=== PATIENT | female | born 1980 | race Two or more races ===

== ENCOUNTER 2024-10-26 22:56 | Emergency (ER) | payer SELFPAY ==
[~2024-10-26] VITALS: Ht 152.4 cm; Wt 94.6 kg
[2024-10-26 23:12] VITALS: BP 112/64; PULSE 127; RESP 18; O2SAT 94
[2024-10-26] MEDS ORDERED: ONDANSETRON ODT 4 MG TAB PO ONE (23:15)
[2024-10-26] MEDS ORDERED: DICYCLOMINE HCL (10MG/ML) 2 ML AMPULE IM ONE (23:30)
--- NOTE | 2024-10-26 23:30 | ED.PDOC ---
History of Present Illness HPI Comments 44-year-old female came to ER due to flu-like symptoms. States she has been sick for the past 3 days, with flu-like symptoms, including fever, chills, weakness, myalgia, headaches, dizziness, cough, congestion, shortness of breath, chest discomfort, nausea, vomiting, loss of appetite. Vital signs were stable at arrival. Chief Complaint: Flu like Time Seen by MD: 23:30 Reviewed Notes: Nurses Notes Allergies: Coded Allergies: NO KNOWN ALLERGIES (Unverified , 10/26/24) Information Source: Patient Mode of Arrival: EMS Severity: Moderate Timing: Hours Duration: Since onset Prehospital treatment: None Past Medical History PAST MEDICAL HISTORY: Denies Surgical History: Denies all surgeries SUSTAINABILITY ENGINEER History: Denies all SUSTAINABILITY ENGINEER Hx Family History Family History: Reviewed,noncontributory to illness Social History Smoker: Non-Smoker Alcohol: Denies ETOH Use Drugs: Denies Drug Use Lives In: Home Constitutional: reports: chills, fatigue, fever, malaise, weakness; denies: diaphoresis, sweats, others EENTM: reports: nose congestion; denies: blurred vision, double vision, ear bleeding, ear discharge, ear drainage, ear pain, ear ringing, eye pain, eye redness, hearing loss, mouth pain, mouth swelling, nasal discharge, nose bleeding, nose pain, photophobia, tearing, throat pain, throat swelling, voice changes, others Respiratory: reports: cough, SOB at rest; denies: hemoptysis, orthopnea, shortness of breath, SOB with excertion, stridor, wheezing, others Cardiovascular: reports: chest pain; denies: dizzy spells, diaphoresis, Dyspnea on exertion, edema, irregular heart beat, left arm pain, lightheadedness, palpitations, PND, syncope, others Gastrointestinal: reports: abdominal pain, nausea, poor appetite, vomiting; denies: abdomen distended, blood streaked bowels, constipated, diarrhea, dysphagia, difficulty swallowing, hematemesis, melena, poor fluid intake, rectal bleeding, rectal pain, others Genitourinary: denies: abnormal vagina bleeding, burning, dyspareunia, dysuria, flank pain, frequency, hematuria, incontinence, pain, , vagina discharge, urgency, others Neurological: denies: dizziness, fainting, headache, left sided numbness, left sided weakness, numbness, paresthesia, pre-existing deficit, right sided numbness, right sided weakness, seizure, speech problems, tingling, tremors, weakness, others Musculoskeletal: denies: back pain, gout, joint pain, joint swelling, muscle pain, muscle stiffness, neck pain, others Integumetry: denies: bruises, change in color, change in hair/nails, dryness, laceration, lesions, lumps, rash, wounds, others Allergic/Immunocompromised: denies: Difficulty Healing, Frequent Infections, Hives, Itching, others Hematologic/Lymphatic: denies: anemia, blood clots, easy bleeding, easy bruising, swollen glands, others Endocrine: denies: excessive hunger, excessive sweating, excessive thirst, excessive urination, flushing, intolerance to cold, intolerance to heat, unexplained weight gain, unexplained weight loss, others Psychiatric: denies: anxiety, bipolar disorder, depression, hopeless, panic disorder, schizophrenia, sleepless, suicidal, others Physical Exam General Appearance: Moderate Distress (Patient presents as a moderately ill 44-year-old female.), Obese HEENT: Normal ENT Inspection, Pharynx Normal, TMs Normal Neck: Full Range of Motion, Non-Tender, Normal, Normal Inspection Respiratory: Chest Non-Tender, Lungs Clear, No Accessory Muscle Use, No Respiratory Distress, Normal Breath Sounds Cardiovascular: No Edema, No JVD, No Murmur, No Gallop, Normal Peripheral Pulses, Regular Rate/Rhythm Breast Exam: Deferred Gastrointestinal: No Pulsatile Mass, Normal Bowel Sounds, Soft, Tenderness (Diffuse abdominal tenderness to palpation throughout the periumbilical region. No signs of trauma. Difficult to assess due to body habitus.) Genitalia: Deferred Pelvic: Deferred Rectal: Deferred Extremities: No calf tenderness, Normal capillary refill, Normal inspection, Normal range of motion, Non-tender, No pedal edema Musculoskeletal : Apperance: Normal Neurologic: Alert, No Motor Deficits, Normal Affect, Normal Mood, No Sensory Deficits Cerebellar Function: Normal Reflexes: Normal Skin: Dry, Normal Color, Warm Lymphatic: No Adenopathy Was a procedure done? Was a procedure done?: No Differential Dx Considerations may include: Anemia, electrolyte imbalance, influenza, viral syndrome, gastritis, pneumonia X-Ray, Labs, Meds, VS Vital Signs Date Time Temp Pulse Resp B/P (MAP) Pulse Ox O2 Delivery O2 Flow Rate FiO2 10/26/24 23:12 98.7 127 18 112/64 (80) 94 X-Ray, Labs, Meds, VS Comment Nursing and laboratory cane immediate to informed me that the patient had eloped from the facility. Time of 1ST Reevaluation: 01:42 Reevaluation 1ST: Unchanged Consultation: PCP Patient Education/Counseling: Diagnosis, Treatment Family Education/Counseling: Diagnosis, Treatment, No Family Present Departure 1 Departure Time of Disposition: 01:43 Impression: Primary Impression: Viral illness Disposition: 07 LEFT AWOL/ELOPED Condition: Fair Discharged With: Self Critical Care Note Critical Care Time?: No Stability Stability form required: No Heart Score Heart Score: Heart Score Response (Comments) Value History N/A 0 EKG N/A 0 Age N/A 0 Risk Factors N/A 0 Troponin N/A 0 Total 0 I personally scribed for ALFREDO DASH PAC ([email or web address]) on 10/26/24 at 23:30. Electronically submitted by Sekou Abraham ([email or web address]). ALFREDO DASH PAC Oct 26, 2024 23:30
== END 2024-10-27 01:25 | disposition left against medical advice (07) ==
LOC: ER 22:56
DX: B34.9 Viral infection, unspecified (principal)

== ENCOUNTER 2025-01-18 21:11 | Inpatient (IN) | payer MEDICAID ==
[~2025-01-18] VITALS: Ht 152.4 cm; Wt 90.7 kg
[~2025-01-18 21:11] MED LIST: AMOX875T4 PO; BENA-36 PO; PANT40T PO; SUCR1TAB31 OR
[2025-01-18 22:06] LABS: Hematocrit 30.7 % (36.0-46.0); Hemoglobin 9.9 g/dL (12.2-16.2); Mean Corpuscular Hemoglobin 34.6 pg (28.0-32.0); Mean Corpuscular Hgb Conc. 32.3 g/dL (32.0-36.0); Mean Corpuscular Volume 107.1 fL (80.0-100.0); Platelet Count (auto) 317 10^3/uL (140-450); Red Blood Cells 2.87 10^6/uL (4.0-5.20)
[2025-01-18 22:21] LABS: Red Cell Distribution Width 22.3 % (11.8-14.3)
[2025-01-18 22:22] LABS: Basophils % (manual) 0 (0.0-2.0); Blast Cells 0; Promyelocytes % 0; Reactive Lymphocytes 0; White Blood Cell 68.5 10^3/uL (4.4-10.8)
--- NOTE | 2025-01-18 22:29 | DVH ---
CHEST RADIOGRAPH Indication: Shortness of breath Technique: Single frontal view of the chest was obtained Comparison: XY CHEST XRAY 1 VIEW on DOS: 12/25/24 FINDINGS: Lines and Tubes: None Lungs: No focal consolidation. Pleura: No effusion. No pneumothorax. Cardiomediastinal contours: Unremarkable Bones: No acute osseous abnormality. IMPRESSION: 1. No acute cardiopulmonary disease.
[2025-01-18] MEDS ORDERED: VANCOMYCIN PER PHARMACY 0 MG IV SCH (22:30)
[2025-01-18 22:37] LABS: Chloride 107 mmol/L (98-107); Potassium 3.8 mmol/L (3.5-5.1)
[2025-01-18 22:40] VITALS: PULSE 90; RESP 16; O2SAT 98
[2025-01-18 22:48] LABS: BUN/Creatinine Ratio 21.1 (10.0-20.0)
--- NOTE | 2025-01-18 22:48 | ED.PDOC ---
History of Present Illness HPI Comments This patient is a 44-year-old morbidly obese female who arrives the ED today for evaluation of generalized weakness concerns for the past few days. Patient is extremely jaundiced and icteric due to her liver cirrhosis. Patient has not followed up with a softball player or followed up with the primary care for m anagement of this condition. Patient denies any fever nausea or vomiting. Vital signs were remarkable for mild hypotension on arrival. Chief Complaint: General Weakness Time Seen by MD: 21:27 Primary Care Provider: NONE Reviewed Notes: Nurses Notes Allergies: Coded Allergies: NO KNOWN ALLERGIES (Unverified , 10/26/24) Home Meds Active Scripts Amoxicillin & Pot Clavulanate (Amoxicillin/Potassium Cla) 875 Mg Tab, 1 TAB PO BID for 10 Days, #20 [facility] 12/28/24 Sucralfate (CARAFATE) 1 Gm Tab, 1 GM OR TID for 21 Days, #63 TAB [facility] 12/28/24 Pantoprazole Sodium Sesquihydr (Pantoprazole Sodium) 40 Mg Tab, 40 MG PO DAILY for 30 Days, #30 TAB [facility] 12/28/24 Reported Medications Benazepril Hcl (Benazepril Hcl) 20 Mg Tab, 1 TAB PO DAILY 12/26/24 Information Source: Patient Mode of Arrival: Wheelchair Severity: Moderate Timing: Days Duration: Since onset Prehospital treatment: None Past Medical History PAST MEDICAL HISTORY: Liver, Denies Past Medical History (Other): Cirrhosis Surgical History: Cholecystectomy ELECTRICAL INSTRUMENTATION TECHNICIAN History: Denies all ELECTRICAL INSTRUMENTATION TECHNICIAN Hx Family History Family History: Reviewed,noncontributory to illness Social History Smoker: Non-Smoker Alcohol: Denies ETOH Use Drugs: Denies Drug Use Lives In: Home Constitutional: reports: fatigue, weakness; denies: chills, diaphoresis, fever, malaise, sweats, others EENTM: denies: blurred vision, double vision, ear bleeding, ear discharge, ear drainage, ear pain, ear ringing, eye pain, eye redness, hearing loss, mouth pain, mouth swelling, nasal discharge, nose bleeding, nose congestion, nose pain, photophobia, tearing, throat pain, throat swelling, voice changes, others Respiratory: denies: cough, hemoptysis, orthopnea, SOB at rest, shortness of breath, SOB with excertion, stridor, wheezing, others Cardiovascular: denies: chest pain, dizzy spells, diaphoresis, Dyspnea on exertion, edema, irregular heart beat, left arm pain, lightheadedness, palpitations, PND, syncope, others Gastrointestinal: denies: abdomen distended, abdominal pain, blood streaked bowels, constipated, diarrhea, dysphagia, difficulty swallowing, hematemesis, melena, nausea, poor appetite, poor fluid intake, rectal bleeding, rectal pain, vomiting, others Genitourinary: denies: abnormal vagina bleeding, burning, dyspareunia, dysuria, flank pain, frequency, hematuria, incontinence, pain, , vagina discharge, urgency, others Neurological: reports: dizziness; denies: fainting, headache, left sided numbness, left sided weakness, numbness, paresthesia, pre-existing deficit, right sided numbness, right sided weakness, seizure, speech problems, tingling, tremors, weakness, others Musculoskeletal: denies: back pain, gout, joint pain, joint swelling, muscle pain, muscle stiffness, neck pain, others Integumetry: denies: bruises, change in color, change in hair/nails, dryness, laceration, lesions, lumps, rash, wounds, others Allergic/Immunocompromised: denies: Difficulty Healing, Frequent Infections, Hives, Itching, others Hematologic/Lymphatic: denies: anemia, blood clots, easy bleeding, easy bruising, swollen glands, others Endocrine: denies: excessive hunger, excessive sweating, excessive thirst, excessive urination, flushing, intolerance to cold, intolerance to heat, unexplained weight gain, unexplained weight loss, others Psychiatric: denies: anxiety, bipolar disorder, depression, hopeless, panic disorder, schizophrenia, sleepless, suicidal, others Physical Exam General Appearance: Moderate Distress ( patient appears to be in moderate distress due to weakness concerns.), Obese HEENT: Pharynx Normal, Scleral Icterus (L), Scleral Icterus (R), TMs Normal Neck: Full Range of Motion, Non-Tender, Normal, Normal Inspection Respiratory: Chest Non-Tender, Lungs Clear, No Accessory Muscle Use, No Respiratory Distress, Normal Breath Sounds Cardiovascular: No Edema, No JVD, No Murmur, No Gallop, Normal Peripheral Pulses, Regular Rate/Rhythm Breast Exam: Deferred Gastrointestinal: No Pulsatile Mass, Normal Bowel Sounds, Soft, Other ( Difficult to assess due to body habitus. No definitive pain on palpation in any other region than the right upper quadrant.) Genitalia: Deferred Pelvic: Deferred Rectal: Deferred Extremities: NOT DONE Neurologic: Alert, No Motor Deficits, Normal Affect, Normal Mood, No Sensory Deficits Cerebellar Function: NOT DONE Reflexes: NOT DONE Skin: Dry, Normal Color, Warm Lymphatic: No Adenopathy Was a procedure done? Was a procedure done?: No Differential Dx Considerations may include: Sepsis, electrolyte abnormality, liver cirrhosis, generalized weakness, renal injury X-Ray, Labs, Meds, VS Vital Signs Date Time Temp Pulse Resp B/P (MAP) Pulse Ox O2 Delivery O2 Flow Rate FiO2 01/18/25 22:46 87 01/18/25 21:38 97.6 91 16 99/61 (74) 100 97.6 Lab Test 01/18/25 21:44 Range/Units White Blood Count 68.5 *H 4.4-10.8 10^3/uL Red Blood Count 2.87 L 4.0-5.20 10^6/uL Hemoglobin 9.9 L 12.2-16.2 g/dL Hematocrit 30.7 L 36.0-46.0 % Mean Corpuscular Volume 107.1 H 80.0-100.0 fL Mean Corpuscular Hemoglobin 34.6 H 28.0-32.0 pg Mean Corpuscular Hemoglobin Concent 32.3 32.0-36.0 g/dL Red Cell Distribution Width 22.3 H 11.8-14.3 % Platelet Count 317 140-450 10^3/uL Mean Platelet Volume 11.0 H 6.9-10.8 fL Neutrophils (%) (Auto) 37.0-80.0 % Lymphocytes (%) (Auto) 10.0-50.0 % Monocytes (%) (Auto) 0.0-12.0 % Basophils (%) (Auto) 0.0-2.0 % Neutrophils # (Auto) 1.6-8.6 10 ^3/uL Lymphocytes # (Auto) 0.4-5.4 10 ^3/uL Monocytes # (Auto) 0-1.3 10 ^3/uL Differential Total Cells Counted Pending Neutrophils % (Manual) Pending Band Neutrophils % (Manual) Pending Lymphocytes % (Manual) Pending Monocytes % (Manual) Pending Eosinophils % (Manual) Pending Basophils % (Manual) Pending Metamyelocytes % (manual) Pending Myelocytes % (Manual) Pending Promyelocytes % (Manual) Pending Blast Cells % (Manual) Pending Reactive Lymphocytes Pending Platelet Estimate Pending Sodium Level Pending Potassium Level Pending Chloride Level Pending Carbon Dioxide Level Pending Anion Gap Pending Blood Urea Nitrogen Pending Creatinine Pending Glomerular Filtration Rate Calc Pending BUN/Creatinine Ratio Pending Serum Glucose Pending Lactic Acid Level 1.3 0.4-2.0 mmol/L Calcium Level Pending Total Bilirubin Pending Aspartate Amino Transferase (AST) Pending Alanine Aminotransferase (ALT) Pending Alkaline Phosphatase Pending Troponin I High Sensitivity 10 </=34 ng/L B-Type Natriuretic Peptide Pending Total Protein Pending Albumin Pending Lipase Pending X-Ray, Labs, Meds, VS Comment Several studies were pending at time of this note. EKG revealed a sinus rhythm with a rate of 87. Low voltage precordial leads as well as a prolonged QT interval was noted. [place] interval of 176 and QT interval 471. Chest x-ray was unremarkable for any acute process. No consolidation or intrapulmonary concerns noted. Serum evaluation was remarkable for a significant leukocytosis as well as anemia concerns. Sepsis protocol was initiated to address the patient's critical leukocytosis concerns. Fluid was started at a lower rate as BNP was pending at time of this note. Fluids will be adjusted once laboratories are returned. Patient will be admitted for septic management. Time of 1ST Reevaluation: 22:45 Reevaluation 1ST: Improved Consultation: PCP, Other ( Hepatology) Patient Education/Counseling: Diagnosis, Treatment Family Education/Counseling: Diagnosis, Treatment Sepsis Sepsis Reasesment Focused Exam Sepsis focused exam: focus exam completed ( patient was septic.), time: ( 2229) Departure 1 Departure Time of Disposition: 22:47 Impression: Primary Impression: Sepsis Additional Impressions: Liver cirrhosis Anemia Disposition: 09 ADMITTED INPATIENT Condition: Fair Discharged With: Self Critical Care Note Critical Care Time?: Yes (45 min-critical care time only) Critical care comment: Due to the high probability of a clinically significant and possibly life- threatening deterioration, this patient required my highest level of preparedness to intervene emergently and therefore, I personally provider 45 minutes of critical care time exclusive of time spent on separate billable procedures. This critical care time includes, but is not limited to, obtaining additional history, re-examination of the patient, evaluation of pulse oximetry, ordering and reviewing of studies as well as arranging an urgent treatment plan with the development of a long-term management plan. Evaluation of the patient's response to treatment as well as frequent reassessments and discussions with other providers. Stability Stability form required: No Heart Score Heart Score: Heart Score Response (Comments) Value History Slightly Suspicious 0 EKG Repolarization Disturb 1 Age <45 0 Risk Factors 1 or 2 risk factors 1 Troponin N/A 0 Total 2 ALFREDO DASH PAC Jan 18, 2025 22:48
[2025-01-18 22:50] LABS: Alanine Aminotransferase 19 U/L (7-40); Alkaline Phosphatase 389 U/L (46-116); Anion Gap 16 (5-15); Aspartate Aminotransferase 59 U/L (13-40); Bilirubin, Total 29.4 mg/dL (0.2-1.0); Blood Urea Nitrogen 69 mg/dL (9-23); Glucose 113 mg/dL (74-106); Sodium 136 mmol/L (136-145); Total Protein 6.4 g/dL (5.7-8.2)
[2025-01-18 22:51] LABS: Carbon Dioxide 13 mmol/L (20-31)
[2025-01-18 23:01] LABS: Band Neutrophils % (manual) 15; Lymphocytes % (manual) 4 (10.0-50.0); Monocytes % (manual) 5 (0-12)
[2025-01-18 23:02] LABS: Eosinophils % (manual) 5 (0-7); Metamyelocytes % 2; Myelocytes % 1
[2025-01-18 23:03] LABS: Anisocytosis Slight; Macrocytosis Moderate; Platelet Estimate Adequate
[2025-01-18 23:04] LABS: Large Platelets FEW
[2025-01-18 23:05] LABS: Target Cell FEW
[2025-01-18] MEDS: PIPERACILLIN-TAZOB 3.375GM 100 ML IV ONE (23:18)
[2025-01-18] MEDS: SODIUM CHLORIDE 0.9% 1,000 ML IV ONE (23:25)
[2025-01-18 23:26] LABS: Lipase 93 U/L (12-53)
[2025-01-19] VITALS (7 sets, daily range): BP systolic 85–90; BP diastolic 49–55; PULSE 75–89; RESP 16–20; TEMP 97.3–98.2; O2SAT 95–100
[2025-01-19] MEDS: VANCOMYCIN 1GM/200ML PM 250 ML IV SCH (00:57)
[2025-01-19] MEDS ORDERED: VANCOMYCIN PER PHARMACY 0 MG IV SCH (01:30)
[2025-01-19] MEDS ORDERED: PIPERACILLIN-TAZOB 2.25GM 50 ML IV ONE (01:30)
--- NOTE | 2025-01-19 01:36 | DVHHPRES ---
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 Also reports vomiting, fever, chest pain, constipation (black stool) and worsening of skin yellowish discoloration. She was discharged on 12/28/2024, from [facility], admitted due to liver failure. Since discharge the patient is not feeling well, which has progressively has worsened. She denies cough, shortness of breath, or any bladder habit changes. During previous admission she was seen by GI, recommended medical management. Has not undergone any paracentesis in the past. 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 Home medication: Benazepril, sucralfate and Protonix Allergic history: No known allergies Review of Systems Review of Systems General: Reports generalized weakness and fatigue and fever, generalized yellowish discoloration of skin and I HEENT: No headaches, visiual changes, hearing loss, tinnitus, nasal congestion and discharge, and sore throat. Cardiovascular: Denies chest pain, palpitations, dyspnea on exertion, orthopnea, or claudication. Respiratory: No cough, and wheezing. Gastrointestinal: Abdominal pain and distention, constipation, black stool Genitourinary: No dysuria, hematuria, discharge, frequency, urgency, nocturia, incontinence, and urinary retention. Endocrine: No heat or cold intolerance, polydipsia, polyuria, and polyphagia. Neurological: No dizziness, extremity weakness and numbness, tremors, gait disturbance, seizures, and memory impairment. Psychiatric: Denies depression, anxiety,or insomnia. Musculoskeletal: Denies neck pain, stiffness and swelling, back pain, muscle weakness, joint pain, stiffness, swelling, or limited range of motion. Skin: No rashes, itching, skin lesion, changes in hair, nail, skin texture and breast. Hematologic/Lymphatic: Denies easy bruising, bleeding tendencies, or lymph node enlargement. Allergies: Coded Allergies: NO KNOWN ALLERGIES (Unverified , 10/26/24) Medications Current Medications Medications Dose Ordered Sig/Chris Route Start Time Stop Time Status Last Admin Dose Admin Vancomycin HCl 0 ml @ 0 mls/hr UD IV 01/18/25 22:30 UNV Vancomycin HCl 250 ml @ 166.667 mls/hr Q2H IV 01/19/25 00:00 01/19/25 03:29 01/19/25 00:57 166.667 MLS/HR Acetaminophen/ Hydrocodone Bitart 1 tab Q4HP PRN PO 01/19/25 01:30 Pantoprazole Sodium 40 mg DAILY IV 01/19/25 10:00 Ondansetron HCl 4 mg Q4HPRN PRN IV 01/19/25 05:30 Piperacillin Sod/ Tazobactam Sod 100 ml @ 25 mls/hr Q12HR IV 01/19/25 10:00 Lactulose 30 ml BID PO 01/19/25 10:00 Exam Vital Signs Vital Signs Date Time Temp Pulse Resp B/P (MAP) Pulse Ox O2 Delivery O2 Flow Rate FiO2 01/18/25 22:46 87 01/18/25 22:40 97.9 16 96/49 (65) 98 97.9 01/18/25 22:40 Room Air* 0 21 Exam General Appearance: Alert, Oriented X3, Cooperative, generalized yellowish discoloration of HEENT: Atraumatic, PERRLA, EOMI, Mucous membrane moist/pink, yellowish discoloration of sclera noted Respiratory: Clear to auscultation, Normal air movement Cardiovascular: Regular rate, Normal S1, Normal S2, No murmurs, no chest wall tenderness Abdominal: Distended abdomen Extremities: No clubbing, No cyanosis, No edema, Normal pulses, No tenderness/swelling Skin: No rashes, No breakdown, No significant lesion Neuro: Normal gait, Normal speech, Strength at 5/5 X4 ext, Normal tone, Sensation intact, Cranial nerves 3-12 NL, Reflexes 2+ Psych/Mental Status: Mental status NL, Mood NL Labs/Xrays Labs Test 01/18/25 21:44 Range/Units White Blood Count 68.5 *H 4.4-10.8 10^3/uL Red Blood Count 2.87 L 4.0-5.20 10^6/uL Hemoglobin 9.9 L 12.2-16.2 g/dL Hematocrit 30.7 L 36.0-46.0 % Mean Corpuscular Volume 107.1 H 80.0-100.0 fL Mean Corpuscular Hemoglobin 34.6 H 28.0-32.0 pg Mean Corpuscular Hemoglobin Concent 32.3 32.0-36.0 g/dL Red Cell Distribution Width 22.3 H 11.8-14.3 % Platelet Count 317 140-450 10^3/uL Mean Platelet Volume 11.0 H 6.9-10.8 fL Neutrophils (%) (Auto) 37.0-80.0 % Lymphocytes (%) (Auto) 10.0-50.0 % Monocytes (%) (Auto) 0.0-12.0 % Basophils (%) (Auto) 0.0-2.0 % Neutrophils # (Auto) 1.6-8.6 10 ^3/uL Lymphocytes # (Auto) 0.4-5.4 10 ^3/uL Monocytes # (Auto) 0-1.3 10 ^3/uL Differential Total Cells Counted 100.0 100 Neutrophils % (Manual) 68 37.0-80.0 Band Neutrophils % (Manual) 15 Lymphocytes % (Manual) 4 L 10.0-50.0 Monocytes % (Manual) 5 0-12 Eosinophils % (Manual) 5 0-7 Basophils % (Manual) 0 0.0-2.0 Metamyelocytes % (manual) 2 Myelocytes % (Manual) 1 Promyelocytes % (Manual) 0 Blast Cells % (Manual) 0 Reactive Lymphocytes 0 Platelet Estimate Adequate Clumped Platelets Few Large Platelets Few Poikilocytosis (manual) Slight Anisocytosis (manual) Slight Macrocytosis Moderate Target Cells Few Sodium Level 136 136-145 mmol/L Potassium Level 3.8 3.5-5.1 mmol/L Chloride Level 107 98-107 mmol/L Carbon Dioxide Level 13 L 20-31 mmol/L Anion Gap 16 H 5-15 Blood Urea Nitrogen 69 H 9-23 mg/dL Creatinine 3.27 H 0.550-1.02 mg/dL Glomerular Filtration Rate Calc 17 >90 mL/min BUN/Creatinine Ratio 21.1 H 10.0-20.0 Serum Glucose 113 H 74-106 mg/dL Lactic Acid Level 1.3 0.4-2.0 mmol/L Calcium Level 9.0 8.7-10.4 mg/dL Total Bilirubin 29.4 H 0.2-1.0 mg/dL Aspartate Amino Transferase (AST) 59 H 13-40 U/L Alanine Aminotransferase (ALT) 19 7-40 U/L Alkaline Phosphatase 389 H 46-116 U/L Troponin I High Sensitivity 10 </=34 ng/L B-Type Natriuretic Peptide 469.52 0-100 pg/mL Total Protein 6.4 5.7-8.2 g/dL Albumin 3.0 L 3.2-4.8 g/dL Lipase 93 H 12-53 U/L Assessment/Plan Assessment/Plan Alcoholic hepatitis Hepatic steatosis Transaminitis Hepatomegaly Moderate malnutrition Acquired coagulopathy, likely due to liver failure leukemoid reaction Possible upper GI bleeding Ultrasound shows enlarged liver measuring 24.5 cm demonstrates diffusely heterogeneous echogenicity CT scan showed heterogeneous enlarged liver, with peripheral areas in the liver are very low in density Maddreys score 61.7, and MELD score 37 point (with 65-66% estimated 90 day mortality) Bilirubin is raised at 30, up trending Blood culture Lactulose Empiric antibiotic Zosyn and vancomycin Occult blood test Moderate anemia, macrocytic hyperchromic History of hypertension ZOILA and CKD 4, to hepatorenal Albumin DIET: Renal diet DVT PROPHYLAXIS: Due to black stool and possible GI bleed, no anticoagulant is indicated GI PROPHYLAXIS:: Protonix BOWEL REGIMEN: Lactulose CODE STATUS: Goal of care discussed for more than 18 minutes, full code DISPOSITION: Telemetry Patient's status and plan discussed with the patient Case discussed with Dr. Andrews Plan discussed with: Patient, Other (RN) My Orders Orders - RICHARD ROD RESDIMAHNAZ Procedure Category Date Status Time Admit ADMIT 01/19/25 Transmitted 01:18 Code Status CODE 01/19/25 Transmitted 01:18 Vital Signs [facility] 01/19/25 In Process 01:18 Review Orders With CAROL 01/19/25 In Process Adm. 01:18 Consistent DIET 01/19/25 Transmitted Carb(Ccho)Diabetes Breakfast Notify Of Changes [facility] 01/19/25 In Process From Base 01:18 Advance Directive [facility] 01/19/25 In Process 01:18 Patient Condition ORDERS 01/19/25 Transmitted 01:18 Allergies [facility] 01/19/25 In Process 01:18 Hydrocodone-Acet PHA 01/19/25 In Process 5/325mg Tab ([place] 01:30 Drug Screen LAB 01/19/25 Logged 01:18 Oxygen By Nasal RT 01/19/25 Transmitted Cannula 01:18 Stat Ekg For Chest [facility] 01/19/25 In Process Pain 01:18 Notify Md Of Changes [facility] 01/19/25 In Process From Base 01:18 Learning Design Specialist For [facility] 01/19/25 In Process 24 Hours 01:18 Emergency Dysrhythmia [facility] 01/19/25 In Process Protocol 01:18 Rhythm Strips Once [facility] 01/19/25 In Process Every Shift 01:18 Complete Blood Count LAB 01/19/25 Logged 01:18 Comprehensive LAB 01/19/25 Logged Metabolic Panel 01:18 Prothrombin Time W/ LAB 01/19/25 Logged INR 01:18 Ammonia LAB 01/19/25 Logged 01:18 LIVER US 01/19/25 Logged 01:18 Blood Alcohol LAB 01/19/25 Logged 01:18 Pantoprazole PHA 01/19/25 In Process (Protonix) 10:00 Ondansetron Hcl PHA 01/19/25 In Process (Zofran) 05:30 Piperacillin-Tazob PHA 01/19/25 In Process 3.375gm (Zosyn 3.375g 10:00 Urine Sodium LAB 01/19/25 Logged 01:18 Urine Creatinine LAB 01/19/25 Logged 01:18 Vitamin D, 25-Hydroxy LAB 01/19/25 Logged 01:25 Vitamin B12 LAB 01/19/25 Logged 01:25 Iron Panel LAB 01/19/25 Logged 01:25 Ferritin LAB 01/19/25 Logged 01:25 Stool Occult Blood LAB 01/19/25 Logged 01:25 Lactulose Oral PHA 01/19/25 In Process 10:00 Date of Service: Jan 19, 2025 Billing Provider: JULIO CESAR ANDREWS MD Common Visit Codes: [id number] INP/OBS CARE (HIGH) RICHARD ROD RESDIENT Jan 19, 2025 01:36 JULIO CESAR ANDREWS MD Jan 19, 2025 12:50
[2025-01-19] MEDS: ONDANSETRON HCL 4 MG/2 ML VIAL IV ONE (01:51)
[2025-01-19] MEDS: PANTOPRAZOLE 40 MG/10 ML VIAL INJ IV ONE (01:55)
[2025-01-19] MEDS: LACTULOSE 20Gm/30ML SOLN PO ONE (01:55)
[2025-01-19 02:00] LABS: Hematocrit 30.1 % (36.0-46.0); Hemoglobin 9.7 g/dL (12.2-16.2); Mean Corpuscular Hemoglobin 34.5 pg (28.0-32.0); Mean Corpuscular Hgb Conc. 32.2 g/dL (32.0-36.0); Mean Corpuscular Volume 107.3 fL (80.0-100.0); Platelet Count (auto) 330 10^3/uL (140-450); Red Cell Distribution Width 22.4 % (11.8-14.3)
[2025-01-19 02:03] LABS: White Blood Cell 76.7 10^3/uL (4.4-10.8)
[2025-01-19 02:05] LABS: Basophils % (manual) 0 (0.0-2.0); Blast Cells 0; Metamyelocytes % 0; Myelocytes % 0; Promyelocytes % 0; Reactive Lymphocytes 0
[2025-01-19 02:10] LABS: INR 1.68 (0.9-1.15); Prothrombin Time 16.9 sec (9.3-11.8)
--- NOTE | 2025-01-19 02:10 | DVH ---
INDICATION: Ascitis TECHNIQUE: Multiple real-time sonographic images of the abdomen were obtained. COMPARISON: US LIVER on DOS: 12/25/24 FINDINGS: No fluid collection identified. Liver is enlarged measuring 24.5 cm demonstrates diffusely heterogene ous echogenicity. IMPRESSION: No ascites.
[2025-01-19 02:14] LABS: Calcium 8.8 mg/dL (8.7-10.4); Chloride 106 mmol/L (98-107); Potassium 3.6 mmol/L (3.5-5.1)
[2025-01-19 02:16] LABS: Anion Gap 15 (5-15); BUN/Creatinine Ratio 19.9 (10.0-20.0)
[2025-01-19 02:17] LABS: Alanine Aminotransferase 19 U/L (7-40); Alkaline Phosphatase 389 U/L (46-116); Aspartate Aminotransferase 59 U/L (13-40); Blood Urea Nitrogen 70 mg/dL (9-23); Carbon Dioxide 14 mmol/L (20-31); Ferritin 225.8 ng/mL (10-291); Glucose 139 mg/dL (74-106); Sodium 135 mmol/L (136-145); Total Protein 6.5 g/dL (5.7-8.2)
[2025-01-19 02:18] LABS: Blood Alcohol < 3.0 mg/dL (<10)
[2025-01-19 02:20] LABS: % Iron Saturation 55.7 % (15-50)
[2025-01-19] MEDS: ONDANSETRON HCL 4 MG/2 ML VIAL IV PRN (02:51)
[2025-01-19] MEDS: SUCRALFATE 1 GM/10 ML ORAL SUSP GT ONE (03:39)
[2025-01-19] MEDS: ALBUMIN 25% 100 ML IV ONE ×2 (03:39→12:32)
[2025-01-19] MEDS: PANTOPRAZOLE 40 MG/10 ML VIAL INJ IV SCH (03:41)
[2025-01-19 04:05] LABS: Band Neutrophils % (manual) 8; Eosinophils % (manual) 3 (0-7); Lymphocytes % (manual) 3 (10.0-50.0); Monocytes % (manual) 5 (0-12)
[2025-01-19 04:06] LABS: Anisocytosis Slight; Macrocytosis Slight
[2025-01-19 04:07] LABS: Large Platelets FEW
[2025-01-19 04:08] LABS: Platelet Estimate Adequa
[2025-01-19] MEDS: SUCRALFATE 1 GM/10 ML ORAL SUSP PO SCH (06:01)
[2025-01-19] MEDS ORDERED: PANTOPRAZOLE 40 MG/10 ML VIAL INJ IV SCH (10:00)
[2025-01-19] MEDS: PIPERACILLIN-TAZOB 3.375GM 100 ML IV SCH (10:02)
[2025-01-19] MEDS: LACTULOSE 20Gm/30ML SOLN PO SCH (10:02)
--- NOTE | 2025-01-19 11:56 | DVHINCON2 ---
GI Consult Consult Note GI consult note Date of Consultation: 01/19/2025 Chief Complaint: Acute hepatitis-B positive Referring Physician: Dr. Becerril H&P: 44-year-old female presented to ER for generalized weakness Patient has also noticed being extremely jaundice and icteric. Patient has history of liver cirrhosis. Patient admits to drinking alcohol, which she has stopped since November of this year No nausea or vomiting. No hematemesis. Patient has noticed occasionally dark colored stool. No red blood in stool Patient does feels slightly bloated abdominal Patient denies IV drug use. Patient does have multiple tattoos Past Medical History: HTN, liver cirrhosis Past Surgical History: Cholecystectomy Social History: Heavy alcohol abuser, stopped drinking 2 months back, lives with the family at home, ex-smoker with 2.5 pack year history, denies current drug use. Family History: Noncontributory Review of Systems: Constitutional: no fever, chill, weight loss HEENT: + scleral icterus Heart: no chest pain, no chest pressure Lung: no cough, no dyspnea with exertion Abdomen: see HPI Derm:+ jaundice Physical exam: General: NAD, AAOX3 HEENT:+ scleral icterus Chest: lung salcedo clear to auscultation Heart: RRR, no murmur Abdomen: Mild-distended, mild right upper quadrant tenderness to palpation, +BS, no hepatosplenomegaly Extremities: no edema, no cyanosis Skin: + jaundice Labs: Labs Test 01/19/25 01:45 01/18/25 21:44 Range/Units White Blood Count 76.7 *H 4.4-10.8 10^3/uL Red Blood Count 2.80 L 4.0-5.20 10^6/uL Hemoglobin 9.7 L 12.2-16.2 g/dL Hematocrit 30.1 L 36.0-46.0 % Mean Corpuscular Volume 107.3 H 80.0-100.0 fL Mean Corpuscular Hemoglobin 34.5 H 28.0-32.0 pg Mean Corpuscular Hemoglobin Concent 32.2 32.0-36.0 g/dL Red Cell Distribution Width 22.4 H 11.8-14.3 % Platelet Count 330 140-450 10^3/uL Mean Platelet Volume 10.8 6.9-10.8 fL Neutrophils (%) (Auto) 37.0-80.0 % Lymphocytes (%) (Auto) 10.0-50.0 % Monocytes (%) (Auto) 0.0-12.0 % Basophils (%) (Auto) 0.0-2.0 % Neutrophils # (Auto) 1.6-8.6 10 ^3/uL Lymphocytes # (Auto) 0.4-5.4 10 ^3/uL Monocytes # (Auto) 0-1.3 10 ^3/uL Differential Total Cells Counted 100.0 100 Neutrophils % (Manual) 81 H 37.0-80.0 Band Neutrophils % (Manual) 8 Lymphocytes % (Manual) 3 L 10.0-50.0 Monocytes % (Manual) 5 0-12 Eosinophils % (Manual) 3 0-7 Basophils % (Manual) 0 0.0-2.0 Metamyelocytes % (manual) 0 Myelocytes % (Manual) 0 Promyelocytes % (Manual) 0 Blast Cells % (Manual) 0 Reactive Lymphocytes 0 Platelet Estimate [place] Clumped Platelets Few Large Platelets Few Anisocytosis (manual) Slight Macrocytosis Slight Prothrombin Time 16.9 H 9.3-11.8 sec Prothrombin Time INR 1.68 H 0.9-1.15 Sodium Level 135 L 136-145 mmol/L Potassium Level 3.6 3.5-5.1 mmol/L Chloride Level 106 98-107 mmol/L Carbon Dioxide Level 14 L 20-31 mmol/L Anion Gap 15 5-15 Blood Urea Nitrogen 70 H 9-23 mg/dL Creatinine 3.51 H 0.550-1.02 mg/dL Glomerular Filtration Rate Calc 16 >90 mL/min BUN/Creatinine Ratio 19.9 10.0-20.0 Serum Glucose 139 H 74-106 mg/dL Calcium Level 8.8 8.7-10.4 mg/dL Iron Level 108 50-170 ug/dL Total Iron Binding Capacity 194 L 250-425 ug/dL Percent Iron Saturation 55.7 H 15-50 % Ferritin 225.8 10-291 ng/mL Total Bilirubin 30.0 H 0.2-1.0 mg/dL Aspartate Amino Transferase (AST) 59 H 13-40 U/L Alanine Aminotransferase (ALT) 19 7-40 U/L Alkaline Phosphatase 389 H 46-116 U/L Ammonia 29 11-32 umol/L Total Protein 6.5 5.7-8.2 g/dL Albumin 3.0 L 3.2-4.8 g/dL Vitamin B12 Level 1934 H 211-911 pg/mL Vitamin D 25-Hydroxy 16.1 L 30.0-100 ng/mL Plasma/Serum Blood Alcohol < 3.0 <10 mg/dL Poikilocytosis (manual) Slight Target Cells Few Lactic Acid Level 1.3 0.4-2.0 mmol/L Troponin I High Sensitivity 10 </=34 ng/L B-Type Natriuretic Peptide 469.52 0-100 pg/mL Lipase 93 H 12-53 U/L Hepatitis panel 12/25/2024 Hepatitis A Ab total positive Hepatitis-Bs antigen positive Imaging: Abdominal ultrasound INDICATION: Ascitis TECHNIQUE: Multiple real-time sonographic images of the abdomen were obtained. COMPARISON: US LIVER on DOS: 12/25/24 FINDINGS: No fluid collection identified. Liver is enlarged measuring 24.5 cm demonstrates diffusely heterogeneous echogenicity. IMPRESSION: No ascites. CT abdomen pelvis 12/25/2024 IMPRESSION: 1. Enlarged very heterogeneous liver. Peripheral areas in the liver are very low in density Assessment: Liver cirrhosis Alcoholic hepatitis Hepatitis B antigen positive Leukocytosis Acquired coagulopathy, secondary to liver failure Hepatomegaly Plan: Discussed with Dr. Schultz ID consult pending Recommend Hematology Oncology consult for leukocytosis Monitor labs Continue Protonix and Carafate Discussed plan with patient and RN Thank you for this consult Date of Service: Jan 19, 2025 Billing Provider: SANJAY REDD Common Visit Codes: CONSULT ONLY Consultation Codes: [id number] CONSULT <60MIN SANJAY REDD Jan 19, 2025 11:56
[2025-01-19] MEDS: prednisoLONE 15 MG/5 ML ORAL UD PO ONE (12:00)
--- NOTE | 2025-01-19 12:33 | ECG ---
[facility] Test Date: 2025-01-18 Test Time: 22:38:12 Pat Name: APARNA MARTÍNEZ Department: ER Room: [address] [place] [address] Gender: F Rod Pointer: CHRISTINA : 1980 Requested By: ALFREDO DASH Order Number: [id number] Reading MD: Geovani Mallory Measurements Intervals [place] Rate: 87 P: 51 DC: 176 QRS: 16 QRSD: 93 T: 67 QT: 471 QTc: 567 Interpretive Statements Sinus rhythm Low voltage, precordial leads Prolonged QT interval Electronically Signed On 01-20-2025 17:44:39 PDT by Geovani Mallory Please click the below link to view image of tracing.
[2025-01-19] MEDS: MIDODRINE HCL 10 MG TAB PO SCH (12:38)
[2025-01-19] MEDS: ERGOCALCIFEROL 50,000 UNIT(1.25MG) CAP PO SCH (12:39)
--- NOTE | 2025-01-19 13:44 | DVHPNRES ---
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 Also reports vomiting, fever, chest pain, constipation (black stool) and worsening of skin yellowish discoloration. She was discharged on 12/28/2024, from [facility], admitted due to liver failure. Since discharge the patient is not feeling well, which has progressively has worsened. She denies cough, shortness of breath, or any bladder habit changes. During previous admission she was seen by GI, recommended medical management and has not undergone any paracentesis in the past. Patient was seen examined of the blood bedside. She is alert, oriented X3 . Complaint of shortness of breath, generalized weakness and itching all over the body. No other active complaint Constitutional: Weakness, chills, No: Fever, Sweats, Malaise, Other Eyes: No: Pain, Vision change, Conjunctivae inflammation, Eyelid inflammation, Other, Redness ENT: No: Ear pain, Ear discharge, Nose pain, Nose discharge, Nose congestion, Mouth pain, Mouth swelling, Throat pain, Throat swelling, Other Respiratory: Shortness of breath, improving No: Cough, Dry,Wheezing, Hemoptysis, Pleuritic Pain, Sputum, Wheezing, Other Cardiovascular: No: Chest Pain, Palpitations, Orthopnea, Paroxysmal Noc. Dyspnea, Edema, Lt Headedness, Other Gastrointestinal: Abdominal pain, nausea, No: Vomiting, Abdominal Pain, Diarrhea, Constipation, Melena, Hematochezia, Other Musculoskeletal: No: other, neck pain, shoulder pain, arm pain, back pain, hand pain, leg pain, foot pain Neurological:; No: Weakness, Numbness, Incoordination, Change in speech, Confusion, Seizures Objective vital signs Vital Sign Date Time Temp Pulse Resp B/P (MAP) Pulse Ox O2 Delivery O2 Flow Rate FiO2 01/19/25 12:00 83 16 98/50 (66) 97 01/19/25 07:30 Room Air* 0 21 01/19/25 07:30 97.8 97.8 Total Intake and Output 01/18/25 01/18/25 01/19/25 15:00 23:00 07:00 Intake Total 366.667 ml Balance 366.667 ml medications Current Medications Medications Dose Ordered Sig/Chris Route Start Time Stop Time Status Last Admin Dose Admin Acetaminophen/ Hydrocodone Bitart 1 tab Q4HP PRN PO 01/19/25 01:30 Ondansetron HCl 4 mg Q4HPRN PRN IV 01/19/25 05:30 01/19/25 02:51 4 MG Piperacillin Sod/ Tazobactam Sod 100 ml @ 25 mls/hr Q12HR IV 01/19/25 10:00 01/19/25 10:02 25 MLS/HR Lactulose 30 ml BID PO 01/19/25 10:00 01/19/25 10:02 30 ML Pantoprazole Sodium 40 mg BID IV 01/19/25 03:15 01/19/25 10:01 40 MG Sucralfate 1 gm BID@0600,2200 PO 01/19/25 06:00 01/19/25 06:01 1 GM Prednisone 40 mg DAILY PO 01/20/25 10:00 Ergocalciferol 50,000 unit Q7D PO 01/19/25 12:00 01/19/25 12:39 50,000 UNIT Midodrine 10 mg TID@0600,1200,1800 PO 01/19/25 12:00 01/19/25 12:38 10 MG Examination Physical examination: General Appearance: Alert, Oriented X3, Cooperative,mild distress HEENT: Atraumatic, PERRLA, EOMI, yellow discolouration of the mucosa and sclera. Respiratory: Clear to auscultation, Normal air movement Cardiovascular: Regular rate, Normal S1, Normal S2, No murmurs, no chest wall tenderness Abdominal: Normal bowel sounds, Soft, mild tenderness, hepatomegaly, no ascites. Extremities: Bilateral pedal edema+, No clubbing, No cyanosis, Normal pulses. Skin: No rashes, No breakdown, No significant lesion Neuro: Normal gait, Normal speech, Strength at 5/5 X4 ext, Normal tone, Sensation intact, grossly intact cranial nerves. Psych/Mental Status: Mental status NL, Mood NL laboratory and microbiology Laboratory Tests 01/19/25 01:45 Test 01/19/25 01:45 Range/Units Serum Glucose 139 H 74-106 mg/dL Labs and/or images reviewed: Labs reviewed by me, Image(s) reviewed by me Problem List/Assessment/Plan Problem List/Assessment/Plan Assessment/Plan: SIRS/ Sepsis Alcoholic hepatitis Hepatitis B positive Hepatic steatosis Transaminitis Hepatomegaly Moderate malnutrition Acquired coagulopathy, likely due to liver failure Leukemoid reaction Possible upper GI bleeding Ultrasound shows enlarged liver measuring 24.5 cm demonstrates diffusely heterogeneous echogenicity CT scan showed heterogeneous enlarged liver, with peripheral areas in the liver are very low in density Maddreys score 53.5, and MELD score 37 point (with52.6% estimated 90 day mortality) Bilirubin is raised at 30, up trending Prednisolone 40 mg p.o. daily IV protonix 40 mg bid Carafate 1 gm po bid Blood culture Lactulose Empiric antibiotic Zosyn Pending stool occult test. Moderate anemia, macrocytic hyperchromic History of hypertension ZOILA on CKD , likely due to to hepatorenal IV Albumin Midodrine 10 mg po tid Vitamin D defieciency Vitamin D 54325 units Q 7D. DIET: Renal diet DVT PROPHYLAXIS: Due to black stool and possible GI bleed, no anticoagulant is indicated GI PROPHYLAXIS:: Protonix BOWEL REGIMEN: Lactulose CODE STATUS: Goal of care discussed for more than 18 minutes, full code DISPOSITION: Telemetry Patient's status and plan discussed with the patient Case discussed with Dr. Andres Plan discussed with: Patient, Other My Orders My Orders Orders - TOMY VICTORIA Procedure Category Date Status Time Test, Urine LAB 01/19/25 Logged 10:56 Prednisolone PHA 01/20/25 In Process 10:00 Ergocalciferol PHA 01/19/25 In Process (Vitamin D 50,000 12:00 Midodrine Tablet PHA 01/19/25 In Process (Proamatine Tablet) 12:00 Echo 2d Mode Cardiac US 01/19/25 Logged DOP 12:03 Comprehensive LAB 01/19/25 In Process Hepatitis Panel 13:30 Date of Service: Jan 19, 2025 Billing Provider: NIC MORA MD Common Visit Codes: [id number] INP/OBS CARE(HIGH) TOMY VICTORIA Jan 19, 2025 13:44 NIC MORA MD Jan 22, 2025 01:02
[2025-01-19] MEDS: HYDROcodone-ACET 5/325MG TAB PO PRN (17:38)
[2025-01-19] MEDS ORDERED: SUCRALFATE 1 GM/10 ML ORAL SUSP GT SCH (22:00)
[2025-01-20] VITALS (9 sets, daily range): BP systolic 89–109; BP diastolic 45–65; PULSE 74–82; RESP 17–20; TEMP 97.2–97.8; O2SAT 97–99
[2025-01-20 06:07] LABS: Red Blood Cells 2.47 10^6/uL (4.0-5.20)
[2025-01-20 06:12] LABS: Hematocrit 26.4 % (36.0-46.0); Hemoglobin 8.7 g/dL (12.2-16.2); Mean Corpuscular Hemoglobin 35.4 pg (28.0-32.0); Mean Corpuscular Hgb Conc. 33.1 g/dL (32.0-36.0); Mean Corpuscular Volume 106.9 fL (80.0-100.0); Platelet Count (auto) 250 10^3/uL (140-450); Red Cell Distribution Width 21.9 % (11.8-14.3)
[2025-01-20 06:17] LABS: Basophils % (manual) 0 (0.0-2.0); Blast Cells 0; Eosinophils % (manual) 0 (0-7); Metamyelocytes % 0; Promyelocytes % 0; White Blood Cell 62.5 10^3/uL (4.4-10.8)
[2025-01-20 06:37] LABS: Anion Gap 17 (5-15); Calcium 8.8 mg/dL (8.7-10.4); Sodium 136 mmol/L (136-145)
[2025-01-20 06:44] LABS: BUN/Creatinine Ratio 18.4 (10.0-20.0)
[2025-01-20 06:46] LABS: Chloride 109 mmol/L (98-107)
[2025-01-20 06:48] LABS: Alanine Aminotransferase 15 U/L (7-40); Albumin 3.1 g/dL (3.2-4.8); Alkaline Phosphatase 297 U/L (46-116); Aspartate Aminotransferase 43 U/L (13-40); Blood Urea Nitrogen 73 mg/dL (9-23); Carbon Dioxide 10 mmol/L (20-31); Glucose 117 mg/dL (74-106)
[2025-01-20 07:22] LABS: Base Excess -13.8 mmol/L (-2.0-3.0)
[2025-01-20 07:39] LABS: Anisocytosis Slight; Band Neutrophils % (manual) 13; Lymphocytes % (manual) 4 (10.0-50.0); Monocytes % (manual) 2 (0-12); Myelocytes % 2; Platelet Estimate Adequate; Reactive Lymphocytes 1
[2025-01-20 07:40] LABS: Large Platelets FEW; Macrocytosis Moderate; Target Cell FEW
[2025-01-20] MEDS ORDERED: prednisoLONE 15 MG/5 ML ORAL UD PO ONE (10:04)
[2025-01-20] MEDS: prednisoLONE 15 MG/5 ML ORAL UD PO SCH (10:35)
--- NOTE | 2025-01-20 12:04 | DVHPNRES ---
Progress Note Date Seen: Jan 20, 2025 Resident Creating Document: TOMY VICTORIA RESIDENT Medical Necessity Reason Pt with a Central, PICC or Fol: No Subjective Review of Systems Patient was seen and examined on the bedside. She is alert oriented x3. Mentioned mild diffuse abdominal pain and able to tolerate oral diet. No other active complaint. Objective vital signs Vital Sign Date Time Temp Pulse Resp B/P (MAP) Pulse Ox O2 Delivery O2 Flow Rate FiO2 01/20/25 09:00 97.2 77 20 107/62 (77) 99 97.2 01/20/25 08:15 Room Air* 0 21 Total Intake and Output 01/19/25 01/19/25 01/20/25 15:00 23:00 07:00 Intake Total 100 ml 450 ml Balance 100 ml 450 ml medications Current Medications Medications Dose Ordered Sig/Chris Route Start Time Stop Time Status Last Admin Dose Admin Acetaminophen/ Hydrocodone Bitart 1 tab Q4HP PRN PO 01/19/25 01:30 01/19/25 17:38 1 TAB Ondansetron HCl 4 mg Q4HPRN PRN IV 01/19/25 05:30 01/19/25 02:51 4 MG Piperacillin Sod/ Tazobactam Sod 100 ml @ 25 mls/hr Q12HR IV 01/19/25 10:00 01/20/25 10:06 25 MLS/HR Lactulose 30 ml BID PO 01/19/25 10:00 01/20/25 10:05 30 ML Pantoprazole Sodium 40 mg BID IV 01/19/25 03:15 01/20/25 10:05 40 MG Sucralfate 1 gm BID@0600,2200 PO 01/19/25 06:00 01/20/25 05:40 1 GM Prednisone 40 mg DAILY PO 01/20/25 10:00 01/20/25 10:35 40 MG Ergocalciferol 50,000 unit Q7D PO 01/19/25 12:00 01/19/25 12:39 50,000 UNIT Midodrine 10 mg TID@0600,1200,1800 PO 01/19/25 12:00 01/20/25 05:40 10 MG Examination Physical examination: General Appearance: Jaundiced; Alert, Oriented X3, Cooperative,mild distress HEENT: Atraumatic, PERRLA, EOMI, yellow discoloration of the mucosa and sclera. Respiratory: Clear to auscultation, Normal air movement Cardiovascular: Regular rate, Normal S1, Normal S2, No murmurs, no chest wall tenderness Abdominal: Normal bowel sounds, Soft, mild tenderness, hepatomegaly, no ascites. Extremities: Bilateral pedal edema+, No clubbing, No cyanosis, Normal pulses. Skin: No rashes, No breakdown, No significant lesion Neuro: Normal gait, Normal speech, Strength at 5/5 X4 ext, Normal tone, Sensation intact, grossly intact cranial nerves. Psych/Mental Status: Mental status NL, Mood NL laboratory and microbiology Laboratory Tests 01/20/25 05:26 Test 01/20/25 05:26 Range/Units Serum Glucose 117 H 74-106 mg/dL Microbiology Date/Time Source Procedure Growth Status 01/18/25 22:00 Blood Blood Culture - Preliminary NO GROWTH AFTER 24 HOURS OF INCUBATION. Resulted Labs and/or images reviewed: Labs reviewed by me, Image(s) reviewed by me Problem List/Assessment/Plan Problem List/Assessment/Plan Assessment/Plan: # SIRS/ Sepsis due to below Alcoholic hepatitis Hepatitis B positive Hepatic steatosis Transaminitis Hepatomegaly Moderate malnutrition Acquired coagulopathy, likely due to liver failure Leukemoid reaction Possible upper GI bleeding - Ultrasound shows enlarged liver measuring 24.5 cm demonstrates diffusely heterogeneous echogenicity - CT scan showed heterogeneous enlarged liver, with peripheral areas in the liver are very low in density on 12/25/24 - Maddrey score 53.5, and MELD score 37 point (with52.6% estimated 90 day mortality) - Bilirubin is 26 downtrending - Prednisolone 40 mg p.o. daily - IV Protonix 40 mg bid - Carafate 1 gm po bid - Blood culture report revealed no growth in 24 hours of incubation - Lactulose 30 mL p.o. b.i.d. - IV Zosyn 3.375 mg q.12 hours - Pending stool occult test. # Chronic anemia, macrocytic hyperchromic due to alcoholism # Hypertensive heart disease and possible chronic diastolic heart failure - Pending echo - BP is on the lower side. # ZOILA on CKD , likely due to to hepatorenal syndrome - IV Albumin - Midodrine 10 mg p.o. t.i.d. # Vitamin D deficiency - Vitamin D 03306 units Q 7D. DIET: Renal diet DVT PROPHYLAXIS: Due to black stool and possible GI bleed, no anticoagulant is indicated GI PROPHYLAXIS:: Protonix BOWEL REGIMEN: Lactulose CODE STATUS: Goal of care discussed for 20 minutes, full code Patient's status and plan discussed with the patient Case discussed with Dr. Azevedo Plan discussed with: Patient, Other (Nurse) My Orders My Orders Orders - TOMY VICTORIA Procedure Category Date Status Time Ergocalciferol PHA 01/19/25 In Process (Vitamin D 50,000 12:00 Midodrine Tablet PHA 01/19/25 In Process (Proamatine Tablet) 12:00 Comprehensive LAB 01/19/25 In Process Hepatitis Panel 13:30 Addendum Addendum Addendum I was physically present for the wild portions of the service provided to patient by THE RESIDENT. I have reviewed the documentation, discussed the case with resident and agree with the resident's documentation except as noted. Also the patient's clinical case was discussed with the patient's nurse. This medical document was created using an electronic medical record system with computerized dictation system. Although this document has been carefully reviewed, there might still be some phonetic and typographical errors. These areas are purely typographical due to imperfections of the software programs, and do not reflect any compromise in the patient's medical care. Late signature. Date of Service: Jan 20, 2025 Billing Provider: GLENNY AZEVEDO MD Common Visit Codes: 75665-[id number] INP/OBS CARE(HIGH) Secondary Visit Codes: 09897-[id number] CARE PLAN 30 MINUTES (20 minutes) TOMY VICTORIA RESIDENT Jan 20, 2025 12:04 GLENNY AZEVEDO MD Jan 20, 2025 18:32
--- NOTE | 2025-01-20 13:50 | DVHSR ---
APPROVED REPORT EXAM: Two-dimensional and M-mode echocardiogram with Doppler and color Doppler. Blood Pressure: 90/44 mmHg INDICATION Rule out CHF RISK FACTORS Height: 60, Weight: 201 DIMENSIONS LVDd4.2 (3.8-5.7cm)LA (2D)3.9 (1.9-4.0cm)Aortic Root3.4 (2.0-3.7cm) LVDs2.8 (2.5-4.0cm)LA (MM) (1.9-4.0cm)Aortic Cusp Exc2.1 (1.5-2.0cm) EF (%) 63.0 (55-70%)Rt. Atrium4.1 (1.9-4.0cm)Asc. Aorta cm IVSd1.0 (0.7-1.1cm)RV (D) (1.8-2.4cm) PWd1.2 (0.7-1.1cm) Mitral Valve MitralMitral Stenosis E wave1.34m/sMV Mean GR.mmHg A wave1.00m/sMV Peak GR.51mmHg E/A ratio1.32D MVAcm2 DECEL [id number] 1/2 [id number] IVRTmsDop MVA2.37cm2 Aortic Valve Aortic ValveAortic Stenosis V11.82m/Vladimir Mean GR.7mmHg V21.78m/Vladimir Peak GR.13mmHg LVOT Diameter2.3 (1.8-2.4cm)Doppler AVA4.25cm2 Pulmonic Valve V21.31m/s Tricuspid Valve TR Velocity2.46m/s [id number] Conclusion Sinus rhythm. Left atrial enlargement. Valves are normal. Left ventricular systolic performance is preserved at 60% with normal RV function. Mild TR. RVSP of 40 mmHg. No pericardial effusion masses or vegetations.
[2025-01-20 14:06] LABS: Opiate Scree,Urine Neg (NEGATIVE)
[2025-01-20 14:07] LABS: Creatinine, Urine 153.22 mg/dL (30.0-125.0)
[2025-01-20 14:12] LABS: Amphetamine Screen, Urine Neg (NEGATIVE); Barbiturate Scree,Urine Neg (NEGATIVE); Benzodiazephine Screen, Urine Neg (NEGATIVE); Cannabinoid Screen, Urine Neg (NEGATIVE); Cocaine Screen, Urine Neg (NEGATIVE); Phencyclidine Screen, Urine Neg (NEGATIVE); Sodium Urine < 10 mmol/L (40-220)
--- NOTE | 2025-01-20 14:27 | DVHINCON2 ---
"Date of service: Jan 20, 2025 Family History: FH: asthma G8 FATHER FH: diabetes mellitus G8 MOTHER FH: prostate cancer G8 FATHER Allergies: Coded Allergies: NO KNOWN ALLERGIES (Unverified , 10/26/24) Home Meds Active Scripts Amoxicillin & Pot Clavulanate (Amoxicillin/Potassium Cla) 875 Mg Tab, 1 TAB PO BID for 10 Days, #20 TAB [facility] 12/28/24 Sucralfate (CARAFATE) 1 Gm Tab, 1 GM OR TID for 21 Days, #63 TAB [facility] 12/28/24 Pantoprazole Sodium Sesquihydr (Pantoprazole Sodium) 40 Mg Tab, 40 MG PO DAILY for 30 Days, #30 TAB [facility] 12/28/24 Reported Medications Benazepril Hcl (Benazepril Hcl) 20 Mg Tab, 1 TAB PO DAILY 12/26/24 Current Medications Current Medications Medications (Trade) Dose Ordered Sig/Chris Route PRN Reason Start Time Stop Time Status Last Admin Sucralfate (Carafate Susp) 1 gm BID@0600,2200 GT 01/19/25 22:00 01/19/25 03:27 DC Prednisone 40 mg DAILY PO 01/20/25 10:00 01/20/25 10:35 Vital Signs Vital Signs Date Time Temp Pulse Resp B/P (MAP) Pulse Ox O2 Delivery O2 Flow Rate FiO2 01/20/25 13:00 97.2 82 18 100/58 (72) 99 97.2 01/20/25 08:15 Room Air* 0 21 Labs/Diagnostic Data Labs Test 01/20/25 13:25 01/20/25 07:16 01/20/25 05:26 01/19/25 01:45 Range/Units Urine Creatinine 153.22 H 30.0-125.0 mg/dL Urine Sodium < 10 L 40-220 mmol/L Urine Test Negative Negative Urine Opiates Screen Neg NEGATIVE Urine Fentanyl Screen Neg NEGATIVE Urine Barbiturates Screen Neg NEGATIVE Urine Phencyclidine Screen Neg NEGATIVE Urine Amphetamines Screen Neg NEGATIVE Urine Benzodiazepines Screen Neg NEGATIVE Urine Cocaine Screen Neg NEGATIVE Urine Cannabinoids Screen Neg NEGATIVE Blood Gas Specimen Type Arterial Blood Gas Sample Site Right radial Blood Gas Patient Temperature 37.0 Arterial Blood Date Drawn [id number] Arterial Blood pH 7.330 L 7.350-7.450 Arterial Blood Partial Pressure CO2 20.2 L 32.0-45.0 mmHg Arterial Blood Partial Pressure O2 71.5 L 83.0-108.0 mmHg Arterial Blood HCO3 10.4 L 21.0-28.0 mmol/L Arterial Blood Oxygen Saturation 92.2 L 94.0-98.0 % Arterial Blood Base Excess -13.8 L -2.0-3.0 mmol/L Arterial Blood Oxyhemoglobin 90.4 L 94.0-98.0 % Arterial Blood Carboxyhemoglobin 1.6 H 0.5-1.5 % Arterial Blood Methemoglobin 0.4 0.0-1.5 % Kirk Test Yes Blood Gas Total Hemoglobin 9.20 L 12.0-16.0 g/dL Blood Gas Modality Room air FiO2 % 21.0 White Blood Count 62.5 *H 4.4-10.8 10^3/uL Red Blood Count 2.47 L 4.0-5.20 10^6/uL Hemoglobin 8.7 L 12.2-16.2 g/dL Hematocrit 26.4 #L 36.0-46.0 % Mean Corpuscular Volume 106.9 H 80.0-100.0 fL Mean Corpuscular Hemoglobin 35.4 H 28.0-32.0 pg Mean Corpuscular Hemoglobin Concent 33.1 32.0-36.0 g/dL Red Cell Distribution Width 21.9 H 11.8-14.3 % Platelet Count 250 140-450 10^3/uL Mean Platelet Volume 10.6 6.9-10.8 fL Neutrophils (%) (Auto) 37.0-80.0 % Lymphocytes (%) (Auto) 10.0-50.0 % Monocytes (%) (Auto) 0.0-12.0 % Basophils (%) (Auto) 0.0-2.0 % Neutrophils # (Auto) 1.6-8.6 10 ^3/uL Lymphocytes # (Auto) 0.4-5.4 10 ^3/uL Monocytes # (Auto) 0-1.3 10 ^3/uL Differential Total Cells Counted 100.0 100 Neutrophils % (Manual) 78 37.0-80.0 Band Neutrophils % (Manual) 13 Lymphocytes % (Manual) 4 L 10.0-50.0 Monocytes % (Manual) 2 0-12 Eosinophils % (Manual) 0 0-7 Basophils % (Manual) 0 0.0-2.0 Metamyelocytes % (manual) 0 Myelocytes % (Manual) 2 Promyelocytes % (Manual) 0 Blast Cells % (Manual) 0 Reactive Lymphocytes 1 Platelet Estimate Adequate Large Platelets Few Anisocytosis (manual) Slight Macrocytosis Moderate Target Cells Few Schistocytes Few Sodium Level 136 136-145 mmol/L Potassium Level 4.0 3.5-5.1 mmol/L Chloride Level 109 H 98-107 mmol/L Carbon Dioxide Level 10 L 20-31 mmol/L Anion Gap 17 H 5-15 Blood Urea Nitrogen 73 H 9-23 mg/dL Creatinine 3.96 H 0.550-1.02 mg/dL Glomerular Filtration Rate Calc 14 >90 mL/min BUN/Creatinine Ratio 18.4 10.0-20.0 Serum Glucose 117 H 74-106 mg/dL Calcium Level 8.8 8.7-10.4 mg/dL Total Bilirubin 26.0 H 0.2-1.0 mg/dL Aspartate Amino Transferase (AST) 43 H 13-40 U/L Alanine Aminotransferase (ALT) 15 7-40 U/L Alkaline Phosphatase 297 H 46-116 U/L Total Protein 6.0 5.7-8.2 g/dL Albumin 3.1 L 3.2-4.8 g/dL Clumped Platelets Few Prothrombin Time 16.9 H 9.3-11.8 sec Prothrombin Time INR 1.68 H 0.9-1.15 Iron Level 108 50-170 ug/dL Total Iron Binding Capacity 194 L 250-425 ug/dL Percent Iron Saturation 55.7 H 15-50 % Ferritin 225.8 10-291 ng/mL Ammonia 29 11-32 umol/L Vitamin B12 Level 1934 H 211-911 pg/mL Vitamin D 25-Hydroxy 16.1 L 30.0-100 ng/mL Plasma/Serum Blood Alcohol < 3.0 <10 mg/dL Test 01/18/25 21:44 Range/Units Poikilocytosis (manual) Slight Lactic Acid Level 1.3 0.4-2.0 mmol/L Troponin I High Sensitivity 10 </=34 ng/L B-Type Natriuretic Peptide 469.52 0-100 pg/mL Lipase 93 H 12-53 U/L Microbiology Date/Time Source Procedure Growth Status 01/18/25 22:00 Blood Blood Culture - Preliminary NO GROWTH AFTER 24 HOURS OF INCUBATION. Resulted Problems(with codes): (1) Viral illness (2) Anemia (3) Liver cirrhosis (4) Sepsis (5) Alcoholic cirrhosis of liver (6) Lymphocytosis (7) RUQ abdominal pain (8) Acute renal injury Plan/Recommendation ASSESSMENT AND PLAN: ID Problem List: - Alcoholic liver cirrhosis - Acute alcoholic hepatitis - Hyperbilirubinemia - Severe leukocytosis - ZOILA and CKD stage 4 - Anemia (macrocytic) - Melena - Positive asterixis - Poor prognosis Assessment This is a 44 y.o. female with a past medical history of hypertension and liver cirrhosis secondary to alcohol abuse, who presents with body pain, generalized weakness, vomiting, fever, chest pain, constipation, worsening black stools, and jaundice. Patient was recently discharged from [facility] on 12/28/2024 after admission for liver failure and has been getting worse since discharge. She stopped drinking alcohol two months ago; previously, she was a heavy alcohol drinker. She is a former smoker with a 2 pack-year smoking history. On exam, she has generalized yellow discoloration of the skin and sclera (jaundice), distended abdomen, and positive asterixis. Laboratory findings include elevated WBC count currently at 62.5, hemoglobin 8.7, platelets 250, bilirubin 29.4, AST 59, ALT 19, creatinine 3.27, BUN 69. Her bilirubin is uptrending, with a Maddrey discriminant function score of 61.7 and a MELD score of 37. Imaging studies include CT abdomen showing hepatomegaly with peripheral areas of low attenuation suggestive of hepatic steatosis and small volume ascites. Blood cultures and urine cultures are negative to date. Plan: - Continue cefepime. - Consider adding linezolid for Gram-positive coverage empirically; vancomycin was discontinued due to ZOILA. - Follow up on blood cultures, urine cultures, and obtain sputum culture. - Recommend hematology/oncology consultation for evaluation of severe leukocytosis; consider bone marrow biopsy to rule out leukemia. - Monitor leukocytosis. low overall concern that infection is etiology of leukocytosis , favor leukomoid reaction in setting of severe alcoholic liver failure - Defer management of steroid therapy to GI team; unclear efficacy after prolonged acute alcoholic hepatitis. - Recommend obtaining hepatitis B DNA test and HepBe ag to confirm no active infection. - Recommend obtaining hepatitis A IgM antibody to assess for acute hepatitis A. - Prognosis is poor given severe liver failure, high MELD score, and leukocytosis. Isolation Precautions: Standard Assessment and plan was discussed with the patient as written above Plan is subject to change pending incorporation of new incoming information/diagnostics. Updates may be added as addendum at the bottom (OR TOP) of this note Thank you for interesting consult. ID will continue to follow. Please contact Infectious Disease for any questions or concerns. Zaire Kay M.D. [facility] Ph: ? History: The patient's chart and medications were reviewed in detail and the patient was seen and examined. History obtained from: patient Miss Kina Whiteside is a 44 y.o. female with a past medical history of hypertension and liver cirrhosis secondary to alcohol abuse, who presents with body pain, generalized weakness, vomiting, fever, chest pain, constipation, wor sening black stools, and jaundice. Patient was recently discharged from [facility] on 12/28/2024 after being admitted with liver failure and has been worsening since discharge. She reports abdominal pain, distension, constipation, black stools, generalized weakness, and fatigue. She stopped drinking alcohol two months ago; previously a heavy alcohol drinker. She is a former smoker with a 2 pack-year history. She takes benazepril, sucralfate, and Protonix; no known medical allergies. Review of Systems: A complete 10 system review of systems was completed and negative except as noted in the HPI or here. ROS: - CONSTITUTIONAL: Reports fever, generalized weakness, fatigue. - HEENT: Reports jaundice. - RESPIRATORY: Denies shortness of breath and cough. - CV: Reports chest pain. - GI: Reports abdominal pain, distension, constipation, black stools, vomiting. - : Denies dysuria and urinary frequency. - MSK: Reports body pain. - SKIN: Reports yellow discoloration (jaundice). - NEUROLOGICAL: Reports asterixis. - PSYCHIATRIC: Denies recent changes in mood, anxiety, and depression. Past Medical History: Diagnosis Date - Hypertension - Liver cirrhosis secondary to alcohol abuse Past Surgical History: History reviewed. - Cholecystectomy Home Medications: Prior to Admission medications Medication | Sig - | Benazepril | Take as prescribed. Sucralfate | Take as prescribed. Protonix (pantoprazole) | Take as prescribed. Allergies: Allergies - No Known Allergies Family History: Problem | Relation - | Prostate cancer | Father No other pertinent family history on file. Social History: Socioeconomic History - Marital status: Not on file Tobacco Use - Smoking status: Former smoker, 2 pack-year history Alcohol Use - Stopped drinking alcohol two months ago; previously a heavy alcohol drinker Substance Use - Denies drug use No other social history on file. Objective: Vital Signs on Arrival: Temp: 36.1 C (97 F)?BP: Not provided?Pulse: Not provided?Resp: Not provided?SpO?: Not provided Most Recent Vital Signs: Temp: 36.1 C (97 F)?BP: Not provided?Pulse: Not provided?Resp: Not provided?SpO?: Not provided Admission Weight: Weight: Not provided??BMI: Not provided Physical Exam: General:?Ill-appearing female. Neck:?Supple. No masses. HEENT:?Scleral icterus noted. PERRL. Normal lids and conjunctiva. Moist mucous membranes. Oropharynx without lesions, exudates, or excessive erythema. Normal appearance of the external aspects of the nose and ears. Heart:?Regular rhythm, normal rate. No murmur. No lower extremity edema. Lungs:?Normal respiratory effort. Clear to auscultation bilaterally. No wheezes. No crackles. Abdomen:?Distended, tender to palpation. No masses or abdominal hernia. Msk:?No digital cyanosis. Normal strength and tone in all 4 limbs. Skin:?Warm and dry. Generalized jaundice, no rashes. Neuro:?Alert. Positive asterixis. No facial droop or slurred speech. Extra-oc ular movements intact. Sensation intact to soft touch in all 4 limbs. Psych:?Appropriate mood. Full affect. Oriented to person, place, time, and situation. Diagnostic Studies: Available diagnostic studies were reviewed personally. Significant relevant r esults and findings are outlined below or addressed in the Assessment and Plan above. Laboratory Data: Recent Results: - WBC count:?62.5??10/L (elevated) - Hemoglobin:?8.7?g/dL (anemia) - Platelets:?250??10/L - Lactic acid:?1.3?mmol/L - Bilirubin total:?29.4?mg/dL (elevated) - Direct bilirubin:?26?mg/dL AST:?59?U/L ALT:?19?U/L - Alkaline phosphatase:?297?U/L - Creatinine:?3.27?mg/dL - BUN:?69?mg/dL - Sodium:?140?mmol/L - CMV IgG:?Positive (>10) - EBV VCA IgG:?Positive (>600) - Hepatitis A antibody:?Positive - Hepatitis B surface antigen:?Negative (positive on 12/25/2024, negative on 01/19/2025) - Hepatitis B surface antibody:?Negative - Hepatitis B core antibody:?Negative - Hepatitis C antibody:?Negative - HIV:?Negative Imaging: CT Abdomen/Pelvis Impression 1. Hepatomegaly with peripheral areas of low attenuation suggestive of hepatic steatosis. 2. Small volume ascites. 3. No acute abdominal or pelvic findings. Ultrasound of Liver - No ascites. Chest X-ray Impression 1. No acute cardiopulmonary disease. Microbiology: - Blood cultures:?No growth to date. - Urine cultures:?Negative. Plan discussed with: Patient ZAIRE KAY MD Jan 20, 2025 14:27"
--- NOTE | 2025-01-20 15:39 | DVH ---
Exam: CT CT AB PEL WO CON-NO ORAL OR IV History: Hyperbilirubinemia Comparison Study: CT CT AB PEL WO CON-NO ORAL OR IV on DOS: 12/25/24 Technique: Multidetector spiral CT of the abdomen was performed from lung bases to pubic symphysis. I maging was performed without IV contrast. Axial, coronal and sagittal multiplanar reformats were obta ined from the axial data set by the technologist. Radiation Dose : 1. Abdomen/Pelvis: CTDIvol 18.6 mGy, DLP 997.32 mGy*cm. Findings: Evaluation of solid organs is limited due to lack of intravenous contrast use. Lung Bases: Small bilateral pleural effusions with adjacent atelectasis. Liver: Enlarged and heterogeneously hypoechoic. Gallbladder and Biliary Tree: Surgically absent gallbladder. No biliary ductal dilatation. Spleen: Unremarkable Pancreas: The pancreas is grossly normal in appearance. Adrenal Glands: Unremarkable Kidneys: Kidneys are grossly normal without calculi or hydronephrosis. Bladder: Grossly unremarkable for degree of distention. Bowel: Unremarkable. The appendix is not visualized; however, no secondary findings of acute appendi citis identified. Ascites: Small volume ascites. No free air Lymphadenopathy: No lymphadenopathy. Abdominal Wall and Mesentery: Diffuse anasarca.. Vasculature: The visualized abdominal aorta is normal in size and caliber. Evaluation of abdominal a nd pelvic vessels is limited due to lack of intravenous contrast. Pelvic Organs: Unremarkable Musculoskeletal: No aggressive focal bony lesions, acute fractures or dislocation. IMPRESSION: 1. No acute abdominal or pelvic findings. 2. Hepatomegaly and probable hepatic steatosis. 3. Small volume ascites. 4. Small bilateral pleural effusions. Radiation optimization: All CT scans at this facility use at least one of these dose optimization tyron hniques: automated exposure control mA and/or kV adjustment per patient size (includes targeted exam s where dose is matched to clinical indication) or iterative reconstruction.
[2025-01-21] VITALS (9 sets, daily range): BP systolic 86–96; BP diastolic 46–64; PULSE 72–77; RESP 14–19; TEMP 97.2–98.7; O2SAT 95–100
[2025-01-21 06:00] LABS: Hematocrit 28.1 % (36.0-46.0); Hemoglobin 9.2 g/dL (12.2-16.2); Mean Corpuscular Hemoglobin 35.3 pg (28.0-32.0); Mean Corpuscular Hgb Conc. 32.9 g/dL (32.0-36.0); Mean Corpuscular Volume 107.1 fL (80.0-100.0); Platelet Count (auto) 280 10^3/uL (140-450); Red Blood Cells 2.62 10^6/uL (4.0-5.20); Red Cell Distribution Width 21.8 % (11.8-14.3)
[2025-01-21 06:21] LABS: Potassium 3.9 mmol/L (3.5-5.1); Sodium 137 mmol/L (136-145)
[2025-01-21 06:24] LABS: White Blood Cell 70.1 10^3/uL (4.4-10.8)
[2025-01-21 06:26] LABS: Basophils % (manual) 0 (0.0-2.0); Blast Cells 0; Eosinophils % (manual) 0 (0-7); Metamyelocytes % 0; Monocytes % (manual) 0 (0-12); Myelocytes % 0; Promyelocytes % 0; Reactive Lymphocytes 0
[2025-01-21 06:31] LABS: Anion Gap 19 (5-15); BUN/Creatinine Ratio 18.4 (10.0-20.0); Carbon Dioxide 11 mmol/L (20-31); Chloride 107 mmol/L (98-107); Glucose 117 mg/dL (74-106)
[2025-01-21 06:32] LABS: Alanine Aminotransferase 21 U/L (7-40); Albumin 3.3 g/dL (3.2-4.8); Alkaline Phosphatase 325 U/L (46-116); Aspartate Aminotransferase 61 U/L (13-40); Bilirubin, Total 28.6 mg/dL (0.2-1.0); Blood Urea Nitrogen 78 mg/dL (9-23); Calcium 8.5 mg/dL (8.7-10.4); Total Protein 6.5 g/dL (5.7-8.2)
[2025-01-21 06:50] LABS: Band Neutrophils % (manual) 24; Lymphocytes % (manual) 5 (10.0-50.0)
[2025-01-21 06:51] LABS: Anisocytosis Slight; Macrocytosis Moderate; Platelet Estimate Adequate
--- NOTE | 2025-01-21 11:34 | DVHPNRES ---
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 Patient was seen and examined on the bedside. She is alert, answering all questions. Patient reported improvement in her abdominal pain and weakness since admission and admits now she has been having some appetite which was not there previously. Pending hematology oncology consult. Patient reports: Feels better Objective vital signs Vital Sign Date Time Temp Pulse Resp B/P (MAP) Pulse Ox O2 Delivery O2 Flow Rate FiO2 01/21/25 08:46 97.2 72 16 93/57 (69) 99 97.2 01/21/25 07:52 Room Air* 0 21 Total Intake and Output 01/20/25 01/20/25 01/21/25 15:00 23:00 07:00 Intake Total 100 ml 700 ml 750 ml Output Total 800 ml Balance 100 ml -100 ml 750 ml medications Current Medications Medications Dose Ordered Sig/Chris Route Start Time Stop Time Status Last Admin Dose Admin Acetaminophen/ Hydrocodone Bitart 1 tab Q4HP PRN PO 01/19/25 01:30 01/19/25 17:38 1 TAB Ondansetron HCl 4 mg Q4HPRN PRN IV 01/19/25 05:30 01/19/25 02:51 4 MG Piperacillin Sod/ Tazobactam Sod 100 ml @ 25 mls/hr Q12HR IV 01/19/25 10:00 01/21/25 10:00 25 MLS/HR Lactulose 30 ml BID PO 01/19/25 10:00 01/21/25 10:00 30 ML Pantoprazole Sodium 40 mg BID IV 01/19/25 03:15 01/21/25 10:00 40 MG Sucralfate 1 gm BID@0600,2200 PO 01/19/25 06:00 01/21/25 05:30 1 GM Prednisone 40 mg DAILY PO 01/20/25 10:00 01/21/25 10:56 40 MG Ergocalciferol 50,000 unit Q7D PO 01/19/25 12:00 01/19/25 12:39 50,000 UNIT Midodrine 10 mg TID@0600,1200,1800 PO 01/19/25 12:00 01/21/25 05:30 10 MG Examination General Appearance: Icteric ,Alert, Oriented X3, Cooperative, mild distress HEENT: Atraumatic, PERRLA, EOMI,Yellow discoloration of the mucosa and sclera( icteric appearance) Respiratory: Clear to auscultation, Normal air movement Cardiovascular: Regular rate, Normal S1, Normal S2, No murmurs Abdominal:Mild tenderness, hepatomegaly, Normal bowel sounds, Soft, no ascites, tympanic. Extremities: Trace BLE edema+, No clubbing, No cyanosis, Normal pulses. Skin: Yellowish is skin discoloration but No rashes, No breakdown, No significant lesion Neuro: Normal gait, Normal speech, no sensory motor deficits Psych/Mental Status: Mental status NL, Mood NL Nurse was there as a [employer]ity Prospecting Observer during examination laboratory and microbiology Laboratory Tests 01/21/25 05:20 Test 01/21/25 05:20 Range/Units Serum Glucose 117 H 74-106 mg/dL Microbiology Date/Time Source Procedure Growth Status 01/20/25 13:25 Voided Urine Urine Culture - Preliminary Resulted 01/18/25 22:00 Blood Blood Culture - Preliminary NO GROWTH AFTER 48 HOURS OF INCUBATION. Resulted Labs and/or images reviewed: Labs reviewed by me, Image(s) reviewed by me Problem List/Assessment/Plan Problem List/Assessment/Plan # SIRS/ Sepsis likely due to below # Acute on Chronic Decompensated Alcoholic hepatitis # Hepatitis B positive status # Hepatic steatosis, Hepatomegaly & Transaminitis from above # Moderate malnutrition # Possible upper GI bleeding - Ultrasound shows enlarged liver measuring 24.5 cm demonstrates diffusely heterogeneous echogenicity - CT scan showed heterogeneous enlarged liver, with peripheral areas in the liver are very low in density on 12/25/24 - Maddrey score 53.5, and MELD score 37 point (with52.6% estimated 90 day mortality) - Bilirubin is very high but stable - Prednisolone 40 mg p.o. daily - IV Protonix 40 mg bid , Carafate 1 gm po bid & Lactulose 30 mL p.o. b.i.d. - Blood culture report revealed no growth in 24 hours of incubation - IV Zosyn 3.375 mg q.12 hours - Pending stool occult test. # Chronic anemia, macrocytic hyperchromic due to alcoholism - Monitor lab - H&H stable # Hypertensive heart disease and possible chronic diastolic heart failure - Echo showed LVEF 60% with a LA enlargement, RVSP 40 - BP is on the lower side., Midodrine 10 mg p.o. t.i.d. # ZOILA on CKD , likely due to to hepatorenal syndrome - IV Albumin - Midodrine 10 mg p.o. t.i.d. # Vitamin D deficiency - Vitamin D 79312 units Q 7D. # Leukemoid reaction # Severe Leukocytosis unspecified - consulted hematology/oncology, pending - monitoring lab Renal diet Due to GI bleed, no anticoagulant is indicated Protonix BOWEL REGIMEN: Lactulose Case discussed with Dr. Azevedo, patient and nurse Plan discussed with: Patient, Other (Nurse) Addendum Addendum Addendum I was physically present for the wild portions of the service provided to patient by THE RESIDENT. I have reviewed the documentation, discussed the case with resident and agree with the resident's documentation except as noted. Also the patient's clinical case was discussed with the patient's nurse. This medical document was created using an electronic medical record system with computerized dictation system. Although this document has been carefully reviewed, there might still be some phonetic and typographical errors. These areas are purely typographical due to imperfections of the software programs, and do not reflect any compromise in the patient's medical care. Late signature. Date of Service: Jan 21, 2025 Billing Provider: GLENNY AZEVEDO MD Common Visit Codes: [id number] INP/OBS CARE(HIGH) KAE ORTEGA RESIDENT Jan 21, 2025 11:34 GLENNY AEZVEDO MD Jan 21, 2025 14:01
[2025-01-21] MEDS: URSODIOL 300 MG CAP PO SCH (21:54)
[2025-01-22] VITALS (9 sets, daily range): BP systolic 91–121; BP diastolic 50–76; PULSE 72–84; RESP 16–18; TEMP 96.7–97.6; O2SAT 93–100
[2025-01-22 06:37] LABS: Hematocrit 26.2 % (36.0-46.0); Hemoglobin 8.6 g/dL (12.2-16.2); Mean Corpuscular Hgb Conc. 32.9 g/dL (32.0-36.0); Mean Corpuscular Volume 106.5 fL (80.0-100.0); Platelet Count (auto) 241 10^3/uL (140-450); Red Blood Cells 2.46 10^6/uL (4.0-5.20)
[2025-01-22 06:49] LABS: Red Cell Distribution Width 20.6 % (11.8-14.3); White Blood Cell 65.9 10^3/uL (4.4-10.8)
[2025-01-22 06:50] LABS: Basophils % (manual) 0 (0.0-2.0); Blast Cells 0; Eosinophils % (manual) 0 (0-7); Metamyelocytes % 0; Myelocytes % 0; Promyelocytes % 0; Reactive Lymphocytes 0
[2025-01-22 06:52] LABS: Albumin 3.2 g/dL (3.2-4.8); Anion Gap 19 (5-15); Potassium 3.8 mmol/L (3.5-5.1); Sodium 138 mmol/L (136-145)
[2025-01-22 06:55] LABS: Alkaline Phosphatase 306 U/L (46-116); Bilirubin, Total 26.8 mg/dL (0.2-1.0); Calcium 8.5 mg/dL (8.7-10.4); Carbon Dioxide 10 mmol/L (20-31); Chloride 109 mmol/L (98-107); Glucose 114 mg/dL (74-106)
[2025-01-22 07:04] LABS: BUN/Creatinine Ratio 19.7 (10.0-20.0)
[2025-01-22 07:05] LABS: Alanine Aminotransferase 28 U/L (7-40); Aspartate Aminotransferase 78 U/L (13-40); Total Protein 6.2 g/dL (5.7-8.2)
[2025-01-22 07:08] LABS: Blood Urea Nitrogen 80 mg/dL (9-23)
[2025-01-22 07:17] LABS: Band Neutrophils % (manual) 7; Lymphocytes % (manual) 8 (10.0-50.0); Monocytes % (manual) 1 (0-12)
[2025-01-22 07:18] LABS: Anisocytosis Slight
[2025-01-22 07:19] LABS: Macrocytosis Moderate; Platelet Estimate Adequate
[2025-01-22 10:22] LABS: Hepatitis B Core Total AB Negative (Negative)
[2025-01-22 10:49] LABS: Hepatitis A Total Antibody Positive (Negative)
[2025-01-22 10:50] LABS: Hepatitis B Surface Antibody Negative (Negative); Hepatitis B Surface Antigen Negative (Negative); Hepatitis C Antibody Negative (Negative)
[2025-01-22] MEDS ORDERED: CEFEPIME 1GM/ 50ML 50 ML IV ONE (13:45)
--- NOTE | 2025-01-22 14:25 | DVHPNRES ---
Progress Note Date Seen: Jan 22, 2025 Resident Creating Document: TOMY VICTORIA RESIDENT Medical Necessity Reason Pt with a Central, PICC or Fol: No Subjective Review of Systems Patient was seen and examined on the bedside. She is alert oriented x3. Mentioned feeling better and complaint of shortness of breath during walking. No other active complaint Objective vital signs Vital Sign Date Time Temp Pulse Resp B/P (MAP) Pulse Ox O2 Delivery O2 Flow Rate FiO2 01/22/25 08:30 97.4 72 16 97/56 (70) 100 97.4 01/22/25 08:10 Room Air* 0 21 Total Intake and Output 01/21/25 01/21/25 01/22/25 15:00 23:00 07:00 Intake Total 100 ml 0 ml Balance 100 ml 0 ml medications Current Medications Medications Dose Ordered Sig/Chris Route Start Time Stop Time Status Last Admin Dose Admin Acetaminophen/ Hydrocodone Bitart 1 tab Q4HP PRN PO 01/19/25 01:30 01/19/25 17:38 1 TAB Ondansetron HCl 4 mg Q4HPRN PRN IV 01/19/25 05:30 01/19/25 02:51 4 MG Lactulose 30 ml BID PO 01/19/25 10:00 01/22/25 10:04 30 ML Pantoprazole Sodium 40 mg BID IV 01/19/25 03:15 01/22/25 10:04 40 MG Sucralfate 1 gm BID@0600,2200 PO 01/19/25 06:00 01/22/25 05:47 1 GM Prednisone 40 mg DAILY PO 01/20/25 10:00 01/21/25 10:56 40 MG Ergocalciferol 50,000 unit Q7D PO 01/19/25 12:00 01/19/25 12:39 50,000 UNIT Midodrine 10 mg TID@0600,1200,1800 PO 01/19/25 12:00 01/22/25 12:34 10 MG Ursodiol 300 mg BID PO 01/21/25 22:00 01/22/25 10:42 300 MG Metronidazole 100 ml @ 100 mls/hr Q8HR IV 01/22/25 14:00 Cefepime HCl 50 ml @ 12.5 mls/hr DAILY IV 01/22/25 13:52 Examination Examination General Appearance: Icteric ,Alert, Oriented X3, Cooperative, mild distress HEENT: Atraumatic, PERRLA, EOMI,Yellow discoloration of the mucosa and sclera( icteric appearance) Respiratory: Clear to auscultation, Normal air movement Cardiovascular: Regular rate, Normal S1, Normal S2, No murmurs Abdominal:Mild tenderness, hepatomegaly, Normal bowel sounds, Soft, no ascites, tympanic. Extremities: Trace BLE edema+, No clubbing, No cyanosis, Normal pulses. Skin: Yellowish is skin discoloration but No rashes, No breakdown, No significant lesion Neuro: Normal gait, Normal speech, no sensory motor deficits Psych/Mental Status: Mental status NL, Mood NL laboratory and microbiology Laboratory Tests 01/22/25 05:52 Test 01/22/25 05:52 Range/Units Serum Glucose 114 H 74-106 mg/dL Microbiology Date/Time Source Procedure Growth Status 01/20/25 13:25 Voided Urine Urine Culture - Preliminary Resulted 01/18/25 22:00 Blood Blood Culture - Preliminary NO GROWTH AFTER 72 HOURS OF INCUBATION. Resulted Labs and/or images reviewed: Labs reviewed by me, Image(s) reviewed by me Problem List/Assessment/Plan Problem List/Assessment/Plan Problem List/Assessment/Plan # SIRS/ Sepsis likely due to below # Acute on Chronic Decompensated Alcoholic hepatitis # Hepatic steatosis, Hepatomegaly & Transaminitis from above # Moderate malnutrition # Possible upper GI bleeding - Ultrasound shows enlarged liver measuring 24.5 cm demonstrates diffusely heterogeneous echogenicity - CT scan showed heterogeneous enlarged liver, with peripheral areas in the liver are very low in density on 12/25/24 - Maddrey score 53.5, and MELD score 37 point (with52.6% estimated 90 day mortality) - Bilirubin is very high but stable - IV Methylprednisolone 32 mg daily - IV Protonix 40 mg bid , Carafate 1 gm po bid & Lactulose 30 mL p.o. b.i.d. - Blood culture report revealed no growth in 24 hours of incubation - IV Methylprednisolone 1g daily and IV metronidazole 500 mg t.i.d. - Pending stool occult test. # Chronic anemia, macrocytic hyperchromic due to alcoholism - Monitor lab - H&H stable # Hypertensive heart disease and possible chronic diastolic heart failure - Echo showed LVEF 60% with a LA enlargement, RVSP 40 - BP is on the lower side., Midodrine 10 mg p.o. t.i.d. # ZOILA on CKD , likely due to to hepatorenal syndrome - IV Albumin - Midodrine 10 mg p.o. t.i.d. - Pending nephro consultation # Vitamin D deficiency - Vitamin D 44922 units Q 7D. # Leukemoid reaction # Severe Leukocytosis unspecified - consulted hematology/oncology - monitoring lab Renal diet Due to GI bleed, no anticoagulant is indicated Protonix BOWEL REGIMEN: Lactulose Plan discussed with Dr. Andres Plan discussed with: Patient, Other My Orders My Orders Orders - TOMY VICTORIA Procedure Category Date Status Time Metronidazole PHA 01/22/25 In Process 500mg/100ml (Flagyl 14:00 *Dr. [facility] CONS 01/22/25 Transmitted -[place] 13:33 PTPTT LAB 01/22/25 Logged 13:33 [facility] Igg/Igm Antibodies LAB 01/22/25 Logged 13:33 Ebv Acute Infection LAB 01/22/25 Logged Antibodies 13:33 Hsv 1 And 2-Specific LAB 01/22/25 Logged Igg Ab 13:33 Hiv 1&2 Antibody LAB 01/22/25 Logged 13:33 Pharmacy [facility] 01/22/25 In Process Clarification: 13:49 Cefepime 2gm/50ml Ns PHA 01/22/25 In Process (Maxipime 2gm/50ml) 13:52 Date of Service: Jan 22, 2025 Billing Provider: NIC MORA MD Common Visit Codes: [id number] INP/OBS CARE(HIGH) TOMY VICTORIA RESIDENT Jan 22, 2025 14:25 NIC MORA MD Jan 23, 2025 09:50
[2025-01-22] MEDS: metroNIDAZOLE 500MG/100ML 100 ML IV SCH (14:29)
[2025-01-22 16:19] LABS: INR 1.45 (0.9-1.15); Partial Thromboplastin Time 37.6 SEC (24.5-34.5); Prothrombin Time 14.8 sec (9.3-11.8)
[2025-01-22] MEDS: methylPREDNISolone SOD SUCC 40 MG/ML VL IV ONE (16:25)
[2025-01-22] MEDS: CEFEPIME 2GM/50ML NS 50 ML IV SCH (16:25)
[2025-01-22] MEDS: HYDROcodone-ACET 5/325MG TAB PO ONE (21:44)
[2025-01-22] MEDS: SODIUM CHLORIDE 0.9% 1,000 ML IV ONE (22:47)
[2025-01-23] VITALS (8 sets, daily range): BP systolic 107–146; BP diastolic 70–86; PULSE 71–81; RESP 18–22; TEMP 97.2–97.9; O2SAT 97–100
[2025-01-23 07:06] LABS: Hematocrit 29.2 % (36.0-46.0); Hemoglobin 9.3 g/dL (12.2-16.2); Mean Corpuscular Hemoglobin 34.2 pg (28.0-32.0); Mean Corpuscular Hgb Conc. 31.7 g/dL (32.0-36.0); Mean Corpuscular Volume 108.1 fL (80.0-100.0); Platelet Count (auto) 254 10^3/uL (140-450)
[2025-01-23 07:07] LABS: HSV 1 IgG Antibody Reactive (Non Reactive); HSV 2 IgG Antibody Non Reactive (Non Reactive)
[2025-01-23 07:17] LABS: Anion Gap 16 (5-15); BUN/Creatinine Ratio 20.3 (10.0-20.0); Calcium 8.8 mg/dL (8.7-10.4); Potassium 3.7 mmol/L (3.5-5.1); Sodium 140 mmol/L (136-145)
[2025-01-23 07:18] LABS: Alanine Aminotransferase 36 U/L (7-40); Albumin 3.6 g/dL (3.2-4.8); Alkaline Phosphatase 293 U/L (46-116); Aspartate Aminotransferase 82 U/L (13-40); Bilirubin, Total 27.6 mg/dL (0.2-1.0); Blood Urea Nitrogen 78 mg/dL (9-23); Carbon Dioxide 12 mmol/L (20-31); Chloride 112 mmol/L (98-107); Glucose 134 mg/dL (74-106); Total Protein 6.6 g/dL (5.7-8.2)
[2025-01-23 07:41] LABS: Red Cell Distribution Width 20.6 % (11.8-14.3)
[2025-01-23 07:42] LABS: White Blood Cell 69.4 10^3/uL (4.4-10.8)
[2025-01-23 07:43] LABS: Basophils % (manual) 0 (0.0-2.0); Blast Cells 0; Eosinophils % (manual) 0 (0-7); Metamyelocytes % 0; Myelocytes % 0; Promyelocytes % 0; Reactive Lymphocytes 0
[2025-01-23 08:07] LABS: CMV IgG Antibody >10.00 U/mL (0.00-0.59); CMV IgM Antibody <30.0 AU/mL (0.0-29.9); EBV Ab VCA IgG Antibody >600.0 U/mL (0.0-17.9); EBV Ab VCA IgM Antibody <36.0 U/mL (0.0-35.9)
--- NOTE | 2025-01-23 08:27 | DVHINCON2 ---
Date of service: Jan 23, [address] Lashon Jones Reason for Consultation Persistent leukocytosis and anemia with a history of cirrhosis of the liver and high bilirubin History of Present Illness 44 years old female who has a history of cirrhosis of the liver with heavy alcohol drinking and she states that she quit drinking in November 20, 2024. The patient is admitted with worsening jaundice and increasing generalized weakness and swelling of the lower extremities. The patient was recently discharged from the hospital on 12/28/2024 and needed packed red cell transfusion at that time with anemia. The patient has complained about constipation. She does not give any history of bleeding in the stools or any black stools.. No vomiting nausea at present. The patient has had ascites and has not undergone paracentesis in the past. I am consulted for leukocytosis Her CBC showed today on 01/23/2025 white count of 69.4 hemoglobin 9.3 MCV 108 platelets 254. With 84% neutrophils. Retic count 1.9. Her white count has been elevated at least since December 25, 2024 and the white count [place] [address]. The hemoglobin on 12/26/2024 was seven and today is at 9.3. The platelets have been stable over [id number] PT INR is 1.45. PTT 37.6 Double-stranded DNA negative Sjogren's antibodies are negative Hepatitis a total antibody is positive hepatitis B surface antibody B core antibody C antibody is negative HIV one and two is negative HSV one IgG antibodies reactive. HSV two IgG is nonreactive. The CT of the abdomen pelvis without contrast on 01/20/2025 showed hepatomegaly and probable hepatic steatosis and small volume ascites and small bilateral pleural effusions Abdominal ultrasound showed liver is enlarged measuring 24.5 cm and shows diffusely heterogeneous echogenicity Chest x-ray showed no acute cardiopulmonary disease No complaints of abdominal pains or headaches. Past Medical History History of hypertension. Not on any treatment at present Cirrhosis of the liver Past Surgical History Cholecystectomy Family History: FH: asthma G8 FATHER FH: diabetes mellitus G8 MOTHER FH: prostate cancer G8 FATHER Family History Father had prostate cancer Social History History of heavy alcohol drinking and cirrhosis and quit drinking in November 20, 2024 History of smoking She has four children Allergies: Coded Allergies: NO KNOWN ALLERGIES (Unverified , 10/26/24) Home Meds Active Scripts Amoxicillin & Pot Clavulanate (Amoxicillin/Potassium Cla) 875 Mg Tab, 1 TAB PO BID for 10 Days, #20 TAB Prov:LESA KRUGER RESIDENT 12/28/24 Sucralfate (CARAFATE) 1 Gm Tab, 1 GM OR TID for 21 Days, #63 TAB Prov:LESA KRUGER RESIDENT 12/28/24 Pantoprazole Sodium Sesquihydr (Pantoprazole Sodium) 40 Mg Tab, 40 MG PO DAILY for 30 Days, #30 TAB Prov:LESA KRUGER RESIDENT 12/28/24 Reported Medications Benazepril Hcl (Benazepril Hcl) 20 Mg Tab, 1 TAB PO DAILY 12/26/24 Current Medications Current Medications Medications (Trade) Dose Ordered Sig/Chris Route PRN Reason Start Time Stop Time Status Last Admin Cefepime HCl 50 ml @ 12.5 mls/hr DAILY IV 01/23/25 10:00 01/22/25 13:52 DC Metronidazole 100 ml @ 100 mls/hr Q8HR IV 01/22/25 14:00 01/23/25 05:35 Cefepime HCl 50 ml @ 12.5 mls/hr DAILY IV 01/22/25 13:52 01/22/25 16:25 Methylprednisolone Sodium Succinate (Solu Medrol) 32 mg DAILY IV 01/23/25 10:00 Vital Signs Vital Signs Date Time Temp Pulse Resp B/P (MAP) Pulse Ox O2 Delivery O2 Flow Rate FiO2 01/23/25 05:00 97.8 72 18 111/70 (84) 98 97.8 01/22/25 20:00 Room Air* 0 21 Physical Exam Moderately built and nourished, in no acute distress, alert and oriented. Patient is jaundiced Head and neck: Unremarkable for any masses or neck nodes. No conjunctival or mucosal hemorrhage Lungs: Clear Cardiovascular: S1-S2 heard well Abdomen: No organomegaly, tenderness . Patient has some ascites. Bowel sounds are present. Extremities: No clubbing cyanosis or calf tenderness. Patient has 1+ leg swelling without any calf tenderness Skin: Unremarkable for petechia purpura ecchymosis skin is yellow Lymphadenopathy: None Neurological exam: No focal deficit Labs/Diagnostic Data Labs Test 01/23/25 06:03 01/22/25 15:34 01/22/25 05:52 01/20/25 13:25 Range/Units White Blood Count 69.4 *H 4.4-10.8 10^3/uL Red Blood Count 2.70 L 4.0-5.20 10^6/uL Hemoglobin 9.3 L 12.2-16.2 g/dL Hematocrit 29.2 #L 36.0-46.0 % Mean Corpuscular Volume 108.1 H 80.0-100.0 fL Mean Corpuscular Hemoglobin 34.2 H 28.0-32.0 pg Mean Corpuscular Hemoglobin Concent 31.7 L 32.0-36.0 g/dL Red Cell Distribution Width 20.6 H 11.8-14.3 % Platelet Count 254 140-450 10^3/uL Mean Platelet Volume 10.5 6.9-10.8 fL Neutrophils (%) (Auto) 37.0-80.0 % Lymphocytes (%) (Auto) 10.0-50.0 % Monocytes (%) (Auto) 0.0-12.0 % Basophils (%) (Auto) 0.0-2.0 % Neutrophils # (Auto) 1.6-8.6 10 ^3/uL Lymphocytes # (Auto) 0.4-5.4 10 ^3/uL Monocytes # (Auto) 0-1.3 10 ^3/uL Reticulocyte Count (auto) 1.99 H 0.5-1.5 % Sodium Level 140 136-145 mmol/L Potassium Level 3.7 3.5-5.1 mmol/L Chloride Level 112 H 98-107 mmol/L Carbon Dioxide Level 12 L 20-31 mmol/L Anion Gap 16 H 5-15 Blood Urea Nitrogen 78 H 9-23 mg/dL Creatinine 3.85 H 0.550-1.02 mg/dL Glomerular Filtration Rate Calc 14 >90 mL/min BUN/Creatinine Ratio 20.3 H 10.0-20.0 Serum Glucose 134 H 74-106 mg/dL Calcium Level 8.8 8.7-10.4 mg/dL Total Bilirubin 27.6 H 0.2-1.0 mg/dL Aspartate Amino Transferase (AST) 82 H 13-40 U/L Alanine Aminotransferase (ALT) 36 7-40 U/L Alkaline Phosphatase 293 H 46-116 U/L Lactate Dehydrogenase 170 120-246 U/L Total Protein 6.6 5.7-8.2 g/dL Albumin 3.6 3.2-4.8 g/dL Prothrombin Time 14.8 H 9.3-11.8 sec Prothrombin Time INR 1.45 H 0.9-1.15 Activated Partial Thromboplast Time 37.6 H 24.5-34.5 SEC Direct Bilirubin > 15.0 H <0.3 mg/dL Pat-Schultz Virus Ab Interpret Comment . Herpes Simplex Virus I IgG Antibody Reactive H Non Reactive Herpes Simplex Virus II IgG Ab Non reactive Non Reactive HIV (1&2) Antibody Negative Negative Anisocytosis (manual) Slight Macrocytosis Moderate Urine Creatinine 153.22 H 30.0-125.0 mg/dL Urine Sodium < 10 L 40-220 mmol/L Urine Test Negative Negative Urine Opiates Screen Neg NEGATIVE Urine Fentanyl Screen Neg NEGATIVE Urine Barbiturates Screen Neg NEGATIVE Urine Phencyclidine Screen Neg NEGATIVE Urine Amphetamines Screen Neg NEGATIVE Urine Benzodiazepines Screen Neg NEGATIVE Urine Cocaine Screen Neg NEGATIVE Urine Cannabinoids Screen Neg NEGATIVE Test 01/20/25 07:16 01/20/25 05:26 01/19/25 01:45 01/18/25 21:44 Range/Units Blood Gas Specimen Type Arterial Blood Gas Sample Site Right radial Blood Gas Patient Temperature 37.0 Arterial Blood Date Drawn [id number] Arterial Blood pH 7.330 L 7.350-7.450 Arterial Blood Partial Pressure CO2 20.2 L 32.0-45.0 mmHg Arterial Blood Partial Pressure O2 71.5 L 83.0-108.0 mmHg Arterial Blood HCO3 10.4 L 21.0-28.0 mmol/L Arterial Blood Oxygen Saturation 92.2 L 94.0-98.0 % Arterial Blood Base Excess -13.8 L -2.0-3.0 mmol/L Arterial Blood Oxyhemoglobin 90.4 L 94.0-98.0 % Arterial Blood Carboxyhemoglobin 1.6 H 0.5-1.5 % Arterial Blood Methemoglobin 0.4 0.0-1.5 % Kirk Test Yes Blood Gas Total Hemoglobin 9.20 L 12.0-16.0 g/dL Blood Gas Modality Room air FiO2 % 21.0 Large Platelets Few Target Cells Few Schistocytes Few Clumped Platelets Few Iron Level 108 50-170 ug/dL Total Iron Binding Capacity 194 L 250-425 ug/dL Percent Iron Saturation 55.7 H 15-50 % Ferritin 225.8 10-291 ng/mL Ammonia 29 11-32 umol/L Vitamin B12 Level 1934 H 211-911 pg/mL Vitamin D 25-Hydroxy 16.1 L 30.0-100 ng/mL Plasma/Serum Blood Alcohol < 3.0 <10 mg/dL Hepatitis A Antibody Total Positive H Negative Hepatitis B Surface Antigen Negative Negative Hepatitis B Surface Antibody Negative Negative Hepatitis B Core Total Antibody Negative Negative Hepatitis C Antibody Negative Negative Poikilocytosis (manual) Slight Lactic Acid Level 1.3 0.4-2.0 mmol/L Troponin I High Sensitivity 10 </=34 ng/L B-Type Natriuretic Peptide 469.52 0-100 pg/mL Lipase 93 H 12-53 U/L Microbiology Date/Time Source Procedure Growth Status 01/20/25 13:25 Voided Urine Urine Culture - Final Complete 01/18/25 22:00 Blood Blood Culture - Preliminary NO GROWTH AFTER 72 HOURS OF INCUBATION. Resulted Assessment 1. Cirrhosis of the liver with hepatic insufficiency with total bilirubin of 27 and with a direct bilirubin over 15. AST 82 ALT 36 alkaline phosphatase 293 total protein 6.6 albumin 3.6. B12 1933 History of heavy alcohol drinking and quit in November 20, 2024 Marked elevation of the bilirubin could be secondary to cirrhosis of the liver and intrahepatic cholestasis 2. Leukocytosis and anemia, macrocytic with normal B12 with a normal platelet count, renal insufficiency and hepatic insufficiency with LDH of 170, serum iron 108 saturation 55.7 and serum ferritin 225.8 and patient had transfusion of the packed cells in December 2024 Seems to be leukemoid reaction Anemia seems to be multifactorial secondary to hepatic and renal insufficiency. Direct Bebeto is negative and retic count is 1.9. No evidence of hemolysis May rule out a bone marrow pathology 3. History of hypertension 4. Renal insufficiency Plan/Recommendation Who will suggest doing a bone marrow aspiration biopsy rule out any myeloproliferative disorder even though less likely The leukemia lymphoma immunophenotyping in the blood is pending Continue the supportive care Serum protein electrophoresis pending Plan discussed with: Patient SOREN BERMUDEZ MD Jan 23, 2025 08:27
[2025-01-23 08:55] LABS: Anisocytosis Slight; Band Neutrophils % (manual) 2; Lymphocytes % (manual) 2 (10.0-50.0); Macrocytosis Moderate; Monocytes % (manual) 1 (0-12); Platelet Estimate Adequate
[2025-01-23] MEDS: methylPREDNISolone SOD SUCC 40 MG/ML VL IV SCH (09:58)
[2025-01-23] MEDS ORDERED: CEFEPIME 1GM/ 50ML 50 ML IV SCH (10:00)
[2025-01-23] MEDS: LIDOCAINE 2%HCL (LOCAL ANESTH.) INJ 10ml MDV ONE (10:13)
[2025-01-23] MEDS: fentaNYL CITRATE 100 MCG/2 ML VL IV ONE (10:15)
[2025-01-23] MEDS: MIDAZOLAM HCL 2MG/2ML 2ml VIAL (1mg/ml) IV ONE (10:15)
[2025-01-23] MEDS: ALBUMIN 25% 50 ML IV SCH (12:00)
--- NOTE | 2025-01-23 12:00 | DVHINCON2 ---
Date of service: Jan 23, 2025 Reason for Consultation ZOILA History of Present Illness 44-year-old female with known history of alcoholic liver disease recently hospitalized for jaundice and volume depletion causing acute kidney injury presents to the hospital now with worsening symptoms. Patient of note now has leukocytosis and hyperbilirubinemia. Nephrology consulted due to ZOILA Allergies: Coded Allergies: NO KNOWN ALLERGIES (Unverified , 10/26/24) Home Meds Active Scripts Amoxicillin & Pot Clavulanate (Amoxicillin/Potassium Cla) 875 Mg Tab, 1 TAB PO BID for 10 Days, #20 TAB Prov:[facility] RES[facility] 12/28/24 Sucralfate (CARAFATE) 1 Gm Tab, 1 GM OR TID for 21 Days, #63 TAB Prov:[facility] 12/28/24 Pantoprazole Sodium Sesquihydr (Pantoprazole Sodium) 40 Mg Tab, 40 MG PO DAILY for 30 Days, #30 TAB Prov:[facility] 12/28/24 Reported Medications Benazepril Hcl (Benazepril Hcl) 20 Mg Tab, 1 TAB PO DAILY 12/26/24 Current Medications Current Medications Medications (Trade) Dose Ordered Sig/Chris Route PRN Reason Start Time Stop Time Status Last Admin Cefepime HCl 50 ml @ 12.5 mls/hr DAILY IV 01/23/25 10:00 01/22/25 13:52 DC Metronidazole 100 ml @ 100 mls/hr Q8HR IV 01/22/25 14:00 01/23/25 05:35 Cefepime HCl 50 ml @ 12.5 mls/hr DAILY IV 01/22/25 13:52 01/23/25 09:56 Methylprednisolone Sodium Succinate (Solu Medrol) 32 mg DAILY IV 01/23/25 10:00 01/23/25 09:58 Family History: FH: asthma G8 FATHER FH: diabetes mellitus G8 MOTHER FH: prostate cancer G8 FATHER Review of Systems weakness H&P Exam Vital Signs/I&O Vital Sign Date Time Temp Pulse Resp B/P (MAP) Pulse Ox O2 Delivery O2 Flow Rate FiO2 01/23/25 09:00 97.2 72 18 124/79 (94) 100 97.2 01/22/25 20:00 Room Air* 0 21 Intake and Output 01/22/25 01/23/25 19:00 07:00 Intake Total 100 ml 1050 ml Balance 100 ml 1050 ml Intake Oral 200 ml IV Total 100 ml 850 ml # Voids 3 3 # Bowel Movements 4 1 Physical Exam jaundiced middle age female rrr nad ntnd abd Labs/Diagnostic Data Labs/Diagnostic Data Laboratory Tests Test 01/23/25 11:23 01/23/25 06:03 01/22/25 15:34 01/22/25 05:52 Range/Units White Blood Count 69.4 *H 65.9 *H 4.4-10.8 10^3/uL Red Blood Count 2.70 L 2.46 L 4.0-5.20 10^6/uL Hemoglobin 9.3 L 8.6 L 12.2-16.2 g/dL Hematocrit 29.2 #L 26.2 L 36.0-46.0 % Mean Corpuscular Volume 108.1 H 106.5 H 80.0-100.0 fL Mean Corpuscular Hemoglobin 34.2 H 35.0 H 28.0-32.0 pg Mean Corpuscular Hemoglobin Concent 31.7 L 32.9 32.0-36.0 g/dL Red Cell Distribution Width 20.6 H 20.6 H 11.8-14.3 % Platelet Count 254 241 140-450 10^3/uL Mean Platelet Volume 10.5 10.2 6.9-10.8 fL Neutrophils (%) (Auto) 37.0-80.0 % Lymphocytes (%) (Auto) 10.0-50.0 % Monocytes (%) (Auto) 0.0-12.0 % Basophils (%) (Auto) 0.0-2.0 % Neutrophils # (Auto) 1.6-8.6 10 ^3/uL Lymphocytes # (Auto) 0.4-5.4 10 ^3/uL Monocytes # (Auto) 0-1.3 10 ^3/uL Differential Total Cells Counted 100.0 100.0 100 Neutrophils % (Manual) 95 H 84 H 37.0-80.0 Band Neutrophils % (Manual) 2 7 Lymphocytes % (Manual) 2 L 8 L 10.0-50.0 Monocytes % (Manual) 1 1 0-12 Eosinophils % (Manual) 0 0 0-7 Basophils % (Manual) 0 0 0.0-2.0 Metamyelocytes % (manual) 0 0 Myelocytes % (Manual) 0 0 Promyelocytes % (Manual) 0 0 Blast Cells % (Manual) 0 0 Reactive Lymphocytes 0 0 Platelet Estimate Adequate Adequate Anisocytosis (manual) Slight Slight Macrocytosis Moderate Moderate Reticulocyte Count (auto) 1.99 H 0.5-1.5 % Sodium Level 140 138 136-145 mmol/L Potassium Level 3.7 3.8 3.5-5.1 mmol/L Chloride Level 112 H 109 H 98-107 mmol/L Carbon Dioxide Level 12 L 10 L 20-31 mmol/L Anion Gap 16 H 19 H 5-15 Blood Urea Nitrogen 78 H 80 *H 9-23 mg/dL Creatinine 3.85 H 4.07 H 0.550-1.02 mg/dL Glomerular Filtration Rate Calc 14 13 >90 mL/min BUN/Creatinine Ratio 20.3 H 19.7 10.0-20.0 Serum Glucose 134 H 114 H 74-106 mg/dL Calcium Level 8.8 8.5 L 8.7-10.4 mg/dL Total Bilirubin 27.6 H 26.8 H 0.2-1.0 mg/dL Aspartate Amino Transferase (AST) 82 H 78 H 13-40 U/L Alanine Aminotransferase (ALT) 36 28 7-40 U/L Alkaline Phosphatase 293 H 306 H 46-116 U/L Lactate Dehydrogenase 170 120-246 U/L Total Protein 6.6 6.2 5.7-8.2 g/dL Albumin 3.6 3.2 3.2-4.8 g/dL Prothrombin Time 14.8 H 9.3-11.8 sec Prothrombin Time INR 1.45 H 0.9-1.15 Activated Partial Thromboplast Time 37.6 H 24.5-34.5 SEC Direct Bilirubin > 15.0 H <0.3 mg/dL Cytomegalovirus IgG Antibody >10.00 H 0.00-0.59 U/mL Cytomegalovirus IgM Antibody <30.0 0.0-29.9 AU/mL Pat-Schultz Virus Capsid Ag IgG Ab >600.0 H 0.0-17.9 U/mL Pat-Schultz Virus Capsid Ag IgM Ab <36.0 0.0-35.9 U/mL Pat-Schultz Early Antigen IgG Ab 137.0 H 0.0-17.9 U/mL Pat-Schultz Virus Ab Interpret Comment . Herpes Simplex Virus I IgG Antibody Reactive H Non Reactive Herpes Simplex Virus II IgG Ab Non reactive Non Reactive HIV (1&2) Antibody Negative Negative Test 01/21/25 05:20 01/20/25 13:25 01/20/25 07:16 01/20/25 05:26 Range/Units White Blood Count 70.1 *H 62.5 *H 4.4-10.8 10^3/uL Red Blood Count 2.62 L 2.47 L 4.0-5.20 10^6/uL Hemoglobin 9.2 L 8.7 L 12.2-16.2 g/dL Hematocrit 28.1 L 26.4 #L 36.0-46.0 % Mean Corpuscular Volume 107.1 H 106.9 H 80.0-100.0 fL Mean Corpuscular Hemoglobin 35.3 H 35.4 H 28.0-32.0 pg Mean Corpuscular Hemoglobin Concent 32.9 33.1 32.0-36.0 g/dL Red Cell Distribution Width 21.8 H 21.9 H 11.8-14.3 % Platelet Count 280 250 140-450 10^3/uL Mean Platelet Volume 10.3 10.6 6.9-10.8 fL Neutrophils (%) (Auto) 37.0-80.0 % Lymphocytes (%) (Auto) 10.0-50.0 % Monocytes (%) (Auto) 0.0-12.0 % Basophils (%) (Auto) 0.0-2.0 % Neutrophils # (Auto) 1.6-8.6 10 ^3/uL Lymphocytes # (Auto) 0.4-5.4 10 ^3/uL Monocytes # (Auto) 0-1.3 10 ^3/uL Differential Total Cells Counted 100.0 100.0 100 Neutrophils % (Manual) 71 78 37.0-80.0 Band Neutrophils % (Manual) 24 13 Lymphocytes % (Manual) 5 L 4 L 10.0-50.0 Monocytes % (Manual) 0 2 0-12 Eosinophils % (Manual) 0 0 0-7 Basophils % (Manual) 0 0 0.0-2.0 Metamyelocytes % (manual) 0 0 Myelocytes % (Manual) 0 2 Promyelocytes % (Manual) 0 0 Blast Cells % (Manual) 0 0 Reactive Lymphocytes 0 1 Platelet Estimate Adequate Adequate Anisocytosis (manual) Slight Slight Macrocytosis Moderate Moderate Sodium Level 137 136 136-145 mmol/L Potassium Level 3.9 4.0 3.5-5.1 mmol/L Chloride Level 107 109 H 98-107 mmol/L Carbon Dioxide Level 11 L 10 L 20-31 mmol/L Anion Gap 19 H 17 H 5-15 Blood Urea Nitrogen 78 H 73 H 9-23 mg/dL Creatinine 4.24 H 3.96 H 0.550-1.02 mg/dL Glomerular Filtration Rate Calc 13 14 >90 mL/min BUN/Creatinine Ratio 18.4 18.4 10.0-20.0 Serum Glucose 117 H 117 H 74-106 mg/dL Calcium Level 8.5 L 8.8 8.7-10.4 mg/dL Total Bilirubin 28.6 H 26.0 H 0.2-1.0 mg/dL Aspartate Amino Transferase (AST) 61 H 43 H 13-40 U/L Alanine Aminotransferase (ALT) 21 15 7-40 U/L Alkaline Phosphatase 325 H 297 H 46-116 U/L Total Protein 6.5 6.0 5.7-8.2 g/dL Albumin 3.3 3.1 L 3.2-4.8 g/dL Urine Creatinine 153.22 H 30.0-125.0 mg/dL Urine Sodium < 10 L 40-220 mmol/L Urine Test Negative Negative Urine Opiates Screen Neg NEGATIVE Urine Fentanyl Screen Neg NEGATIVE Urine Barbiturates Screen Neg NEGATIVE Urine Phencyclidine Screen Neg NEGATIVE Urine Amphetamines Screen Neg NEGATIVE Urine Benzodiazepines Screen Neg NEGATIVE Urine Cocaine Screen Neg NEGATIVE Urine Cannabinoids Screen Neg NEGATIVE Blood Gas Specimen Type Arterial Blood Gas Sample Site Right radial Blood Gas Patient Temperature 37.0 Arterial Blood Date Drawn [id number] Arterial Blood pH 7.330 L 7.350-7.450 Arterial Blood Partial Pressure CO2 20.2 L 32.0-45.0 mmHg Arterial Blood Partial Pressure O2 71.5 L 83.0-108.0 mmHg Arterial Blood HCO3 10.4 L 21.0-28.0 mmol/L Arterial Blood Oxygen Saturation 92.2 L 94.0-98.0 % Arterial Blood Base Excess -13.8 L -2.0-3.0 mmol/L Arterial Blood Oxyhemoglobin 90.4 L 94.0-98.0 % Arterial Blood Carboxyhemoglobin 1.6 H 0.5-1.5 % Arterial Blood Methemoglobin 0.4 0.0-1.5 % Kirk Test Yes Blood Gas Total Hemoglobin 9.20 L 12.0-16.0 g/dL Blood Gas Modality Room air FiO2 % 21.0 Large Platelets Few Target Cells Few Schistocytes Few Test 01/19/25 01:45 01/18/25 21:44 Range/Units White Blood Count 76.7 *H 68.5 *H 4.4-10.8 10^3/uL Red Blood Count 2.80 L 2.87 L 4.0-5.20 10^6/uL Hemoglobin 9.7 L 9.9 L 12.2-16.2 g/dL Hematocrit 30.1 L 30.7 L 36.0-46.0 % Mean Corpuscular Volume 107.3 H 107.1 H 80.0-100.0 fL Mean Corpuscular Hemoglobin 34.5 H 34.6 H 28.0-32.0 pg Mean Corpuscular Hemoglobin Concent 32.2 32.3 32.0-36.0 g/dL Red Cell Distribution Width 22.4 H 22.3 H 11.8-14.3 % Platelet Count 330 317 140-450 10^3/uL Mean Platelet Volume 10.8 11.0 H 6.9-10.8 fL Neutrophils (%) (Auto) 37.0-80.0 % Lymphocytes (%) (Auto) 10.0-50.0 % Monocytes (%) (Auto) 0.0-12.0 % Basophils (%) (Auto) 0.0-2.0 % Neutrophils # (Auto) 1.6-8.6 10 ^3/uL Lymphocytes # (Auto) 0.4-5.4 10 ^3/uL Monocytes # (Auto) 0-1.3 10 ^3/uL Differential Total Cells Counted 100.0 100.0 100 Neutrophils % (Manual) 81 H 68 37.0-80.0 Band Neutrophils % (Manual) 8 15 Lymphocytes % (Manual) 3 L 4 L 10.0-50.0 Monocytes % (Manual) 5 5 0-12 Eosinophils % (Manual) 3 5 0-7 Basophils % (Manual) 0 0 0.0-2.0 Metamyelocytes % (manual) 0 2 Myelocytes % (Manual) 0 1 Promyelocytes % (Manual) 0 0 Blast Cells % (Manual) 0 0 Reactive Lymphocytes 0 0 Platelet Estimate Adequa Adequate Clumped Platelets Few Few Large Platelets Few Few Anisocytosis (manual) Slight Slight Macrocytosis Slight Moderate Prothrombin Time 16.9 H 9.3-11.8 sec Prothrombin Time INR 1.68 H 0.9-1.15 Sodium Level 135 L 136 136-145 mmol/L Potassium Level 3.6 3.8 3.5-5.1 mmol/L Chloride Level 106 107 98-107 mmol/L Carbon Dioxide Level 14 L 13 L 20-31 mmol/L Anion Gap 15 16 H 5-15 Blood Urea Nitrogen 70 H 69 H 9-23 mg/dL Creatinine 3.51 H 3.27 H 0.550-1.02 mg/dL Glomerular Filtration Rate Calc 16 17 >90 mL/min BUN/Creatinine Ratio 19.9 21.1 H 10.0-20.0 Serum Glucose 139 H 113 H 74-106 mg/dL Calcium Level 8.8 9.0 8.7-10.4 mg/dL Iron Level 108 50-170 ug/dL Total Iron Binding Capacity 194 L 250-425 ug/dL Percent Iron Saturation 55.7 H 15-50 % Ferritin 225.8 10-291 ng/mL Total Bilirubin 30.0 H 29.4 H 0.2-1.0 mg/dL Aspartate Amino Transferase (AST) 59 H 59 H 13-40 U/L Alanine Aminotransferase (ALT) 19 19 7-40 U/L Alkaline Phosphatase 389 H 389 H 46-116 U/L Ammonia 29 11-32 umol/L Total Protein 6.5 6.4 5.7-8.2 g/dL Albumin 3.0 L 3.0 L 3.2-4.8 g/dL Vitamin B12 Level 1934 H 211-911 pg/mL Vitamin D 25-Hydroxy 16.1 L 30.0-100 ng/mL Plasma/Serum Blood Alcohol < 3.0 <10 mg/dL Hepatitis A Antibody Total Positive H Negative Hepatitis B Surface Antigen Negative Negative Hepatitis B Surface Antibody Negative Negative Hepatitis B Core Total Antibody Negative Negative Hepatitis C Antibody Negative Negative Poikilocytosis (manual) Slight Target Cells Few Lactic Acid Level 1.3 0.4-2.0 mmol/L Troponin I High Sensitivity 10 </=34 ng/L B-Type Natriuretic Peptide 469.52 0-100 pg/mL Lipase 93 H 12-53 U/L Microbiology Date/Time Source Procedure Growth Status 01/20/25 13:25 Voided Urine Urine Culture - Final Complete Assessment Acute kidney injury prerenal vs HRS 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
--- NOTE | 2025-01-23 12:43 | DVH ---
CT PELVIS WO CONTRAST, HISTORY: BONE MARROW BX COMPARISON: None PROCEDURE: Informed consent and time-out was performed before the procedure. Conscious sedation was p erformed by the interventional radiology nurse. The left posterior pelvic bone was marked, sterilized , draped, and locally anesthetized using approximately 10 ml of 1% lidocaine. Axial CT images were us ed for localization. A 11 gauge [employer] Bone Biopsy kit was used to take 11 mL aspirate and 1 core sample. The biopsy needle was then removed. No immediate complications noted. FINDINGS: Axial CT images demonstrates biopsy needle within the left posterior pelvic bone. IMPRESSION: Successful CT-guided biopsy of the left posterior pelvic bone.
--- NOTE | 2025-01-23 12:43 | DVH ---
CT PELVIS WO CONTRAST, HISTORY: BONE MARROW BX COMPARISON: None PROCEDURE: Informed consent and time-out was performed before the procedure. Conscious sedation was p erformed by the interventional radiology nurse. The left posterior pelvic bone was marked, sterilized , draped, and locally anesthetized using approximately 10 ml of 1% lidocaine. Axial CT images were us ed for localization. A 11 gauge [employer] Bone Biopsy kit was used to take 11 mL aspirate and 1 core sample. The biopsy needle was then removed. No immediate complications noted. FINDINGS: Axial CT images demonstrates biopsy needle within the left posterior pelvic bone. IMPRESSION: Successful CT-guided biopsy of the left posterior pelvic bone.
[2025-01-23] MEDS: SODIUM BICARBONATE 650 MG TAB PO SCH (15:51)
--- NOTE | 2025-01-23 16:05 | DVHPNRES ---
Progress Note Date Seen: Jan 23, 2025 Resident Creating Document: TOMY VICTORIA RESIDENT Medical Necessity Reason Pt with a Central, PICC or Fol: No Subjective Review of Systems Patient was seen and examined on the bedside. She is alert oriented x3. Complaint of generalized weakness and bilateral leg swelling. No other active complaint Objective vital signs Vital Sign Date Time Temp Pulse Resp B/P (MAP) Pulse Ox O2 Delivery O2 Flow Rate FiO2 01/23/25 13:00 97.9 78 18 107/70 (82) 99 97.9 01/23/25 08:30 Room Air* 0 21 Total Intake and Output 01/22/25 01/22/25 01/23/25 15:00 23:00 07:00 Intake Total 250 ml 900 ml Balance 250 ml 900 ml medications Current Medications Medications Dose Ordered Sig/Chris Route Start Time Stop Time Status Last Admin Dose Admin Ondansetron HCl 4 mg Q4HPRN PRN IV 01/19/25 05:30 01/19/25 02:51 4 MG Lactulose 30 ml BID PO 01/19/25 10:00 01/23/25 09:57 30 ML Pantoprazole Sodium 40 mg BID IV 01/19/25 03:15 01/23/25 09:57 40 MG Sucralfate 1 gm BID@0600,2200 PO 01/19/25 06:00 01/23/25 05:35 1 GM Ergocalciferol 50,000 unit Q7D PO 01/19/25 12:00 01/19/25 12:39 50,000 UNIT Midodrine 10 mg TID@0600,1200,1800 PO 01/19/25 12:00 01/23/25 12:48 10 MG Ursodiol 300 mg BID PO 01/21/25 22:00 01/23/25 10:00 300 MG Metronidazole 100 ml @ 100 mls/hr Q8HR IV 01/22/25 14:00 01/23/25 15:49 100 MLS/HR Cefepime HCl 50 ml @ 12.5 mls/hr DAILY IV 01/22/25 13:52 01/23/25 09:56 12.5 MLS/HR Methylprednisolone Sodium Succinate 32 mg DAILY IV 01/23/25 10:00 01/23/25 09:58 32 MG Sodium Bicarbonate 650 mg TID PO 01/23/25 14:00 01/23/25 15:51 650 MG Albumin Human 50 ml @ 100 mls/hr Q8H IV 01/23/25 12:00 01/24/25 04:29 Examination Examination General Appearance: Icteric ,Alert, Oriented X3, Cooperative, mild distress HEENT: Atraumatic, PERRLA, EOMI,Yellow discoloration of the mucosa and sclera( icteric appearance) Respiratory: Clear to auscultation, Normal air movement Cardiovascular: Regular rate, Normal S1, Normal S2, No murmurs Abdominal:Mild tenderness, hepatomegaly, Normal bowel sounds, Soft, no ascites, tympanic. Extremities: Trace BLE edema+, No clubbing, No cyanosis, Normal pulses. Skin: Yellowish is skin discoloration but No rashes, No breakdown, No significant lesion Neuro: Normal gait, Normal speech, no sensory motor deficits Psych/Mental Status: Mental status NL, Mood NL laboratory and microbiology Laboratory Tests 01/23/25 06:03 Test 01/23/25 06:03 Range/Units Serum Glucose 134 H 74-106 mg/dL Microbiology Date/Time Source Procedure Growth Status 01/20/25 13:25 Voided Urine Urine Culture - Final Complete 01/18/25 22:00 Blood Blood Culture - Preliminary NO GROWTH AFTER 72 HOURS OF INCUBATION. Resulted Labs and/or images reviewed: Labs reviewed by me, Image(s) reviewed by me Problem List/Assessment/Plan Problem List/Assessment/Plan Problem List/Assessment/Plan # SIRS/ Sepsis likely due to below # Acute on Chronic Decompensated Alcoholic hepatitis # Hepatic steatosis, Hepatomegaly & Transaminitis from above # Moderate malnutrition # Possible upper GI bleeding - Ultrasound shows enlarged liver measuring 24.5 cm demonstrates diffusely heterogeneous echogenicity - CT scan showed heterogeneous enlarged liver, with peripheral areas in the liver are very low in density on 12/25/24 - Maddrey score 53.5, and MELD score 37 point (with52.6% estimated 90 day mortality) - Bilirubin is very high but stable - IV Methylprednisolone 32 mg daily - IV Protonix 40 mg bid , Carafate 1 gm po bid & Lactulose 30 mL p.o. b.i.d. - Blood culture report revealed no growth in 24 hours of incubation - IV Methylprednisolone 1g daily and IV metronidazole 500 mg t.i.d. - Pending stool occult test. # Chronic anemia, macrocytic hyperchromic due to alcoholism - Monitor lab - H&H stable # Hypertensive heart disease and possible chronic diastolic heart failure - Echo showed LVEF 60% with a LA enlargement, RVSP 40 - BP is on the lower side., Midodrine 10 mg p.o. t.i.d. # ZOILA on CKD likely due to to hepatorenal syndrome - IV Albumin - Midodrine 10 mg p.o. t.i.d. - Nephrology on board # Vitamin D deficiency - Vitamin D 39622 units Q 7D. # Leukemoid reaction # Severe Leukocytosis unspecified # Possible leukemia lymphoma/myeloproliferative disorder - Patient's underwent bone marrow biopsy today and the specimen sent for further studies - leukemia lymphoma immuno typing and serum electrophoresis pending Renal diet Due to GI bleed, no anticoagulant is indicated Protonix BOWEL REGIMEN: Lactulose Plan discussed with Dr. Andres Plan discussed with: Patient, Other My Orders My Orders Orders - TOMY VICTORIA Procedure Category Date Status Time Ct Guidance For CT 01/23/25 Resulted Needle Placeme 09:[address] 01/23/25 Resulted 09:55 Date of Service: Jan 23, 2025 Billing Provider: NIC MORA MD Common Visit Codes: [id number] INP/OBS CARE(HIGH) TOMY VICTORIA Jan 23, 2025 16:05 NIC MROA MD Jan 31, 2025 23:09
--- NOTE | 2025-01-23 22:38 | DVHPN2 ---
Progress Note - Dictate Date Seen: Jan 23, 2025 Medical Necessity Reason Pt with a Central, PICC or Fol: No vital signs Vital Sign Date Time Temp Pulse Resp B/P (MAP) Pulse Ox O2 Delivery O2 Flow Rate FiO2 01/23/25 17:00 97.2 79 22 138/72 (94) 100 97.2 01/23/25 08:30 Room Air* 0 21 Total Intake and Output 01/22/25 01/22/25 01/23/25 15:00 23:00 07:00 Intake Total 250 ml 900 ml Balance 250 ml 900 ml medications Current Medications Medications Dose Ordered Sig/Chris Route Start Time Stop Time Status Last Admin Dose Admin Ondansetron HCl 4 mg Q4HPRN PRN IV 01/19/25 05:30 01/19/25 02:51 4 MG Lactulose 30 ml BID PO 01/19/25 10:00 01/23/25 22:09 30 ML Pantoprazole Sodium 40 mg BID IV 01/19/25 03:15 01/23/25 22:09 40 MG Sucralfate 1 gm BID@0600,2200 PO 01/19/25 06:00 01/23/25 22:09 1 GM Ergocalciferol 50,000 unit Q7D PO 01/19/25 12:00 01/19/25 12:39 50,000 UNIT Midodrine 10 mg TID@0600,1200,1800 PO 01/19/25 12:00 01/23/25 18:54 10 MG Ursodiol 300 mg BID PO 01/21/25 22:00 01/23/25 10:00 300 MG Metronidazole 100 ml @ 100 mls/hr Q8HR IV 01/22/25 14:00 01/23/25 22:09 100 MLS/HR Cefepime HCl 50 ml @ 12.5 mls/hr DAILY IV 01/22/25 13:52 01/23/25 09:56 12.5 MLS/HR Methylprednisolone Sodium Succinate 32 mg DAILY IV 01/23/25 10:00 01/23/25 09:58 32 MG Sodium Bicarbonate 650 mg TID PO 01/23/25 14:00 01/23/25 22:09 650 MG Albumin Human 50 ml @ 100 mls/hr Q8H IV 01/23/25 12:00 01/24/25 04:29 01/23/25 22:08 100 MLS/HR laboratory and microbiology Laboratory Tests 01/23/25 06:03 Test 01/23/25 06:03 Range/Units Serum Glucose 134 H 74-106 mg/dL Prognosis No active Hep B ; Hep B S Ag negative On Ursodiol for hyperbilirubinemis LFT's persistently elevated Leukamoid reaction SP Bone marrow bx today Awaiting results; monitor labs Appreciate hemato oncology consult Plan discussed with: Patient JUANA KNIGHT MD Jan 23, 2025 22:38
[2025-01-24] VITALS (8 sets, daily range): BP systolic 117–147; BP diastolic 68–86; PULSE 75–81; RESP 16–18; TEMP 97.3–97.6; O2SAT 98–100
[2025-01-24 06:41] LABS: Hematocrit 27.4 % (36.0-46.0); Mean Corpuscular Hemoglobin 35.5 pg (28.0-32.0); Mean Corpuscular Hgb Conc. 32.8 g/dL (32.0-36.0); Mean Corpuscular Volume 108.2 fL (80.0-100.0); Platelet Count (auto) 255 10^3/uL (140-450); Red Blood Cells 2.53 10^6/uL (4.0-5.20)
[2025-01-24 07:03] LABS: Potassium 3.6 mmol/L (3.5-5.1); Sodium 140 mmol/L (136-145)
[2025-01-24 07:06] LABS: Alanine Aminotransferase 38 U/L (7-40); Albumin 3.7 g/dL (3.2-4.8); Alkaline Phosphatase 287 U/L (46-116); Anion Gap 19 (5-15); Aspartate Aminotransferase 62 U/L (13-40); BUN/Creatinine Ratio 21.7 (10.0-20.0); Bilirubin, Total 28.3 mg/dL (0.2-1.0); Blood Urea Nitrogen 75 mg/dL (9-23); Calcium 8.6 mg/dL (8.7-10.4); Carbon Dioxide 11 mmol/L (20-31); Chloride 110 mmol/L (98-107); Glucose 126 mg/dL (74-106); Red Cell Distribution Width 21.2 % (11.8-14.3); Total Protein 6.7 g/dL (5.7-8.2)
[2025-01-24 07:23] LABS: White Blood Cell 75.1 10^3/uL (4.4-10.8)
[2025-01-24 07:24] LABS: Basophils % (manual) 0 (0.0-2.0); Eosinophils % (manual) 0 (0-7); Metamyelocytes % 0; Myelocytes % 0; Promyelocytes % 0; Reactive Lymphocytes 0
[2025-01-24 08:07] LABS: Haptoglobin 75 mg/dL (42-296)
[2025-01-24 08:46] LABS: Band Neutrophils % (manual) 20; Blast Cells 2; Lymphocytes % (manual) 3 (10.0-50.0); Monocytes % (manual) 3 (0-12); Platelet Estimate Adequate
[2025-01-24 08:47] LABS: Anisocytosis Slight; Macrocytosis Moderate
[2025-01-24] MEDS: FUROSEMIDE 20 MG TAB PO ONE (12:00)
--- NOTE | 2025-01-24 14:03 | DVHPN2 ---
Progress Note Date Seen: Jan 24, 2025 Medical Necessity Reason Pt with a Central, PICC or Fol: No Objective vital signs Vital Sign Date Time Temp Pulse Resp B/P (MAP) Pulse Ox O2 Delivery O2 Flow Rate FiO2 01/24/25 13:30 97.4 79 16 134/82 (99) 100 97.4 01/23/25 20:00 Room Air* 0 21 Total Intake and Output 01/23/25 01/23/25 01/24/25 15:00 23:00 07:00 Intake Total 100 ml 600 ml 950 ml Balance 100 ml 600 ml 950 ml medications Current Medications Medications Dose Ordered Sig/Chris Route Start Time Stop Time Status Last Admin Dose Admin Ondansetron HCl 4 mg Q4HPRN PRN IV 01/19/25 05:30 01/19/25 02:51 4 MG Lactulose 30 ml BID PO 01/19/25 10:00 01/24/25 11:15 30 ML Pantoprazole Sodium 40 mg BID IV 01/19/25 03:15 01/24/25 11:15 40 MG Sucralfate 1 gm BID@0600,2200 PO 01/19/25 06:00 01/24/25 05:10 1 GM Ergocalciferol 50,000 unit Q7D PO 01/19/25 12:00 01/19/25 12:39 50,000 UNIT Midodrine 10 mg TID@0600,1200,1800 PO 01/19/25 12:00 01/24/25 13:00 10 MG Ursodiol 300 mg BID PO 01/21/25 22:00 01/24/25 10:00 300 MG Metronidazole 100 ml @ 100 mls/hr Q8HR IV 01/22/25 14:00 01/24/25 05:09 100 MLS/HR Cefepime HCl 50 ml @ 12.5 mls/hr DAILY IV 01/22/25 13:52 01/24/25 11:15 12.5 MLS/HR Methylprednisolone Sodium Succinate 32 mg DAILY IV 01/23/25 10:00 01/24/25 11:15 32 MG Sodium Bicarbonate 650 mg TID PO 01/23/25 14:00 01/24/25 05:10 650 MG Furosemide 20 mg DAILY PO 01/25/25 10:00 Spironolactone 25 mg DAILY PO 01/25/25 10:00 Examination: GENERAL:Abnormal, CVS:Normal, SKIN:Abnormal laboratory and microbiology Laboratory Tests 01/24/25 05:35 Test 01/24/25 05:35 Range/Units Serum Glucose 126 H 74-106 mg/dL Microbiology Date/Time Source Procedure Growth Status 01/20/25 13:25 Voided Urine Urine Culture - Final Complete 01/18/25 22:00 Blood Blood Culture - Final NO GROWTH AFTER 5 DAYS OF INCUBATION. 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
[2025-01-24 14:07] LABS: Anti-Nuclear Antibody Direct Negative (Negative)
--- NOTE | 2025-01-24 15:15 | DVHPNRES ---
Progress Note Date Seen: Jan 24, 2025 Resident Creating Document: TOMY VICTORIA RESIDENT Medical Necessity Reason Pt with a Central, PICC or Fol: No Subjective Review of Systems Patient was seen and examined on the bedside. She is alert oriented x3. Complain of Bilateral upper abdominal pain and generalized weakness. No other active complaint. Objective vital signs Vital Sign Date Time Temp Pulse Resp B/P (MAP) Pulse Ox O2 Delivery O2 Flow Rate FiO2 01/24/25 13:30 97.4 79 16 134/82 (99) 100 97.4 01/24/25 08:00 Room Air* 0 21 Total Intake and Output 01/23/25 01/23/25 01/24/25 15:00 23:00 07:00 Intake Total 100 ml 600 ml 950 ml Balance 100 ml 600 ml 950 ml medications Current Medications Medications Dose Ordered Sig/Chris Route Start Time Stop Time Status Last Admin Dose Admin Ondansetron HCl 4 mg Q4HPRN PRN IV 01/19/25 05:30 01/19/25 02:51 4 MG Lactulose 30 ml BID PO 01/19/25 10:00 01/24/25 11:15 30 ML Pantoprazole Sodium 40 mg BID IV 01/19/25 03:15 01/24/25 11:15 40 MG Sucralfate 1 gm BID@0600,2200 PO 01/19/25 06:00 01/24/25 05:10 1 GM Ergocalciferol 50,000 unit Q7D PO 01/19/25 12:00 01/19/25 12:39 50,000 UNIT Midodrine 10 mg TID@0600,1200,1800 PO 01/19/25 12:00 01/24/25 13:00 10 MG Ursodiol 300 mg BID PO 01/21/25 22:00 01/24/25 10:00 300 MG Metronidazole 100 ml @ 100 mls/hr Q8HR IV 01/22/25 14:00 01/24/25 05:09 100 MLS/HR Cefepime HCl 50 ml @ 12.5 mls/hr DAILY IV 01/22/25 13:52 01/24/25 11:15 12.5 MLS/HR Methylprednisolone Sodium Succinate 32 mg DAILY IV 01/23/25 10:00 01/24/25 11:15 32 MG Spironolactone 25 mg DAILY PO 01/25/25 10:00 Sodium Bicarbonate 1,300 mg TID PO 01/24/25 14:00 Furosemide 40 mg DAILY PO 01/24/25 14:15 Examination Examination General Appearance: Icteric ,Alert, Oriented X3, Cooperative, mild distress HEENT: Atraumatic, PERRLA, EOMI,Yellow discoloration of the mucosa and sclera( icteric appearance) Respiratory: Clear to auscultation, Normal air movement Cardiovascular: Regular rate, Normal S1, Normal S2, No murmurs Abdominal:Mild tenderness, hepatomegaly, Normal bowel sounds, Soft, no ascites, tympanic. Extremities: Trace BLE edema+, No clubbing, No cyanosis, Normal pulses. Skin: Yellowish is skin discoloration but No rashes, No breakdown, No significant lesion Neuro: Normal gait, Normal speech, no sensory motor deficits Psych/Mental Status: Mental status NL, Mood NL laboratory and microbiology Laboratory Tests 01/24/25 05:35 Test 01/24/25 05:35 Range/Units Serum Glucose 126 H 74-106 mg/dL Microbiology Date/Time Source Procedure Growth Status 01/20/25 13:25 Voided Urine Urine Culture - Final Complete 01/18/25 22:00 Blood Blood Culture - Final NO GROWTH AFTER 5 DAYS OF INCUBATION. Complete Labs and/or images reviewed: Labs reviewed by me, Image(s) reviewed by me Problem List/Assessment/Plan Problem List/Assessment/Plan Problem List/Assessment/Plan # SIRS/ Sepsis likely due to below # Acute on Chronic Decompensated Alcoholic hepatitis # Hepatic steatosis, Hepatomegaly & Transaminitis from above # Moderate malnutrition # Possible upper GI bleeding - Ultrasound shows enlarged liver measuring 24.5 cm demonstrates diffusely heterogeneous echogenicity - CT scan showed heterogeneous enlarged liver, with peripheral areas in the liver are very low in density on 12/25/24 - Maddrey score 53.5, and MELD score 37 point (with52.6% estimated 90 day mortality) - Bilirubin is very high but stable - IV Methylprednisolone 32 mg daily - IV Protonix 40 mg bid , Carafate 1 gm po bid & Lactulose 30 mL p.o. b.i.d. - IV Cefepime 1 g daily and IV metronidazole 500 mg t.i.d. - Lasix 40 mg p.o. and spironolactone 25 mg p.o. daily - Ursodiol 300 mg po bid. - Blood culture report revealed no growth in 24 hours of incubation - Pending stool occult test. - GI recommended transfer the patient to higher level of care for liver transplantation # Chronic anemia, macrocytic hyperchromic due to alcoholism - Monitor lab - H&H stable # Hypertensive heart disease and possible chronic diastolic heart failure - Echo showed LVEF 60% with a LA enlargement, RVSP 40 - BP is on the lower side., Midodrine 10 mg p.o. t.i.d. # ZOILA on CKD likely due to to hepatorenal syndrome - IV Albumin - Midodrine 10 mg p.o. t.i.d. - Nephrology on board # Vitamin D deficiency - Vitamin D 70790 units Q 7D. # Leukemoid reaction # Severe Leukocytosis unspecified # Possible leukemia lymphoma/myeloproliferative disorder - Patient's underwent bone marrow biopsy and the specimen sent for further studies - leukemia lymphoma immuno typing and serum electrophoresis pending Renal diet Due to GI bleed, no anticoagulant is indicated Protonix BOWEL REGIMEN: Lactulose Plan discussed with Dr. Andres Plan discussed with: Patient, Other My Orders My Orders Orders - TOMY VICTORIA Procedure Category Date Status Time Discontinue Tele CAROL 01/24/25 In Process 07:56 Transfer Orders XFER 01/24/25 Transmitted 07:56 Spironolactone PHA 01/25/25 In Process (Aldactone) 10:00 Furosemide Tablet PHA 01/24/25 In Process (Lasix Tablet) 14:15 Date of Service: Jan 24, 2025 Billing Provider: NIC MORA MD Common Visit Codes: [id number] INP/OBS CARE(HIGH) TOMY VICTORIA Jan 24, 2025 15:15 NIC MORA MD Jan 31, 2025 23:18
[2025-01-24] MEDS: SODIUM BICARBONATE 650 MG TAB PO SCH (15:50)
[2025-01-24] MEDS: FUROSEMIDE 20 MG TAB PO SCH (15:50)
[2025-01-24] MEDS: SPIRONOLACTONE 25 MG TAB PO ONE (15:51)
--- NOTE | 2025-01-24 18:57 | DVHPN2 ---
Progress Note - Dictate Date Seen: Jan 24, 2025 Medical Necessity Reason Pt with a Central, PICC or Fol: No Subjective No new complaints Complained of generalized weakness vital signs Vital Sign Date Time Temp Pulse Resp B/P (MAP) Pulse Ox O2 Delivery O2 Flow Rate FiO2 01/24/25 17:10 97.5 79 16 141/86 (104) 100 97.5 01/24/25 08:00 Room Air* 0 21 Total Intake and Output 01/23/25 01/23/25 01/24/25 15:00 23:00 07:00 Intake Total 100 ml 600 ml 950 ml Balance 100 ml 600 ml 950 ml medications Current Medications Medications Dose Ordered Sig/Chris Route Start Time Stop Time Status Last Admin Dose Admin Ondansetron HCl 4 mg Q4HPRN PRN IV 01/19/25 05:30 01/19/25 02:51 4 MG Lactulose 30 ml BID PO 01/19/25 10:00 01/24/25 11:15 30 ML Pantoprazole Sodium 40 mg BID IV 01/19/25 03:15 01/24/25 11:15 40 MG Sucralfate 1 gm BID@0600,2200 PO 01/19/25 06:00 01/24/25 05:10 1 GM Ergocalciferol 50,000 unit Q7D PO 01/19/25 12:00 01/19/25 12:39 50,000 UNIT Midodrine 10 mg TID@0600,1200,1800 PO 01/19/25 12:00 01/24/25 18:02 10 MG Ursodiol 300 mg BID PO 01/21/25 22:00 01/24/25 10:00 300 MG Metronidazole 100 ml @ 100 mls/hr Q8HR IV 01/22/25 14:00 01/24/25 15:51 100 MLS/HR Cefepime HCl 50 ml @ 12.5 mls/hr DAILY IV 01/22/25 13:52 01/24/25 11:15 12.5 MLS/HR Methylprednisolone Sodium Succinate 32 mg DAILY IV 01/23/25 10:00 01/24/25 11:15 32 MG Spironolactone 25 mg DAILY PO 01/25/25 10:00 Sodium Bicarbonate 1,300 mg TID PO 01/24/25 14:00 01/24/25 15:50 1,300 MG Furosemide 40 mg DAILY PO 01/24/25 14:15 01/24/25 15:50 40 MG objective General Appearance: Icteric ,Alert, Oriented X3, Cooperative, mild distress HEENT: Atraumatic, PERRLA, EOMI,Yellow discoloration of the mucosa and sclera( icteric appearance) Respiratory: Clear to auscultation, Normal air movement Cardiovascular: Regular rate, Normal S1, Normal S2, No murmurs Abdominal:Mild tenderness, hepatomegaly, Normal bowel sounds, Soft, no ascites, tympanic. Extremities: Trace BLE edema+, No clubbing, No cyanosis, Normal pulses. Skin: Yellowish is skin discoloration but No rashes, No breakdown, No significant lesion Neuro: Normal gait, Normal speech, no sensory motor deficits Psych/Mental Status: Mental status NL, Mood NL laboratory and microbiology Laboratory Tests 01/24/25 05:35 Test 01/24/25 05:35 Range/Units Serum Glucose 126 H 74-106 mg/dL Problems(with codes): (1) Sepsis (2) Liver cirrhosis (3) Anemia (4) Alcoholic cirrhosis of liver (5) RUQ abdominal pain (6) Acute renal injury (7) Lymphocytosis Prognosis PLAN Await bone marrow biopsy results CT scan showed heterogeneous enlarged liver, with peripheral areas in the liver are very low in density on 12/25/24 - Maddrey score 53.5, and MELD score 37 point (with52.6% estimated 90 day mortality) - Bilirubin is very high Continue IV methylprednisolone increase dosage Patient is on ursodiol ; increase to 3 times a day Continue to monitor labs If liver function does not improve consider referral to higher level of care for liver transplant evaluation Overall prognosis remains guarded Plan discussed with: Patient, Other (Dr Jones) JUANA KNIGHT MD Jan 24, 2025 18:57
[2025-01-24] MEDS: methylPREDNISolone SOD SUCC 40 MG/ML VL IV SCH (22:29)
[2025-01-24] MEDS: URSODIOL 300 MG CAP PO SCH (22:30)
[2025-01-25] VITALS (8 sets, daily range): BP systolic 121–149; BP diastolic 74–91; PULSE 76–86; RESP 16–19; TEMP 97.2–98.1; O2SAT 99–100
[2025-01-25 06:46] LABS: Calcium 9.3 mg/dL (8.7-10.4); Potassium 4.2 mmol/L (3.5-5.1); Sodium 140 mmol/L (136-145)
[2025-01-25 06:56] LABS: Anion Gap 19.00001 (5-15); BUN/Creatinine Ratio 24.8 (10.0-20.0)
[2025-01-25 06:58] LABS: Alanine Aminotransferase 41 U/L (7-40); Albumin 3.8 g/dL (3.2-4.8); Alkaline Phosphatase 281 U/L (46-116); Aspartate Aminotransferase 69 U/L (13-40); Bilirubin, Total 28.1 mg/dL (0.2-1.0); Blood Urea Nitrogen 68 mg/dL (9-23); Chloride 111 mmol/L (98-107); Glucose 108 mg/dL (74-106)
[2025-01-25 06:59] LABS: Hemoglobin 9.8 g/dL (12.2-16.2)
[2025-01-25 07:00] LABS: Carbon Dioxide < 10 mmol/L (20-31)
[2025-01-25 07:05] LABS: Hematocrit 30.9 % (36.0-46.0); Mean Corpuscular Hemoglobin 35.9 pg (28.0-32.0); Mean Corpuscular Hgb Conc. 31.6 g/dL (32.0-36.0); Mean Corpuscular Volume 113.4 fL (80.0-100.0); Platelet Count (auto) 211 10^3/uL (140-450); Red Blood Cells 2.73 10^6/uL (4.0-5.20); Red Cell Distribution Width 21.2 % (11.8-14.3)
[2025-01-25 07:22] LABS: White Blood Cell 87.8 10^3/uL (4.4-10.8)
[2025-01-25 07:24] LABS: Basophils % (manual) 0 (0.0-2.0); Eosinophils % (manual) 0 (0-7); Metamyelocytes % 0; Myelocytes % 0; Promyelocytes % 0; Reactive Lymphocytes 0
[2025-01-25 08:19] LABS: Anisocytosis Slight; Band Neutrophils % (manual) 22; Blast Cells 2; Lymphocytes % (manual) 7 (10.0-50.0); Macrocytosis Marked; Monocytes % (manual) 3 (0-12)
[2025-01-25 08:21] LABS: Platelet Estimate Adequate
[2025-01-25] MEDS ORDERED: FUROSEMIDE 20 MG TAB PO SCH (10:00)
[2025-01-25] MEDS: SPIRONOLACTONE 25 MG TAB PO SCH (10:49)
[2025-01-25 12:09] LABS: Base Excess -14.1 mmol/L (-2.0-3.0)
--- NOTE | 2025-01-25 13:09 | DVHPN2 ---
Progress Note Date Seen: Jan 25, 2025 Medical Necessity Reason Pt with a Central, PICC or Fol: No Objective vital signs Vital Sign Date Time Temp Pulse Resp B/P (MAP) Pulse Ox O2 Delivery O2 Flow Rate FiO2 01/25/25 12:40 97.2 85 16 143/86 (105) 100 97.2 01/25/25 08:00 Room Air* 0 21 Total Intake and Output 01/24/25 01/24/25 01/25/25 15:00 23:00 07:00 Intake Total 1490 ml 1200 ml Output Total 650 ml Balance 1490 ml 550 ml medications Current Medications Medications Dose Ordered Sig/Chris Route Start Time Stop Time Status Last Admin Dose Admin Ondansetron HCl 4 mg Q4HPRN PRN IV 01/19/25 05:30 01/19/25 02:51 4 MG Lactulose 30 ml BID PO 01/19/25 10:00 01/25/25 10:40 30 ML Pantoprazole Sodium 40 mg BID IV 01/19/25 03:15 01/25/25 10:40 40 MG Sucralfate 1 gm BID@0600,2200 PO 01/19/25 06:00 01/25/25 05:16 1 GM Ergocalciferol 50,000 unit Q7D PO 01/19/25 12:00 01/19/25 12:39 50,000 UNIT Midodrine 10 mg TID@0600,1200,1800 PO 01/19/25 12:00 01/24/25 18:02 10 MG Cefepime HCl 50 ml @ 12.5 mls/hr DAILY IV 01/22/25 13:52 01/25/25 10:41 12.5 MLS/HR Spironolactone 25 mg DAILY PO 01/25/25 10:00 01/25/25 10:49 25 MG Sodium Bicarbonate 1,300 mg TID PO 01/24/25 14:00 01/25/25 05:14 1,300 MG Furosemide 40 mg DAILY PO 01/24/25 14:15 01/25/25 10:43 40 MG Ursodiol 300 mg TID PO 01/24/25 22:00 01/25/25 05:15 300 MG Methylprednisolone Sodium Succinate 40 mg BID IV 01/24/25 22:00 01/25/25 10:40 40 MG Examination: GENERAL:Abnormal, ABDOMEN:Abnormal laboratory and microbiology Laboratory Tests 01/25/25 05:39 Test 01/25/25 05:39 Range/Units Serum Glucose 108 H 74-106 mg/dL Microbiology Date/Time Source Procedure Growth Status 01/20/25 13:25 Voided Urine Urine Culture - Final Complete 01/18/25 22:00 Blood Blood Culture - Final NO GROWTH AFTER 5 DAYS OF INCUBATION. Complete Problem List/Assessment/Plan Problem List/Assessment/Plan Acute kidney injury prerenal vs HRS Ckd due to recurrent ZOILA Alcoholic Liver disease: Cirrhosis Anemia Hyperbilirubinemia Hypoalbuminemia Jaundice leukocytosis metabolic acidosis midodrine IV sodium bicarbonate today sodium bicarbonate po keep MAP 65 avoid hypotension IR biopsy BM completed hematology and GI consults EBV and danae bar + Plan discussed with: Patient My Orders My Orders Orders - JULIANE GASTELUM MD Procedure Category Date Status Time Sodium Bicarb Tab PHA 01/24/25 In Process 14:00 JULIANE GASTELUM MD Jan 25, 2025 13:09
[2025-01-25] MEDS: SODIUM BICARB 8.4% 50Meq/50ml SYR Vial IV ONE (13:54)
[2025-01-25 13:59] LABS: INR 1.47 (0.9-1.15); Partial Thromboplastin Time 36.9 SEC (24.5-34.5)
--- NOTE | 2025-01-25 21:01 | DVHPNRES ---
Progress Note Date Seen: Jan 25, 2025 Resident Creating Document: TOMY VICTORIA RESIDENT Medical Necessity Reason Pt with a Central, PICC or Fol: No Subjective Review of Systems Patient was seen and examined on the bedside. She is alert oriented x3. Complain of Bilateral upper abdominal pain and generalized weakness. No other active complaint. Objective vital signs Vital Sign Date Time Temp Pulse Resp B/P (MAP) Pulse Ox O2 Delivery O2 Flow Rate FiO2 01/25/25 16:51 97.5 76 16 143/91 (108) 100 97.5 01/25/25 08:00 Room Air* 0 21 Total Intake and Output 01/24/25 01/24/25 01/25/25 15:00 23:00 07:00 Intake Total 1490 ml 1200 ml Output Total 650 ml Balance 1490 ml 550 ml medications Current Medications Medications Dose Ordered Sig/Chris Route Start Time Stop Time Status Last Admin Dose Admin Ondansetron HCl 4 mg Q4HPRN PRN IV 01/19/25 05:30 01/19/25 02:51 4 MG Lactulose 30 ml BID PO 01/19/25 10:00 01/25/25 10:40 30 ML Pantoprazole Sodium 40 mg BID IV 01/19/25 03:15 01/25/25 10:40 40 MG Sucralfate 1 gm BID@0600,2200 PO 01/19/25 06:00 01/25/25 05:16 1 GM Ergocalciferol 50,000 unit Q7D PO 01/19/25 12:00 01/19/25 12:39 50,000 UNIT Midodrine 10 mg TID@0600,1200,1800 PO 01/19/25 12:00 01/25/25 18:30 10 MG Cefepime HCl 50 ml @ 12.5 mls/hr DAILY IV 01/22/25 13:52 01/25/25 10:41 12.5 MLS/HR Spironolactone 25 mg DAILY PO 01/25/25 10:00 01/25/25 10:49 25 MG Sodium Bicarbonate 1,300 mg TID PO 01/24/25 14:00 01/25/25 13:55 1,300 MG Furosemide 40 mg DAILY PO 01/24/25 14:15 01/25/25 10:43 40 MG Ursodiol 300 mg TID PO 01/24/25 22:00 01/25/25 14:14 300 MG Methylprednisolone Sodium Succinate 40 mg BID IV 01/24/25 22:00 01/25/25 10:40 40 MG Examination Physical Examination General Appearance: Icteric ,Alert, Oriented X3, Cooperative, mild distress HEENT: Atraumatic, PERRLA, EOMI,Yellow discoloration of the mucosa and sclera( icteric appearance) Respiratory: Clear to auscultation, Normal air movement Cardiovascular: Regular rate, Normal S1, Normal S2, No murmurs Abdominal:Mild tenderness, hepatomegaly, Normal bowel sounds, Soft, no ascites, tympanic. Extremities: Trace BLE edema+, No clubbing, No cyanosis, Normal pulses. Skin: Yellowish is skin discoloration but No rashes, No breakdown, No significant lesion Neuro: Normal gait, Normal speech, no sensory motor deficits Psych/Mental Status: Mental status NL, Mood NL laboratory and microbiology Laboratory Tests 01/25/25 05:39 Test 01/25/25 05:39 Range/Units Serum Glucose 108 H 74-106 mg/dL Microbiology Date/Time Source Procedure Growth Status 01/20/25 13:25 Voided Urine Urine Culture - Final Complete 01/18/25 22:00 Blood Blood Culture - Final NO GROWTH AFTER 5 DAYS OF INCUBATION. Complete Labs and/or images reviewed: Labs reviewed by me, Image(s) reviewed by me Problem List/Assessment/Plan Problem List/Assessment/Plan Problem List/Assessment/Plan # SIRS/ Sepsis likely due to below # Acute on Chronic Decompensated Alcoholic hepatitis # Hepatic steatosis, Hepatomegaly & Transaminitis from above # Moderate malnutrition # Possible upper GI bleeding - Ultrasound shows enlarged liver measuring 24.5 cm demonstrates diffusely heterogeneous echogenicity - CT scan showed heterogeneous enlarged liver, with peripheral areas in the liver are very low in density on 12/25/24 - Maddrey score 53.5, and MELD score 37 point (with52.6% estimated 90 day mortality) - Bilirubin is very high but stable - IV Methylprednisolone 32 mg daily - IV Protonix 40 mg bid , Carafate 1 gm po bid & Lactulose 30 mL p.o. b.i.d. - IV Cefepime 1 g daily and IV metronidazole 500 mg t.i.d. - Lasix 40 mg p.o. and spironolactone 25 mg p.o. daily - Ursodiol 300 mg po bid. - Blood culture report revealed no growth in 24 hours of incubation - Pending stool occult test. - GI recommended transfer the patient to higher level of care for liver transplantation # Chronic anemia, macrocytic hyperchromic due to alcoholism - Monitor lab - H&H stable # Hypertensive heart disease and possible chronic diastolic heart failure - Echo showed LVEF 60% with a LA enlargement, RVSP 40 - BP is on the lower side., Midodrine 10 mg p.o. t.i.d. # ZOILA on CKD likely due to to hepatorenal syndrome - IV Albumin - Midodrine 10 mg p.o. t.i.d. - Nephrology on board # Vitamin D deficiency - Vitamin D 50838 units Q 7D. # Leukemoid reaction # Severe Leukocytosis unspecified # Possible leukemia lymphoma/myeloproliferative disorder - Patient's underwent bone marrow biopsy and the specimen sent for further studies - leukemia lymphoma immuno typing and serum electrophoresis pending Renal diet Due to GI bleed, no anticoagulant is indicated Protonix BOWEL REGIMEN: Lactulose Plan discussed with Dr. Andres Plan discussed with: Patient, Other My Orders My Orders Orders - TOMY VICTORIA RESIDENT Procedure Category Date Status Time Abg W/ Co-Ox RT 01/25/25 Logged 11:22 Dietary Evaluation Review Comments: 1. Continue current diet as tolerated 2. Encourage good oral intakes >75% of meals 3. Monitor I&Os, weight trends Expected Outcomes/Goals: Maintain adequate nutrition, stable hepatic fx vs. evaluation for liver transplant. Date of Service: Jan 25, 2025 Billing Provider: NIC MORA MD Common Visit Codes: [id number] INP/OBS CARE(HIGH) TOMY VICTORIA Jan 25, 2025 21:01 NIC OMRA MD Jan 31, 2025 23:32
--- NOTE | 2025-01-25 22:32 | DVHPN2 ---
Progress Note - Dictate Date Seen: Jan 25, 2025 Medical Necessity Reason Pt with a Central, PICC or Fol: No Subjective No new complaints; feels better Ambulatory ; continue hyperbilirubinemia can not Persistent elevation in liver enzymes, severe leukemoid reaction and leukocytosis vital signs Vital Sign Date Time Temp Pulse Resp B/P (MAP) Pulse Ox O2 Delivery O2 Flow Rate FiO2 01/25/25 21:00 97.4 80 19 149/86 (107) 100 97.4 01/25/25 08:00 Room Air* 0 21 Total Intake and Output 01/24/25 01/24/25 01/25/25 15:00 23:00 07:00 Intake Total 1490 ml 1200 ml Output Total 650 ml Balance 1490 ml 550 ml medications Current Medications Medications Dose Ordered Sig/Chris Route Start Time Stop Time Status Last Admin Dose Admin Ondansetron HCl 4 mg Q4HPRN PRN IV 01/19/25 05:30 01/19/25 02:51 4 MG Lactulose 30 ml BID PO 01/19/25 10:00 01/25/25 10:40 30 ML Pantoprazole Sodium 40 mg BID IV 01/19/25 03:15 01/25/25 10:40 40 MG Sucralfate 1 gm BID@0600,2200 PO 01/19/25 06:00 01/25/25 05:16 1 GM Ergocalciferol 50,000 unit Q7D PO 01/19/25 12:00 01/19/25 12:39 50,000 UNIT Midodrine 10 mg TID@0600,1200,1800 PO 01/19/25 12:00 01/25/25 18:30 10 MG Cefepime HCl 50 ml @ 12.5 mls/hr DAILY IV 01/22/25 13:52 01/25/25 10:41 12.5 MLS/HR Spironolactone 25 mg DAILY PO 01/25/25 10:00 01/25/25 10:49 25 MG Sodium Bicarbonate 1,300 mg TID PO 01/24/25 14:00 01/25/25 13:55 1,300 MG Furosemide 40 mg DAILY PO 01/24/25 14:15 01/25/25 10:43 40 MG Ursodiol 300 mg TID PO 01/24/25 22:00 3/27/25 14:14 300 MG Methylprednisolone Sodium Succinate 40 mg BID IV 01/24/25 22:00 01/25/25 10:40 40 MG objective General Appearance: Icteric ,Alert, Oriented X3, Cooperative,no distress HEENT: Atraumatic, PERRLA, EOMI,Yellow discoloration of the mucosa and sclera( icteric appearance) Respiratory: Clear to auscultation, Normal air movement Cardiovascular: Regular rate, Normal S1, Normal S2, No murmurs Abdominal:Mild tenderness, hepatomegaly, Normal bowel sounds, Soft, no ascites, tympanic. Extremities: Trace BLE edema+, No clubbing, No cyanosis, Normal pulses. Skin: Yellowish is skin discoloration but No rashes, No breakdown, No significant lesion Neuro: Normal gait, Normal speech, no sensory motor deficits Psych/Mental Status: Mental status NL, Mood NL laboratory and microbiology Laboratory Tests 01/25/25 05:39 Test 01/25/25 05:39 Range/Units Serum Glucose 108 H 74-106 mg/dL Problems(with codes): (1) Alcoholic cirrhosis of liver (2) Sepsis (3) Liver cirrhosis (4) Anemia Prognosis Plan Ursodiol 300 mg p.o. three times a day IV steroids Diet as tolerated Patient's MELD score and Maddrey discrimination function or moderately elevated Patient is being evaluated for possible transfer to higher level of care for possible hepatology and transplant evaluation Dietary Evaluation Review Comments: 1. Continue current diet as tolerated 2. Encourage good oral intakes >75% of meals 3. Monitor I&Os, weight trends Expected Outcomes/Goals: Maintain adequate nutrition, stable hepatic fx vs. evaluation for liver transplant. Plan discussed with: Patient, Other (Dr Oates) JUANA KNIGHT MD Jan 25, 2025 22:32
--- NOTE | 2025-01-25 23:19 | DVHPN2 ---
Consult Progress Note Date Seen: Jan 21, 2025 Subjective Patient reports: No new complaints (is SOB on exertion , crackles in lungs bilaterally , mildly distended abdomen , jaundice skin , mild edema in the legs ) Objective vital signs Vital Sign Date Time Temp Pulse Resp B/P (MAP) Pulse Ox O2 Delivery O2 Flow Rate FiO2 01/25/25 21:00 97.4 80 19 149/86 (107) 100 97.4 01/25/25 20:00 Room Air* 0 21 Total Intake and Output 01/24/25 01/24/25 01/25/25 15:00 23:00 07:00 Intake Total 1490 ml 1200 ml Output Total 650 ml Balance 1490 ml 550 ml medications Current Medications Medications Dose Ordered Sig/Chris Route Start Time Stop Time Status Last Admin Dose Admin Ondansetron HCl 4 mg Q4HPRN PRN IV 01/19/25 05:30 01/19/25 02:51 4 MG Lactulose 30 ml BID PO 01/19/25 10:00 01/25/25 22:48 30 ML Pantoprazole Sodium 40 mg BID IV 01/19/25 03:15 01/25/25 22:49 40 MG Sucralfate 1 gm BID@0600,2200 PO 01/19/25 06:00 01/25/25 22:48 1 GM Ergocalciferol 50,000 unit Q7D PO 01/19/25 12:00 01/19/25 12:39 50,000 UNIT Midodrine 10 mg TID@0600,1200,1800 PO 01/19/25 12:00 01/25/25 18:30 10 MG Cefepime HCl 50 ml @ 12.5 mls/hr DAILY IV 01/22/25 13:52 01/25/25 10:41 12.5 MLS/HR Spironolactone 25 mg DAILY PO 01/25/25 10:00 01/25/25 10:49 25 MG Sodium Bicarbonate 1,300 mg TID PO 01/24/25 14:00 01/25/25 22:55 1,300 MG Furosemide 40 mg DAILY PO 01/24/25 14:15 01/25/25 10:43 40 MG Ursodiol 300 mg TID PO 01/24/25 22:00 01/25/25 22:00 300 MG Methylprednisolone Sodium Succinate 40 mg BID IV 01/24/25 22:00 01/25/25 22:48 40 MG Physical Exam: General:?Ill-appearing female. Neck:?Supple. No masses. HEENT:?Scleral icterus noted. PERRL. Normal lids and conjunctiva. Moist mucous membranes. Oropharynx without lesions, exudates, or excessive erythema. Normal appearance of the external aspects of the nose and ears. Heart:?Regular rhythm, normal rate. No murmur. No lower extremity edema. Lungs:?Normal respiratory effort. Clear to auscultation bilaterally. No wheezes. No crackles. Abdomen:?Distended, tender to palpation. No masses or abdominal hernia. Msk:?No digital cyanosis. Normal strength and tone in all 4 limbs. Skin:?Warm and dry. Generalized jaundice, no rashes. Neuro:?Alert. Positive asterixis. No facial droop or slurred speech. Extra- ocular movements intact. Sensation intact to soft touch in all 4 limbs. Psych:?Appropriate mood. Full affect. Oriented to person, place, time, and situation. laboratory and microbiology Laboratory Tests 01/25/25 05:39 Test 01/25/25 05:39 Range/Units Serum Glucose 108 H 74-106 mg/dL Problem List/Assessment/Plan Problems(with codes): (1) Anemia (2) Liver cirrhosis (3) Alcoholic cirrhosis of liver (4) Sepsis (5) Lymphocytosis (6) RUQ abdominal pain (7) Acute renal injury (8) Viral illness Problem List/Assessment/Plan ID Problem List: - Alcoholic liver cirrhosis - Acute alcoholic hepatitis - Hyperbilirubinemia - Severe leukocytosis - ZOILA and CKD stage 4 - Anemia (macrocytic) - Melena - Positive asterixis - Poor prognosis Assessment This is a 44 y.o. female with a past medical history of hypertension and liver cirrhosis secondary to alcohol abuse, who presents with body pain, generalized weakness, vomiting, fever, chest pain, constipation, worsening black stools, and jaundice. Patient was recently discharged from [facility] on 12/28/2024 after admission for liver failure and has been getting worse since discharge. She stopped drinking alcohol two months ago; previously, she was a heavy alcohol drinker. She is a former smoker with a 2 pack-year smoking history. On exam, she has generalized yellow discoloration of the skin and sclera (jaundice), distended abdomen, and positive asterixis. Laboratory findings include elevated WBC count currently at 62.5, hemoglobin 8.7, platelets 250, bilirubin 29.4, AST 59, ALT 19, creatinine 3.27, BUN 69. Her bilirubin is uptrending, with a Maddrey discriminant function score of 61.7 and a MELD score of 37. Imaging studies include CT abdomen showing hepatomegaly with peripheral areas of low attenuation suggestive of hepatic steatosis and small volume ascites. Blood cultures and urine cultures are negative to date. 01/21: appears clinically stable no signs of sepsis just worsening leukocytosis with whitecount at 70 Plan: - Continue cefepime. - Consider adding linezolid for Gram-positive coverage empirically; vancomycin was discontinued due to ZOILA. - Follow up on blood cultures, urine cultures, and obtain sputum culture. - Recommend hematology/oncology consultation for evaluation of severe leukocytosis; consider bone marrow biopsy to rule out leukemia. - Monitor leukocytosis. low overall concern that infection is etiology of leukocytosis , favor leukomoid reaction in setting of severe alcoholic liver failure - Defer management of steroid therapy to GI team; unclear efficacy after prolonged acute alcoholic hepatitis. - Recommend obtaining hepatitis B DNA test and HepBe ag to confirm no active infection. - Recommend obtaining hepatitis A IgM antibody to assess for acute hepatitis A. - Prognosis is poor given severe liver failure, high MELD score, and leukocytosis. Isolation Precautions: Standard Plan discussed with: Other Dietary Evaluation Review Comments: 1. Continue current diet as tolerated 2. Encourage good oral intakes >75% of meals 3. Monitor I&Os, weight trends Expected Outcomes/Goals: Maintain adequate nutrition, stable hepatic fx vs. evaluation for liver transplant. ZAIRE CORTEZ MD Jan 25, 2025 23:19
--- NOTE | 2025-01-25 23:20 | DVHPN2 ---
Consult Progress Note Date Seen: Jan 25, 2025 Subjective Patient reports: No new complaints (is able to get up and move around , having noraml bowel movements currently has 2-4 bowel movements a day ) Objective vital signs Vital Sign Date Time Temp Pulse Resp B/P (MAP) Pulse Ox O2 Delivery O2 Flow Rate FiO2 01/25/25 21:00 97.4 80 19 149/86 (107) 100 97.4 01/25/25 20:00 Room Air* 0 21 Total Intake and Output 01/24/25 01/24/25 01/25/25 15:00 23:00 07:00 Intake Total 1490 ml 1200 ml Output Total 650 ml Balance 1490 ml 550 ml medications Current Medications Medications Dose Ordered Sig/Chris Route Start Time Stop Time Status Last Admin Dose Admin Ondansetron HCl 4 mg Q4HPRN PRN IV 01/19/25 05:30 01/19/25 02:51 4 MG Lactulose 30 ml BID PO 01/19/25 10:00 01/25/25 22:48 30 ML Pantoprazole Sodium 40 mg BID IV 01/19/25 03:15 01/25/25 22:49 40 MG Sucralfate 1 gm BID@0600,2200 PO 01/19/25 06:00 01/25/25 22:48 1 GM Ergocalciferol 50,000 unit Q7D PO 01/19/25 12:00 01/19/25 12:39 50,000 UNIT Midodrine 10 mg TID@0600,1200,1800 PO 01/19/25 12:00 01/25/25 18:30 10 MG Cefepime HCl 50 ml @ 12.5 mls/hr DAILY IV 01/22/25 13:52 01/25/25 10:41 12.5 MLS/HR Spironolactone 25 mg DAILY PO 01/25/25 10:00 01/25/25 10:49 25 MG Sodium Bicarbonate 1,300 mg TID PO 01/24/25 14:00 01/25/25 22:55 1,300 MG Furosemide 40 mg DAILY PO 01/24/25 14:15 01/25/25 10:43 40 MG Ursodiol 300 mg TID PO 01/24/25 22:00 01/25/25 22:00 300 MG Methylprednisolone Sodium Succinate 40 mg BID IV 01/24/25 22:00 01/25/25 22:48 40 MG Physical Exam: General:?Ill-appearing female. Neck:?Supple. No masses. HEENT:?Scleral icterus noted. PERRL. Normal lids and conjunctiva. Moist mucous membranes. Oropharynx without lesions, exudates, or excessive erythema. Normal appearance of the external aspects of the nose and ears. Heart:?Regular rhythm, normal rate. No murmur. No lower extremity edema. Lungs:?Normal respiratory effort. Clear to auscultation bilaterally. No wheezes. No crackles. Abdomen:?Distended, tender to palpation. No masses or abdominal hernia. Msk:?No digital cyanosis. Normal strength and tone in all 4 limbs. Skin:?Warm and dry. Generalized jaundice, no rashes. Neuro:?Alert. Positive asterixis. No facial droop or slurred speech. Extra- ocular movements intact. Sensation intact to soft touch in all 4 limbs. Psych:?Appropriate mood. Full affect. Oriented to person, place, time, and situation. laboratory and microbiology Laboratory Tests 01/25/25 05:39 Test 01/25/25 05:39 Range/Units Serum Glucose 108 H 74-106 mg/dL Problem List/Assessment/Plan Problems(with codes): (1) Anemia (2) Liver cirrhosis (3) Sepsis (4) Alcoholic cirrhosis of liver (5) Lymphocytosis (6) RUQ abdominal pain (7) Acute renal injury (8) Viral illness Problem List/Assessment/Plan ID Problem List: - Alcoholic liver cirrhosis - Acute alcoholic hepatitis - Hyperbilirubinemia - Severe leukocytosis - ZOILA and CKD stage 4 - Anemia (macrocytic) - Melena - Positive asterixis - Poor prognosis Assessment This is a 44 y.o. female with a past medical history of hypertension and liver cirrhosis secondary to alcohol abuse, who presents with body pain, generalized weakness, vomiting, fever, chest pain, constipation, worsening black stools, and jaundice. Patient was recently discharged from [facility] on 12/28/2024 after admission for liver failure and has been getting worse since discharge. She stopped drinking alcohol two months ago; previously, she was a heavy alcohol drinker. She is a former smoker with a 2 pack-year smoking history. On exam, she has generalized yellow discoloration of the skin and sclera (jaundice), distended abdomen, and positive asterixis. Laboratory findings include elevated WBC count currently at 62.5, hemoglobin 8.7, platelets 250, bilirubin 29.4, AST 59, ALT 19, creatinine 3.27, BUN 69. Her bilirubin is uptrending, with a Maddrey discriminant function score of 61.7 and a MELD score of 37. Imaging studies include CT abdomen showing hepatomegaly with peripheral areas of low attenuation suggestive of hepatic steatosis and small volume ascites. Blood cultures and urine cultures are negative to date. 01/21: appears clinically stable no signs of sepsis just worsening leukocytosis with whitecount at 70 01/22: Patient is tolerating IV cefepime and Flagyl , also on high dose of steroids 01/23: Patient was seen by hematology and oncology and is feeling that any peripheral disorders is unlikely but will confirm with biopsy 01/24: Continues to be stable , renal function is stable and patient is being evaluated for higher level of care for liver transplant and may also require a renal transplant as well 01/25: Whitecount is up to 87 , awaiting biopsy results and hepatitis A and B testing Plan: - Continue cefepime and linezolid - Follow up on bone marrow biopsy - Follow up on blood cultures, urine cultures, and obtain sputum culture. - Recommend hematology/oncology consultation for evaluation of severe leukocytosis; consider bone marrow biopsy to rule out leukemia. - Monitor leukocytosis. low overall concern that infection is etiology of leukocytosis , favor leukomoid reaction in setting of severe alcoholic liver failure - Defer management of steroid therapy to GI team; unclear efficacy after prolonged acute alcoholic hepatitis. - Recommend obtaining hepatitis B DNA test and HepBe ag to confirm no active infection. - Recommend obtaining hepatitis A IgM antibody to assess for acute hepatitis A. - Prognosis is poor given severe liver failure, high MELD score, and leukocytosis. Isolation Precautions: Standard Plan discussed with: Other Dietary Evaluation Review Comments: 1. Continue current diet as tolerated 2. Encourage good oral intakes >75% of meals 3. Monitor I&Os, weight trends Expected Outcomes/Goals: Maintain adequate nutrition, stable hepatic fx vs. evaluation for liver transplant. ZAIRE CORTEZ MD Jan 25, 2025 23:20
--- NOTE | 2025-01-25 23:20 | DVHPN2 ---
Consult Progress Note Date Seen: Jan 23, 2025 Subjective Patient reports: Other (was seen my hemotology and oncology , had a bone marrow biopsy doena nd having some pain at hip biopsy site but appears clean with no irritation , continues to be jaundice ) Objective vital signs Vital Sign Date Time Temp Pulse Resp B/P (MAP) Pulse Ox O2 Delivery O2 Flow Rate FiO2 01/25/25 21:00 97.4 80 19 149/86 (107) 100 97.4 01/25/25 20:00 Room Air* 0 21 Total Intake and Output 01/24/25 01/24/25 01/25/25 15:00 23:00 07:00 Intake Total 1490 ml 1200 ml Output Total 650 ml Balance 1490 ml 550 ml medications Current Medications Medications Dose Ordered Sig/Chris Route Start Time Stop Time Status Last Admin Dose Admin Ondansetron HCl 4 mg Q4HPRN PRN IV 01/19/25 05:30 01/19/25 02:51 4 MG Lactulose 30 ml BID PO 01/19/25 10:00 01/25/25 22:48 30 ML Pantoprazole Sodium 40 mg BID IV 01/19/25 03:15 01/25/25 22:49 40 MG Sucralfate 1 gm BID@0600,2200 PO 01/19/25 06:00 01/25/25 22:48 1 GM Ergocalciferol 50,000 unit Q7D PO 01/19/25 12:00 01/19/25 12:39 50,000 UNIT Midodrine 10 mg TID@0600,1200,1800 PO 01/19/25 12:00 01/25/25 18:30 10 MG Cefepime HCl 50 ml @ 12.5 mls/hr DAILY IV 01/22/25 13:52 01/25/25 10:41 12.5 MLS/HR Spironolactone 25 mg DAILY PO 01/25/25 10:00 01/25/25 10:49 25 MG Sodium Bicarbonate 1,300 mg TID PO 01/24/25 14:00 01/25/25 22:55 1,300 MG Furosemide 40 mg DAILY PO 01/24/25 14:15 01/25/25 10:43 40 MG Ursodiol 300 mg TID PO 01/24/25 22:00 01/25/25 22:00 300 MG Methylprednisolone Sodium Succinate 40 mg BID IV 01/24/25 22:00 01/25/25 22:48 40 MG Physical Exam: General:?Ill-appearing female. Neck:?Supple. No masses. HEENT:?Scleral icterus noted. PERRL. Normal lids and conjunctiva. Moist mucous membranes. Oropharynx without lesions, exudates, or excessive erythema. Normal appearance of the external aspects of the nose and ears. Heart:?Regular rhythm, normal rate. No murmur. No lower extremity edema. Lungs:?Normal respiratory effort. Clear to auscultation bilaterally. No wheezes. No crackles. Abdomen:?Distended, tender to palpation. No masses or abdominal hernia. Msk:?No digital cyanosis. Normal strength and tone in all 4 limbs. Skin:?Warm and dry. Generalized jaundice, no rashes. Neuro:?Alert. Positive asterixis. No facial droop or slurred speech. Extra- ocular movements intact. Sensation intact to soft touch in all 4 limbs. Psych:?Appropriate mood. Full affect. Oriented to person, place, time, and situation. laboratory and microbiology Laboratory Tests 01/25/25 05:39 Test 01/25/25 05:39 Range/Units Serum Glucose 108 H 74-106 mg/dL Problem List/Assessment/Plan Problems(with codes): (1) Anemia (2) Liver cirrhosis (3) Sepsis (4) Alcoholic cirrhosis of liver (5) Lymphocytosis (6) RUQ abdominal pain (7) Acute renal injury (8) Viral illness Problem List/Assessment/Plan ID Problem List: - Alcoholic liver cirrhosis - Acute alcoholic hepatitis - Hyperbilirubinemia - Severe leukocytosis - ZOILA and CKD stage 4 - Anemia (macrocytic) - Melena - Positive asterixis - Poor prognosis Assessment This is a 44 y.o. female with a past medical history of hypertension and liver cirrhosis secondary to alcohol abuse, who presents with body pain, generalized weakness, vomiting, fever, chest pain, constipation, worsening black stools, and jaundice. Patient was recently discharged from [facility] on 12/28/2024 after admission for liver failure and has been getting worse since discharge. She stopped drinking alcohol two months ago; previously, she was a heavy alcohol drinker. She is a former smoker with a 2 pack-year smoking history. On exam, she has generalized yellow discoloration of the skin and sclera (jaundice), distended abdomen, and positive asterixis. Laboratory findings include elevated WBC count currently at 62.5, hemoglobin 8.7, platelets 250, bilirubin 29.4, AST 59, ALT 19, creatinine 3.27, BUN 69. Her bilirubin is uptrending, with a Maddrey discriminant function score of 61.7 and a MELD score of 37. Imaging studies include CT abdomen showing hepatomegaly with peripheral areas of low attenuation suggestive of hepatic steatosis and small volume ascites. Blood cultures and urine cultures are negative to date. 01/21: appears clinically stable no signs of sepsis just worsening leukocytosis with whitecount at 70 01/22: Patient is tolerating IV cefepime and Flagyl , also on high dose of steroids 01/23: Patient was seen by hematology and oncology and is feeling that any peripheral disorders is unlikely but will confirm with biopsy Plan: -STOP Flagyl - Continue cefepime and linezolid - Follow up on bone marrow biopsy - Follow up on blood cultures, urine cultures, and obtain sputum culture. - Recommend hematology/oncology consultation for evaluation of severe leukocytosis; consider bone marrow biopsy to rule out leukemia. - Monitor leukocytosis. low overall concern that infection is etiology of leukocytosis , favor leukomoid reaction in setting of severe alcoholic liver failure - Defer management of steroid therapy to GI team; unclear efficacy after prolonged acute alcoholic hepatitis. - Recommend obtaining hepatitis B DNA test and HepBe ag to confirm no active infection. - Recommend obtaining hepatitis A IgM antibody to assess for acute hepatitis A. - Prognosis is poor given severe liver failure, high MELD score, and leukocytosis. Isolation Precautions: Standard Plan discussed with: Other Dietary Evaluation Review Comments: 1. Continue current diet as tolerated 2. Encourage good oral intakes >75% of meals 3. Monitor I&Os, weight trends Expected Outcomes/Goals: Maintain adequate nutrition, stable hepatic fx vs. evaluation for liver transplant. ZAIRE CORTEZ MD Jan 25, 2025 23:20
--- NOTE | 2025-01-25 23:20 | DVHPN2 ---
Consult Progress Note Date Seen: Jan 22, 2025 Subjective Patient reports: Other (not having any diarrhea , on linezolid and cefepime , no cough and has cold extremities but able to move with a lithle more energy , no abdominal pain and no bloody bowel movements ) Objective vital signs Vital Sign Date Time Temp Pulse Resp B/P (MAP) Pulse Ox O2 Delivery O2 Flow Rate FiO2 01/25/25 21:00 97.4 80 19 149/86 (107) 100 97.4 01/25/25 20:00 Room Air* 0 21 Total Intake and Output 01/24/25 01/24/25 01/25/25 15:00 23:00 07:00 Intake Total 1490 ml 1200 ml Output Total 650 ml Balance 1490 ml 550 ml medications Current Medications Medications Dose Ordered Sig/Chris Route Start Time Stop Time Status Last Admin Dose Admin Ondansetron HCl 4 mg Q4HPRN PRN IV 01/19/25 05:30 01/19/25 02:51 4 MG Lactulose 30 ml BID PO 01/19/25 10:00 01/25/25 22:48 30 ML Pantoprazole Sodium 40 mg BID IV 01/19/25 03:15 01/25/25 22:49 40 MG Sucralfate 1 gm BID@0600,2200 PO 01/19/25 06:00 01/25/25 22:48 1 GM Ergocalciferol 50,000 unit Q7D PO 01/19/25 12:00 01/19/25 12:39 50,000 UNIT Midodrine 10 mg TID@0600,1200,1800 PO 01/19/25 12:00 01/25/25 18:30 10 MG Cefepime HCl 50 ml @ 12.5 mls/hr DAILY IV 01/22/25 13:52 01/25/25 10:41 12.5 MLS/HR Spironolactone 25 mg DAILY PO 01/25/25 10:00 01/25/25 10:49 25 MG Sodium Bicarbonate 1,300 mg TID PO 01/24/25 14:00 01/25/25 22:55 1,300 MG Furosemide 40 mg DAILY PO 01/24/25 14:15 01/25/25 10:43 40 MG Ursodiol 300 mg TID PO 01/24/25 22:00 01/25/25 22:00 300 MG Methylprednisolone Sodium Succinate 40 mg BID IV 01/24/25 22:00 01/25/25 22:48 40 MG Physical Exam: General:?Ill-appearing female. Neck:?Supple. No masses. HEENT:?Scleral icterus noted. PERRL. Normal lids and conjunctiva. Moist mucous membranes. Oropharynx without lesions, exudates, or excessive erythema. Normal appearance of the external aspects of the nose and ears. Heart:?Regular rhythm, normal rate. No murmur. No lower extremity edema. Lungs:?Normal respiratory effort. Clear to auscultation bilaterally. No wheezes. No crackles. Abdomen:?Distended, tender to palpation. No masses or abdominal hernia. Msk:?No digital cyanosis. Normal strength and tone in all 4 limbs. Skin:?Warm and dry. Generalized jaundice, no rashes. Neuro:?Alert. Positive asterixis. No facial droop or slurred speech. Extra- ocular movements intact. Sensation intact to soft touch in all 4 limbs. Psych:?Appropriate mood. Full affect. Oriented to person, place, time, and situation. laboratory and microbiology Laboratory Tests 01/25/25 05:39 Test 01/25/25 05:39 Range/Units Serum Glucose 108 H 74-106 mg/dL Problem List/Assessment/Plan Problems(with codes): (1) Viral illness (2) Acute renal injury (3) RUQ abdominal pain (4) Lymphocytosis (5) Alcoholic cirrhosis of liver (6) Sepsis (7) Liver cirrhosis (8) Anemia Problem List/Assessment/Plan ID Problem List: - Alcoholic liver cirrhosis - Acute alcoholic hepatitis - Hyperbilirubinemia - Severe leukocytosis - ZOILA and CKD stage 4 - Anemia (macrocytic) - Melena - Positive asterixis - Poor prognosis Assessment This is a 44 y.o. female with a past medical history of hypertension and liver cirrhosis secondary to alcohol abuse, who presents with body pain, generalized weakness, vomiting, fever, chest pain, constipation, worsening black stools, and jaundice. Patient was recently discharged from [facility] on 12/28/2024 after admission for liver failure and has been getting worse since discharge. She stopped drinking alcohol two months ago; previously, she was a heavy alcohol drinker. She is a former smoker with a 2 pack-year smoking history. On exam, she has generalized yellow discoloration of the skin and sclera (jaundice), distended abdomen, and positive asterixis. Laboratory findings include elevated WBC count currently at 62.5, hemoglobin 8.7, platelets 250, bilirubin 29.4, AST 59, ALT 19, creatinine 3.27, BUN 69. Her bilirubin is uptrending, with a Maddrey discriminant function score of 61.7 and a MELD score of 37. Imaging studies include CT abdomen showing hepatomegaly with peripheral areas of low attenuation suggestive of hepatic steatosis and small volume ascites. Blood cultures and urine cultures are negative to date. 01/21: appears clinically stable no signs of sepsis just worsening leukocytosis with whitecount at 70 01/22: Patient is tolerating IV cefepime and Flagyl , also on high dose of steroids Plan: - Continue cefepime. - Consider adding linezolid for Gram-positive coverage empirically; vancomycin was discontinued due to ZOILA. - Follow up on blood cultures, urine cultures, and obtain sputum culture. - Recommend hematology/oncology consultation for evaluation of severe leukocytosis; consider bone marrow biopsy to rule out leukemia. - Monitor leukocytosis. low overall concern that infection is etiology of leukocytosis , favor leukomoid reaction in setting of severe alcoholic liver failure - Defer management of steroid therapy to GI team; unclear efficacy after prolonged acute alcoholic hepatitis. - Recommend obtaining hepatitis B DNA test and HepBe ag to confirm no active infection. - Recommend obtaining hepatitis A IgM antibody to assess for acute hepatitis A. - Prognosis is poor given severe liver failure, high MELD score, and leukocytosis. Isolation Precautions: Standard Plan discussed with: Other Dietary Evaluation Review Comments: 1. Continue current diet as tolerated 2. Encourage good oral intakes >75% of meals 3. Monitor I&Os, weight trends Expected Outcomes/Goals: Maintain adequate nutrition, stable hepatic fx vs. evaluation for liver transplant. ZAIRE CORTEZ MD Jan 25, 2025 23:20
--- NOTE | 2025-01-25 23:20 | DVHPN2 ---
Consult Progress Note Date Seen: Jan 24, 2025 Subjective Patient reports: Other (patients renal function is mildy improving and is a bit hypertensive and started on midodrine , mild abdominal tenderness in upper abdomen ) Objective vital signs Vital Sign Date Time Temp Pulse Resp B/P (MAP) Pulse Ox O2 Delivery O2 Flow Rate FiO2 01/25/25 21:00 97.4 80 19 149/86 (107) 100 97.4 01/25/25 20:00 Room Air* 0 21 Total Intake and Output 01/24/25 01/24/25 01/25/25 15:00 23:00 07:00 Intake Total 1490 ml 1200 ml Output Total 650 ml Balance 1490 ml 550 ml medications Current Medications Medications Dose Ordered Sig/Chris Route Start Time Stop Time Status Last Admin Dose Admin Ondansetron HCl 4 mg Q4HPRN PRN IV 01/19/25 05:30 01/19/25 02:51 4 MG Lactulose 30 ml BID PO 01/19/25 10:00 01/25/25 22:48 30 ML Pantoprazole Sodium 40 mg BID IV 01/19/25 03:15 01/25/25 22:49 40 MG Sucralfate 1 gm BID@0600,2200 PO 01/19/25 06:00 01/25/25 22:48 1 GM Ergocalciferol 50,000 unit Q7D PO 01/19/25 12:00 01/19/25 12:39 50,000 UNIT Midodrine 10 mg TID@0600,1200,1800 PO 01/19/25 12:00 01/25/25 18:30 10 MG Cefepime HCl 50 ml @ 12.5 mls/hr DAILY IV 01/22/25 13:52 01/25/25 10:41 12.5 MLS/HR Spironolactone 25 mg DAILY PO 01/25/25 10:00 01/25/25 10:49 25 MG Sodium Bicarbonate 1,300 mg TID PO 01/24/25 14:00 01/25/25 22:55 1,300 MG Furosemide 40 mg DAILY PO 01/24/25 14:15 01/25/25 10:43 40 MG Ursodiol 300 mg TID PO 01/24/25 22:00 01/25/25 22:00 300 MG Methylprednisolone Sodium Succinate 40 mg BID IV 01/24/25 22:00 01/25/25 22:48 40 MG Physical Exam: General:?Ill-appearing female. Neck:?Supple. No masses. HEENT:?Scleral icterus noted. PERRL. Normal lids and conjunctiva. Moist mucous membranes. Oropharynx without lesions, exudates, or excessive erythema. Normal appearance of the external aspects of the nose and ears. Heart:?Regular rhythm, normal rate. No murmur. No lower extremity edema. Lungs:?Normal respiratory effort. Clear to auscultation bilaterally. No wheezes. No crackles. Abdomen:?Distended, tender to palpation. No masses or abdominal hernia. Msk:?No digital cyanosis. Normal strength and tone in all 4 limbs. Skin:?Warm and dry. Generalized jaundice, no rashes. Neuro:?Alert. Positive asterixis. No facial droop or slurred speech. Extra- ocular movements intact. Sensation intact to soft touch in all 4 limbs. Psych:?Appropriate mood. Full affect. Oriented to person, place, time, and situation. laboratory and microbiology Laboratory Tests 01/25/25 05:39 Test 01/25/25 05:39 Range/Units Serum Glucose 108 H 74-106 mg/dL Problem List/Assessment/Plan Problems(with codes): (1) Viral illness (2) Acute renal injury (3) RUQ abdominal pain (4) Lymphocytosis (5) Alcoholic cirrhosis of liver (6) Sepsis (7) Liver cirrhosis (8) Anemia Problem List/Assessment/Plan ID Problem List: - Alcoholic liver cirrhosis - Acute alcoholic hepatitis - Hyperbilirubinemia - Severe leukocytosis - ZOILA and CKD stage 4 - Anemia (macrocytic) - Melena - Positive asterixis - Poor prognosis Assessment This is a 44 y.o. female with a past medical history of hypertension and liver cirrhosis secondary to alcohol abuse, who presents with body pain, generalized weakness, vomiting, fever, chest pain, constipation, worsening black stools, and jaundice. Patient was recently discharged from [facility] on 12/28/2024 after admission for liver failure and has been getting worse since discharge. She stopped drinking alcohol two months ago; previously, she was a heavy alcohol drinker. She is a former smoker with a 2 pack-year smoking history. On exam, she has generalized yellow discoloration of the skin and sclera (jaundice), distended abdomen, and positive asterixis. Laboratory findings include elevated WBC count currently at 62.5, hemoglobin 8.7, platelets 250, bilirubin 29.4, AST 59, ALT 19, creatinine 3.27, BUN 69. Her bilirubin is uptrending, with a Maddrey discriminant function score of 61.7 and a MELD score of 37. Imaging studies include CT abdomen showing hepatomegaly with peripheral areas of low attenuation suggestive of hepatic steatosis and small volume ascites. Blood cultures and urine cultures are negative to date. 01/21: appears clinically stable no signs of sepsis just worsening leukocytosis with whitecount at 70 01/22: Patient is tolerating IV cefepime and Flagyl , also on high dose of steroids 01/23: Patient was seen by hematology and oncology and is feeling that any peripheral disorders is unlikely but will confirm with biopsy 01/24: Continues to be stable , renal function is stable and patient is being evaluated for higher level of care for liver transplant and may also require a renal transplant as well Plan: - Continue cefepime and linezolid - Follow up on bone marrow biopsy - Follow up on blood cultures, urine cultures, and obtain sputum culture. - Recommend hematology/oncology consultation for evaluation of severe leukocytosis; consider bone marrow biopsy to rule out leukemia. - Monitor leukocytosis. low overall concern that infection is etiology of leukocytosis , favor leukomoid reaction in setting of severe alcoholic liver failure - Defer management of steroid therapy to GI team; unclear efficacy after prolonged acute alcoholic hepatitis. - Recommend obtaining hepatitis B DNA test and HepBe ag to confirm no active infection. - Recommend obtaining hepatitis A IgM antibody to assess for acute hepatitis A. - Prognosis is poor given severe liver failure, high MELD score, and leukocytosis. Isolation Precautions: Standard Plan discussed with: Other Dietary Evaluation Review Comments: 1. Continue current diet as tolerated 2. Encourage good oral intakes >75% of meals 3. Monitor I&Os, weight trends Expected Outcomes/Goals: Maintain adequate nutrition, stable hepatic fx vs. evaluation for liver transplant. ZAIRE CORTEZ MD Jan 25, 2025 23:20
[2025-01-26] VITALS (8 sets, daily range): BP systolic 123–135; BP diastolic 66–83; PULSE 77–91; RESP 15–18; TEMP 97.3–97.6; O2SAT 99–100
[2025-01-26 05:51] LABS: Platelet Count (auto) 223 10^3/uL (140-450)
[2025-01-26 05:57] LABS: Hematocrit 28.5 % (36.0-46.0); Hemoglobin 9.1 g/dL (12.2-16.2); Mean Corpuscular Hemoglobin 33.8 pg (28.0-32.0); Mean Corpuscular Volume 105.6 fL (80.0-100.0); Red Cell Distribution Width 21.3 % (11.8-14.3)
[2025-01-26 06:01] LABS: White Blood Cell 77.9 10^3/uL (4.4-10.8)
[2025-01-26 06:02] LABS: Basophils % (manual) 0 (0.0-2.0); Eosinophils % (manual) 0 (0-7); Promyelocytes % 0; Reactive Lymphocytes 0
[2025-01-26 06:07] LABS: Albumin 3.7 g/dL (3.2-4.8); Anion Gap 16 (5-15); Calcium 9.3 mg/dL (8.7-10.4); Potassium 3.9 mmol/L (3.5-5.1); Sodium 143 mmol/L (136-145)
[2025-01-26 06:11] LABS: BUN/Creatinine Ratio 30.7 (10.0-20.0)
[2025-01-26 06:23] LABS: Carbon Dioxide 16 mmol/L (20-31); Chloride 111 mmol/L (98-107); Glucose 120 mg/dL (74-106)
[2025-01-26 06:24] LABS: Alanine Aminotransferase 41 U/L (7-40); Alkaline Phosphatase 249 U/L (46-116); Aspartate Aminotransferase 63 U/L (13-40); Bilirubin, Total 26.1 mg/dL (0.2-1.0); Total Protein 6.5 g/dL (5.7-8.2)
[2025-01-26 06:25] LABS: Blood Urea Nitrogen 82 mg/dL (9-23)
[2025-01-26 08:45] LABS: Band Neutrophils % (manual) 34; Blast Cells 2; Lymphocytes % (manual) 2 (10.0-50.0); Metamyelocytes % 3; Monocytes % (manual) 3 (0-12); Myelocytes % 2; Platelet Estimate Adequate
[2025-01-26 08:46] LABS: Anisocytosis Slight; Macrocytosis Moderate
--- NOTE | 2025-01-26 09:55 | DVHPNRES ---
Progress Note Date Seen: Jan 26, 2025 Resident Creating Document: TOMY VICTORIA RESIDENT Medical Necessity Reason Pt with a Central, PICC or Fol: No Subjective Review of Systems Patient was seen and examined on the bedside. She is alert oriented x3. Complain of Bilateral upper abdominal pain and generalized weakness. GI recommended transfer the patient to higher level of care for possible liver transplantation. drug abuse worker was consulted regarding this. [facility] declined the transfer for possible liver transplantation. Dr. Jamilr not cleared the patient for discharge and advised to stay for few more days and continue IV prednisolone 40 mg daily and ursodiol 300 mg PO TID. Objective vital signs Vital Sign Date Time Temp Pulse Resp B/P (MAP) Pulse Ox O2 Delivery O2 Flow Rate FiO2 01/26/25 09:46 97.4 85 15 131/83 (99) 100 97.4 01/25/25 20:00 Room Air* 0 21 Total Intake and Output 01/25/25 01/25/25 01/26/25 15:00 23:00 07:00 Intake Total 1140 ml 1200 ml Output Total 775 ml Balance 1140 ml 425 ml medications Current Medications Medications Dose Ordered Sig/Chris Route Start Time Stop Time Status Last Admin Dose Admin Ondansetron HCl 4 mg Q4HPRN PRN IV 01/19/25 05:30 01/19/25 02:51 4 MG Lactulose 30 ml BID PO 01/19/25 10:00 01/25/25 22:48 30 ML Pantoprazole Sodium 40 mg BID IV 01/19/25 03:15 01/25/25 22:49 40 MG Sucralfate 1 gm BID@0600,2200 PO 01/19/25 06:00 01/26/25 05:48 1 GM Ergocalciferol 50,000 unit Q7D PO 01/19/25 12:00 01/19/25 12:39 50,000 UNIT Midodrine 10 mg TID@0600,1200,1800 PO 01/19/25 12:00 01/26/25 05:48 10 MG Cefepime HCl 50 ml @ 12.5 mls/hr DAILY IV 01/22/25 13:52 01/25/25 10:41 12.5 MLS/HR Spironolactone 25 mg DAILY PO 01/25/25 10:00 01/25/25 10:49 25 MG Sodium Bicarbonate 1,300 mg TID PO 01/24/25 14:00 01/26/25 05:48 1,300 MG Furosemide 40 mg DAILY PO 01/24/25 14:15 01/25/25 10:43 40 MG Ursodiol 300 mg TID PO 01/24/25 22:00 01/26/25 05:49 300 MG Methylprednisolone Sodium Succinate 40 mg BID IV 01/24/25 22:00 01/25/25 22:48 40 MG Examination Physical Examination General Appearance: Icteric ,Alert, Oriented X3, Cooperative, mild distress HEENT: Atraumatic, PERRLA, EOMI,Yellow discoloration of the mucosa and sclera( icteric appearance) Respiratory: Clear to auscultation, Normal air movement Cardiovascular: Regular rate, Normal S1, Normal S2, No murmurs Abdominal:Mild tenderness, hepatomegaly, Normal bowel sounds, Soft, no ascites, tympanic. Extremities: Trace BLE edema+, No clubbing, No cyanosis, Normal pulses. Skin: Yellowish is skin discoloration but No rashes, No breakdown, No significant lesion Neuro: Normal gait, Normal speech, no sensory motor deficits Psych/Mental Status: Mental status NL, Mood NL laboratory and microbiology Laboratory Tests 01/26/25 05:25 Test 01/26/25 05:25 Range/Units Serum Glucose 120 H 74-106 mg/dL Microbiology Date/Time Source Procedure Growth Status 01/20/25 13:25 Voided Urine Urine Culture - Final Complete 01/18/25 22:00 Blood Blood Culture - Final NO GROWTH AFTER 5 DAYS OF INCUBATION. Complete Labs and/or images reviewed: Labs reviewed by me, Image(s) reviewed by me Problem List/Assessment/Plan Problem List/Assessment/Plan Problem List/Assessment/Plan # SIRS/ Sepsis likely due to below # Acute on Chronic Decompensated Alcoholic hepatitis # Hepatic steatosis, Hepatomegaly & Transaminitis from above # Moderate malnutrition # Possible upper GI bleeding - Ultrasound shows enlarged liver measuring 24.5 cm demonstrates diffusely heterogeneous echogenicity - CT scan showed heterogeneous enlarged liver, with peripheral areas in the liver are very low in density on 12/25/24 - Maddrey score 53.5, and MELD score 37 point (with52.6% estimated 90 day mortality) - Bilirubin is very high but stable - IV Methylprednisolone 40 mg daily - IV Protonix 40 mg bid , Carafate 1 gm po bid & Lactulose 30 mL p.o. b.i.d. - IV Cefepime 1 g daily and IV metronidazole 500 mg t.i.d. - Lasix 40 mg p.o. and spironolactone 25 mg p.o. daily - Ursodiol 300 mg po tid - Blood culture report revealed no growth in 24 hours of incubation - Pending stool occult test. - GI recommended transfer the patient to higher level of care for liver transplantation - [facility] declined the transfer for possible liver transplantation # Chronic anemia, macrocytic hyperchromic due to alcoholism - Monitor lab - H&H stable # Hypertensive heart disease and possible chronic diastolic heart failure - Echo showed LVEF 60% with a LA enlargement, RVSP 40 - BP is on the lower side., Midodrine 10 mg p.o. t.i.d. # ZOILA on CKD likely due to to hepatorenal syndrome - IV Albumin - Midodrine 10 mg p.o. t.i.d. - Sodium bicarb tablet 1300 mg p.o. t.i.d. - Nephrology on board # Vitamin D deficiency - Vitamin D 36252 units Q 7D. # Leukemoid reaction # Severe Leukocytosis unspecified # Possible leukemia lymphoma/myeloproliferative disorder - Patient's underwent bone marrow biopsy and the specimen sent for further studies - leukemia lymphoma immuno typing and serum electrophoresis pending Renal diet Due to GI bleed, no anticoagulant is indicated Protonix BOWEL REGIMEN: Lactulose Plan discussed with Dr. Andres Plan discussed with: Patient, Other My Orders My Orders Orders - TOMY VICTORIA Procedure Category Date Status Time Abg W/ Co-Ox RT 01/25/25 Logged 11:22 Dietary Evaluation Review Comments: 1. Continue current diet as tolerated 2. Encourage good oral intakes >75% of meals 3. Monitor I&Os, weight trends Expected Outcomes/Goals: Maintain adequate nutrition, stable hepatic fx vs. evaluation for liver transplant. Date of Service: Jan 26, 2025 Billing Provider: NIC MORA MD Common Visit Codes: [id number] INP/OBS CARE(HIGH) TOMY VICTORIA Jan 26, 2025 09:55 NIC MORA MD Jan 31, 2025 23:40
[2025-01-26] MEDS: SODIUM BICARB 8.4% 50Meq/50ml SYR Vial IV ONE (15:15)
--- NOTE | 2025-01-26 22:47 | DVHPN2 ---
Progress Note - Dictate Date Seen: Jan 26, 2025 Medical Necessity Reason Pt with a Central, PICC or Fol: No Subjective No new complaints; feels better Ambulatory ; continue hyperbilirubinemia ; patient states she is more jaundiced Persistent elevation in liver enzymes, severe leukemoid reaction and leukocytosis White count and bili have trended down slowly today vital signs Vital Sign Date Time Temp Pulse Resp B/P (MAP) Pulse Ox O2 Delivery O2 Flow Rate FiO2 01/26/25 21:00 97.6 77 17 135/83 (100) 100 97.6 01/26/25 08:15 Room Air* 0 21 Total Intake and Output 01/25/25 01/25/25 01/26/25 14:59 22:59 06:59 Intake Total 1140 ml 1200 ml Output Total 775 ml Balance 1140 ml 425 ml medications Current Medications Medications Dose Ordered Sig/Chris Route Start Time Stop Time Status Last Admin Dose Admin Ondansetron HCl 4 mg Q4HPRN PRN IV 01/19/25 05:30 01/19/25 02:51 4 MG Lactulose 30 ml BID PO 01/19/25 10:00 01/26/25 22:13 30 ML Pantoprazole Sodium 40 mg BID IV 01/19/25 03:15 01/26/25 22:13 40 MG Sucralfate 1 gm BID@0600,2200 PO 01/19/25 06:00 01/26/25 22:12 1 GM Ergocalciferol 50,000 unit Q7D PO 01/19/25 12:00 01/26/25 12:36 50,000 UNIT Midodrine 10 mg TID@0600,1200,1800 PO 01/19/25 12:00 01/26/25 18:13 10 MG Cefepime HCl 50 ml @ 12.5 mls/hr DAILY IV 01/22/25 13:52 01/26/25 10:51 12.5 MLS/HR Spironolactone 25 mg DAILY PO 01/25/25 10:00 01/26/25 10:56 25 MG Sodium Bicarbonate 1,300 mg TID PO 01/24/25 14:00 01/26/25 22:14 1,300 MG Furosemide 40 mg DAILY PO 01/24/25 14:15 01/26/25 10:58 40 MG Ursodiol 300 mg TID PO 01/24/25 22:00 01/26/25 14:00 300 MG Methylprednisolone Sodium Succinate 40 mg BID IV 01/24/25 22:00 01/26/25 22:13 40 MG objective General Appearance: Icteric ,Alert, Oriented X3, Cooperative,no distress HEENT: Atraumatic, PERRLA, EOMI,Yellow discoloration of the mucosa and sclera( icteric appearance) Respiratory: Clear to auscultation, Normal air movement Cardiovascular: Regular rate, Normal S1, Normal S2, No murmurs Abdominal:Mild tenderness, hepatomegaly, Normal bowel sounds, Soft, no ascites, tympanic. Extremities: Trace BLE edema+, No clubbing, No cyanosis, Normal pulses. Skin: Yellowish is skin discoloration but No rashes, No breakdown, No significant lesion Neuro: Normal gait, Normal speech, no sensory motor deficits Psych/Mental Status: Mental status NL, Mood NL laboratory and microbiology Laboratory Tests 01/26/25 05:25 Test 01/26/25 05:25 Range/Units Serum Glucose 120 H 74-106 mg/dL Problems(with codes): (1) Viral illness (2) Acute renal injury (3) RUQ abdominal pain (4) Lymphocytosis (5) Alcoholic cirrhosis of liver (6) Sepsis (7) Liver cirrhosis (8) Anemia Prognosis Plan Continue supportive care Patient transferred to higher level of care was denied and they recommended outpatient follow up in the clinic Patient has been counseled about discontinuing alcohol Continue to monitor labs Continue IV Solu-Medrol Continue ursodiol 300 mg p.o. twice a day I will follow up patient with you Dietary Evaluation Review Comments: 1. Continue current diet as tolerated 2. Encourage good oral intakes >75% of meals 3. Monitor I&Os, weight trends Expected Outcomes/Goals: Maintain adequate nutrition, stable hepatic fx vs. evaluation for liver transplant. Plan discussed with: Patient, Other (Dr Oates) JUANA KNIGHT MD Jan 26, 2025 22:47
[2025-01-27] VITALS (8 sets, daily range): BP systolic 129–155; BP diastolic 79–87; PULSE 78–84; RESP 17–20; TEMP 96.5–97.9; O2SAT 97–100
[2025-01-27 08:11] LABS: Hematocrit 30.7 % (36.0-46.0); Hemoglobin 9.7 g/dL (12.2-16.2); Mean Corpuscular Hemoglobin 34.2 pg (28.0-32.0); Mean Corpuscular Hgb Conc. 31.7 g/dL (32.0-36.0); Mean Corpuscular Volume 108.1 fL (80.0-100.0); Platelet Count (auto) 218 10^3/uL (140-450); Red Blood Cells 2.84 10^6/uL (4.0-5.20); Red Cell Distribution Width 21.1 % (11.8-14.3)
[2025-01-27 08:20] LABS: Alkaline Phosphatase 269 U/L (46-116); Calcium 9.9 mg/dL (8.7-10.4); Chloride 106 mmol/L (98-107); Potassium 3.6 mmol/L (3.5-5.1); Sodium 141 mmol/L (136-145)
[2025-01-27 08:21] LABS: Bilirubin, Total 29.3 mg/dL (0.2-1.0)
[2025-01-27 08:22] LABS: White Blood Cell 83.3 10^3/uL (4.4-10.8)
[2025-01-27 08:23] LABS: Basophils % (manual) 0 (0.0-2.0); Blast Cells 0; Eosinophils % (manual) 0 (0-7); Promyelocytes % 0; Reactive Lymphocytes 0
[2025-01-27 08:29] LABS: Anion Gap 20 (5-15); BUN/Creatinine Ratio 30.8 (10.0-20.0)
[2025-01-27 08:34] LABS: Alanine Aminotransferase 48 U/L (7-40); Aspartate Aminotransferase 60 U/L (13-40); Carbon Dioxide 15 mmol/L (20-31); Glucose 119 mg/dL (74-106); Total Protein 7.2 g/dL (5.7-8.2)
[2025-01-27 08:38] LABS: Blood Urea Nitrogen 82 mg/dL (9-23)
[2025-01-27 09:04] LABS: Anisocytosis Slight; Band Neutrophils % (manual) 18; Lymphocytes % (manual) 2 (10.0-50.0); Macrocytosis Moderate; Metamyelocytes % 1; Monocytes % (manual) 1 (0-12); Myelocytes % 1; Platelet Estimate Adequate
--- NOTE | 2025-01-27 10:04 | DVHPN2 ---
Progress Note Date Seen: Jan 27, 2025 Medical Necessity Reason Pt with a Central, PICC or Fol: No Subjective Patient reports: Feels better Objective vital signs Vital Sign Date Time Temp Pulse Resp B/P (MAP) Pulse Ox O2 Delivery O2 Flow Rate FiO2 01/27/25 05:00 97.2 78 17 141/79 (99) 100 97.2 01/26/25 20:00 Room Air* 0 21 Total Intake and Output 01/26/25 01/26/25 01/27/25 15:00 23:00 07:00 Intake Total 50 ml 825 ml 1000 ml Output Total 2 ml Balance 50 ml 823 ml 1000 ml medications Current Medications Medications Dose Ordered Sig/Chris Route Start Time Stop Time Status Last Admin Dose Admin Ondansetron HCl 4 mg Q4HPRN PRN IV 01/19/25 05:30 01/19/25 02:51 4 MG Lactulose 30 ml BID PO 01/19/25 10:00 01/26/25 22:13 30 ML Pantoprazole Sodium 40 mg BID IV 01/19/25 03:15 01/26/25 22:13 40 MG Sucralfate 1 gm BID@0600,2200 PO 01/19/25 06:00 01/27/25 05:55 1 GM Ergocalciferol 50,000 unit Q7D PO 01/19/25 12:00 01/26/25 12:36 50,000 UNIT Midodrine 10 mg TID@0600,1200,1800 PO 01/19/25 12:00 01/27/25 05:55 10 MG Cefepime HCl 50 ml @ 12.5 mls/hr DAILY IV 01/22/25 13:52 01/26/25 10:51 12.5 MLS/HR Spironolactone 25 mg DAILY PO 01/25/25 10:00 01/26/25 10:56 25 MG Sodium Bicarbonate 1,300 mg TID PO 01/24/25 14:00 01/27/25 05:55 1,300 MG Furosemide 40 mg DAILY PO 01/24/25 14:15 01/26/25 10:58 40 MG Ursodiol 300 mg TID PO 01/24/25 22:00 01/27/25 05:56 300 MG Methylprednisolone Sodium Succinate 40 mg BID IV 01/24/25 22:00 01/26/25 22:13 40 MG Examination: GENERAL:Abnormal, LUNGS:Normal, ABDOMEN:Abnormal, SKIN:Abnormal laboratory and microbiology Laboratory Tests 01/27/25 06:23 Test 01/27/25 06:23 Range/Units Serum Glucose 119 H 74-106 mg/dL Microbiology Date/Time Source Procedure Growth Status 01/20/25 13:25 Voided Urine Urine Culture - Final Complete 01/18/25 22:00 Blood Blood Culture - Final NO GROWTH AFTER 5 DAYS OF INCUBATION. Complete Problem List/Assessment/Plan Problem List/Assessment/Plan Acute kidney injury prerenal vs HRS Ckd due to recurrent ZOILA Alcoholic Liver disease: Cirrhosis Anemia Hyperbilirubinemia Hypoalbuminemia Jaundice leukocytosis metabolic acidosis midodrine IV sodium bicarbonate sodium bicarbonate po keep MAP 65 avoid hypotension IR biopsy BM completed hematology and GI consults on lasix and aldactone, BUN rising in setting of steroids, cr is decreasing. Albumin today EBV and danae bar + Plan discussed with: Patient My Orders My Orders Orders - JULIANE GASTELUM MD Procedure Category Date Status Time Urine Sodium LAB 01/27/25 Verified 09:59 Dietary Evaluation Review Comments: 1. Continue current diet as tolerated 2. Encourage good oral intakes >75% of meals 3. Monitor I&Os, weight trends Expected Outcomes/Goals: Maintain adequate nutrition, stable hepatic fx vs. evaluation for liver transplant. JULIANE GASTELUM MD Jan 27, 2025 10:04
[2025-01-27] MEDS ORDERED: SODIUM BICARB 8.4% 50Meq/50ml SYR Vial IV ONE (10:15)
[2025-01-27] MEDS: ALBUMIN 25% 100 ML IV ONE (11:31)
--- NOTE | 2025-01-27 18:01 | DVHPN2 ---
Subjective 01/27 patient continues to do via her baseline. [facility] declined yesterday, [facility] decline due to not being in network with insurance, current plan to try for 1 more facility that is in network i.e. [facility]. GI following as well with Nephrology. Leukocytosis continues to worsen. Workup does show patient has history of hep B infection, HSV 1 infection, CMV infection, EBV infection. Patient vital signs are stable. Reviewed: H&P Changes from previous H/P or p: No Changes General: Per HPI Objective Vitals Vital Signs Date Time Temp Pulse Resp B/P (MAP) Pulse Ox O2 Delivery O2 Flow Rate FiO2 01/27/25 17:00 97.1 80 20 135/87 (103) 100 97.1 01/27/25 08:00 Room Air* 0 21 Intake/Output Intake and Output 01/27/25 07:00 Intake Total 1875 ml Output Total 2 ml Balance 1873 ml Intake Oral 1825 ml IV Total 50 ml Output Urine Total 2 ml # Voids 5 # Bowel Movements 9 Exam General Appearance: Icteric ,Alert, Oriented X3, Cooperative, mild distress HEENT: Atraumatic, PERRLA, EOMI,Yellow discoloration of the mucosa and sclera( icteric appearance) Respiratory: Clear to auscultation, Normal air movement Cardiovascular: Regular rate, Normal S1, Normal S2, No murmurs Abdominal:Mild tenderness, hepatomegaly, Normal bowel sounds, Soft, no ascites, tympanic. Extremities: Trace BLE edema+, No clubbing, No cyanosis, Normal pulses. Skin: Yellowish is skin discoloration but No rashes, No breakdown, No significant lesion Neuro: Normal gait, Normal speech, no sensory motor deficits Psych/Mental Status: Mental status NL, Mood NL Medications Current Medications Medications Dose Ordered Sig/Chris Route Start Time Stop Time Status Last Admin Dose Admin Ondansetron HCl 4 mg Q4HPRN PRN IV 01/19/25 05:30 01/19/25 02:51 4 MG Lactulose 30 ml BID PO 01/19/25 10:00 01/26/25 22:13 30 ML Pantoprazole Sodium 40 mg BID IV 01/19/25 03:15 01/27/25 11:31 40 MG Sucralfate 1 gm BID@0600,2200 PO 01/19/25 06:00 01/27/25 05:55 1 GM Ergocalciferol 50,000 unit Q7D PO 01/19/25 12:00 01/26/25 12:36 50,000 UNIT Midodrine 10 mg TID@0600,1200,1800 PO 01/19/25 12:00 01/27/25 17:14 10 MG Cefepime HCl 50 ml @ 12.5 mls/hr DAILY IV 01/22/25 13:52 01/26/25 10:51 12.5 MLS/HR Spironolactone 25 mg DAILY PO 01/25/25 10:00 01/27/25 11:32 25 MG Sodium Bicarbonate 1,300 mg TID PO 01/24/25 14:00 01/27/25 14:58 1,300 MG Furosemide 40 mg DAILY PO 01/24/25 14:15 01/27/25 11:31 40 MG Ursodiol 300 mg TID PO 01/24/25 22:00 01/27/25 17:12 300 MG Methylprednisolone Sodium Succinate 40 mg BID IV 01/24/25 22:00 01/27/25 11:31 40 MG Laboratory Results Laboratory Tests 01/27/25 06:23 Chemistry Test 01/27/25 06:23 Albumin 4.0 g/dL (3.2-4.8) Calcium Level 9.9 mg/dL (8.7-10.4) Total Protein 7.2 g/dL (5.7-8.2) LFT Test 01/27/25 06:23 Alanine Aminotransferase (ALT) 48 U/L (7-40) H Alkaline Phosphatase 269 U/L (46-116) H Aspartate Amino Transferase (AST) 60 U/L (13-40) H Total Bilirubin 29.3 mg/dL (0.2-1.0) H Urinalysis Test 01/20/25 13:25 Urine Creatinine 153.22 mg/dL (30.0-125.0) H Urine Sodium < 10 mmol/L (40-220) L Urine Test Negative (Negative) Microbiology Microbiology Date/Time Source Procedure Growth Status 01/20/25 13:25 Voided Urine Urine Culture - Final Complete 01/18/25 22:00 Blood Blood Culture - Final NO GROWTH AFTER 5 DAYS OF INCUBATION. Complete Labs and/or images reviewed: Labs reviewed by me, Image(s) reviewed by me Assessment/Plan Assessment/Plan 01/27 patient continues to do via her baseline. [facility] declined yesterday, [facility] decline due to not being in network with insurance, current plan to try for 1 more facility that is in network i.e. [facility]. GI following as well with Nephrology. Leukocytosis continues to worsen. Workup does show patient has history of hep B infection, HSV 1 infection, CMV infection, EBV infection. Patient vital signs are stable. # SIRS/ Sepsis likely due to below # Acute on Chronic Decompensated Alcoholic hepatitis # Hepatic steatosis, Hepatomegaly & Transaminitis from above # Moderate malnutrition # Possible upper GI bleeding - Ultrasound shows enlarged liver measuring 24.5 cm demonstrates diffusely heterogeneous echogenicity - CT scan showed heterogeneous enlarged liver, with peripheral areas in the liver are very low in density on 12/25/24 - Maddrey score 53.5, and MELD score 37 point (with52.6% estimated 90 day mortality) - Bilirubin is very high but stable - IV Methylprednisolone 40 mg daily - IV Protonix 40 mg bid , Carafate 1 gm po bid & Lactulose 30 mL p.o. b.i.d. - IV Cefepime 1 g daily and IV metronidazole 500 mg t.i.d. - Lasix 40 mg p.o. and spironolactone 25 mg p.o. daily - Ursodiol 300 mg po tid - Blood culture report revealed no growth in 24 hours of incubation - Pending stool occult test. - GI recommended transfer the patient to higher level of care for liver transplantation - [facility] declined the transfer for possible liver transplantation # Chronic anemia, macrocytic hyperchromic due to alcoholism - Monitor lab - H&H stable # Hypertensive heart disease and possible chronic diastolic heart failure - Echo showed LVEF 60% with a LA enlargement, RVSP 40 - BP is on the lower side., Midodrine 10 mg p.o. t.i.d. # ZOILA on CKD likely due to to hepatorenal syndrome - IV Albumin - Midodrine 10 mg p.o. t.i.d. - Sodium bicarb tablet 1300 mg p.o. t.i.d. - Nephrology on board # Vitamin D deficiency - Vitamin D 46918 units Q 7D. # Leukemoid reaction # Severe Leukocytosis unspecified # Possible leukemia lymphoma/myeloproliferative disorder - Patient's underwent bone marrow biopsy and the specimen sent for further studies - leukemia lymphoma immuno typing and serum electrophoresis pending Renal diet Due to GI bleed, no anticoagulant is indicated Protonix BOWEL REGIMEN: Lactulose Plan discussed with: Patient Date of Service: Jan 27, 2025 Billing Provider: NIC MORA MD Common Visit Codes: [id number] INP/OBS CARE(HIGH) NIC MORA MD Jan 27, 2025 18:01
[2025-01-27] MEDS: SODIUM BICARB 50mEq/50ml Vial 100 ML in SOD CHL 0.45% 1,000 ML IV ONE (20:22)
--- NOTE | 2025-01-27 21:52 | DVHPN2 ---
Progress Note - Dictate Date Seen: Jan 27, 2025 Medical Necessity Reason Pt with a Central, PICC or Fol: No Subjective No new complaints; feels better; patient was taken by her family on a wheelchair Ambulatory ; continue hyperbilirubinemia ; patient states she is more jaundiced Persistent elevation in liver enzymes, severe leukemoid reaction and leukocytosis Patient has evidence of previous exposure to CMV Pat-Schultz and HSV although her IgM are negative Hepatitis-B surface antigen is negative and there was no evidence of active hepatitis-B at this time Patient is hepatitis A total antibody is positive vital signs Vital Sign Date Time Temp Pulse Resp B/P (MAP) Pulse Ox O2 Delivery O2 Flow Rate FiO2 01/27/25 17:00 97.1 80 20 135/87 (103) 100 97.1 01/27/25 08:00 Room Air* 0 21 Total Intake and Output 01/26/25 01/26/25 01/27/25 15:00 23:00 07:00 Intake Total 50 ml 825 ml 1000 ml Output Total 2 ml Balance 50 ml 823 ml 1000 ml medications Current Medications Medications Dose Ordered Sig/Chris Route Start Time Stop Time Status Last Admin Dose Admin Ondansetron HCl 4 mg Q4HPRN PRN IV 01/19/25 05:30 01/19/25 02:51 4 MG Lactulose 30 ml BID PO 01/19/25 10:00 01/26/25 22:13 30 ML Pantoprazole Sodium 40 mg BID IV 01/19/25 03:15 01/27/25 11:31 40 MG Sucralfate 1 gm BID@0600,2200 PO 01/19/25 06:00 01/27/25 05:55 1 GM Ergocalciferol 50,000 unit Q7D PO 01/19/25 12:00 01/26/25 12:36 50,000 UNIT Midodrine 10 mg TID@0600,1200,1800 PO 01/19/25 12:00 01/27/25 17:14 10 MG Cefepime HCl 50 ml @ 12.5 mls/hr DAILY IV 01/22/25 13:52 01/27/25 10:00 12.5 MLS/HR Spironolactone 25 mg DAILY PO 01/25/25 10:00 01/27/25 11:32 25 MG Sodium Bicarbonate 1,300 mg TID PO 01/24/25 14:00 01/27/25 14:58 1,300 MG Furosemide 40 mg DAILY PO 01/24/25 14:15 01/27/25 11:31 40 MG Ursodiol 300 mg TID PO 01/24/25 22:00 01/27/25 17:12 300 MG Methylprednisolone Sodium Succinate 40 mg BID IV 01/24/25 22:00 01/27/25 11:31 40 MG objective General Appearance: Icteric ,Alert, Oriented X3, Cooperative,no distress HEENT: Atraumatic, PERRLA, EOMI,Yellow discoloration of the mucosa and sclera( icteric appearance) Respiratory: Clear to auscultation, Normal air movement Cardiovascular: Regular rate, Normal S1, Normal S2, No murmurs Abdominal:Mild tenderness, hepatomegaly, Normal bowel sounds, Soft, no ascites, tympanic. Extremities: Trace BLE edema+, No clubbing, No cyanosis, Normal pulses. Skin: Yellowish is skin discoloration but No rashes, No breakdown, No significant lesion Neuro: Normal gait, Normal speech, no sensory motor deficits Psych/Mental Status: Mental status NL, Mood NL laboratory and microbiology Laboratory Tests 01/27/25 06:23 Test 01/27/25 06:23 Range/Units Serum Glucose 119 H 74-106 mg/dL Problems(with codes): (1) Leukemoid reaction (2) Leukocytosis (3) Viral illness (4) Alcoholic cirrhosis of liver (5) Sepsis (6) Liver cirrhosis (7) Anemia Prognosis Plan I would recommend continuing to try to transfer this patient to higher level of care for liver transplant evaluation Consider adding IV acyclovir We can check a hepatitis a IgM rule out active hepatitis-C infection Prognosis remains guarded Patient is currently on ursodiol 300 mg p.o. three times a day and IV Solu- Medrol 20 mg q.12 hours Dietary Evaluation Review Comments: 1. Continue current diet as tolerated 2. Encourage good oral intakes >75% of meals 3. Monitor I&Os, weight trends Expected Outcomes/Goals: Maintain adequate nutrition, stable hepatic fx vs. evaluation for liver transplant. Plan discussed with: Other (Nurse and Dr Oates) JUANA KNIGHT MD Jan 27, 2025 21:52
[2025-01-28 07:30] LABS: Hemoglobin 9.4 g/dL (12.2-16.2)
[2025-01-28 07:36] LABS: Hematocrit 28.9 % (36.0-46.0); Mean Corpuscular Hgb Conc. 32.5 g/dL (32.0-36.0); Mean Corpuscular Volume 107.6 fL (80.0-100.0); Platelet Count (auto) 195 10^3/uL (140-450); Red Blood Cells 2.69 10^6/uL (4.0-5.20)
[2025-01-28 07:39] LABS: INR 1.43 (0.9-1.15); Prothrombin Time 14.6 sec (9.3-11.8)
[2025-01-28 07:57] LABS: Red Cell Distribution Width 20.6 % (11.8-14.3)
[2025-01-28 08:00] VITALS: RESP 16
[2025-01-28 08:01] LABS: Basophils % (manual) 0 (0.0-2.0); Blast Cells 0; Eosinophils % (manual) 0 (0-7); Metamyelocytes % 0; Myelocytes % 0; Promyelocytes % 0; Reactive Lymphocytes 0; White Blood Cell 100.9 10^3/uL (4.4-10.8)
[2025-01-28 08:09] LABS: Calcium 10.2 mg/dL (8.7-10.4); Chloride 107 mmol/L (98-107); Potassium 3.5 mmol/L (3.5-5.1); Sodium 142 mmol/L (136-145)
[2025-01-28 08:12] LABS: Alkaline Phosphatase 260 U/L (46-116)
[2025-01-28 08:15] LABS: Anion Gap 21 (5-15); BUN/Creatinine Ratio 33.8 (10.0-20.0)
[2025-01-28 08:19] LABS: Blood Urea Nitrogen 79 mg/dL (9-23); Carbon Dioxide 14 mmol/L (20-31); Glucose 116 mg/dL (74-106)
[2025-01-28 08:20] LABS: Alanine Aminotransferase 53 U/L (7-40); Albumin 4.4 g/dL (3.2-4.8); Aspartate Aminotransferase 69 U/L (13-40); Total Protein 7.4 g/dL (5.7-8.2)
[2025-01-28 09:00] VITALS: BP 143/83; PULSE 83; RESP 20; TEMP 97.6; O2SAT 100
[2025-01-28 09:07] LABS: HBV as IU/mL HBV DNA not detected IU/mL (.)
[2025-01-28 09:13] LABS: Band Neutrophils % (manual) 4; Lymphocytes % (manual) 3 (10.0-50.0); Monocytes % (manual) 3 (0-12); Platelet Estimate Adequate
--- NOTE | 2025-01-28 10:53 | DVHPNRES ---
Progress Note Date Seen: Jan 28, 2025 Resident Creating Document: TOMY VICTORIA RESIDENT Medical Necessity Reason Pt with a Central, PICC or Fol: No Subjective Review of Systems The patient was seen and examined on the bedside. She is alert oriented x3. No overnight events and mentioned feeling better. No other active complaint Objective vital signs Vital Sign Date Time Temp Pulse Resp B/P (MAP) Pulse Ox O2 Delivery O2 Flow Rate FiO2 01/28/25 09:48 143/83 01/27/25 21:00 97.5 84 17 97 97.5 01/27/25 20:00 Room Air* 0 21 Total Intake and Output 01/27/25 01/27/25 01/28/25 15:00 23:00 07:00 Intake Total 800 ml 0 ml Balance 800 ml 0 ml medications Current Medications Medications Dose Ordered Sig/Chris Route Start Time Stop Time Status Last Admin Dose Admin Ondansetron HCl 4 mg Q4HPRN PRN IV 01/19/25 05:30 01/19/25 02:51 4 MG Lactulose 30 ml BID PO 01/19/25 10:00 01/28/25 09:46 30 ML Pantoprazole Sodium 40 mg BID IV 01/19/25 03:15 01/28/25 09:47 40 MG Sucralfate 1 gm BID@0600,2200 PO 01/19/25 06:00 01/28/25 06:11 1 GM Ergocalciferol 50,000 unit Q7D PO 01/19/25 12:00 01/26/25 12:36 50,000 UNIT Midodrine 10 mg TID@0600,1200,1800 PO 01/19/25 12:00 01/28/25 06:11 10 MG Cefepime HCl 50 ml @ 12.5 mls/hr DAILY IV 01/22/25 13:52 01/28/25 09:53 12.5 MLS/HR Spironolactone 25 mg DAILY PO 01/25/25 10:00 01/28/25 09:48 25 MG Sodium Bicarbonate 1,300 mg TID PO 01/24/25 14:00 01/28/25 06:14 1,300 MG Furosemide 40 mg DAILY PO 01/24/25 14:15 01/28/25 09:48 40 MG Ursodiol 300 mg TID PO 01/24/25 22:00 01/28/25 06:10 300 MG Methylprednisolone Sodium Succinate 40 mg BID IV 01/24/25 22:00 01/28/25 09:46 40 MG Examination Physical examination: General Appearance: Icteric ,Alert, Oriented X3, Cooperative,no distress HEENT: Atraumatic, PERRLA, EOMI,Yellow discoloration of the mucosa and sclera( icteric appearance) Respiratory: Clear to auscultation, Normal air movement Cardiovascular: Regular rate, Normal S1, Normal S2, No murmurs Abdominal:Mild tenderness, hepatomegaly, Normal bowel sounds, Soft, no ascites, tympanic. Extremities: Trace BLE edema+, No clubbing, No cyanosis, Normal pulses. Skin: Yellowish is skin discoloration but No rashes, No breakdown, No significant lesion Neuro: Normal gait, Normal speech, no sensory motor deficits Psych/Mental Status: Mental status NL, Mood NL laboratory and microbiology Laboratory Tests 01/28/25 07:11 Test 01/28/25 07:11 Range/Units Serum Glucose 116 H 74-106 mg/dL Microbiology Date/Time Source Procedure Growth Status 01/20/25 13:25 Voided Urine Urine Culture - Final Complete 01/18/25 22:00 Blood Blood Culture - Final NO GROWTH AFTER 5 DAYS OF INCUBATION. Complete Labs and/or images reviewed: Labs reviewed by me, Image(s) reviewed by me Problem List/Assessment/Plan Problem List/Assessment/Plan Problem List/Assessment/Plan # SIRS/ Sepsis likely due to below # Acute on Chronic Decompensated Alcoholic hepatitis # Hepatic steatosis, Hepatomegaly & Transaminitis from above # Moderate malnutrition # Possible upper GI bleeding - Ultrasound shows enlarged liver measuring 24.5 cm demonstrates diffusely heterogeneous echogenicity - CT scan showed heterogeneous enlarged liver, with peripheral areas in the liver are very low in density on 12/25/24 - Maddrey score 53.5, and MELD score 37 point (with52.6% estimated 90 day mortality) - Bilirubin is very high but stable - IV Methylprednisolone 20 mg bid - IV Protonix 40 mg bid , Carafate 1 gm po bid & Lactulose 30 mL p.o. b.i.d. - IV acyclovir 500 mg daily as per GI recommendation. - Lasix 40 mg p.o. and spironolactone 25 mg p.o. daily - Ursodiol 300 mg po tid - Blood culture report revealed no growth in 24 hours of incubation - Pending stool occult test. - GI recommended transfer the patient to higher level of care for liver transplantation - caseworker protective services working on the transfer to [facility]. # Chronic anemia, macrocytic hyperchromic due to alcoholism - Monitor lab - H&H stable # Hypertensive heart disease and possible chronic diastolic heart failure - Echo showed LVEF 60% with a LA enlargement, RVSP 40 - BP is on the lower side., Midodrine 10 mg p.o. t.i.d. # ZOILA on CKD likely due to to hepatorenal syndrome - IV Albumin - Midodrine 10 mg p.o. t.i.d. - Sodium bicarb tablet 1300 mg p.o. t.i.d. - Nephrology on board # Vitamin D deficiency - Vitamin D 41109 units Q 7D. # Leukemoid reaction # Severe Leukocytosis unspecified # Possible leukemia lymphoma/myeloproliferative disorder - Patient's underwent bone marrow biopsy and the specimen sent for further studies - leukemia lymphoma immuno typing and serum electrophoresis pending Renal diet Due to GI bleed, no anticoagulant is indicated Protonix BOWEL REGIMEN: Lactulose Plan discussed with Dr. Andres Plan discussed with: Patient, Other My Orders My Orders Orders - TOMY VICTORIA Procedure Category Date Status Time Methylprednisolone PHA 01/28/25 Logged Sod Succ (Solu Medrol 11:00 Dietary Evaluation Review Comments: 1. Continue current diet as tolerated 2. Encourage good oral intakes >75% of meals 3. Monitor I&Os, weight trends Expected Outcomes/Goals: Maintain adequate nutrition, stable hepatic fx vs. evaluation for liver transplant. Date of Service: Jan 28, 2025 Billing Provider: NIC MORA MD Common Visit Codes: [id number] INP/OBS CARE(HIGH) TOMY VICTORIA Jan 28, 2025 10:53 NIC MORA MD Jan 31, 2025 23:52
--- NOTE | 2025-01-28 11:42 | DVHPN2 ---
Progress Note Date Seen: Jan 28, 2025 Medical Necessity Reason Pt with a Central, PICC or Fol: No Subjective Patient reports: Feels better Objective vital signs Vital Sign Date Time Temp Pulse Resp B/P (MAP) Pulse Ox O2 Delivery O2 Flow Rate FiO2 01/28/25 09:48 143/83 01/27/25 21:00 97.5 84 17 97 97.5 01/27/25 20:00 Room Air* 0 21 Total Intake and Output 01/27/25 01/27/25 01/28/25 15:00 23:00 07:00 Intake Total 800 ml 0 ml Balance 800 ml 0 ml medications Current Medications Medications Dose Ordered Sig/Chris Route Start Time Stop Time Status Last Admin Dose Admin Ondansetron HCl 4 mg Q4HPRN PRN IV 01/19/25 05:30 01/19/25 02:51 4 MG Lactulose 30 ml BID PO 01/19/25 10:00 01/28/25 09:46 30 ML Pantoprazole Sodium 40 mg BID IV 01/19/25 03:15 01/28/25 09:47 40 MG Sucralfate 1 gm BID@0600,2200 PO 01/19/25 06:00 01/28/25 06:11 1 GM Ergocalciferol 50,000 unit Q7D PO 01/19/25 12:00 01/26/25 12:36 50,000 UNIT Midodrine 10 mg TID@0600,1200,1800 PO 01/19/25 12:00 01/28/25 06:11 10 MG Cefepime HCl 50 ml @ 12.5 mls/hr DAILY IV 01/22/25 13:52 01/28/25 09:53 12.5 MLS/HR Spironolactone 25 mg DAILY PO 01/25/25 10:00 01/28/25 09:48 25 MG Sodium Bicarbonate 1,300 mg TID PO 01/24/25 14:00 01/28/25 06:14 1,300 MG Furosemide 40 mg DAILY PO 01/24/25 14:15 01/28/25 09:48 40 MG Ursodiol 300 mg TID PO 01/24/25 22:00 01/28/25 06:10 300 MG Methylprednisolone Sodium Succinate 20 mg BID IV 01/28/25 11:00 Examination: GENERAL:Abnormal, CVS:Normal, SKIN:Abnormal laboratory and microbiology Laboratory Tests 01/28/25 07:11 Test 01/28/25 07:11 Range/Units Serum Glucose 116 H 74-106 mg/dL Microbiology Date/Time Source Procedure Growth Status 01/20/25 13:25 Voided Urine Urine Culture - Final Complete 01/18/25 22:00 Blood Blood Culture - Final NO GROWTH AFTER 5 DAYS OF INCUBATION. Complete Problem List/Assessment/Plan Problem List/Assessment/Plan Acute kidney injury prerenal vs HRS Ckd due to recurrent ZOILA Alcoholic Liver disease: Cirrhosis Anemia Hyperbilirubinemia Hypoalbuminemia Jaundice leukocytosis metabolic acidosis midodrine sodium bicarbonate po keep MAP 65 avoid hypotension IR biopsy BM completed hematology and GI consults on lasix and aldactone, BUN rising in setting of steroids noted steroid dose reduced BUN improved, cr is decreasing. EBV and danae bar + from renal standpoint patient is stable no new recs will sign off case per CM possible transfer is arranged Plan discussed with: Patient Dietary Evaluation Review Comments: 1. Continue current diet as tolerated 2. Encourage good oral intakes >75% of meals 3. Monitor I&Os, weight trends Expected Outcomes/Goals: Maintain adequate nutrition, stable hepatic fx vs. evaluation for liver transplant. JULIANE GASTELUM MD Jan 28, 2025 11:42
[2025-01-28 13:00] VITALS: BP 138/97; PULSE 83; RESP 20; TEMP 97.6; O2SAT 100
--- NOTE | 2025-01-28 15:01 | DVHPN2 ---
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 Pat-Schultz and HSV although her IgM are negative Hepatitis-B surface antigen is negative and HBV DNA is negative and there was no evidence of active hepatitis-B at this time Patient is hepatitis A total antibody is positive vital signs Vital Sign Date Time Temp Pulse Resp B/P (MAP) Pulse Ox O2 Delivery O2 Flow Rate FiO2 01/28/25 13:00 97.6 83 20 138/97 (111) 100 97.6 01/28/25 08:00 Room Air* 0 21 Total Intake and Output 01/27/25 01/27/25 01/28/25 15:00 23:00 07:00 Intake Total 800 ml 0 ml Balance 800 ml 0 ml medications Current Medications Medications Dose Ordered Sig/Chris Route Start Time Stop Time Status Last Admin Dose Admin Ondansetron HCl 4 mg Q4HPRN PRN IV 01/19/25 05:30 01/19/25 02:51 4 MG Lactulose 30 ml BID PO 01/19/25 10:00 01/28/25 09:46 30 ML Pantoprazole Sodium 40 mg BID IV 01/19/25 03:15 01/28/25 09:47 40 MG Sucralfate 1 gm BID@0600,2200 PO 01/19/25 06:00 01/28/25 06:11 1 GM Ergocalciferol 50,000 unit Q7D PO 01/19/25 12:00 01/26/25 12:36 50,000 UNIT Midodrine 10 mg TID@0600,1200,1800 PO 01/19/25 12:00 01/28/25 06:11 10 MG Spironolactone 25 mg DAILY PO 01/25/25 10:00 01/28/25 09:48 25 MG Sodium Bicarbonate 1,300 mg TID PO 01/24/25 14:00 01/28/25 06:14 1,300 MG Furosemide 40 mg DAILY PO 01/24/25 14:15 01/28/25 09:48 40 MG Ursodiol 300 mg TID PO 01/24/25 22:00 01/28/25 06:10 300 MG Methylprednisolone Sodium Succinate 20 mg BID IV 01/28/25 11:00 Acyclovir Sodium 500 mg/Dextrose 110 ml @ 110 mls/hr DAILY IV 01/29/25 10:00 objective General Appearance: Icteric ,Alert, Oriented X3, Cooperative,no distress HEENT: Atraumatic, PERRLA, EOMI,Yellow discoloration of the mucosa and sclera( icteric appearance) Respiratory: Clear to auscultation, Normal air movement Cardiovascular: Regular rate, Normal S1, Normal S2, No murmurs Abdominal:Mild tenderness, hepatomegaly, Normal bowel sounds, Soft, no ascites, tympanic. Extremities: Trace BLE edema+, No clubbing, No cyanosis, Normal pulses. Skin: Yellowish is skin discoloration but No rashes, No breakdown, No significant lesion Neuro: Normal gait, Normal speech, no sensory motor deficits Psych/Mental Status: Mental status NL, Mood NL laboratory and microbiology Laboratory Tests 01/28/25 07:11 Test 01/28/25 07:11 Range/Units Serum Glucose 116 H 74-106 mg/dL Problems(with codes): (1) Leukocytosis (2) Leukemoid reaction (3) Viral illness (4) Alcoholic cirrhosis of liver (5) Liver cirrhosis (6) Anemia Prognosis Plan I will taper down her prednisone to 20 mg IV q.12 hours Patient has been started on antivirals Hepatitis-C IgM is pending I would recommend continuing to try to transfer this patient to higher level of care for liver transplant evaluation Prognosis remains guarded We can start low-dose diuretics like spironolactone and Lasix Dietary Evaluation Review Comments: 1. Continue current diet as tolerated 2. Encourage good oral intakes >75% of meals 3. Monitor I&Os, weight trends Expected Outcomes/Goals: Maintain adequate nutrition, stable hepatic fx vs. evaluation for liver transplant. Plan discussed with: Patient, Other (Dr Andres) JUANA KNIGHT MD Jan 28, 2025 15:01
[2025-01-28 17:00] VITALS: BP 143/86; PULSE 84; RESP 18; TEMP 97.7; O2SAT 100
[2025-01-28] MEDS: ACYCLOVIR SOD 50MG/ML 500 MG in D5W 5% 100 ML IV ONE (17:38)
[2025-01-28] MEDS: methylPREDNISolone SOD SUCC 40 MG/ML VL IV SCH (17:38)
[2025-01-28 18:03] LABS: INR 1.43 (0.9-1.15); Partial Thromboplastin Time 34.1 SEC (24.5-34.5); Prothrombin Time 14.6 sec (9.3-11.8)
[2025-01-28 20:00] VITALS: PULSE 84; RESP 20; O2SAT 100
[2025-01-28 21:00] VITALS: BP 153/94; PULSE 84; RESP 20; TEMP 97.4; O2SAT 100
[2025-01-29] VITALS (8 sets, daily range): BP systolic 119–153; BP diastolic 18–91; PULSE 86–98; RESP 17–18; TEMP 97.5–98.5; O2SAT 98–100
[2025-01-29 07:01] LABS: Mean Corpuscular Hgb Conc. 32.8 g/dL (32.0-36.0)
[2025-01-29 07:08] LABS: Alkaline Phosphatase 223 U/L (46-116); Anion Gap 19 (5-15); Calcium 9.9 mg/dL (8.7-10.4); Carbon Dioxide 15 mmol/L (20-31); Chloride 111 mmol/L (98-107); Glucose 126 mg/dL (74-106); Potassium 3.5 mmol/L (3.5-5.1); Sodium 145 mmol/L (136-145)
[2025-01-29 07:09] LABS: Alanine Aminotransferase 51 U/L (7-40); Hematocrit 26.1 % (36.0-46.0); Hemoglobin 8.6 g/dL (12.2-16.2); Mean Corpuscular Volume 106.7 fL (80.0-100.0); Platelet Count (auto) 168 10^3/uL (140-450); Red Blood Cells 2.45 10^6/uL (4.0-5.20); Total Protein 6.3 g/dL (5.7-8.2)
[2025-01-29 07:10] LABS: Albumin 3.8 g/dL (3.2-4.8)
[2025-01-29 07:11] LABS: Red Cell Distribution Width 20.2 % (11.8-14.3)
[2025-01-29 07:12] LABS: Bilirubin, Total 23.1 mg/dL (0.2-1.0); Blood Urea Nitrogen 85 mg/dL (9-23)
[2025-01-29 07:14] LABS: White Blood Cell 87.3 10^3/uL (4.4-10.8)
[2025-01-29 07:15] LABS: Basophils % (manual) 0 (0.0-2.0); Eosinophils % (manual) 0 (0-7); Promyelocytes % 0; Reactive Lymphocytes 0
[2025-01-29 07:16] LABS: Aspartate Aminotransferase 60 U/L (13-40)
[2025-01-29 08:15] LABS: Anisocytosis Slight; Band Neutrophils % (manual) 32; Blast Cells 1; Lymphocytes % (manual) 2 (10.0-50.0); Macrocytosis Moderate; Metamyelocytes % 3; Monocytes % (manual) 3 (0-12); Myelocytes % 1; Platelet Estimate Adequate
[2025-01-29 10:16] LABS: Hepatitis B Surface Antigen Negative (Negative)
[2025-01-29 10:32] LABS: Hepatitis A Ab IgM Negative; Hepatitis B Core IgM Negative (Negative); Hepatitis C Antibody Negative (Negative)
[2025-01-29] MEDS: ACYCLOVIR SOD 50MG/ML 500 MG in D5W 5% 100 ML IV SCH (10:56)
--- NOTE | 2025-01-29 16:27 | DVHPNRES ---
Progress Note Date Seen: Jan 29, 2025 Resident Creating Document: TOMY VICTORIA RESIDENT Medical Necessity Reason Pt with a Central, PICC or Fol: No Subjective Review of Systems The patient was seen and examined on the bedside. She is alert oriented x3. No overnight events and mentioned feeling better. No other active complaint Objective vital signs Vital Sign Date Time Temp Pulse Resp B/P (MAP) Pulse Ox O2 Delivery O2 Flow Rate FiO2 01/29/25 14:40 97.6 88 17 120/78 (92) 99 97.6 01/29/25 08:00 Room Air* 0 21 Total Intake and Output 01/28/25 01/28/25 01/29/25 15:00 23:00 07:00 Intake Total 150 ml 300 ml 620 ml Balance 150 ml 300 ml 620 ml medications Current Medications Medications Dose Ordered Sig/Chris Route Start Time Stop Time Status Last Admin Dose Admin Ondansetron HCl 4 mg Q4HPRN PRN IV 01/19/25 05:30 01/19/25 02:51 4 MG Lactulose 30 ml BID PO 01/19/25 10:00 01/29/25 08:54 30 ML Pantoprazole Sodium 40 mg BID IV 01/19/25 03:15 01/29/25 08:55 40 MG Sucralfate 1 gm BID@0600,2200 PO 01/19/25 06:00 01/29/25 05:55 1 GM Ergocalciferol 50,000 unit Q7D PO 01/19/25 12:00 01/26/25 12:36 50,000 UNIT Midodrine 10 mg TID@0600,1200,1800 PO 01/19/25 12:00 01/28/25 06:11 10 MG Spironolactone 25 mg DAILY PO 01/25/25 10:00 01/29/25 08:57 25 MG Sodium Bicarbonate 1,300 mg TID PO 01/24/25 14:00 01/29/25 14:10 1,300 MG Furosemide 40 mg DAILY PO 01/24/25 14:15 01/29/25 08:56 40 MG Ursodiol 300 mg TID PO 01/24/25 22:00 01/29/25 14:10 300 MG Methylprednisolone Sodium Succinate 20 mg BID IV 01/28/25 11:00 01/29/25 08:55 20 MG Acyclovir Sodium 500 mg/Dextrose 110 ml @ 110 mls/hr DAILY IV 01/29/25 10:00 01/29/25 10:56 110 MLS/HR Examination Physical examination: General Appearance: Icteric ,Alert, Oriented X3, Cooperative,no distress HEENT: Atraumatic, PERRLA, EOMI,Yellow discoloration of the mucosa and sclera( icteric appearance) Respiratory: Clear to auscultation, Normal air movement Cardiovascular: Regular rate, Normal S1, Normal S2, No murmurs Abdominal:Mild tenderness, hepatomegaly, Normal bowel sounds, Soft, no ascites, tympanic. Extremities: Trace BLE edema+, No clubbing, No cyanosis, Normal pulses. Skin: Yellowish is skin discoloration but No rashes, No breakdown, No significant lesion Neuro: Normal gait, Normal speech, no sensory motor deficits Psych/Mental Status: Mental status NL, Mood NL laboratory and microbiology Laboratory Tests 01/29/25 06:15 Test 01/29/25 06:15 Range/Units Serum Glucose 126 H 74-106 mg/dL Microbiology Date/Time Source Procedure Growth Status 01/20/25 13:25 Voided Urine Urine Culture - Final Complete 01/18/25 22:00 Blood Blood Culture - Final NO GROWTH AFTER 5 DAYS OF INCUBATION. Complete Labs and/or images reviewed: Labs reviewed by me, Image(s) reviewed by me Problem List/Assessment/Plan Problem List/Assessment/Plan Problem List/Assessment/Plan # SIRS/ Sepsis likely due to below # Acute on Chronic Decompensated Alcoholic hepatitis # Hepatic steatosis, Hepatomegaly & Transaminitis from above # Moderate malnutrition # Possible upper GI bleeding - Ultrasound shows enlarged liver measuring 24.5 cm demonstrates diffusely heterogeneous echogenicity - CT scan showed heterogeneous enlarged liver, with peripheral areas in the liver are very low in density on 12/25/24 - Maddrey score 53.5, and MELD score 37 point (with52.6% estimated 90 day mortality) - Bilirubin is very high but stable - IV Methylprednisolone 20 mg bid - IV Protonix 40 mg bid , Carafate 1 gm po bid & Lactulose 30 mL p.o. b.i.d. - IV acyclovir 500 mg daily as per GI recommendation. - Lasix 40 mg p.o. and spironolactone 25 mg p.o. daily - Ursodiol 300 mg po tid - Blood culture report revealed no growth in 24 hours of incubation - Pending stool occult test. - GI recommended transfer the patient to higher level of care for liver transplantation - flume worker working on the transfer to [facility]. # Chronic anemia, macrocytic hyperchromic due to alcoholism - Monitor lab - H&H stable # Hypertensive heart disease and possible chronic diastolic heart failure - Echo showed LVEF 60% with a LA enlargement, RVSP 40 - BP is on the lower side., Midodrine 10 mg p.o. t.i.d. # ZOILA on CKD likely due to to hepatorenal syndrome - IV Albumin - Midodrine 10 mg p.o. t.i.d. - Sodium bicarb tablet 1300 mg p.o. t.i.d. - Nephrology on board # Vitamin D deficiency - Vitamin D 33533 units Q 7D. 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 - leukemia lymphoma immuno typing and serum electrophoresis pending Renal diet Due to GI bleed, no anticoagulant is indicated Protonix BOWEL REGIMEN: Lactulose Plan discussed with Dr. Andres Plan discussed with: Patient, Other My Orders My Orders Orders - TOMY VICTORIA Procedure Category Date Status Time Left Lower Extremity US 01/29/25 Taken Ultrasoun 15:44 Dietary Evaluation Review Comments: 1. Continue current diet as tolerated 2. Encourage good oral intakes >75% of meals 3. Monitor I&Os, weight trends Expected Outcomes/Goals: Maintain adequate nutrition, stable hepatic fx vs. evaluation for liver transplant. Date of Service: Jan 29, 2025 Billing Provider: NIC MORA MD Common Visit Codes: [id number] INP/OBS CARE(HIGH) TOMY VICTORIA Jan 29, 2025 16:26 NIC MORA MD Feb 01, 2025 00:07
[2025-01-29] MEDS ORDERED: levoFLOXacin 500 MG TAB PO ONE (17:00)
--- NOTE | 2025-01-29 17:15 | DVHPN2 ---
Consult Progress Note Date Seen: Jan 28, 2025 Subjective Patient reports: Feels better (antibiotics stopped. no fevers, no signs of sepsis, no tachycardia) Objective vital signs Vital Sign Date Time Temp Pulse Resp B/P (MAP) Pulse Ox O2 Delivery O2 Flow Rate FiO2 01/29/25 17:00 97.6 98 17 127/76 (93) 100 97.6 01/29/25 08:00 Room Air* 0 21 Total Intake and Output 01/28/25 01/28/25 01/29/25 15:00 23:00 07:00 Intake Total 150 ml 300 ml 620 ml Balance 150 ml 300 ml 620 ml medications Current Medications Medications Dose Ordered Sig/Chris Route Start Time Stop Time Status Last Admin Dose Admin Ondansetron HCl 4 mg Q4HPRN PRN IV 01/19/25 05:30 01/19/25 02:51 4 MG Lactulose 30 ml BID PO 01/19/25 10:00 01/29/25 08:54 30 ML Pantoprazole Sodium 40 mg BID IV 01/19/25 03:15 01/29/25 08:55 40 MG Sucralfate 1 gm BID@0600,2200 PO 01/19/25 06:00 01/29/25 05:55 1 GM Ergocalciferol 50,000 unit Q7D PO 01/19/25 12:00 01/26/25 12:36 50,000 UNIT Midodrine 10 mg TID@0600,1200,1800 PO 01/19/25 12:00 01/28/25 06:11 10 MG Spironolactone 25 mg DAILY PO 01/25/25 10:00 01/29/25 08:57 25 MG Sodium Bicarbonate 1,300 mg TID PO 01/24/25 14:00 01/29/25 14:10 1,300 MG Furosemide 40 mg DAILY PO 01/24/25 14:15 01/29/25 08:56 40 MG Ursodiol 300 mg TID PO 01/24/25 22:00 01/29/25 14:10 300 MG Methylprednisolone Sodium Succinate 20 mg BID IV 01/28/25 11:00 01/29/25 08:55 20 MG Levofloxacin 500 mg DAILY PO 01/30/25 10:00 UNV PHYSICAL EXAM: - GENERAL: Alert and oriented x 3. No acute distress. Well-nourished. - EYES: EOMI. Anicteric. - HENT: Moist mucous membranes. No scleral icterus. No cervical lymphadenopathy. - LUNGS: Clear to auscultation bilaterally. No accessory muscle use. - CARDIOVASCULAR: Regular rate and rhythm. No murmur. No JVD. - ABDOMEN: Soft, non-tender and non-distended. No palpable masses. - EXTREMITIES: No edema. Non-tender.?SKIN: No rashes or lesions. Warm. - NEUROLOGIC: No focal neurological deficits. CN II-XII grossly intact, but not individually tested - PSYCHIATRIC: Cooperative. Appropriate mood and affect. laboratory and microbiology Laboratory Tests 01/29/25 06:15 Test 01/29/25 06:15 Range/Units Serum Glucose 126 H 74-106 mg/dL Problem List/Assessment/Plan Problem List/Assessment/Plan ID Problem List: - Alcoholic liver cirrhosis - Acute alcoholic hepatitis - Hyperbilirubinemia - Severe leukocytosis - ZOILA and CKD stage 4 - Anemia (macrocytic) - Melena - Positive asterixis - Poor prognosis Assessment This is a 44 y.o. female with a past medical history of hypertension and liver cirrhosis secondary to alcohol abuse, who presents with body pain, generalized weakness, vomiting, fever, chest pain, constipation, worsening black stools, and jaundice. Patient was recently discharged from [facility] on 12/28/2024 after admission for liver failure and has been getting worse since discharge. She stopped drinking alcohol two months ago; previously, she was a heavy alcohol drinker. She is a former smoker with a 2 pack-year smoking history. On exam, she has generalized yellow discoloration of the skin and sclera (jaundice), distended abdomen, and positive asterixis. Laboratory findings include elevated WBC count currently at 62.5, hemoglobin 8.7, platelets 250, bilirubin 29.4, AST 59, ALT 19, creatinine 3.27, BUN 69. Her bilirubin is uptrending, with a Maddrey discriminant function score of 61.7 and a MELD score of 37. Imaging studies include CT abdomen showing hepatomegaly with peripheral areas of low attenuation suggestive of hepatic steatosis and small volume ascites. Blood cultures and urine cultures are negative to date. 01/21: appears clinically stable no signs of sepsis just worsening leukocytosis with whitecount at 70 01/22: Patient is tolerating IV cefepime and Flagyl , also on high dose of steroids 3/25: Patient was seen by hematology and oncology and is feeling that any peripheral disorders is unlikely but will confirm with biopsy 01/24: Continues to be stable , renal function is stable and patient is being evaluated for higher level of care for liver transplant and may also require a renal transplant as well 01/25: Whitecount is up to 87 , awaiting biopsy results and hepatitis A and B testing Plan: - Continue cefepime and linezolid - Follow up on bone marrow biopsy - Follow up on blood cultures, urine cultures, and obtain sputum culture. - Recommend hematology/oncology consultation for evaluation of severe leukocytosis; consider bone marrow biopsy to rule out leukemia. - Monitor leukocytosis. low overall concern that infection is etiology of leukocytosis , favor leukomoid reaction in setting of severe alcoholic liver failure - Defer management of steroid therapy to GI team; unclear efficacy after prolonged acute alcoholic hepatitis. - Recommend obtaining hepatitis B DNA test and HepBe ag to confirm no active infection. - Recommend obtaining hepatitis A IgM antibody to assess for acute hepatitis A. - Prognosis is poor given severe liver failure, high MELD score, and leukocytosis. Isolation Precautions: Standard Plan discussed with: Patient Dietary Evaluation Review Comments: 1. Continue current diet as tolerated 2. Encourage good oral intakes >75% of meals 3. Monitor I&Os, weight trends Expected Outcomes/Goals: Maintain adequate nutrition, stable hepatic fx vs. evaluation for liver transplant. ZAIRE CORTEZ MD Jan 29, 2025 17:15
--- NOTE | 2025-01-29 17:57 | DVH ---
Procedure: US LEFT LOWER EXTREMITY ULTRASOUN 01/29/2025 04:19 PM Indication: Cystic lesion in the left lower tibia Comparison: None Technique: Sonogram of the area of clinical concern in the left anterior ankle was obtained utilizing grayscale and color techniques. FINDINGS: Ill-defined, approximately 2.4 x 0.6 x 3.3 cm subcutaneous isoechoic structure noted in the area of clinical concern most compatible with a lipoma. IMPRESSION: Findings most compatible with a lipoma in the anterior subcutaneous tissues of the left ankle measuri ng 2.4 x 3.3 cm.
[2025-01-29 18:34] LABS: Urine Bacteria None Seen /hpf (None Seen)
[2025-01-29 19:23] LABS: Urine Amorphous Crystal FEW /hpf (None Seen); Urine Blood 2+ /uL (Negative); Urine Clarity Clear (Clear); Urine Color Dark-Yellow (Yellow); Urine Hyaline Cast FEW /lpf (0 - 2); Urine Protein, UAD 1+ (Negative); Urine Specific Gravity 1.012 (1.001-1.035); Urine Squamous Epithelial Cell FEW /hpf (<5); Urine Urobilinogen Normal (Negative); Urine WBC 2 /HPF (0-5); Urine pH 5.5 (5.0-9.0)
--- NOTE | 2025-01-29 20:25 | DVHCONRES ---
Date Seen: Jan 29, 2025 Resident Creating Document: HOMA PATEL RESIDENT Referring Physician Dr Andres Reason for Consultation Leukocytosis, rule out infectious source History of Present Illness Kina Whiteside this is a 44-year-old female patient who presents to the ED with chief complaint of generalized body pain, generalized weakness, vomiting, fever, melena and confusion. Patient was recently discharged from [facility] on 12/28/2024 with diagnosis of liver failure, since discharge patient's symptoms did not improve. Patient was evaluated previously by GI, Nephrology isn't to follow up with Heme-Onc as outpatient due to leukemoid reaction. D enies any other associated symptoms. Past medical history: Hypertension, alcoholic liver cirrhosis (last alcoholic drink on November 20, 2024), positive hepatitis B surface antigen, leukemoid reaction, CKD, gastritis Surgical history: Cholecystectomy Family history: Father had prostate cancer Social history: Lives with family in [place]. Ex ethanol abuse (stopped intake of alcohol since November 20, 2024). Ex-smoker (2.5 pack year history of smoking). Denies current tobacco, alcohol and other drug abuse Allergies: Denies Home medication: Benazepril, sucralfate and Protonix Patient seen and examined at bedside. Patient currently still complaining of generalized weakness, bilateral lower limb extremity swelling, also complaint of episode of confusion during the p.m. last night. Denies any fever, vomiting, melena and other symptoms. Planning on transferring to higher level of care for eventual liver transplant. Past Medical History Per HPI Past Surgical History Per HPI Family History: FH: asthma G8 FATHER FH: diabetes mellitus G8 MOTHER FH: prostate cancer G8 FATHER Family History Per HPI Social History Per HPI Allergies: Coded Allergies: NO KNOWN ALLERGIES (Unverified , 10/26/24) Home Meds Active Scripts Amoxicillin & Pot Clavulanate (Amoxicillin/Potassium Cla) 875 Mg Tab, 1 TAB PO BID for 10 Days, #20 TAB Prov:LESA KRUGER RESIDENT 12/28/24 Sucralfate (CARAFATE) 1 Gm Tab, 1 GM OR TID for 21 Days, #63 TAB Prov:LESA KRUGER RESIDENT 12/28/24 Pantoprazole Sodium Sesquihydr (Pantoprazole Sodium) 40 Mg Tab, 40 MG PO DAILY for 30 Days, #30 TAB Prov:LESA KRUGER RESIDENT 12/28/24 Reported Medications Benazepril Hcl (Benazepril Hcl) 20 Mg Tab, 1 TAB PO DAILY 12/26/24 Current Medications Current Medications Medications (Trade) Dose Ordered Sig/Chris Route PRN Reason Start Time Stop Time Status Last Admin Acyclovir Sodium 500 mg/Dextrose 110 ml @ 110 mls/hr DAILY IV 01/29/25 10:00 01/29/25 16:36 DC 01/29/25 10:56 Levofloxacin (Levaquin Tablet) 500 mg DAILY PO 01/30/25 10:00 Future Hold Review of Systems Per HPI Vital Signs Vital Signs Date Time Temp Pulse Resp B/P (MAP) Pulse Ox O2 Delivery O2 Flow Rate FiO2 01/29/25 17:00 97.6 98 17 127/76 (93) 100 97.6 01/29/25 08:00 Room Air* 0 21 Physical Exam Patient lying in bed, in no acute distress General: Lucid, afebrile, icteric mucosa, sclera and skin, mucosae are moist Cardiovascular: Normal S1 and S2. No murmurs, gallops or rubs Respiratory: Normal ventilation mechanics. Clear lung sounds on auscultation Abdomen: Soft, nontender, no organomegaly, normal bowel sounds, no ascites MSK/skin: Mobilizes 4 limbs. Skin is dry and warm. Presents bilateral suprapatellar pitting edema. Presents clear transudate secretion on left leg anterior tibia. Neurological: Oriented in 3 spheres. No motor no sensitive deficits. Pupils are isocoric and reactive Labs/Diagnostic Data Labs Test 01/29/25 18:33 01/29/25 18:32 01/29/25 06:15 01/28/25 17:36 Range/Units Urine Sodium 90 40-220 mmol/L Urine Color Dark-yellow Yellow Urine Clarity Clear Clear Urine pH 5.5 5.0-9.0 Urine Specific [place] 1.012 1.001-1.035 Urine Protein 1+ H Negative Urine Ketones Negative Negative Urine Blood 2+ H Negative /uL Urine Nitrite Negative Negative Urine Bilirubin 1+ H Negative Urine Urobilinogen Normal Negative mg/dL Urine Leukocyte Esterase Negative Negative /uL Urine RBC 6 0 - 4 /hpf Urine Microscopic WBC 2 0-5 /HPF Urine Squamous Epithelial Cells Few <5 /hpf Urine Amorphous Crystals Few None Seen /hpf Urine Bacteria None seen None Seen /hpf Urine Hyaline Casts Few 0 - 2 /lpf Urine Glucose Normal Normal mg/dL White Blood Count 87.3 *H 4.4-10.8 10^3/uL Red Blood Count 2.45 L 4.0-5.20 10^6/uL Hemoglobin 8.6 L 12.2-16.2 g/dL Hematocrit 26.1 L 36.0-46.0 % Mean Corpuscular Volume 106.7 H 80.0-100.0 fL Mean Corpuscular Hemoglobin 35.0 H 28.0-32.0 pg Mean Corpuscular Hemoglobin Concent 32.8 32.0-36.0 g/dL Red Cell Distribution Width 20.2 H 11.8-14.3 % Platelet Count 168 140-450 10^3/uL Mean Platelet Volume 11.7 H 6.9-10.8 fL Neutrophils (%) (Auto) 37.0-80.0 % Lymphocytes (%) (Auto) 10.0-50.0 % Monocytes (%) (Auto) 0.0-12.0 % Basophils (%) (Auto) 0.0-2.0 % Neutrophils # (Auto) 1.6-8.6 10 ^3/uL Lymphocytes # (Auto) 0.4-5.4 10 ^3/uL Monocytes # (Auto) 0-1.3 10 ^3/uL Differential Total Cells Counted 100.0 100 Neutrophils % (Manual) 58 37.0-80.0 Band Neutrophils % (Manual) 32 Lymphocytes % (Manual) 2 L 10.0-50.0 Monocytes % (Manual) 3 0-12 Eosinophils % (Manual) 0 0-7 Basophils % (Manual) 0 0.0-2.0 Metamyelocytes % (manual) 3 Myelocytes % (Manual) 1 Promyelocytes % (Manual) 0 Blast Cells % (Manual) 1 Reactive Lymphocytes 0 Platelet Estimate Adequate Anisocytosis (manual) Slight Macrocytosis Moderate Sodium Level 145 136-145 mmol/L Potassium Level 3.5 3.5-5.1 mmol/L Chloride Level 111 H 98-107 mmol/L Carbon Dioxide Level 15 L 20-31 mmol/L Anion Gap 19 H 5-15 Blood Urea Nitrogen 85 *H 9-23 mg/dL Creatinine 2.36 H 0.550-1.02 mg/dL Glomerular Filtration Rate Calc 26 >90 mL/min BUN/Creatinine Ratio 36.0 H 10.0-20.0 Serum Glucose 126 H 74-106 mg/dL Calcium Level 9.9 8.7-10.4 mg/dL Total Bilirubin 23.1 H 0.2-1.0 mg/dL Aspartate Amino Transferase (AST) 60 H 13-40 U/L Alanine Aminotransferase (ALT) 51 H 7-40 U/L Alkaline Phosphatase 223 H 46-116 U/L Total Protein 6.3 5.7-8.2 g/dL Albumin 3.8 3.2-4.8 g/dL Prothrombin Time 14.6 H 9.3-11.8 sec Prothrombin Time INR 1.43 H 0.9-1.15 Activated Partial Thromboplast Time 34.1 24.5-34.5 SEC Test 01/28/25 07:11 01/25/25 19:26 01/25/25 14:13 01/25/25 11:58 Range/Units Ammonia 28 11-32 umol/L Hepatitis A IgM Antibody Negative Hepatitis B Surface Antigen Negative Negative Hepatitis B Core IgM Antibody Negative Negative Hepatitis C Antibody Negative Negative Miscellaneous Referred Test (Rm Tmp Sent to [facility] Hepatitis B DNA Quant log IU/mL . Hepatitis B DNA (Units/mL) Hbv dna not detected . IU/mL Blood Gas Specimen Type Arterial Blood Gas Sample Site Right radial Blood Gas Patient Temperature 37.0 Arterial Blood Date Drawn [id number] Arterial Blood pH 7.315 L 7.350-7.450 Arterial Blood Partial Pressure CO2 20.6 L 32.0-45.0 mmHg Arterial Blood Partial Pressure O2 101.3 83.0-108.0 mmHg Arterial Blood HCO3 10.3 L 21.0-28.0 mmol/L Arterial Blood Oxygen Saturation 97.5 94.0-98.0 % Arterial Blood Base Excess -14.1 L -2.0-3.0 mmol/L Arterial Blood Oxyhemoglobin 96.5 94.0-98.0 % Arterial Blood Carboxyhemoglobin 0.9 0.5-1.5 % Arterial Blood Methemoglobin 0.1 0.0-1.5 % Kirk Test Yes Blood Gas Total Hemoglobin 10.10 L 12.0-16.0 g/dL Blood Gas Modality Room air FiO2 % 21.0 Test 01/25/25 05:39 01/23/25 11:23 01/23/25 06:03 01/22/25 15:34 Range/Units Hypersegmented Neutrophils Reticulocyte Count (auto) 1.99 H 0.5-1.5 % Haptoglobin 75 42-296 mg/dL Lactate Dehydrogenase 170 120-246 U/L Anti-Nuclear Antibody Screen Negative Negative Direct Bilirubin > 15.0 H <0.3 mg/dL Globulin (PEP) . Albumin/Globulin Ratio . Rotnd-9-Cwconaiaw . Dqdmd-5-Edaqccwpb . Beta Globulins . Gamma Globulins . Protein Electrophoresis M-Anthony . Protein Electrophoresis Note . Cytomegalovirus IgG Antibody >10.00 H 0.00-0.59 U/mL Cytomegalovirus IgM Antibody <30.0 0.0-29.9 AU/mL Pat-Schultz Virus Capsid Ag IgG Ab >600.0 H 0.0-17.9 U/mL Pat-Schultz Virus Capsid Ag IgM Ab <36.0 0.0-35.9 U/mL Apt-Schultz Early Antigen IgG Ab 137.0 H 0.0-17.9 U/mL Pat-Schultz Virus Ab Interpret Comment . Herpes Simplex Virus I IgG Antibody Reactive H Non Reactive Herpes Simplex Virus II IgG Ab Non reactive Non Reactive HIV (1&2) Antibody Negative Negative Test 01/20/25 13:25 01/20/25 05:26 01/19/25 01:45 01/18/25 21:44 Range/Units Urine Creatinine 153.22 H 30.0-125.0 mg/dL Urine Test Negative Negative Urine Opiates Screen Neg NEGATIVE Urine Fentanyl Screen Neg NEGATIVE Urine Barbiturates Screen Neg NEGATIVE Urine Phencyclidine Screen Neg NEGATIVE Urine Amphetamines Screen Neg NEGATIVE Urine Benzodiazepines Screen Neg NEGATIVE Urine Cocaine Screen Neg NEGATIVE Urine Cannabinoids Screen Neg NEGATIVE Large Platelets Few Target Cells Few Schistocytes Few Clumped Platelets Few Iron Level 108 50-170 ug/dL Total Iron Binding Capacity 194 L 250-425 ug/dL Percent Iron Saturation 55.7 H 15-50 % Ferritin 225.8 10-291 ng/mL Vitamin B12 Level 1934 H 211-911 pg/mL Vitamin D 25-Hydroxy 16.1 L 30.0-100 ng/mL Plasma/Serum Blood Alcohol < 3.0 <10 mg/dL Hepatitis A Antibody Total Positive H Negative Hepatitis B Surface Antibody Negative Negative Hepatitis B Core Total Antibody Negative Negative Poikilocytosis (manual) Slight Lactic Acid Level 1.3 0.4-2.0 mmol/L Troponin I High Sensitivity 10 </=34 ng/L B-Type Natriuretic Peptide 469.52 0-100 pg/mL Lipase 93 H 12-53 U/L Microbiology Date/Time Source Procedure Growth Status 01/20/25 13:25 Voided Urine Urine Culture - Final Complete 01/18/25 22:00 Blood Blood Culture - Final NO GROWTH AFTER 5 DAYS OF INCUBATION. Complete Assessment Questionable acute viral hepatitis due to EBV Leukemoid reaction ZOILA hemodynamically mediated on CKD Ruled out acute hepatitis B infection Alcoholic liver cirrhosis (meld 31 points) Bicytopenia - probable secondary to liver cirrhosis Plan/Recommendation Pat bar virus IgG is positive, IgM is negative, but EBV early antigen is positive. Have discontinued acyclovir since it will increase risk of worsening ZOILA, patient will benefit with steroid treatment at this point. Continue with methylprednisolone 20 mg IV daily. Hepatitis-B viral load was negative ([facility] results). Interpreted previous hepatitis-B surface antigen as a false-positive. Due to liver cirrhosis, leukemoid reaction and acute hepatitis, patient is on high-risk of translocation of gut bacteria. Indicated empiric IV antibiotic to cover Gram-negative rods (initially Levaquin, but due to prolonged QT switch to ceftriaxone). Patient is currently on midodrine. Evaluate benefit of octreotide in the setting of acute liver failure. Bone marrow biopsy evidence CD56 expression and subset of myelomonocytic cells, pending molecular testing to evaluate malignancy. Appreciate Heme-Onc specialist input. Appreciate GI and Nephrology specialist input. Awaiting transferred to higher level of care for eventual liver transplant. Rest of plan per primary team. Goals of care discussed with patient for over 18 minutes: Full code status Discussed plan with Dr. Kay, patient, family and nurses: Discontinuing acyclovir, continue with IV steroids, currently on empiric IV antibiotic (ceftriaxone), awaiting transferred to higher level of care for eventual liver transplant. Patient has poor prognosis I performed a history and physical exam of this patient and discussed the management with the medical student listed here. I reviewed the note, agree with the documented findings and plan of care (except as noted in my additions and changes below), and believe this is an accurate representation of the clinical course. - Zaire Kay MD Plan discussed with: Patient, Daughter, Other (Nurses) HOMA PATEL RESIDENT Jan 29, 2025 20:25 ZAIRE KAY MD Feb 13, 2025 18:03
--- NOTE | 2025-01-29 21:56 | DVHPN2 ---
Progress Note - Dictate Date Seen: Jan 29, 2025 Medical Necessity Reason Pt with a Central, PICC or Fol: No Subjective No new complaints; Patient has severe scleral icterus and jaundice and moderate two to 3+ pedal edema Persistent elevation in liver enzymes, severe leukemoid reaction and leukocytosis; labs are trending down today Patient has evidence of previous exposure to CMV Pat-Schultz and HSV although her IgM are negative Hepatitis-B surface antigen is negative and HBV DNA is negative and there was no evidence of active hepatitis-B at this time Patient hepatitis A IgM is negative vital signs Vital Sign Date Time Temp Pulse Resp B/P (MAP) Pulse Ox O2 Delivery O2 Flow Rate FiO2 01/29/25 21:00 97.6 86 18 121/70 (87) 100 97.6 01/29/25 08:00 Room Air* 0 21 Total Intake and Output 01/28/25 01/28/25 01/29/25 15:00 23:00 07:00 Intake Total 150 ml 300 ml 620 ml Balance 150 ml 300 ml 620 ml medications Current Medications Medications Dose Ordered Sig/Chris Route Start Time Stop Time Status Last Admin Dose Admin Ondansetron HCl 4 mg Q4HPRN PRN IV 01/19/25 05:30 01/19/25 02:51 4 MG Lactulose 30 ml BID PO 01/19/25 10:00 01/29/25 08:54 30 ML Pantoprazole Sodium 40 mg BID IV 01/19/25 03:15 01/29/25 08:55 40 MG Sucralfate 1 gm BID@0600,2200 PO 01/19/25 06:00 01/29/25 05:55 1 GM Ergocalciferol 50,000 unit Q7D PO 01/19/25 12:00 01/26/25 12:36 50,000 UNIT Midodrine 10 mg TID@0600,1200,1800 PO 01/19/25 12:00 01/28/25 06:11 10 MG Spironolactone 25 mg DAILY PO 01/25/25 10:00 01/29/25 08:57 25 MG Sodium Bicarbonate 1,300 mg TID PO 01/24/25 14:00 01/29/25 14:10 1,300 MG Furosemide 40 mg DAILY PO 01/24/25 14:15 01/29/25 08:56 40 MG Ursodiol 300 mg TID PO 01/24/25 22:00 01/29/25 14:10 300 MG Methylprednisolone Sodium Succinate 20 mg BID IV 01/28/25 11:00 01/29/25 08:55 20 MG Ceftriaxone Sodium 50 ml @ 100 mls/hr DAILY@09 IV 01/30/25 09:00 objective General Appearance: Icteric ,Alert, Oriented X3, Cooperative,no distress HEENT: Atraumatic, PERRLA, EOMI,Yellow discoloration of the mucosa and sclera( icteric appearance) Respiratory: Clear to auscultation, Normal air movement Cardiovascular: Regular rate, Normal S1, Normal S2, No murmurs Abdominal:Mild tenderness, hepatomegaly, Normal bowel sounds, Soft, no ascites, tympanic. Extremities: Trace BLE edema+, No clubbing, No cyanosis, Normal pulses. Skin: Yellowish is skin discoloration but No rashes, No breakdown, No significant lesion Neuro: Normal gait, Normal speech, no sensory motor deficits Psych/Mental Status: Mental status NL, Mood NL laboratory and microbiology Laboratory Tests 01/29/25 06:15 Test 01/29/25 06:15 Range/Units Serum Glucose 126 H 74-106 mg/dL Problems(with codes): (1) Jaundice (2) Leukocytosis (3) Leukemoid reaction (4) Viral illness (5) Alcoholic cirrhosis of liver (6) Sepsis Prognosis Plan Continue supportive care I will monitor her labs; hopefully her liver enzymes will continue to trend downwards I will taper down the prednisone to 20 mg once a day and another 24 hours Continue Lasix and spironolactone Patient was on IV acyclovir Continue Actigall 300 mg p.o. three times a day Ongoing attempt to transfer to higher level of care Dietary Evaluation Review Comments: 1. Continue current diet as tolerated 2. Encourage good oral intakes >75% of meals 3. Monitor I&Os, weight trends Expected Outcomes/Goals: Maintain adequate nutrition, stable hepatic fx vs. evaluation for liver transplant. Plan discussed with: Patient JUANA KNIGHT MD Jan 29, 2025 21:56
[2025-01-29] MEDS: cefTRIAXone 1GM/50ML D5W 50 ML IV ONE (22:40)
[2025-01-30] VITALS (8 sets, daily range): BP systolic 126–150; BP diastolic 77–90; PULSE 89–99; RESP 15–20; TEMP 97.5–98.6; O2SAT 96–100
[2025-01-30 06:34] LABS: Hemoglobin 8.5 g/dL (12.2-16.2)
[2025-01-30 06:38] LABS: Hematocrit 26.5 % (36.0-46.0); Mean Corpuscular Hemoglobin 33.6 pg (28.0-32.0); Mean Corpuscular Hgb Conc. 31.9 g/dL (32.0-36.0); Mean Corpuscular Volume 105.4 fL (80.0-100.0); Platelet Count (auto) 152 10^3/uL (140-450); Red Blood Cells 2.52 10^6/uL (4.0-5.20)
[2025-01-30 06:43] LABS: Red Cell Distribution Width 20.3 % (11.8-14.3)
[2025-01-30 06:44] LABS: Albumin 3.6 g/dL (3.2-4.8); Alkaline Phosphatase 209 U/L (46-116); Anion Gap 15 (5-15); Bilirubin, Total 21.7 mg/dL (0.2-1.0); Carbon Dioxide 19 mmol/L (20-31); Chloride 112 mmol/L (98-107); Glucose 115 mg/dL (74-106); Potassium 3.7 mmol/L (3.5-5.1); Sodium 146 mmol/L (136-145)
[2025-01-30 06:45] LABS: Basophils % (manual) 0 (0.0-2.0); Blast Cells 0; Eosinophils % (manual) 0 (0-7); Metamyelocytes % 0; Myelocytes % 0; Promyelocytes % 0; Reactive Lymphocytes 0; White Blood Cell 83.3 10^3/uL (4.4-10.8)
[2025-01-30] MEDS ORDERED: methylPREDNISolone SOD SUCC 40 MG/ML VL IV SCH (06:45)
[2025-01-30 06:51] LABS: BUN/Creatinine Ratio 34.1 (10.0-20.0)
[2025-01-30 07:06] LABS: Alanine Aminotransferase 54 U/L (7-40); Aspartate Aminotransferase 60 U/L (13-40); Blood Urea Nitrogen 79 mg/dL (9-23); Total Protein 6.1 g/dL (5.7-8.2)
--- NOTE | 2025-01-30 07:51 | ECG ---
[facility] Test Date: 2025-01-30 Test Time: 07:09:55 Pat Name: APARNA MARTÍNEZ Department: Respiratoy Room: 0247 B Gender: F [employer] Consultant: TAVIA : 1980 Requested By: HOMA PATEL Order Number: [id number] Reading MD: Geovani Mallory Measurements Intervals [place] Rate: 97 P: 60 KS: 166 QRS: 31 QRSD: 87 T: 175 QT: 380 QTc: 483 Interpretive Statements Sinus rhythm Probable left atrial enlargement Borderline repolarization abnormality Electronically Signed On 01-31-2025 20:59:22 PDT by Geovani Mallory Please click the below link to view image of tracing.
[2025-01-30 08:09] LABS: Band Neutrophils % (manual) 10; Lymphocytes % (manual) 3 (10.0-50.0); Monocytes % (manual) 3 (0-12)
[2025-01-30 08:10] LABS: Large Platelets FEW; Platelet Estimate Adequa
[2025-01-30] MEDS: methylPREDNISolone SOD SUCC 40 MG/ML VL IV SCH (08:43)
[2025-01-30] MEDS: cefTRIAXone 1GM/50ML D5W 50 ML IV SCH (08:43)
[2025-01-30] MEDS ORDERED: levoFLOXacin 500 MG TAB PO SCH (10:00)
[2025-01-30] MEDS ORDERED: HYDROcodone-ACET 10/325MG TAB PO PRN (14:00)
[2025-01-30] MEDS: DOCUSATE SOD 100 MG CAP PO ONE (14:20)
[2025-01-30] MEDS: POLYETHYLENE GLYCOL 17 GM PWDR PO ONE (14:20)
[2025-01-30] MEDS: MORPHINE SULFATE INJ 2 MG/ml SYRG IV PRN (14:21)
--- NOTE | 2025-01-30 16:10 | DVH ---
Date: 01/30/2025 03:23 PM Examination: XY KUB ABDOMEN SINGLE VIEW History: abdominal pain with constipation Comparison: None TECHNIQUE: Frontal views of the abdomen was obtained. FINDINGS: Bowel gas pattern is unremarkable. Surgical clips right upper quadrant from previous cholecystectomy. Faint radiopaque masses right upper quadrant etiology uncertain. The lung bases are unremarkable. No acute osseous abnormality identified. IMPRESSION: 1. Bowel gas pattern at this time is most consistent with ileus. There is no abnormally gaseous diste nded small bowel or colon.
--- NOTE | 2025-01-30 16:49 | DVHPNRES ---
Progress Note Date Seen: Jan 30, 2025 Resident Creating Document: TOMY VICTORIA RESIDENT Medical Necessity Reason Pt with a Central, PICC or Fol: No Subjective Review of Systems Patient was seen and examined on the bedside. She is alert oriented x3. The patient is complaining of abdominal pain and constipation. Plain xray abdomen demonstrated Bowel gas pattern at this time is most consistent with ileus. There is no abnormally gaseous distended small bowel or colon. Was on bowel regimen lactulose 30 mL b.i.d. and started MiraLax powder and Colace 100 mg p.o. by b.i.d.. Objective vital signs Vital Sign Date Time Temp Pulse Resp B/P (MAP) Pulse Ox O2 Delivery O2 Flow Rate FiO2 01/30/25 16:28 98.3 91 17 150/90 (110) 99 98.3 01/30/25 08:00 Room Air* 0 21 Total Intake and Output 01/29/25 01/29/25 01/30/25 15:00 23:00 07:00 Intake Total 110 ml 425 ml 300 ml Balance 110 ml 425 ml 300 ml medications Current Medications Medications Dose Ordered Sig/Chris Route Start Time Stop Time Status Last Admin Dose Admin Ondansetron HCl 4 mg Q4HPRN PRN IV 01/19/25 05:30 01/19/25 02:51 4 MG Lactulose 30 ml BID PO 01/19/25 10:00 01/30/25 08:43 30 ML Pantoprazole Sodium 40 mg BID IV 01/19/25 03:15 01/30/25 08:43 40 MG Sucralfate 1 gm BID@0600,2200 PO 01/19/25 06:00 01/30/25 06:38 1 GM Ergocalciferol 50,000 unit Q7D PO 01/19/25 12:00 01/26/25 12:36 50,000 UNIT Midodrine 10 mg TID@0600,1200,1800 PO 01/19/25 12:00 01/28/25 06:11 10 MG Spironolactone 25 mg DAILY PO 01/25/25 10:00 01/30/25 08:44 25 MG Sodium Bicarbonate 1,300 mg TID PO 01/24/25 14:00 01/30/25 14:20 1,300 MG Furosemide 40 mg DAILY PO 01/24/25 14:15 01/30/25 08:44 40 MG Ursodiol 300 mg TID PO 01/24/25 22:00 01/30/25 14:20 300 MG Ceftriaxone Sodium 50 ml @ 100 mls/hr DAILY@09 IV 01/30/25 09:00 01/30/25 08:43 100 MLS/HR Methylprednisolone Sodium Succinate 20 mg DAILY IV 01/30/25 10:00 01/30/25 08:43 20 MG Docusate Sodium 100 mg BID PO 01/30/25 22:00 Morphine Sulfate 2 mg Q4HPRN PRN IV 01/30/25 14:00 01/30/25 14:21 2 MG Acetaminophen/ Hydrocodone Bitart 2 tab Q6HP PRN PO 01/30/25 14:00 Examination Physical examination: General Appearance: Icteric ,Alert, Oriented X3, Cooperative,no distress HEENT: Atraumatic, PERRLA, EOMI,Yellow discoloration of the mucosa and sclera( icteric appearance) Respiratory: Clear to auscultation, Normal air movement Cardiovascular: Regular rate, Normal S1, Normal S2, No murmurs Abdominal:Mild tenderness, hepatomegaly, Normal bowel sounds, Soft, no ascites, tympanic. Extremities: Trace BLE edema+, No clubbing, No cyanosis, Normal pulses. Skin: Yellowish is skin discoloration but No rashes, No breakdown, No significant lesion Neuro: Normal gait, Normal speech, no sensory motor deficits Psych/Mental Status: Mental status NL, Mood NL laboratory and microbiology Laboratory Tests 01/30/25 06:02 Test 01/30/25 06:02 Range/Units Serum Glucose 115 H 74-106 mg/dL Microbiology Date/Time Source Procedure Growth Status 01/20/25 13:25 Voided Urine Urine Culture - Final Complete 01/18/25 22:00 Blood Blood Culture - Final NO GROWTH AFTER 5 DAYS OF INCUBATION. Complete Labs and/or images reviewed: Labs reviewed by me, Image(s) reviewed by me Problem List/Assessment/Plan Problem List/Assessment/Plan Problem List/Assessment/Plan # SIRS/ Sepsis likely due to below # Acute on Chronic Decompensated Alcoholic hepatitis # Hepatic steatosis, Hepatomegaly & Transaminitis from above # Moderate malnutrition # Possible upper GI bleeding - Ultrasound shows enlarged liver measuring 24.5 cm demonstrates diffusely heterogeneous echogenicity - CT scan showed heterogeneous enlarged liver, with peripheral areas in the liver are very low in density on 12/25/24 - Maddrey score 53.5, and MELD score 37 point (with52.6% estimated 90 day mortality) - Bilirubin is very high but stable - IV Methylprednisolone 20 mg daily - IV Protonix 40 mg bid , Carafate 1 gm po bid & Lactulose 30 mL p.o. b.i.d. - IV ceftriaxone 1 g daily as per Infectious Disease recommendation - Lasix 40 mg p.o. and spironolactone 25 mg p.o. daily - Ursodiol 300 mg po tid - Blood culture report revealed no growth in 24 hours of incubation - Pending stool occult test. - GI recommended transfer the patient to higher level of care for liver transplantation - combination worker working on the transfer to [facility]. # Chronic anemia, macrocytic hyperchromic due to alcoholism - Monitor lab - H&H stable # Hypertensive heart disease and possible chronic diastolic heart failure - Echo showed LVEF 60% with a LA enlargement, RVSP 40 - BP is on the lower side., Midodrine 10 mg p.o. t.i.d. # ZOILA on CKD likely due to to hepatorenal syndrome - IV Albumin - Midodrine 10 mg p.o. t.i.d. - Sodium bicarb tablet 1300 mg p.o. t.i.d. - Nephrology on board # Vitamin D deficiency - Vitamin D 67977 units Q 7D. 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 - leukemia lymphoma immuno typing and serum electrophoresis pending Renal diet Due to GI bleed, no anticoagulant is indicated Protonix BOWEL REGIMEN: Lactulose Plan discussed with Dr. Andres Plan discussed with: Patient, Other My Orders My Orders Orders - TOMY VICTORIA RESIDENT Procedure Category Date Status Time Methylprednisolone PHA 01/30/25 In Process Sod Succ (Solu Medrol 10:00 Docusate Sodium PHA 01/30/25 In Process Capsule (Colace 22:00 Kub Abdomen Single XY 01/30/25 Resulted View 13:45 Dietary Evaluation Review Comments: 1. Continue current diet as tolerated 2. Encourage good oral intakes >75% of meals 3. Monitor I&Os, weight trends Expected Outcomes/Goals: Maintain adequate nutrition, stable hepatic fx vs. evaluation for liver transplant. Date of Service: Jan 30, 2025 Billing Provider: NIC MORA MD Common Visit Codes: [id number] INP/OBS CARE(HIGH) TOMY VICTORIA RESIDENT Jan 30, 2025 16:49 NIC MORA MD Feb 01, 2025 00:14
--- NOTE | 2025-01-30 18:35 | DVHPN2 ---
Progress Note - Dictate Date Seen: Jan 30, 2025 Medical Necessity Reason Pt with a Central, PICC or Fol: No Subjective Patient appears to be doing clinically poorly today She is slightly more altered and more tremulous Patient is complaining of abdominal pain, x-rays consistent with ileus Patient did have some recorded bowel movements last night Patient has severe scleral icterus and jaundice and moderate 2-3+ pedal edema Persistent elevation in liver enzymes, severe leukemoid reaction and leukocytosis; labs are trending down today Patient has evidence of previous exposure to CMV Pat-Schultz and HSV although her IgM are negative Hepatitis-B surface antigen is negative and HBV DNA is negative and there was no evidence of active hepatitis-B at this time Patient hepatitis A IgM is negative vital signs Vital Sign Date Time Temp Pulse Resp B/P (MAP) Pulse Ox O2 Delivery O2 Flow Rate FiO2 01/30/25 16:28 98.3 91 17 150/90 (110) 99 98.3 01/30/25 08:00 Room Air* 0 21 Total Intake and Output 01/29/25 01/29/25 01/30/25 15:00 23:00 07:00 Intake Total 110 ml 425 ml 300 ml Balance 110 ml 425 ml 300 ml medications Current Medications Medications Dose Ordered Sig/Chris Route Start Time Stop Time Status Last Admin Dose Admin Ondansetron HCl 4 mg Q4HPRN PRN IV 01/19/25 05:30 01/19/25 02:51 4 MG Lactulose 30 ml BID PO 01/19/25 10:00 01/30/25 08:43 30 ML Pantoprazole Sodium 40 mg BID IV 01/19/25 03:15 01/30/25 08:43 40 MG Sucralfate 1 gm BID@0600,2200 PO 01/19/25 06:00 01/30/25 06:38 1 GM Ergocalciferol 50,000 unit Q7D PO 01/19/25 12:00 01/26/25 12:36 50,000 UNIT Midodrine 10 mg TID@0600,1200,1800 PO 01/19/25 12:00 01/28/25 06:11 10 MG Spironolactone 25 mg DAILY PO 01/25/25 10:00 01/30/25 08:44 25 MG Sodium Bicarbonate 1,300 mg TID PO 01/24/25 14:00 01/30/25 14:20 1,300 MG Furosemide 40 mg DAILY PO 01/24/25 14:15 01/30/25 08:44 40 MG Ursodiol 300 mg TID PO 01/24/25 22:00 01/30/25 14:20 300 MG Ceftriaxone Sodium 50 ml @ 100 mls/hr DAILY@09 IV 01/30/25 09:00 01/30/25 08:43 100 MLS/HR Methylprednisolone Sodium Succinate 20 mg DAILY IV 01/30/25 10:00 01/30/25 08:43 20 MG Docusate Sodium 100 mg BID PO 01/30/25 22:00 Morphine Sulfate 2 mg Q4HPRN PRN IV 01/30/25 14:00 01/30/25 14:21 2 MG Acetaminophen/ Hydrocodone Bitart 2 tab Q6HP PRN PO 01/30/25 14:00 Acyclovir Sodium 800 mg/Sodium Chloride 266 ml @ 266 mls/hr Q12HR IV 01/30/25 22:00 UNV objective General Appearance: Icteric ,Alert, Oriented X3, Cooperative,no distress HEENT: Atraumatic, PERRLA, EOMI,Yellow discoloration of the mucosa and sclera( icteric appearance) Respiratory: Clear to auscultation, Normal air movement Cardiovascular: Regular rate, Normal S1, Normal S2, No murmurs Abdominal:Mild tenderness, hepatomegaly, Normal bowel sounds, Soft, no ascites, tympanic. Extremities: Trace BLE edema+, No clubbing, No cyanosis, Normal pulses. Skin: Yellowish is skin discoloration but No rashes, No breakdown, No significant lesion Neuro: Normal gait, Normal speech, no sensory motor deficits Psych/Mental Status: Mental status NL, Mood NL laboratory and microbiology Laboratory Tests 01/30/25 06:02 Test 01/30/25 06:02 Range/Units Serum Glucose 115 H 74-106 mg/dL Problems(with codes): (1) Jaundice (2) Leukocytosis (3) Leukemoid reaction (4) Viral illness (5) Acute renal injury (6) RUQ abdominal pain (7) Lymphocytosis (8) Alcoholic cirrhosis of liver (9) Sepsis (10) Liver cirrhosis (11) Anemia Prognosis Plan Continue supportive care ; monitor on telemetry Overall her prognosis remains guarded and clinical condition is poor Patient is still awaiting possible transfer to higher level of care Patient was given a dose of MiraLax today to see if that will help her relieve her ileus and obstipation Patient will be given albumin to help with her pedal edema Repeat labs in am Dietary Evaluation Review Comments: 1. Continue current diet as tolerated 2. Encourage good oral intakes >75% of meals 3. Monitor I&Os, weight trends Expected Outcomes/Goals: Maintain adequate nutrition, stable hepatic fx vs. evaluation for liver transplant. Plan discussed with: Patient, Daughter, Other (Dr Bolaños) JUANA KNIGHT MD Jan 30, 2025 18:35
--- NOTE | 2025-01-30 19:10 | DVHPN2 ---
Consult Progress Note Date Seen: Jan 30, 2025 Objective vital signs Vital Sign Date Time Temp Pulse Resp B/P (MAP) Pulse Ox O2 Delivery O2 Flow Rate FiO2 01/30/25 16:28 98.3 91 17 150/90 (110) 99 98.3 01/30/25 08:00 Room Air* 0 21 Total Intake and Output 01/29/25 01/29/25 01/30/25 14:59 22:59 06:59 Intake Total 110 ml 425 ml 300 ml Balance 110 ml 425 ml 300 ml medications Current Medications Medications Dose Ordered Sig/Chris Route Start Time Stop Time Status Last Admin Dose Admin Ondansetron HCl 4 mg Q4HPRN PRN IV 01/19/25 05:30 01/19/25 02:51 4 MG Lactulose 30 ml BID PO 01/19/25 10:00 01/30/25 08:43 30 ML Pantoprazole Sodium 40 mg BID IV 01/19/25 03:15 01/30/25 08:43 40 MG Sucralfate 1 gm BID@0600,2200 PO 01/19/25 06:00 01/30/25 06:38 1 GM Ergocalciferol 50,000 unit Q7D PO 01/19/25 12:00 01/26/25 12:36 50,000 UNIT Midodrine 10 mg TID@0600,1200,1800 PO 01/19/25 12:00 01/28/25 06:11 10 MG Spironolactone 25 mg DAILY PO 01/25/25 10:00 01/30/25 08:44 25 MG Sodium Bicarbonate 1,300 mg TID PO 01/24/25 14:00 01/30/25 14:20 1,300 MG Furosemide 40 mg DAILY PO 01/24/25 14:15 01/30/25 08:44 40 MG Ursodiol 300 mg TID PO 01/24/25 22:00 01/30/25 14:20 300 MG Ceftriaxone Sodium 50 ml @ 100 mls/hr DAILY@09 IV 01/30/25 09:00 01/30/25 08:43 100 MLS/HR Methylprednisolone Sodium Succinate 20 mg DAILY IV 01/30/25 10:00 01/30/25 08:43 20 MG Docusate Sodium 100 mg BID PO 01/30/25 22:00 Morphine Sulfate 2 mg Q4HPRN PRN IV 01/30/25 14:00 01/30/25 14:21 2 MG Acetaminophen/ Hydrocodone Bitart 2 tab Q6HP PRN PO 01/30/25 14:00 Acyclovir Sodium 800 mg/Sodium Chloride 266 ml @ 266 mls/hr Q12HR IV 01/30/25 22:00 02/13/25 21:59 laboratory and microbiology Laboratory Tests 01/30/25 06:02 Test 01/30/25 06:02 Range/Units Serum Glucose 115 H 74-106 mg/dL Problem List/Assessment/Plan Problem List/Assessment/Plan Kina Whiteside this is a 44-year-old female patient who presents to the ED with chief complaint of generalized body pain, generalized weakness, vomiting, fever, melena and confusion. Patient was recently discharged from [facility] on 12/28/2024 with diagnosis of liver failure, since discharge patient's symptoms did not improve. Patient was evaluated previously by GI, Nephrology isn't to follow up with Heme-Onc as outpatient due to leukemoid reaction. Denies any other associated symptoms. Past medical history: Hypertension, alcoholic liver cirrhosis (last alcoholic drink on November 20, 2024), positive hepatitis B surface antigen, leukemoid reaction, CKD, gastritis Surgical history: Cholecystectomy Family history: Father had prostate cancer Social history: Lives with family in [place]. Ex ethanol abuse (stopped intake of alcohol since November 20, 2024). Ex-smoker (2.5 pack year history of smoking). Denies current tobacco, alcohol and other drug abuse Allergies: Denies Home medication: Benazepril, sucralfate and Protonix Patient seen and examined at bedside. Patient currently still complaining of abdominal pain, did not present any bowel movements today, completed abdomen x- ray which showed ileus. Planning on transferring to higher level of care for eventual liver transplant. Physical Exam Patient lying in bed, in no acute distress General: Lucid, afebrile, icteric mucosa, sclera and skin, mucosae are moist Cardiovascular: Normal S1 and S2. No murmurs, gallops or rubs Respiratory: Normal ventilation mechanics. Clear lung sounds on auscultation Abdomen: Soft, tenderness on superficial palpation especially on right upper quadrant, no organomegaly, normal bowel sounds, no ascites MSK/skin: Mobilizes 4 limbs. Skin is dry and warm. Presents bilateral suprapatellar pitting edema. Presents clear transudate secretion on left leg anterior tibia. Neurological: Oriented in 3 spheres. No motor no sensitive deficits. Pupils are isocoric and reactive Assessment Questionable acute viral hepatitis due to EBV Leukemoid reaction ZOILA hemodynamically mediated on CKD Ruled out acute hepatitis B infection Alcoholic liver cirrhosis (meld 31 points) Bicytopenia - probable secondary to liver cirrhosis Ileus Plan/Recommendation Pat bar virus IgG is positive, IgM is negative, but EBV early antigen is positive. Have discontinued acyclovir since it will increase risk of worsening OZILA, discussed with GI specialist and agreed on restarting acyclovir (800 mg IV b.i.d.), ordered send out of viral load of EBV, if negative recommend discontinuing acyclovir. Continue with methylprednisolone 20 mg IV daily. Hepatitis-B viral load was negative ([facility] results). Interpreted previous hepatitis-B surface antigen as a false-positive. Due to liver cirrhosis, leukemoid reaction and acute hepatitis, patient is high- risk of translocation of gut bacteria. Indicated empiric IV antibiotic to cover Gram-negative rods (initially Levaquin, but due to prolonged QT switch to ceftriaxone). Patient is currently on midodrine. Evaluate benefit of octreotide in the setting of acute liver failure. Bone marrow biopsy evidence CD56 expression and subset of myelomonocytic cells, pending molecular testing to evaluate malignancy. Appreciate Heme-Onc specialist input. Appreciate GI and Nephrology specialist input. Awaiting transferred to higher level of care for eventual liver transplant. Patient may have probable ileus, recommend NPO and NG tube placement, have discussed with primary team. Rest of plan per primary team. Goals of care discussed with patient for over 18 minutes: Full code status Discussed plan with Dr. Kay, patient, family and nurses: Continue with IV steroids, currently on empiric IV antibiotic (ceftriaxone), awaiting transferred to higher level of care for eventual liver transplant. Restarted acyclovir after discussion with GI specialist, have ordered send out of EBV viral load, if negative recommend discontinuing acyclovir due to high-risk of ZOILA. Patient has poor prognosis I performed a history and physical exam of this patient and discussed the management with the medical student listed here. I reviewed the note, agree with the documented findings and plan of care (except as noted in my additions and changes below), and believe this is an accurate representation of the clinical course.- Zaire Kay MD Plan discussed with: Patient, Daughter, Other (Nurses) Dietary Evaluation Review Comments: 1. Continue current diet as tolerated 2. Encourage good oral intakes >75% of meals 3. Monitor I&Os, weight trends Expected Outcomes/Goals: Maintain adequate nutrition, stable hepatic fx vs. evaluation for liver transplant. HOMA PATEL RESIDENT Jan 30, 2025 19:10 ZAIRE KAY MD Feb 13, 2025 18:04
[2025-01-30] MEDS: ALBUMIN 25% 100 ML IV ONE (19:43)
[2025-01-30] MEDS: DOCUSATE SOD 100 MG CAP PO SCH (22:27)
[2025-01-30] MEDS: ACYCLOVIR SOD 50MG/ML 800 MG in SODIUM CHL 0.9% 250 ML IV SCH (22:44)
[2025-01-31] VITALS (8 sets, daily range): BP systolic 118–131; BP diastolic 70–87; PULSE 94–106; RESP 17–21; TEMP 97.4–98.1; O2SAT 97–100
[2025-01-31] MEDS: D5W/SOD CHL 0.45% 1,000 ML IV SCH (01:17)
[2025-01-31 06:36] LABS: Hemoglobin 8.3 g/dL (12.2-16.2)
[2025-01-31 06:40] LABS: Hematocrit 25.1 % (36.0-46.0); Mean Corpuscular Hemoglobin 34.9 pg (28.0-32.0); Mean Corpuscular Hgb Conc. 33.2 g/dL (32.0-36.0); Mean Corpuscular Volume 105.3 fL (80.0-100.0); Platelet Count (auto) 130 10^3/uL (140-450); Red Blood Cells 2.38 10^6/uL (4.0-5.20)
--- NOTE | 2025-01-31 06:49 | DVH ---
EXAM: XR Chest, 1 View CLINICAL INDICATION: Check NGT placement TECHNIQUE: Frontal view of the chest. COMPARISON: XY CHEST PORTABLE on DOS: 01/18/25, XY CHEST XRAY 1 VIEW on DOS: 12/25/24 FINDINGS: LUNGS AND PLEURAL SPACES: Pulmonary venous congestion. No consolidation. No pneumothorax. HEART: Unremarkable. No cardiomegaly. MEDIASTINUM: Unremarkable. Normal mediastinal contour. BONES/JOINTS: Unremarkable. No acute fracture. TUBES, LINES AND DEVICES: Enteric tube tip in the stomach. OTHER FINDINGS: . .. IMPRESSION: Pulmonary venous congestion.
[2025-01-31 06:51] LABS: Albumin 3.7 g/dL (3.2-4.8); Anion Gap 15 (5-15); Calcium 10.2 mg/dL (8.7-10.4)
[2025-01-31 06:53] LABS: Alkaline Phosphatase 200 U/L (46-116); BUN/Creatinine Ratio 34.5 (10.0-20.0); Bilirubin, Total 21.1 mg/dL (0.2-1.0); Carbon Dioxide 19 mmol/L (20-31); Chloride 111 mmol/L (98-107); Glucose 115 mg/dL (74-106); Potassium 3.5 mmol/L (3.5-5.1); Sodium 145 mmol/L (136-145)
[2025-01-31 06:56] LABS: Alanine Aminotransferase 57 U/L (7-40); Aspartate Aminotransferase 63 U/L (13-40); Blood Urea Nitrogen 77 mg/dL (9-23); Total Protein 5.9 g/dL (5.7-8.2)
[2025-01-31 07:01] LABS: White Blood Cell 81.4 10^3/uL (4.4-10.8)
[2025-01-31 07:03] LABS: Basophils % (manual) 0 (0.0-2.0); Blast Cells 0; Eosinophils % (manual) 0 (0-7); Metamyelocytes % 0; Monocytes % (manual) 0 (0-12); Myelocytes % 0; Promyelocytes % 0; Reactive Lymphocytes 0
[2025-01-31 08:03] LABS: Band Neutrophils % (manual) 16; Lymphocytes % (manual) 4 (10.0-50.0)
[2025-01-31 08:04] LABS: Macrocytosis Moderate; Platelet Estimate Decreased
[2025-01-31] MEDS: LACTULOSE 20Gm/30ML SOLN PO ONE (13:57)
[2025-01-31] MEDS: LACTULOSE 20Gm/30ML SOLN PO SCH (14:15)
[2025-01-31 14:34] LABS: Albumin 3.3 g/dL (3.2-4.8)
[2025-01-31 14:36] LABS: Bilirubin, Total 20.2 mg/dL (0.2-1.0); Total Protein 5.2 g/dL (5.7-8.2)
--- NOTE | 2025-01-31 15:10 | DVHPN2 ---
Progress Note - Dictate Date Seen: Jan 31, 2025 Medical Necessity Reason Pt with a Central, PICC or Fol: No Subjective Patient has clinically improved today She is more awake and alert Yesterday her ammonia level was elevated to 94 Patient has had multiple bowel movements She just received a dose of lactulose She has an NG-tube in place but minimal output Abdomen is still distended x-ray is consistent with mild ileus Patient has severe scleral icterus and jaundice and moderate 2-3+ pedal edema Persistent elevation in liver enzymes, severe leukemoid reaction and leukocytosis; labs are trending down today Patient has evidence of previous exposure to CMV Pat-Schultz and HSV although her IgM are negative Hepatitis-B surface antigen is negative and HBV DNA is negative and there was no evidence of active hepatitis-B at this time Patient hepatitis A IgM is negative vital signs Vital Sign Date Time Temp Pulse Resp B/P (MAP) Pulse Ox O2 Delivery O2 Flow Rate FiO2 01/31/25 12:42 97.7 106 21 126/74 (91) 100 97.7 01/31/25 08:00 Room Air* 0 21 Total Intake and Output 01/30/25 01/30/25 01/31/25 15:00 23:00 07:00 Intake Total 400 ml 266 ml Balance 400 ml 266 ml medications Current Medications Medications Dose Ordered Sig/Chris Route Start Time Stop Time Status Last Admin Dose Admin Ondansetron HCl 4 mg Q4HPRN PRN IV 01/19/25 05:30 01/19/25 02:51 4 MG Pantoprazole Sodium 40 mg BID IV 01/19/25 03:15 01/31/25 09:14 40 MG Sucralfate 1 gm BID@0600,2200 PO 01/19/25 06:00 01/30/25 22:28 1 GM Ergocalciferol 50,000 unit Q7D PO 01/19/25 12:00 01/26/25 12:36 50,000 UNIT Midodrine 10 mg TID@0600,1200,1800 PO 01/19/25 12:00 01/28/25 06:11 10 MG Spironolactone 25 mg DAILY PO 01/25/25 10:00 01/30/25 08:44 25 MG Sodium Bicarbonate 1,300 mg TID PO 01/24/25 14:00 01/31/25 13:57 1,300 MG Furosemide 40 mg DAILY PO 01/24/25 14:15 01/30/25 08:44 40 MG Ursodiol 300 mg TID PO 01/24/25 22:00 01/31/25 13:57 300 MG Ceftriaxone Sodium 50 ml @ 100 mls/hr DAILY@09 IV 01/30/25 09:00 01/31/25 09:14 100 MLS/HR Methylprednisolone Sodium Succinate 20 mg DAILY IV 01/30/25 10:00 01/31/25 09:14 20 MG Docusate Sodium 100 mg BID PO 01/30/25 22:00 01/30/25 22:27 100 MG Morphine Sulfate 2 mg Q4HPRN PRN IV 01/30/25 14:00 Hold 01/30/25 14:21 2 MG Acyclovir Sodium 800 mg/Sodium Chloride 266 ml @ 266 mls/hr Q12HR IV 01/30/25 22:00 02/13/25 21:59 01/31/25 11:41 266 MLS/HR Dextrose/Sodium Chloride 1,000 ml @ 75 mls/hr [id number] IV 01/30/25 19:30 01/31/25 13:57 75 MLS/HR Acetaminophen/ Hydrocodone Bitart 1 tab Q6HP PRN PO 01/30/25 20:00 Lactulose 30 ml TID PO 01/31/25 14:15 objective General Appearance: Icteric ,Alert, Oriented X3, Cooperative,no distress HEENT: Atraumatic, PERRLA, EOMI,Yellow discoloration of the mucosa and sclera( icteric appearance) Respiratory: Clear to auscultation, Normal air movement Cardiovascular: Regular rate, Normal S1, Normal S2, No murmurs Abdominal:Mild tenderness, hepatomegaly, Normal bowel sounds, Soft, no ascites, tympanic. Extremities: Trace BLE edema+, No clubbing, No cyanosis, Normal pulses. Skin: Yellowish is skin discoloration but No rashes, No breakdown, No significant lesion Neuro: Normal gait, Normal speech, no sensory motor deficits Psych/Mental Status: Mental status NL, Mood NL laboratory and microbiology Laboratory Tests 01/31/25 05:59 Test 01/31/25 05:59 Range/Units Serum Glucose 115 H 74-106 mg/dL Problems(with codes): (1) Alcoholic cirrhosis of liver (2) Lymphocytosis (3) RUQ abdominal pain (4) Acute renal injury (5) Leukemoid reaction (6) Viral illness (7) Leukocytosis (8) Jaundice Prognosis Plan Lactulose 30 mL q.4 hours Hold for diarrhea Prednisone 20 mg IV daily Ursodiol 300 mg p.o. three times a day Monitor labs Patient will complete five days of IV acyclovir Her IV antibiotics are being discontinued I will follow up patient with you Overall her prognosis is guarded Dietary Evaluation Review Comments: 1. Continue current diet as tolerated 2. Encourage good oral intakes >75% of meals 3. Monitor I&Os, weight trends Expected Outcomes/Goals: Maintain adequate nutrition, stable hepatic fx vs. evaluation for liver transplant. Plan discussed with: Patient, Daughter JUANA KNIGHT MD Jan 31, 2025 15:10
--- NOTE | 2025-01-31 17:02 | DVHPNRES ---
Progress Note Date Seen: Jan 31, 2025 Resident Creating Document: TOMY VICTORIA RESIDENT Medical Necessity Reason Pt with a Central, PICC or Fol: No Subjective Review of Systems The patient was seen and examined on the bedside. She seems little confused today but answering questions appropriately. Today ammonia level came back 94 and on examination noticed flapping tremor. Increase the Dose of lactulose 30 mL PO TID. Objective vital signs Vital Sign Date Time Temp Pulse Resp B/P (MAP) Pulse Ox O2 Delivery O2 Flow Rate FiO2 01/31/25 16:49 97.4 94 17 118/73 (88) 97 97.4 01/31/25 08:00 Room Air* 0 21 Total Intake and Output 01/30/25 01/30/25 01/31/25 15:00 23:00 07:00 Intake Total 400 ml 266 ml Balance 400 ml 266 ml medications Current Medications Medications Dose Ordered Sig/Chris Route Start Time Stop Time Status Last Admin Dose Admin Ondansetron HCl 4 mg Q4HPRN PRN IV 01/19/25 05:30 01/19/25 02:51 4 MG Pantoprazole Sodium 40 mg BID IV 01/19/25 03:15 01/31/25 09:14 40 MG Sucralfate 1 gm BID@0600,2200 PO 01/19/25 06:00 01/30/25 22:28 1 GM Ergocalciferol 50,000 unit Q7D PO 01/19/25 12:00 01/26/25 12:36 50,000 UNIT Midodrine 10 mg TID@0600,1200,1800 PO 01/19/25 12:00 01/28/25 06:11 10 MG Spironolactone 25 mg DAILY PO 01/25/25 10:00 01/30/25 08:44 25 MG Sodium Bicarbonate 1,300 mg TID PO 01/24/25 14:00 01/31/25 13:57 1,300 MG Furosemide 40 mg DAILY PO 01/24/25 14:15 01/30/25 08:44 40 MG Ursodiol 300 mg TID PO 01/24/25 22:00 01/31/25 13:57 300 MG Ceftriaxone Sodium 50 ml @ 100 mls/hr DAILY@09 IV 01/30/25 09:00 01/31/25 09:14 100 MLS/HR Methylprednisolone Sodium Succinate 20 mg DAILY IV 01/30/25 10:00 01/31/25 09:14 20 MG Docusate Sodium 100 mg BID PO 01/30/25 22:00 01/30/25 22:27 100 MG Morphine Sulfate 2 mg Q4HPRN PRN IV 01/30/25 14:00 Hold 01/30/25 14:21 2 MG Acyclovir Sodium 800 mg/Sodium Chloride 266 ml @ 266 mls/hr Q12HR IV 01/30/25 22:00 02/13/25 21:59 01/31/25 11:41 266 MLS/HR Dextrose/Sodium Chloride 1,000 ml @ 75 mls/hr [id number] IV 01/30/25 19:30 01/31/25 13:57 75 MLS/HR Acetaminophen/ Hydrocodone Bitart 1 tab Q6HP PRN PO 01/30/25 20:00 Lactulose 30 ml TID PO 01/31/25 14:15 Examination Physical examination: General Appearance: Icteric ,Alert, Oriented X3, Cooperative,no distress HEENT: Atraumatic, PERRLA, EOMI,Yellow discoloration of the mucosa and sclera( icteric appearance) Respiratory: Clear to auscultation, Normal air movement Cardiovascular: Regular rate, Normal S1, Normal S2, No murmurs Abdominal:Mild tenderness, hepatomegaly, Normal bowel sounds, Soft, no ascites, tympanic. Extremities: BLE edema++, No clubbing, No cyanosis, Normal pulses. Skin: Yellowish is skin discoloration but No rashes, No breakdown, No significant lesion Neuro: Normal gait, Normal speech, no sensory motor deficits Flapping tremor present. Psych/Mental Status: Mental status NL, Mood NL laboratory and microbiology Laboratory Tests 01/31/25 05:59 Test 01/31/25 05:59 Range/Units Serum Glucose 115 H 74-106 mg/dL Microbiology Date/Time Source Procedure Growth Status 01/20/25 13:25 Voided Urine Urine Culture - Final Complete 01/18/25 22:00 Blood Blood Culture - Final NO GROWTH AFTER 5 DAYS OF INCUBATION. Complete Labs and/or images reviewed: Labs reviewed by me, Image(s) reviewed by me Problem List/Assessment/Plan Problem List/Assessment/Plan Problem List/Assessment/Plan # Acute hepatic encephalopathy likely due to cirrhosis # SIRS/ Sepsis resolved # Acute on Chronic Decompensated Alcoholic hepatitis # Hepatic steatosis, Hepatomegaly & Transaminitis from above # Moderate malnutrition # Possible upper GI bleeding - Ultrasound shows enlarged liver measuring 24.5 cm demonstrates diffusely heterogeneous echogenicity - CT scan showed heterogeneous enlarged liver, with peripheral areas in the liver are very low in density on 12/25/24 - Maddrey score 53.5, and MELD score 37 point (with52.6% estimated 90 day mortality) - Bilirubin is very high but stable - Ammonia is 94 - IV Methylprednisolone 20 mg daily - IV Protonix 40 mg bid , Carafate 1 gm po bid & Lactulose 30 mL p.o. q8hr - IV ceftriaxone 1 g daily as per Infectious Disease recommendation - IV acyclovir 800 mg b.i.d. - Lasix 40 mg p.o. and spironolactone 25 mg p.o. daily - Ursodiol 300 mg po tid - Blood culture report revealed no growth in 24 hours of incubation - Pending stool occult test. - GI recommended transfer the patient to higher level of care for liver transplantation - rebar worker working on the transfer to [facility]. # Chronic anemia, macrocytic hyperchromic due to alcoholism - Monitor lab - H&H stable # Hypertensive heart disease and possible chronic diastolic heart failure - Echo showed LVEF 60% with a LA enlargement, RVSP 40 - BP is on the lower side., Midodrine 10 mg p.o. t.i.d. # ZOILA on CKD likely due to to hepatorenal syndrome - IV Albumin - Hold midodrine - Sodium bicarb tablet 1300 mg p.o. t.i.d. - Nephrology sign off # Vitamin D deficiency - Vitamin D 56408 units Q 7D. 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 - leukemia lymphoma immuno typing and serum electrophoresis pending Renal diet Due to GI bleed, no anticoagulant is indicated Protonix BOWEL REGIMEN: Lactulose Plan discussed with Dr. Andres Plan discussed with: Patient, Other My Orders My Orders Orders - TOMY VICTORIA RESIDENT Procedure Category Date Status Time Npo (Nothing By DIET 01/31/25 Transmitted Mouth) Diet Breakfast Ng To Lis CAROL 01/30/25 In Process 19:16 D5w/Sod Chl 0.45% PHA 01/30/25 In Process (D5w 1/2ns) 19:30 Chest Xray 1 View XY 01/31/25 Resulted 01:42 Clear Liq Diet DIET 01/31/25 Transmitted Lunch Lactulose Oral PHA 01/31/25 In Process 14:15 Dietary Evaluation Review Comments: 1. Continue current diet as tolerated 2. Encourage good oral intakes >75% of meals 3. Monitor I&Os, weight trends Expected Outcomes/Goals: Maintain adequate nutrition, stable hepatic fx vs. evaluation for liver transplant. Date of Service: Jan 31, 2025 Billing Provider: NIC MORA MD Common Visit Codes: 58854-[id number] INP/OBS CARE(HIGH) TOMY VICTORIA RESIDENT Jan 31, 2025 17:02 NIC MORA MD Feb 01, 2025 00:19
--- NOTE | 2025-01-31 20:21 | DVHPN2 ---
Consult Progress Note Date Seen: Jan 31, 2025 Objective vital signs Vital Sign Date Time Temp Pulse Resp B/P (MAP) Pulse Ox O2 Delivery O2 Flow Rate FiO2 01/31/25 16:49 97.4 94 17 118/73 (88) 97 97.4 01/31/25 08:00 Room Air* 0 21 Total Intake and Output 01/30/25 01/30/25 01/31/25 15:00 23:00 07:00 Intake Total 400 ml 266 ml Balance 400 ml 266 ml medications Current Medications Medications Dose Ordered Sig/Chris Route Start Time Stop Time Status Last Admin Dose Admin Ondansetron HCl 4 mg Q4HPRN PRN IV 01/19/25 05:30 01/19/25 02:51 4 MG Pantoprazole Sodium 40 mg BID IV 01/19/25 03:15 01/31/25 09:14 40 MG Sucralfate 1 gm BID@0600,2200 PO 01/19/25 06:00 01/30/25 22:28 1 GM Ergocalciferol 50,000 unit Q7D PO 01/19/25 12:00 01/26/25 12:36 50,000 UNIT Midodrine 10 mg TID@0600,1200,1800 PO 01/19/25 12:00 01/28/25 06:11 10 MG Spironolactone 25 mg DAILY PO 01/25/25 10:00 01/30/25 08:44 25 MG Sodium Bicarbonate 1,300 mg TID PO 01/24/25 14:00 01/31/25 13:57 1,300 MG Furosemide 40 mg DAILY PO 01/24/25 14:15 01/30/25 08:44 40 MG Ursodiol 300 mg TID PO 01/24/25 22:00 01/31/25 13:57 300 MG Ceftriaxone Sodium 50 ml @ 100 mls/hr DAILY@09 IV 01/30/25 09:00 01/31/25 09:14 100 MLS/HR Methylprednisolone Sodium Succinate 20 mg DAILY IV 01/30/25 10:00 01/31/25 09:14 20 MG Docusate Sodium 100 mg BID PO 01/30/25 22:00 01/30/25 22:27 100 MG Morphine Sulfate 2 mg Q4HPRN PRN IV 01/30/25 14:00 Hold 01/30/25 14:21 2 MG Acyclovir Sodium 800 mg/Sodium Chloride 266 ml @ 266 mls/hr Q12HR IV 01/30/25 22:00 02/13/25 21:59 01/31/25 11:41 266 MLS/HR Dextrose/Sodium Chloride 1,000 ml @ 75 mls/hr [id number] IV 01/30/25 19:30 01/31/25 13:57 75 MLS/HR Acetaminophen/ Hydrocodone Bitart 1 tab Q6HP PRN PO 01/30/25 20:00 Lactulose 30 ml TID PO 01/31/25 14:15 laboratory and microbiology Laboratory Tests 01/31/25 05:59 Test 01/31/25 05:59 Range/Units Serum Glucose 115 H 74-106 mg/dL Problem List/Assessment/Plan Problem List/Assessment/Plan Kina Whiteside this is a 44-year-old female patient who presents to the ED with chief complaint of generalized body pain, generalized weakness, vomiting, fever, melena and confusion. Patient was recently discharged from [facility] on 12/28/2024 with diagnosis of liver failure, since discharge patient's symptoms did not improve. Patient was evaluated previously by GI, Nephrology isn't to follow up with Heme-Onc as outpatient due to leukemoid reaction. Denies any other associated symptoms. Past medical history: Hypertension, alcoholic liver cirrhosis (last alcoholic drink on November 20, 2024), positive hepatitis B surface antigen, leukemoid reaction, CKD, gastritis Surgical history: Cholecystectomy Family history: Father had prostate cancer Social history: Lives with family in [place]. Ex ethanol abuse (stopped intake of alcohol since November 20, 2024). Ex-smoker (2.5 pack year history of smoking). Denies current tobacco, alcohol and other drug abuse Allergies: Denies Home medication: Benazepril, sucralfate and Protonix Patient seen and examined at bedside. Patient currently with no abdominal pain after placement of NG and NPO, presented multiple bowel movements today. Planning on transferring to higher level of care for eventual liver transplant. Physical Exam Patient lying in bed, in no acute distress General: Lucid, afebrile, icteric mucosa, sclera and skin, mucosae are moist Cardiovascular: Normal S1 and S2. No murmurs, gallops or rubs Respiratory: Normal ventilation mechanics. Clear lung sounds on auscultation. Patient has NG tube with biliary secretion Abdomen: Soft, mild tenderness on superficial palpation, no organomegaly, normal bowel sounds, no ascites MSK/skin: Mobilizes 4 limbs. Skin is dry and warm. Presents bilateral suprapatellar pitting edema. Presents clear transudate secretion on left leg anterior tibia. Neurological: Oriented in 3 spheres. No motor no sensitive deficits. Pupils are isocoric and reactive Assessment Questionable acute viral hepatitis due to EBV Leukemoid reaction ZOILA hemodynamically mediated on CKD Ruled out acute hepatitis B infection Alcoholic liver cirrhosis (meld 31 points) Bicytopenia - probable secondary to liver cirrhosis Ileus Plan/Recommendation Pat bar virus IgG is positive, IgM is negative, but EBV early antigen is positive. Have discontinued acyclovir since it will increase risk of worsening ZOILA, discussed with GI specialist and agreed on restarting acyclovir (800 mg IV b.i.d.), ordered send out of viral load of EBV, if negative recommend discontinuing acyclovir. Continue with methylprednisolone 20 mg IV daily. Hepatitis-B viral load was negative ([facility] results). Interpreted previous hepatitis-B surface antigen as a false-positive. Due to liver cirrhosis, leukemoid reaction and acute hepatitis, patient is high- risk of translocation of gut bacteria. Indicated empiric IV antibiotic to cover Gram-negative rods (initially Levaquin, but due to prolonged QT switch to ceftriaxone). Patient is currently on midodrine. Evaluate benefit of octreotide in the setting of acute liver failure. Bone marrow biopsy evidence CD56 expression and subset of myelomonocytic cells, pending molecular testing to evaluate malignancy. Appreciate Heme-Onc specialist input. Appreciate GI and Nephrology specialist input. Awaiting transferred to higher level of care for eventual liver transplant. Patient may have probable ileus responded to NPO and NG tube placement. Rest of plan per primary team. : Continue with IV steroids, currently on empiric IV antibiotic (ceftriaxone), awaiting transferred to higher level of care for eventual liver transplant. Restarted acyclovir after discussion with GI specialist, have ordered send out of EBV viral load, if negative recommend discontinuing acyclovir due to high- risk of ZOILA. Patient has poor prognosis I personally verified the history, examined the patient with the student, and performed the medical decision-making. I agree with the documentation & plan of care - Zaire Kay MD Plan discussed with: Patient, Other (Nurses, Dr Jones and Dr Schultz) Dietary Evaluation Review Comments: 1. Continue current diet as tolerated 2. Encourage good oral intakes >75% of meals 3. Monitor I&Os, weight trends Expected Outcomes/Goals: Maintain adequate nutrition, stable hepatic fx vs. evaluation for liver transplant. HOMA PATEL RESIDENT Jan 31, 2025 20:21 ZAIRE KAY MD Feb 10, 2025 18:38
[2025-01-31] MEDS ORDERED: LACTULOSE 20Gm/30ML SOLN PO SCH (22:00)
[2025-02-01] VITALS (8 sets, daily range): BP systolic 114–141; BP diastolic 66–85; PULSE 95–103; RESP 18–21; TEMP 97.1–98; O2SAT 98–100
[2025-02-01 06:10] LABS: Hemoglobin 8.5 g/dL (12.2-16.2)
[2025-02-01 06:15] LABS: Hematocrit 26.5 % (36.0-46.0); Mean Corpuscular Hemoglobin 34.3 pg (28.0-32.0); Platelet Count (auto) 119 10^3/uL (140-450); Red Blood Cells 2.48 10^6/uL (4.0-5.20); Red Cell Distribution Width 19.8 % (11.8-14.3)
[2025-02-01 06:20] LABS: Albumin 3.5 g/dL (3.2-4.8); Anion Gap 16 (5-15); Calcium 9.7 mg/dL (8.7-10.4)
[2025-02-01 06:21] LABS: Basophils % (manual) 0 (0.0-2.0); Blast Cells 0; Metamyelocytes % 0; Myelocytes % 0; Promyelocytes % 0; Reactive Lymphocytes 0
[2025-02-01 06:33] LABS: Alkaline Phosphatase 200 U/L (46-116); Bilirubin, Total 20.8 mg/dL (0.2-1.0); Carbon Dioxide 17 mmol/L (20-31); Chloride 114 mmol/L (98-107); Glucose 124 mg/dL (74-106); Potassium 3.3 mmol/L (3.5-5.1); Sodium 147 mmol/L (136-145)
[2025-02-01 06:41] LABS: BUN/Creatinine Ratio 37.7 (10.0-20.0)
[2025-02-01 06:49] LABS: Alanine Aminotransferase 54 U/L (7-40); Aspartate Aminotransferase 48 U/L (13-40); Blood Urea Nitrogen 81 mg/dL (9-23); Total Protein 5.5 g/dL (5.7-8.2)
[2025-02-01 06:57] LABS: INR 1.38 (0.9-1.15); Prothrombin Time 14.2 sec (9.3-11.8)
--- NOTE | 2025-02-01 06:57 | DVH ---
EXAM: XR Abdomen, 1 View CLINICAL INDICATION: To rule out Ileus TECHNIQUE: Frontal supine view of the abdomen/pelvis. COMPARISON: XY KUB ABDOMEN SINGLE VIEW on DOS: 01/30/25 FINDINGS: GASTROINTESTINAL TRACT: Unremarkable. No dilation. BONES/JOINTS: Unremarkable. No acute fracture. OTHER FINDINGS: . None. IMPRESSION: Nonobstructive bowel gas pattern.
[2025-02-01] MEDS: POTASSIUM EFFERVESENT TAB 25 MEQ PO ONE (07:20)
[2025-02-01 07:49] LABS: Band Neutrophils % (manual) 23; Eosinophils % (manual) 1 (0-7); Lymphocytes % (manual) 6 (10.0-50.0); Macrocytosis Moderate; Monocytes % (manual) 2 (0-12); Platelet Estimate Decreased
--- NOTE | 2025-02-01 11:41 | DVHPN2 ---
Consult Progress Note Date Seen: Feb 01, 2025 Objective vital signs Vital Sign Date Time Temp Pulse Resp B/P (MAP) Pulse Ox O2 Delivery O2 Flow Rate FiO2 02/01/25 10:17 124/72 02/01/25 09:00 97.2 95 19 100 97.2 02/01/25 08:00 Room Air* 0 21 Total Intake and Output 01/31/25 01/31/25 02/01/25 15:00 23:00 07:00 Intake Total 450 ml 1020 ml 650 ml Balance 450 ml 1020 ml 650 ml medications Current Medications Medications Dose Ordered Sig/Chris Route Start Time Stop Time Status Last Admin Dose Admin Ondansetron HCl 4 mg Q4HPRN PRN IV 01/19/25 05:30 01/19/25 02:51 4 MG Pantoprazole Sodium 40 mg BID IV 01/19/25 03:15 02/01/25 09:50 40 MG Sucralfate 1 gm BID@0600,2200 PO 01/19/25 06:00 02/01/25 05:56 1 GM Ergocalciferol 50,000 unit Q7D PO 01/19/25 12:00 01/26/25 12:36 50,000 UNIT Spironolactone 25 mg DAILY PO 01/25/25 10:00 02/01/25 09:50 25 MG Sodium Bicarbonate 1,300 mg TID PO 01/24/25 14:00 02/01/25 05:55 1,300 MG Furosemide 40 mg DAILY PO 01/24/25 14:15 02/01/25 10:17 40 MG Ursodiol 300 mg TID PO 01/24/25 22:00 02/01/25 05:55 300 MG Ceftriaxone Sodium 50 ml @ 100 mls/hr DAILY@09 IV 01/30/25 09:00 02/01/25 10:18 100 MLS/HR Methylprednisolone Sodium Succinate 20 mg DAILY IV 01/30/25 10:00 02/01/25 09:51 20 MG Docusate Sodium 100 mg BID PO 01/30/25 22:00 02/01/25 09:50 100 MG Morphine Sulfate 2 mg Q4HPRN PRN IV 01/30/25 14:00 Hold 01/30/25 14:21 2 MG Acyclovir Sodium 800 mg/Sodium Chloride 266 ml @ 266 mls/hr Q12HR IV 01/30/25 22:00 02/13/25 21:59 02/01/25 11:22 266 MLS/HR Dextrose/Sodium Chloride 1,000 ml @ 75 mls/hr [id number] IV 01/30/25 19:30 02/01/25 10:18 75 MLS/HR Acetaminophen/ Hydrocodone Bitart 1 tab Q6HP PRN PO 01/30/25 20:00 Lactulose 30 ml TID PO 01/31/25 14:15 02/01/25 05:56 30 ML laboratory and microbiology Laboratory Tests 02/01/25 05:42 Test 02/01/25 05:42 Range/Units Serum Glucose 124 H 74-106 mg/dL Problem List/Assessment/Plan Problem List/Assessment/Plan Kina Whiteside this is a 44-year-old female patient who presents to the ED with chief complaint of generalized body pain, generalized weakness, vomiting, fever, melena and confusion. Patient was recently discharged from [facility] on 12/28/2024 with diagnosis of liver failure, since discharge patient's symptoms did not improve. Patient was evaluated previously by GI, Nephrology isn't to follow up with Heme-Onc as outpatient due to leukemoid reaction. Denies any other associated symptoms. Past medical history: Hypertension, alcoholic liver cirrhosis (last alcoholic drink on November 20, 2024), positive hepatitis B surface antigen, leukemoid reaction, CKD, gastritis Surgical history: Cholecystectomy Family history: Father had prostate cancer Social history: Lives [place] family in [place]. Ex ethanol abuse (stopped intake of alcohol since November 20, 2024). Ex-smoker (2.5 pack year history of smoking). Denies current tobacco, alcohol and other drug abuse Allergies: Denies Home medication: Benazepril, sucralfate and Protonix Patient seen and examined at bedside. Patient currently with no abdominal pain, removed NG tube, on regular diet, presented multiple bowel movements today. Planning on transferring to higher level of care for eventual liver transplant. Physical Exam Patient lying in bed, in no acute distress General: Lucid, afebrile, icteric mucosa, sclera and skin, mucosae are moist Cardiovascular: Normal S1 and S2. No murmurs, gallops or rubs Respiratory: Normal ventilation mechanics. Clear lung sounds on auscultation. NG tube was removed Abdomen: Soft, mild tenderness on superficial palpation, no organomegaly, normal bowel sounds, no ascites MSK/skin: Mobilizes 4 limbs. Skin is dry and warm. Presents bilateral suprapatellar pitting edema. Presents clear transudate secretion on left leg anterior tibia. Neurological: Oriented in 3 spheres. No motor no sensitive deficits. Pupils are isocoric and reactive Assessment Questionable acute viral hepatitis due to EBV Leukemoid reaction ZOILA hemodynamically mediated on CKD Ruled out acute hepatitis B infection Alcoholic liver cirrhosis (meld 31 points) Bicytopenia - probable secondary to liver cirrhosis Ileus Plan/Recommendation Pat bar virus IgG is positive, IgM is negative, but EBV early antigen is positive. Have discontinued acyclovir since it will increase risk of worsening ZOILA, discussed with GI specialist and agreed on restarting acyclovir (800 mg IV b.i.d.), ordered send out of viral load of EBV, if negative recommend discontinuing acyclovir. Continue with methylprednisolone 20 mg IV daily. Hepatitis-B viral load was negative ([facility] results). Interpreted previous hepatitis-B surface antigen as a false-positive. Due to liver cirrhosis, leukemoid reaction and acute hepatitis, patient is high- risk of translocation of gut bacteria. Indicated empiric IV antibiotic to cover Gram-negative rods (initially Levaquin, but due to prolonged QT switch to ceftriaxone). Patient is currently on midodrine. Evaluate benefit of octreotide in the setting of acute liver failure. Bone marrow biopsy evidence CD56 expression and subset of myelomonocytic cells, pending molecular testing to evaluate malignancy. Appreciate Heme-Onc specialist input. Appreciate GI and Nephrology specialist input. Awaiting transferred to higher level of care for eventual liver transplant. Patient may have probable ileus responded to NPO and NG tube placement. Rest of plan per primary team. Discussed plan with Dr. Kay, patient, family and nurses: Continue with IV steroids, currently on empiric IV antibiotic (ceftriaxone), awaiting transferred to higher level of care for eventual liver transplant. Restarted acyclovir after discussion with GI specialist, have ordered send out of EBV viral load, if negative recommend discontinuing acyclovir due to high-risk of ZOILA. Patient has poor prognosis I performed a history and physical exam of this patient and discussed the management with the medical student listed here. I reviewed the note, agree with the documented findings and plan of care (except as noted in my additions and changes below), and believe this is an accurate representation of the clinical course. - Zaire Kay Plan discussed with: Patient, Daughter, Other (Nurses) Dietary Evaluation Review Comments: 1. Continue current diet as tolerated 2. Encourage good oral intakes >75% of meals 3. Monitor I&Os, weight trends Expected Outcomes/Goals: Maintain adequate nutrition, stable hepatic fx vs. evaluation for liver transplant. HOMA PATEL RESIDENT Feb 01, 2025 11:41 ZAIRE KAY MD Feb 13, 2025 18:05
--- NOTE | 2025-02-01 17:50 | DVHPNRES ---
Progress Note Date Seen: Feb 01, 2025 Resident Creating Document: TOMY VICTORIA RESIDENT Medical Necessity Reason Pt with a Central, PICC or Fol: No Subjective Review of Systems The patient was seen and examined on the bedside. She is alert, oriented x3. Complaint of Generalized weakness no other active complaint Objective vital signs Vital Sign Date Time Temp Pulse Resp B/P (MAP) Pulse Ox O2 Delivery O2 Flow Rate FiO2 02/01/25 17:00 97.1 103 21 141/85 (103) 100 97.1 02/01/25 08:00 Room Air* 0 21 Total Intake and Output 01/31/25 01/31/25 02/01/25 15:00 23:00 07:00 Intake Total 450 ml 1020 ml 650 ml Balance 450 ml 1020 ml 650 ml medications Current Medications Medications Dose Ordered Sig/Chris Route Start Time Stop Time Status Last Admin Dose Admin Ondansetron HCl 4 mg Q4HPRN PRN IV 01/19/25 05:30 01/19/25 02:51 4 MG Pantoprazole Sodium 40 mg BID IV 01/19/25 03:15 02/01/25 09:50 40 MG Sucralfate 1 gm BID@0600,2200 PO 01/19/25 06:00 02/01/25 05:56 1 GM Ergocalciferol 50,000 unit Q7D PO 01/19/25 12:00 01/26/25 12:36 50,000 UNIT Spironolactone 25 mg DAILY PO 01/25/25 10:00 02/01/25 09:50 25 MG Sodium Bicarbonate 1,300 mg TID PO 01/24/25 14:00 02/01/25 14:24 1,300 MG Furosemide 40 mg DAILY PO 01/24/25 14:15 02/01/25 10:17 40 MG Ursodiol 300 mg TID PO 01/24/25 22:00 02/01/25 14:25 300 MG Ceftriaxone Sodium 50 ml @ 100 mls/hr DAILY@09 IV 01/30/25 09:00 02/01/25 10:18 100 MLS/HR Methylprednisolone Sodium Succinate 20 mg DAILY IV 01/30/25 10:00 02/01/25 09:51 20 MG Docusate Sodium 100 mg BID PO 01/30/25 22:00 02/01/25 09:50 100 MG Morphine Sulfate 2 mg Q4HPRN PRN IV 01/30/25 14:00 Hold 01/30/25 14:21 2 MG Acyclovir Sodium 800 mg/Sodium Chloride 266 ml @ 266 mls/hr Q12HR IV 01/30/25 22:00 02/13/25 21:59 02/01/25 11:22 266 MLS/HR Dextrose/Sodium Chloride 1,000 ml @ 75 mls/hr [id number] IV 01/30/25 19:30 02/01/25 10:18 75 MLS/HR Acetaminophen/ Hydrocodone Bitart 1 tab Q6HP PRN PO 01/30/25 20:00 Lactulose 30 ml TID PO 01/31/25 14:15 02/01/25 14:24 30 ML Examination Physical examination: General Appearance: Icteric ,Alert, Oriented X3, Cooperative,no distress HEENT: Atraumatic, PERRLA, EOMI,Yellow discoloration of the mucosa and sclera( icteric appearance) Respiratory: Clear to auscultation, Normal air movement Cardiovascular: Regular rate, Normal S1, Normal S2, No murmurs Abdominal:Mild tenderness, hepatomegaly, Normal bowel sounds, Soft, no ascites, tympanic. Extremities: BLE edema++, No clubbing, No cyanosis, Normal pulses. Skin: Yellowish is skin discoloration but No rashes, No breakdown, No significant lesion Neuro: Normal gait, Normal speech, no sensory motor deficits Psych/Mental Status: Mental status NL, Mood NL laboratory and microbiology Laboratory Tests 02/01/25 05:42 Test 02/01/25 05:42 Range/Units Serum Glucose 124 H 74-106 mg/dL Microbiology Date/Time Source Procedure Growth Status 01/20/25 13:25 Voided Urine Urine Culture - Final Complete 01/18/25 22:00 Blood Blood Culture - Final NO GROWTH AFTER 5 DAYS OF INCUBATION. Complete Labs and/or images reviewed: Labs reviewed by me, Image(s) reviewed by me Problem List/Assessment/Plan Problem List/Assessment/Plan Problem List/Assessment/Plan # Acute hepatic encephalopathy likely due to cirrhosis # SIRS/ Sepsis resolved # Acute on Chronic Decompensated Alcoholic hepatitis # Hepatic steatosis, Hepatomegaly & Transaminitis from above # Moderate malnutrition # Possible upper GI bleeding - Ultrasound shows enlarged liver measuring 24.5 cm demonstrates diffusely heterogeneous echogenicity - CT scan showed heterogeneous enlarged liver, with peripheral areas in the liver are very low in density on 12/25/24 - Maddrey score 53.5, and MELD score 37 point (with52.6% estimated 90 day mortality) - Bilirubin is very high but stable - Ammonia is 94>40 - IV Methylprednisolone 20 mg daily - IV Protonix 40 mg bid , Carafate 1 gm po bid & Lactulose 30 mL p.o. q8hr - IV ceftriaxone 1 g daily as per Infectious Disease recommendation - IV acyclovir 800 mg b.i.d. - Lasix 40 mg p.o. and spironolactone 25 mg p.o. daily - Ursodiol 300 mg po tid - Blood culture report revealed no growth in 24 hours of incubation - Pending stool occult test. 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 # Chronic anemia, macrocytic hyperchromic due to alcoholism - Monitor lab - H&H stable # Hypertensive heart disease and possible chronic diastolic heart failure - Echo showed LVEF 60% with a LA enlargement, RVSP 40 - BP is on the lower side., Midodrine 10 mg p.o. t.i.d. # ZOILA on CKD likely due to to hepatorenal syndrome - IV Albumin - Hold midodrine - Sodium bicarb tablet 1300 mg p.o. t.i.d. - Nephrology sign off # Vitamin D deficiency - Vitamin D 52515 units Q 7D. 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 - leukemia lymphoma immuno typing and serum electrophoresis pending Renal diet Due to GI bleed, no anticoagulant is indicated Protonix BOWEL REGIMEN: Lactulose Plan discussed with Dr. Andres Plan discussed with: Patient, Other My Orders My Orders Orders - TOMY VICTORIA RESIDENT Procedure Category Date Status Time Kub Abdomen Single XY 01/31/25 Resulted View 19:20 Regular Diet DIET 02/01/25 Transmitted Breakfast Dietary Evaluation Review Comments: 1. Continue current diet as tolerated 2. Encourage good oral intakes >75% of meals 3. Monitor I&Os, weight trends Expected Outcomes/Goals: Maintain adequate nutrition, stable hepatic fx vs. evaluation for liver transplant. Date of Service: Feb 01, 2025 Billing Provider: NIC MORA MD Common Visit Codes: [id number] INP/OBS CARE(HIGH) TOMY VICTORIA RESIDENT Feb 01, 2025 17:50 NIC MORA MD Feb 04, 2025 22:28
--- NOTE | 2025-02-01 18:35 | DVHPN2 ---
Progress Note - Dictate Date Seen: Feb 01, 2025 Medical Necessity Reason Pt with a Central, PICC or Fol: No Subjective Labs showing slight improvement with downtrending WBC and ammonia level down to 40 Patient has had multiple bowel movements with the lactulose Abdomen is still distended x-ray is consistent with mild ileus Patient has severe scleral icterus and jaundice and moderate 2-3+ pedal edema Persistent elevation in liver enzymes, severe leukemoid reaction and leukocytosis; labs are trending down today Patient has evidence of previous exposure to CMV Pat-Schultz and HSV although her IgM are negative Hepatitis-B surface antigen is negative and HBV DNA is negative and there was no evidence of active hepatitis-B at this time Patient hepatitis A IgM is negative vital signs Vital Sign Date Time Temp Pulse Resp B/P (MAP) Pulse Ox O2 Delivery O2 Flow Rate FiO2 02/01/25 17:00 97.1 103 21 141/85 (103) 100 97.1 02/01/25 08:00 Room Air* 0 21 Total Intake and Output 01/31/25 01/31/25 02/01/25 15:00 23:00 07:00 Intake Total 450 ml 1020 ml 650 ml Balance 450 ml 1020 ml 650 ml medications Current Medications Medications Dose Ordered Sig/Chris Route Start Time Stop Time Status Last Admin Dose Admin Ondansetron HCl 4 mg Q4HPRN PRN IV 01/19/25 05:30 01/19/25 02:51 4 MG Pantoprazole Sodium 40 mg BID IV 01/19/25 03:15 02/01/25 09:50 40 MG Sucralfate 1 gm BID@0600,2200 PO 01/19/25 06:00 02/01/25 05:56 1 GM Ergocalciferol 50,000 unit Q7D PO 01/19/25 12:00 01/26/25 12:36 50,000 UNIT Spironolactone 25 mg DAILY PO 01/25/25 10:00 02/01/25 09:50 25 MG Sodium Bicarbonate 1,300 mg TID PO 01/24/25 14:00 02/01/25 14:24 1,300 MG Furosemide 40 mg DAILY PO 01/24/25 14:15 02/01/25 10:17 40 MG Ursodiol 300 mg TID PO 01/24/25 22:00 02/01/25 14:25 300 MG Ceftriaxone Sodium 50 ml @ 100 mls/hr DAILY@09 IV 01/30/25 09:00 02/01/25 10:18 100 MLS/HR Methylprednisolone Sodium Succinate 20 mg DAILY IV 01/30/25 10:00 02/01/25 09:51 20 MG Docusate Sodium 100 mg BID PO 01/30/25 22:00 02/01/25 09:50 100 MG Morphine Sulfate 2 mg Q4HPRN PRN IV 01/30/25 14:00 Hold 01/30/25 14:21 2 MG Acyclovir Sodium 800 mg/Sodium Chloride 266 ml @ 266 mls/hr Q12HR IV 01/30/25 22:00 02/13/25 21:59 02/01/25 11:22 266 MLS/HR Dextrose/Sodium Chloride 1,000 ml @ 75 mls/hr [id number] IV 01/30/25 19:30 02/01/25 10:18 75 MLS/HR Acetaminophen/ Hydrocodone Bitart 1 tab Q6HP PRN PO 01/30/25 20:00 Lactulose 30 ml TID PO 01/31/25 14:15 02/01/25 14:24 30 ML objective General Appearance: Icteric ,Alert, Oriented X3, Cooperative,no distress HEENT: Atraumatic, PERRLA, EOMI,Yellow discoloration of the mucosa and sclera( icteric appearance) Respiratory: Clear to auscultation, Normal air movement Cardiovascular: Regular rate, Normal S1, Normal S2, No murmurs Abdominal:Mild tenderness, hepatomegaly, Normal bowel sounds, Soft, no ascites, tympanic. Extremities: Trace BLE edema+, No clubbing, No cyanosis, Normal pulses. Skin: Yellowish is skin discoloration but No rashes, No breakdown, No significant lesion Neuro: Normal gait, Normal speech, no sensory motor deficits Psych/Mental Status: Mental status NL, Mood NL laboratory and microbiology Laboratory Tests 02/01/25 05:42 Test 02/01/25 05:42 Range/Units Serum Glucose 124 H 74-106 mg/dL Problems(with codes): (1) Jaundice (2) Leukocytosis (3) Leukemoid reaction (4) Acute renal injury (5) RUQ abdominal pain (6) Lymphocytosis (7) Alcoholic cirrhosis of liver (8) Sepsis Prognosis Plan Lactulose 30 mL q.8 hours Hold for diarrhea Prednisone 20 mg IV daily Ursodiol 300 mg p.o. three times a day Monitor labs Patient will complete five days of IV acyclovir Her IV antibiotics are being discontinued I will follow up patient with you Overall her prognosis is guarded Dietary Evaluation Review Comments: 1. Continue current diet as tolerated 2. Encourage good oral intakes >75% of meals 3. Monitor I&Os, weight trends Expected Outcomes/Goals: Maintain adequate nutrition, stable hepatic fx vs. evaluation for liver transplant. Plan discussed with: Patient JUANA KNIGHT MD Feb 01, 2025 18:35
[2025-02-02] VITALS (34 sets, daily range): BP systolic 109–152; BP diastolic 62–93; PULSE 91–120; RESP 14–31; TEMP 97.5–98.6; O2SAT 94–100
[2025-02-02 06:35] LABS: Red Cell Distribution Width 19.8 % (11.8-14.3)
[2025-02-02 06:39] LABS: Hematocrit 24.5 % (36.0-46.0); Mean Corpuscular Hemoglobin 34.5 pg (28.0-32.0); Mean Corpuscular Hgb Conc. 32.6 g/dL (32.0-36.0); Platelet Count (auto) 119 10^3/uL (140-450); Red Blood Cells 2.31 10^6/uL (4.0-5.20)
[2025-02-02 06:45] LABS: Basophils % (manual) 0 (0.0-2.0); Blast Cells 0; Eosinophils % (manual) 0 (0-7); Metamyelocytes % 0; Myelocytes % 0; Promyelocytes % 0; Reactive Lymphocytes 0
[2025-02-02 06:56] LABS: Albumin 3.5 g/dL (3.2-4.8); Anion Gap 16 (5-15); Calcium 9.9 mg/dL (8.7-10.4); Potassium 3.5 mmol/L (3.5-5.1)
[2025-02-02 06:57] LABS: Alkaline Phosphatase 210 U/L (46-116); Bilirubin, Total 20.4 mg/dL (0.2-1.0); Carbon Dioxide 18 mmol/L (20-31); Chloride 111 mmol/L (98-107); Glucose 114 mg/dL (74-106); Sodium 145 mmol/L (136-145)
[2025-02-02] MEDS: HYDROcodone-ACET 10/325MG TAB PO PRN (07:01)
[2025-02-02 07:04] LABS: Alanine Aminotransferase 48 U/L (7-40); Aspartate Aminotransferase 37 U/L (13-40); BUN/Creatinine Ratio 31.7 (10.0-20.0); Blood Urea Nitrogen 64 mg/dL (9-23); Total Protein 5.7 g/dL (5.7-8.2)
[2025-02-02 08:30] LABS: Band Neutrophils % (manual) 17; Lymphocytes % (manual) 7 (10.0-50.0); Monocytes % (manual) 3 (0-12)
[2025-02-02 08:31] LABS: Anisocytosis Slight; Macrocytosis Moderate; Platelet Estimate Decreased
--- NOTE | 2025-02-02 16:22 | DVHPN2 ---
Subjective Patient encephalopathic Reviewed: H&P Changes from previous H/P or p: Changes General: Per HPI Objective Vitals Vital Signs Date Time Temp Pulse Resp B/P (MAP) Pulse Ox O2 Delivery O2 Flow Rate FiO2 02/02/25 12:32 98.0 120 16 123/67 (85) 97 98.0 02/02/25 08:00 Room Air* 0 21 Intake/Output Intake and Output 02/02/25 07:00 Intake Total 2168 ml Balance 2168 ml Intake Oral 852 ml IV Total 1316 ml # Voids 9 General Appearance: severe distress, Other (Patient with severe encephalopathy) HEENT: PERRLA, Other (Scleral icterus) Cardiovascular: Normal S1, Normal S2 Musculoskeletal: Weak motor strength RUE, Weak motor strength LUE, Weak motor strength RLE, Weak motor strength LLE Neuro: Other (Unable to assess) Psych/Mental Status: Other (Encephalopathic) Medications Current Medications Medications Dose Ordered Sig/Chris Route Start Time Stop Time Status Last Admin Dose Admin Ondansetron HCl 4 mg Q4HPRN PRN IV 01/19/25 05:30 01/19/25 02:51 4 MG Pantoprazole Sodium 40 mg BID IV 01/19/25 03:15 02/02/25 09:20 40 MG Sucralfate 1 gm BID@0600,2200 PO 01/19/25 06:00 02/02/25 05:18 1 GM Ergocalciferol 50,000 unit Q7D PO 01/19/25 12:00 02/02/25 11:40 50,000 UNIT Spironolactone 25 mg DAILY PO 01/25/25 10:00 02/02/25 09:21 25 MG Sodium Bicarbonate 1,300 mg TID PO 01/24/25 14:00 02/02/25 13:45 1,300 MG Furosemide 40 mg DAILY PO 01/24/25 14:15 02/02/25 09:22 40 MG Ursodiol 300 mg TID PO 01/24/25 22:00 02/02/25 13:45 300 MG Ceftriaxone Sodium 50 ml @ 100 mls/hr DAILY@09 IV 01/30/25 09:00 02/02/25 09:20 100 MLS/HR Methylprednisolone Sodium Succinate 20 mg DAILY IV 01/30/25 10:00 02/02/25 09:20 20 MG Docusate Sodium 100 mg BID PO 01/30/25 22:00 02/02/25 09:21 100 MG Morphine Sulfate 2 mg Q4HPRN PRN IV 01/30/25 14:00 Hold 01/30/25 14:21 2 MG Acyclovir Sodium 800 mg/Sodium Chloride 266 ml @ 266 mls/hr Q12HR IV 01/30/25 22:00 02/13/25 21:59 02/02/25 10:31 266 MLS/HR Dextrose/Sodium Chloride 1,000 ml @ 75 mls/hr [id number] IV 01/30/25 19:30 02/02/25 03:40 75 MLS/HR Acetaminophen/ Hydrocodone Bitart 1 tab Q6HP PRN PO 01/30/25 20:00 02/02/25 07:01 1 TAB Lactulose 30 ml TID PO 01/31/25 14:15 02/02/25 13:45 30 ML Laboratory Results Laboratory Tests 02/02/25 06:04 Chemistry Test 02/02/25 06:04 Albumin 3.5 g/dL (3.2-4.8) Calcium Level 9.9 mg/dL (8.7-10.4) Total Protein 5.7 g/dL (5.7-8.2) LFT Test 02/02/25 06:04 Alanine Aminotransferase (ALT) 48 U/L (7-40) H Alkaline Phosphatase 210 U/L (46-116) H Aspartate Amino Transferase (AST) 37 U/L (13-40) Total Bilirubin 20.4 mg/dL (0.2-1.0) H Urinalysis Test 01/20/25 13:25 01/29/25 18:32 01/29/25 18:33 Urine Creatinine 153.22 mg/dL (30.0-125.0) H Urine Test Negative (Negative) Urine Color Dark-yellow (Yellow) Urine Clarity Clear (Clear) Urine pH 5.5 (5.0-9.0) Urine Specific [place] 1.012 (1.001-1.035) Urine Protein 1+ (Negative) H Urine Ketones Negative (Negative) Urine Blood 2+ /uL (Negative) H Urine Nitrite Negative (Negative) Urine Bilirubin 1+ (Negative) H Urine Urobilinogen Normal mg/dL (Negative) Urine Leukocyte Esterase Negative /uL (Negative) Urine RBC 6 /hpf (0 - 4) Urine Microscopic WBC 2 /HPF (0-5) Urine Squamous Epithelial Cells Few /hpf (<5) Urine Amorphous Crystals Few /hpf (None Seen) Urine Bacteria None seen /hpf (None Seen) Urine Hyaline Casts Few /lpf (0 - 2) Urine Glucose Normal mg/dL (Normal) Urine Sodium 90 mmol/L (40-220) Microbiology Microbiology Date/Time Source Procedure Growth Status 01/20/25 13:25 Voided Urine Urine Culture - Final Complete 01/18/25 22:00 Blood Blood Culture - Final NO GROWTH AFTER 5 DAYS OF INCUBATION. Complete Labs and/or images reviewed: Labs reviewed by me, Image(s) reviewed by me Assessment/Plan Assessment/Plan Impression: -hepatic encephalopathy -hepatorenal failure -cirrhosis of the liver -severe leukocytosis -thrombocytopenia -? Sepsis -chronic anemia Plan: -patient with severe hepatic encephalopathy. Patient's ammonia level 140 now. Transfer to ICU/step-down ICU -insert Flexeril, start lactulose rectally -rifaximin 550 mg p.o. b.i.d. -continue IV Solu-Medrol -GI consultation -hematology consultation: Bone marrow biopsy performed, reviewed results, unremarkable -repeat labs in a.m. -aspiration precaution Critical care time spent with patient discussing and formulating plan of care: 40 minutes. This does not include time spent performing procedures. This medical document was created using an electronic medical record system with [employer] dictation system. Although this document has been carefully reviewed, there may still be some phonetic and typographical errors. These areas are purely typographical due to imperfections of the software programs, and do not reflect any compromise in the patient's medical care. Plan discussed with: Patient, Other (RN) My Orders Orders - VIANCA PADILLA [employer] SUPERVISOR Procedure Category Date Status Time Lactulose Rectal PHA 02/02/25 Verified 18:00 Rifaximin (Xifaxan) PHA 02/02/25 Verified 22:00 Transfer Orders XFER 02/02/25 Verified 16:14 Ammonia LAB 02/03/25 Verified 04:00 Ammonia LAB 02/02/25 Verified 23:00 Insert Rectal Tube ORDERS 02/02/25 Verified 16:14 Comprehensive LAB 02/03/25 Verified Metabolic Panel 04:00 Complete Blood Count LAB 02/02/25 Verified 16:14 Date of Service: Feb 02, 2025 Billing Provider: VIANCA PADILLA NP Common Visit Codes: [id number] CARE 30-74 MIN VIANCA PADILLA NP Feb 02, 2025 16:22
--- NOTE | 2025-02-02 16:59 | DVHPN2 ---
Progress Note - Dictate Date Seen: Feb 02, 2025 Medical Necessity Reason Pt with a Central, PICC or Fol: No Subjective Patient was noted to be more sleepy and lethargic today Again her ammonia level went up to 130 Patient has had multiple bowel movements with the lactulose Patient has severe scleral icterus and jaundice and moderate 2-3+ pedal edema Persistent elevation in liver enzymes, severe leukemoid reaction and leukocytosis; labs are trending down Patient has evidence of previous exposure to CMV Pat-Schultz and HSV although her IgM are negative Hepatitis-B surface antigen is negative and HBV DNA is negative and there was no evidence of active hepatitis-B at this time Patient hepatitis A IgM is negative vital signs Vital Sign Date Time Temp Pulse Resp B/P (MAP) Pulse Ox O2 Delivery O2 Flow Rate FiO2 02/02/25 12:32 98.0 120 16 123/67 (85) 97 98.0 02/02/25 08:00 Room Air* 0 21 Total Intake and Output 02/01/25 02/01/25 02/02/25 15:00 23:00 07:00 Intake Total 316 ml 1152 ml 700 ml Balance 316 ml 1152 ml 700 ml medications Current Medications Medications Dose Ordered Sig/Chris Route Start Time Stop Time Status Last Admin Dose Admin Ondansetron HCl 4 mg Q4HPRN PRN IV 01/19/25 05:30 01/19/25 02:51 4 MG Pantoprazole Sodium 40 mg BID IV 01/19/25 03:15 02/02/25 09:20 40 MG Sucralfate 1 gm BID@0600,2200 PO 01/19/25 06:00 02/02/25 05:18 1 GM Ergocalciferol 50,000 unit Q7D PO 01/19/25 12:00 02/02/25 11:40 50,000 UNIT Spironolactone 25 mg DAILY PO 01/25/25 10:00 02/02/25 09:21 25 MG Sodium Bicarbonate 1,300 mg TID PO 01/24/25 14:00 02/02/25 13:45 1,300 MG Furosemide 40 mg DAILY PO 01/24/25 14:15 02/02/25 09:22 40 MG Ursodiol 300 mg TID PO 01/24/25 22:00 02/02/25 13:45 300 MG Ceftriaxone Sodium 50 ml @ 100 mls/hr DAILY@09 IV 01/30/25 09:00 02/02/25 09:20 100 MLS/HR Methylprednisolone Sodium Succinate 20 mg DAILY IV 01/30/25 10:00 02/02/25 09:20 20 MG Docusate Sodium 100 mg BID PO 01/30/25 22:00 02/02/25 09:21 100 MG Morphine Sulfate 2 mg Q4HPRN PRN IV 01/30/25 14:00 Hold 01/30/25 14:21 2 MG Acyclovir Sodium 800 mg/Sodium Chloride 266 ml @ 266 mls/hr Q12HR IV 01/30/25 22:00 02/13/25 21:59 02/02/25 10:31 266 MLS/HR Dextrose/Sodium Chloride 1,000 ml @ 75 mls/hr [id number] IV 01/30/25 19:30 02/02/25 03:40 75 MLS/HR Acetaminophen/ Hydrocodone Bitart 1 tab Q6HP PRN PO 01/30/25 20:00 02/02/25 07:01 1 TAB Lactulose 300 ml Q6HR VA 02/02/25 18:00 Rifaximin 550 mg BID PO 02/02/25 22:00 objective General Appearance: Icteric ,Alert, Oriented X3, Cooperative,no distress HEENT: Atraumatic, PERRLA, EOMI,Yellow discoloration of the mucosa and sclera( icteric appearance) Respiratory: Clear to auscultation, Normal air movement Cardiovascular: Regular rate, Normal S1, Normal S2, No murmurs Abdominal:Mild tenderness, hepatomegaly, Normal bowel sounds, Soft, no ascites, tympanic. Extremities: Trace BLE edema+, No clubbing, No cyanosis, Normal pulses. Skin: Yellowish is skin discoloration but No rashes, No breakdown, No significant lesion Neuro: Normal gait, Normal speech, no sensory motor deficits Psych/Mental Status: Mental status NL, Mood NL laboratory and microbiology Laboratory Tests 02/02/25 06:04 Test 02/02/25 06:04 Range/Units Serum Glucose 114 H 74-106 mg/dL Problems(with codes): (1) Jaundice (2) Leukocytosis (3) Leukemoid reaction (4) Viral illness (5) Acute renal injury (6) RUQ abdominal pain (7) Lymphocytosis (8) Alcoholic cirrhosis of liver (9) Sepsis Prognosis Plan Since the patient is not responding or eating today patient is going to be given lactulose enemas She was also started on Xifaxan 550 mg p.o. twice a day We can consider cutting back on her diuretics to see if that will help improvement encephalopathy Prognosis remains guarded, continue to monitor labs Dietary Evaluation Review Comments: 1. Continue current diet as tolerated 2. Encourage good oral intakes >75% of meals 3. Monitor I&Os, weight trends Expected Outcomes/Goals: Maintain adequate nutrition, stable hepatic fx vs. evaluation for liver transplant. Plan discussed with: Patient, Daughter, Other JUANA KNIGHT MD Feb 02, 2025 16:58
[2025-02-02 17:56] LABS: Hematocrit 23.8 % (36.0-46.0); Hemoglobin 7.7 g/dL (12.2-16.2); Mean Corpuscular Hemoglobin 33.9 pg (28.0-32.0); Mean Corpuscular Hgb Conc. 32.4 g/dL (32.0-36.0); Mean Corpuscular Volume 104.8 fL (80.0-100.0); Platelet Count (auto) 111 10^3/uL (140-450); Red Blood Cells 2.27 10^6/uL (4.0-5.20)
[2025-02-02 18:02] LABS: Basophils % (manual) 0 (0.0-2.0); Eosinophils % (manual) 0 (0-7); Myelocytes % 0; Promyelocytes % 0; Reactive Lymphocytes 0; White Blood Cell 71.3 10^3/uL (4.4-10.8)
[2025-02-02 18:51] LABS: Band Neutrophils % (manual) 22; Blast Cells 3; Lymphocytes % (manual) 4 (10.0-50.0); Macrocytosis Moderate; Metamyelocytes % 4; Monocytes % (manual) 3 (0-12); Platelet Estimate Decreased
[2025-02-02] MEDS: LACTULOSE 10g/15ml SOLN 473ML PR SCH (20:10)
[2025-02-02] MEDS: rifAXIMin 550 MG TAB PO SCH (22:00)
[2025-02-03] VITALS (59 sets, daily range): BP systolic 100–148; BP diastolic 54–83; PULSE 88–109; RESP 13–24; TEMP 97–98.4; O2SAT 97–100
[2025-02-03] MEDS: LACTULOSE 10g/15ml SOLN 473ML PR SCH (02:20)
[2025-02-03 03:47] LABS: Platelet Count (auto) 112 10^3/uL (140-450)
[2025-02-03 03:53] LABS: Hematocrit 26.5 % (36.0-46.0); Hemoglobin 8.7 g/dL (12.2-16.2); Mean Corpuscular Hemoglobin 34.6 pg (28.0-32.0); Mean Corpuscular Hgb Conc. 32.6 g/dL (32.0-36.0)
[2025-02-03 04:06] LABS: Anion Gap 14 (5-15); Calcium 9.6 mg/dL (8.7-10.4); Carbon Dioxide 21 mmol/L (20-31)
[2025-02-03 04:07] LABS: Albumin 3.2 g/dL (3.2-4.8)
[2025-02-03 04:11] LABS: BUN/Creatinine Ratio 33.3 (10.0-20.0)
[2025-02-03 04:12] LABS: Alanine Aminotransferase 42 U/L (7-40); Alkaline Phosphatase 200 U/L (46-116); Aspartate Aminotransferase 30 U/L (13-40); Blood Urea Nitrogen 64 mg/dL (9-23); Chloride 113 mmol/L (98-107); Glucose 112 mg/dL (74-106); Potassium 3.3 mmol/L (3.5-5.1); Sodium 148 mmol/L (136-145); Total Protein 5.3 g/dL (5.7-8.2)
[2025-02-03 04:13] LABS: White Blood Cell 67.3 10^3/uL (4.4-10.8)
[2025-02-03 04:14] LABS: Basophils % (manual) 0 (0.0-2.0); Blast Cells 0; Eosinophils % (manual) 0 (0-7); Myelocytes % 0; Promyelocytes % 0; Reactive Lymphocytes 0
[2025-02-03 05:04] LABS: Band Neutrophils % (manual) 4; Lymphocytes % (manual) 2 (10.0-50.0); Metamyelocytes % 1; Monocytes % (manual) 7 (0-12)
[2025-02-03 05:05] LABS: Hypochromia Slight; Macrocytosis Slight; Platelet Estimate Decreased; Target Cell MODERATE
[2025-02-03] MEDS: POTASSIUM CHL 20MEQ/50ML 50 ML IV ONE (05:47)
[2025-02-03] MEDS: POTASSIUM CHL 20MEQ/100ML 50 ML IV ONE (05:48)
--- NOTE | 2025-02-03 06:56 | DVHPN2 ---
Subjective Patient encephalopathic Reviewed: H&P Changes from previous H/P or p: No Changes General: Per HPI Objective Vitals Vital Signs Date Time Temp Pulse Resp B/P (MAP) Pulse Ox O2 Delivery O2 Flow Rate FiO2 02/03/25 06:45 103 21 119/74 (89) 99 02/03/25 06:00 Room Air* 0 21 02/03/25 04:00 97.4 97.4 Intake/Output Intake and Output 02/03/25 07:00 Intake Total 2307 ml Output Total 4200 ml Balance -1893 ml Intake Oral 0 ml IV Total 2307 ml Output Urine Total 2600 ml Stool Total 1600 ml General Appearance: Alert, Oriented X3 (X2), Cooperative, moderate distress HEENT: PERRLA, Other (Scleral icterus) Lungs: Clear to auscultation, Normal air movement Cardiovascular: Normal S1, Normal S2 Musculoskeletal: Weak motor strength RUE, Weak motor strength LUE, Weak motor strength RLE, Weak motor strength LLE Neuro: Other (Unable to assess) Skin: Dry, Intact, Warm, Other (Jaundice) Psych/Mental Status: Other (Encephalopathic) Medications Current Medications Medications Dose Ordered Sig/Chris Route Start Time Stop Time Status Last Admin Dose Admin Ondansetron HCl 4 mg Q4HPRN PRN IV 01/19/25 05:30 01/19/25 02:51 4 MG Pantoprazole Sodium 40 mg BID IV 01/19/25 03:15 02/02/25 22:18 40 MG Sucralfate 1 gm BID@0600,2200 PO 01/19/25 06:00 02/02/25 05:18 1 GM Ergocalciferol 50,000 unit Q7D PO 01/19/25 12:00 02/02/25 11:40 50,000 UNIT Spironolactone 25 mg DAILY PO 01/25/25 10:00 02/02/25 09:21 25 MG Sodium Bicarbonate 1,300 mg TID PO 01/24/25 14:00 02/02/25 13:45 1,300 MG Furosemide 40 mg DAILY PO 01/24/25 14:15 02/02/25 09:22 40 MG Ursodiol 300 mg TID PO 01/24/25 22:00 02/02/25 13:45 300 MG Ceftriaxone Sodium 50 ml @ 100 mls/hr DAILY@09 IV 01/30/25 09:00 02/02/25 09:20 100 MLS/HR Methylprednisolone Sodium Succinate 20 mg DAILY IV 01/30/25 10:00 02/02/25 09:20 20 MG Docusate Sodium 100 mg BID PO 01/30/25 22:00 02/02/25 09:21 100 MG Morphine Sulfate 2 mg Q4HPRN PRN IV 01/30/25 14:00 Hold 01/30/25 14:21 2 MG Acyclovir Sodium 800 mg/Sodium Chloride 266 ml @ 266 mls/hr Q12HR IV 01/30/25 22:00 02/13/25 21:59 02/02/25 22:39 266 MLS/HR Dextrose/Sodium Chloride 1,000 ml @ 75 mls/hr [id number] IV 01/30/25 19:30 02/02/25 20:23 75 MLS/HR Acetaminophen/ Hydrocodone Bitart 1 tab Q6HP PRN PO 01/30/25 20:00 02/02/25 07:01 1 TAB Rifaximin 550 mg BID PO 02/02/25 22:00 Lactulose 300 ml Q6H KS 02/03/25 02:00 02/03/25 02:20 300 ML Laboratory Results Laboratory Tests 02/03/25 03:08 Chemistry Test 02/03/25 03:08 Albumin 3.2 g/dL (3.2-4.8) Calcium Level 9.6 mg/dL (8.7-10.4) Total Protein 5.3 g/dL (5.7-8.2) L LFT Test 02/03/25 03:08 Alanine Aminotransferase (ALT) 42 U/L (7-40) H Alkaline Phosphatase 200 U/L (46-116) H Aspartate Amino Transferase (AST) 30 U/L (13-40) Total Bilirubin 18.0 mg/dL (0.2-1.0) H Urinalysis Test 01/20/25 13:25 01/29/25 18:32 01/29/25 18:33 Urine Creatinine 153.22 mg/dL (30.0-125.0) H Urine Test Negative (Negative) Urine Color Dark-yellow (Yellow) Urine Clarity Clear (Clear) Urine pH 5.5 (5.0-9.0) Urine Specific [place] 1.012 (1.001-1.035) Urine Protein 1+ (Negative) H Urine Ketones Negative (Negative) Urine Blood 2+ /uL (Negative) H Urine Nitrite Negative (Negative) Urine Bilirubin 1+ (Negative) H Urine Urobilinogen Normal mg/dL (Negative) Urine Leukocyte Esterase Negative /uL (Negative) Urine RBC 6 /hpf (0 - 4) Urine Microscopic WBC 2 /HPF (0-5) Urine Squamous Epithelial Cells Few /hpf (<5) Urine Amorphous Crystals Few /hpf (None Seen) Urine Bacteria None seen /hpf (None Seen) Urine Hyaline Casts Few /lpf (0 - 2) Urine Glucose Normal mg/dL (Normal) Urine Sodium 90 mmol/L (40-220) Microbiology Microbiology Date/Time Source Procedure Growth Status 01/20/25 13:25 Voided Urine Urine Culture - Final Complete 01/18/25 22:00 Blood Blood Culture - Final NO GROWTH AFTER 5 DAYS OF INCUBATION. Complete Labs and/or images reviewed: Labs reviewed by me, Image(s) reviewed by me Assessment/Plan Assessment/Plan Impression: -hepatic encephalopathy -hepatorenal failure -cirrhosis of the liver -severe leukocytosis -thrombocytopenia -? Sepsis -chronic anemia Plan: Events: Patient now awake and following some commands. Ammonia level has improved. Patient will receive one more dose of rectal lactulose, then transitioning to p.o. q.6 hours. -insert Flexeril, start lactulose rectally -rifaximin 550 mg p.o. b.i.d. -continue IV Solu-Medrol -GI consultation -hematology consultation: Bone marrow biopsy performed, reviewed results, unremarkable -repeat labs in a.m. -aspiration precaution Critical care time spent with patient discussing and formulating plan of care: 40 minutes. This does not include time spent performing procedures. This medical document was created using an electronic medical record system with [employer] dictation system. Although this document has been carefully reviewed, there may still be some phonetic and typographical errors. These areas are purely typographical due to imperfections of the software programs, and do not reflect any compromise in the patient's medical care. Plan discussed with: Patient, Other (RN) My Orders Orders - VIANCA PADILLA NP Procedure Category Date Status Time Rifaximin (Xifaxan) PHA 02/02/25 In Process 22:00 Transfer Orders XFER 02/02/25 Transmitted 16:14 Insert Rectal Tube ORDERS 02/02/25 Transmitted 16:14 Urine Bacterial AUDRA 02/02/25 In Process Culture 16:51 Mrsa Screen AUDRA 02/02/25 In Process 16:54 Lactulose Rectal PHA 02/03/25 In Process 02:00 Lactulose Rectal PHA 02/03/25 Transmitted 08:00 Lactulose Oral PHA 02/03/25 Transmitted 14:00 Hepatic Diet DIET 02/03/25 Transmitted (50gmpro,2gmna) Breakfast Basic Metabolic Panel LAB 02/04/25 Verified 05:00 Basic Metabolic Panel LAB 02/05/25 Verified 05:00 Ammonia LAB 02/04/25 Verified 05:00 Ammonia LAB 02/05/25 Verified 05:00 Date of Service: Feb 03, 2025 Billing Provider: VIANCA PADILLA NP Common Visit Codes: [id number] CARE 30-74 MIN VIANCA PADILLA NP Feb 03, 2025 06:56
[2025-02-03] MEDS: LACTULOSE 10g/15ml SOLN 473ML PR ONE (08:00)
[2025-02-03] MEDS: LACTULOSE 20Gm/30ML SOLN PO SCH (14:23)
--- NOTE | 2025-02-03 20:09 | DVHINCON2 ---
Date of service: Feb 03, 2025 Referring Physician Krystian Narayan NP Reason for Consultation Acute hypoxic respiratory failure History of Present Illness A 44-year-old woman with past medical history of hypertension and alcoholic liver cirrhosis who initially presented to ED on 01/19/25 due to body pain and generalized weakness. Pt also reported vomiting, fever, chest pain, constipation (black stool) and worsening of skin yellowish discoloration. She [facility], admitted due to liver failure. Since discharge patient reported not feeling well, which has progressively worsened. Denied cough, shortness of breath, or any complaints. During previous admission she was seen by GI, recommended medical management. Pt has not undergone paracentesis in the past. Patient was admitted for further care. Pulmonary consultation is requested for evaluation and management of acute h ypoxic respiratory failure Review of Systems: 14-point review of systems negative unless otherwise noted above. Past Medical History: Hypertension and alcoholic liver cirrhosis Past Surgical History: Cholecystectomy Medications: Reviewed. Allergies: No known drug allergies. Family History: Prostate cancer, asthma, diabetes mellitus Social History: Former smoker with 2.5 pack year history Heavy alcohol abuser, stopped drinking 2 months back No illicit drug use. Family History: FH: asthma G8 FATHER FH: diabetes mellitus G8 MOTHER FH: prostate cancer G8 FATHER Allergies: Coded Allergies: NO KNOWN ALLERGIES (Unverified , 10/26/24) Home Meds Active Scripts Amoxicillin & Pot Clavulanate (Amoxicillin/Potassium Cla) 875 Mg Tab, 1 TAB PO BID for 10 Days, #20 TAB [facility] 12/28/24 Sucralfate (CARAFATE) 1 Gm Tab, 1 GM OR TID for 21 Days, #63 TAB [facility] 12/28/24 Pantoprazole Sodium Sesquihydr (Pantoprazole Sodium) 40 Mg Tab, 40 MG PO DAILY for 30 Days, #30 TAB [facility] 12/28/24 Reported Medications Benazepril Hcl (Benazepril Hcl) 20 Mg Tab, 1 TAB PO DAILY 12/26/24 Current Medications Current Medications Medications (Trade) Dose Ordered Sig/Chris Route PRN Reason Start Time Stop Time Status Last Admin Rifaximin (Xifaxan) 550 mg BID PO 02/02/25 22:00 02/03/25 09:20 Lactulose 300 ml Q6H ID 02/03/25 02:00 02/03/25 06:54 DC 02/03/25 02:20 Lactulose 30 ml Q6HR PO 02/03/25 14:00 02/03/25 18:23 Vital Signs Vital Signs Date Time Temp Pulse Resp B/P (MAP) Pulse Ox O2 Delivery O2 Flow Rate FiO2 02/03/25 18:45 106 19 100 02/03/25 18:00 Room Air* 0 21 02/03/25 17:00 98.4 98.4 Physical Exam Gen.: Patient lying in bed in no apparent distress. On supplemental oxygen. Head: Normocephalic, atraumatic. Eyes: EOMI/PERRLA. Ears: Normal hearing. Normal anatomy. Neck/trachea: Trachea midline, supple. Nose: Normal external anatomy. Mouth: Moist mucous membranes. Chest: Decreased air entry bilaterally. No wheezing or rhonchi. Cardiovascular: Positive S1, positive S2. Regular rate and rhythm. Abdomen: Positive bowel sounds in all 4 quadrants. Soft, non-tender, non- distended. : Deferred. Rectal: Deferred. Skin: Warm, dry. Intact. Extremities: 2+ radial pulses bilaterally. No lower extremity edema. Neuro: Awake, alert, oriented x3. No gross motor or sensory deficits. Cranial nerves II through XII intact. Gait not assessed. Labs/Diagnostic Data Labs Test 02/03/25 03:08 02/02/25 06:04 02/01/25 05:42 01/31/25 13:32 Range/Units White Blood Count 67.3 *H 4.4-10.8 10^3/uL Red Blood Count 2.50 L 4.0-5.20 10^6/uL Hemoglobin 8.7 L 12.2-16.2 g/dL Hematocrit 26.5 #L 36.0-46.0 % Mean Corpuscular Volume 106.0 H 80.0-100.0 fL Mean Corpuscular Hemoglobin 34.6 H 28.0-32.0 pg Mean Corpuscular Hemoglobin Concent 32.6 32.0-36.0 g/dL Red Cell Distribution Width 20.0 H 11.8-14.3 % Platelet Count 112 L 140-450 10^3/uL Mean Platelet Volume 12.7 H 6.9-10.8 fL Neutrophils (%) (Auto) 37.0-80.0 % Lymphocytes (%) (Auto) 10.0-50.0 % Monocytes (%) (Auto) 0.0-12.0 % Basophils (%) (Auto) 0.0-2.0 % Neutrophils # (Auto) 1.6-8.6 10 ^3/uL Lymphocytes # (Auto) 0.4-5.4 10 ^3/uL Monocytes # (Auto) 0-1.3 10 ^3/uL Differential Total Cells Counted 100.0 100 Neutrophils % (Manual) 86 H 37.0-80.0 Band Neutrophils % (Manual) 4 Lymphocytes % (Manual) 2 L 10.0-50.0 Monocytes % (Manual) 7 0-12 Eosinophils % (Manual) 0 0-7 Basophils % (Manual) 0 0.0-2.0 Metamyelocytes % (manual) 1 Myelocytes % (Manual) 0 Promyelocytes % (Manual) 0 Blast Cells % (Manual) 0 Reactive Lymphocytes 0 Platelet Estimate Decreased Hypochromasia (manual) Slight Macrocytosis Slight Target Cells Moderate Stomatocytes Sodium Level 148 H 136-145 mmol/L Potassium Level 3.3 L 3.5-5.1 mmol/L Chloride Level 113 H 98-107 mmol/L Carbon Dioxide Level 21 20-31 mmol/L Anion Gap 14 5-15 Blood Urea Nitrogen 64 H 9-23 mg/dL Creatinine 1.92 H 0.550-1.02 mg/dL Glomerular Filtration Rate Calc 33 >90 mL/min BUN/Creatinine Ratio 33.3 H 10.0-20.0 Serum Glucose 112 H 74-106 mg/dL Calcium Level 9.6 8.7-10.4 mg/dL Total Bilirubin 18.0 H 0.2-1.0 mg/dL Aspartate Amino Transferase (AST) 30 13-40 U/L Alanine Aminotransferase (ALT) 42 H 7-40 U/L Alkaline Phosphatase 200 H 46-116 U/L Ammonia 38 H 11-32 umol/L Total Protein 5.3 L 5.7-8.2 g/dL Albumin 3.2 3.2-4.8 g/dL Nucleated Red Blood Cells 1.0 % Anisocytosis (manual) Slight Microcytosis Prothrombin Time 14.2 H 9.3-11.8 sec Prothrombin Time INR 1.38 H 0.9-1.15 Miscellaneous Referred Test (Refrg) Sent to [facility] Test 01/31/25 13:23 01/30/25 06:02 01/29/25 18:33 01/29/25 18:32 Range/Units Direct Bilirubin 15.0 H <0.3 mg/dL Large Platelets Few Urine Sodium 90 40-220 mmol/L Urine Color Dark-yellow Yellow Urine Clarity Clear Clear Urine pH 5.5 5.0-9.0 Urine Specific [place] 1.012 1.001-1.035 Urine Protein 1+ H Negative Urine Ketones Negative Negative Urine Blood 2+ H Negative /uL Urine Nitrite Negative Negative Urine Bilirubin 1+ H Negative Urine Urobilinogen Normal Negative mg/dL Urine Leukocyte Esterase Negative Negative /uL Urine RBC 6 0 - 4 /hpf Urine Microscopic WBC 2 0-5 /HPF Urine Squamous Epithelial Cells Few <5 /hpf Urine Amorphous Crystals Few None Seen /hpf Urine Bacteria None seen None Seen /hpf Urine Hyaline Casts Few 0 - 2 /lpf Urine Glucose Normal Normal mg/dL Test 01/28/25 17:36 01/28/25 07:11 01/25/25 19:26 01/25/25 14:13 Range/Units Activated Partial Thromboplast Time 34.1 24.5-34.5 SEC Hepatitis A IgM Antibody Negative Hepatitis B Surface Antigen Negative Negative Hepatitis B Core IgM Antibody Negative Negative Hepatitis C Antibody Negative Negative Miscellaneous Referred Test (Rm Tmp Sent to [facility] Hepatitis B DNA Quant log IU/mL . Hepatitis B DNA (Units/mL) Hbv dna not detected . IU/mL Test 01/25/25 11:58 01/25/25 05:39 01/23/25 11:23 01/23/25 06:03 Range/Units Blood Gas Specimen Type Arterial Blood Gas Sample Site Right radial Blood Gas Patient Temperature 37.0 Arterial Blood Date Drawn [id number] Arterial Blood pH 7.315 L 7.350-7.450 Arterial Blood Partial Pressure CO2 20.6 L 32.0-45.0 mmHg Arterial Blood Partial Pressure O2 101.3 83.0-108.0 mmHg Arterial Blood HCO3 10.3 L 21.0-28.0 mmol/L Arterial Blood Oxygen Saturation 97.5 94.0-98.0 % Arterial Blood Base Excess -14.1 L -2.0-3.0 mmol/L Arterial Blood Oxyhemoglobin 96.5 94.0-98.0 % Arterial Blood Carboxyhemoglobin 0.9 0.5-1.5 % Arterial Blood Methemoglobin 0.1 0.0-1.5 % Kirk Test Yes Blood Gas Total Hemoglobin 10.10 L 12.0-16.0 g/dL Blood Gas Modality Room air FiO2 % 21.0 Hypersegmented Neutrophils Lymphoma/Leukemia Immunophenotyping Sent to [facility] Reticulocyte Count (auto) 1.99 H 0.5-1.5 % Haptoglobin 75 42-296 mg/dL Lactate Dehydrogenase 170 120-246 U/L Anti-Nuclear Antibody Screen Negative Negative Test 01/22/25 15:34 01/20/25 13:25 01/20/25 05:26 01/19/25 01:45 Range/Units Globulin (PEP) . Albumin/Globulin Ratio . Sibxw-7-Hxewspbzz . Gdbiw-5-Lbbxnqkcz . Beta Globulins . Gamma Globulins . Protein Electrophoresis M-Anthony . Protein Electrophoresis Note . Cytomegalovirus IgG Antibody >10.00 H 0.00-0.59 U/mL Cytomegalovirus IgM Antibody <30.0 0.0-29.9 AU/mL Pat-Schultz Virus Capsid Ag IgG Ab >600.0 H 0.0-17.9 U/mL Pat-Schultz Virus Capsid Ag IgM Ab <36.0 0.0-35.9 U/mL Pat-Schultz Early Antigen IgG Ab 137.0 H 0.0-17.9 U/mL Pat-Schultz Virus Ab Interpret Comment . Herpes Simplex Virus I IgG Antibody Reactive H Non Reactive Herpes Simplex Virus II IgG Ab Non reactive Non Reactive HIV (1&2) Antibody Negative Negative Urine Creatinine 153.22 H 30.0-125.0 mg/dL Urine Test Negative Negative Urine Opiates Screen Neg NEGATIVE Urine Fentanyl Screen Neg NEGATIVE Urine Barbiturates Screen Neg NEGATIVE Urine Phencyclidine Screen Neg NEGATIVE Urine Amphetamines Screen Neg NEGATIVE Urine Benzodiazepines Screen Neg NEGATIVE Urine Cocaine Screen Neg NEGATIVE Urine Cannabinoids Screen Neg NEGATIVE Schistocytes Few Clumped Platelets Few Iron Level 108 50-170 ug/dL Total Iron Binding Capacity 194 L 250-425 ug/dL Percent Iron Saturation 55.7 H 15-50 % Ferritin 225.8 10-291 ng/mL Vitamin B12 Level 1934 H 211-911 pg/mL Vitamin D 25-Hydroxy 16.1 L 30.0-100 ng/mL Plasma/Serum Blood Alcohol < 3.0 <10 mg/dL Hepatitis A Antibody Total Positive H Negative Hepatitis B Surface Antibody Negative Negative Hepatitis B Core Total Antibody Negative Negative Test 01/18/25 21:44 Range/Units Poikilocytosis (manual) Slight Lactic Acid Level 1.3 0.4-2.0 mmol/L Troponin I High Sensitivity 10 </=34 ng/L B-Type Natriuretic Peptide 469.52 0-100 pg/mL Lipase 93 H 12-53 U/L Microbiology Date/Time Source Procedure Growth Status 02/02/25 16:52 Nose MRSA Screen - Final Complete 02/02/25 16:50 Urine - [place] Urine Culture - Preliminary Resulted 01/18/25 22:00 Blood Blood Culture - Final NO GROWTH AFTER 5 DAYS OF INCUBATION. Complete Assessment Impression: Acute hypoxic respiratory failure Dependence on supplemental oxygen Hepatic encephalopathy Cirrhosis of liver Leukocytosis Thrombocytopenia Hx of nicotine dependence ETOH use, quit 2 months ago Plan: Supplemental oxygen 2 LPM NC Titrate to keep O2 sats above 92%. Patient is alert and oriented, improved mentation. Jaundice Lactulose rectal and oral Steroids Diurese as tolerated w/ Lasix Monitor renal function. Monitor electrolytes. Supplement as necessary. Monitor ins and outs. Follow up GI recommendations Monitor WBC Monitor platelet count DVT prophylaxis. Prognosis: Poor given patient's multiple co-morbidities. Rest of plan per hospitalist and other consultants. Thank you, OSMANY Narayan, for allowing me to participate in this patient's care. Further recommendations will depend on the patient's clinical course. Please do not hesitate to contact me if you have any questions or concerns. This medical document was created using an electronic medical record system with [employer] dictation system. Although these documentations are being carefully reviewed, there may still be some phonetic and typographical changes. The errors are purely typographical, due to imperfection on the software program, and do not reflect any compromise in the patient's medical care. Plan discussed with: Other (TONYA Guerrero/OSMANY Narayan/) GEORGINA ZHENG MD Feb 03, 2025 20:09
[2025-02-04] VITALS (20 sets, daily range): BP systolic 115–139; BP diastolic 62–78; PULSE 96–112; RESP 14–27; TEMP 98.1–98.8; O2SAT 98–100
[2025-02-04 04:08] LABS: Anion Gap 16 (5-15); Calcium 9.6 mg/dL (8.7-10.4); Carbon Dioxide 21 mmol/L (20-31)
[2025-02-04 04:22] LABS: BUN/Creatinine Ratio 31.3 (10.0-20.0)
[2025-02-04 04:23] LABS: Blood Urea Nitrogen 56 mg/dL (9-23); Chloride 109 mmol/L (98-107); Glucose 112 mg/dL (74-106); Potassium 3.4 mmol/L (3.5-5.1); Sodium 146 mmol/L (136-145)
--- NOTE | 2025-02-04 06:28 | DVHPN2 ---
Subjective Patient was awake and following commands Reviewed: H&P Changes from previous H/P or p: Changes General: Per HPI Objective Vitals Vital Signs Date Time Temp Pulse Resp B/P (MAP) Pulse Ox O2 Delivery O2 Flow Rate FiO2 02/04/25 06:00 98 27 133/77 (95) 100 02/04/25 06:00 Room Air* 0 21 02/04/25 04:00 98.3 98.3 Intake/Output Intake and Output 02/04/25 07:00 Intake Total 2041 ml Output Total 2550 ml Balance -509 ml Intake Oral 50 ml IV Total 1991 ml Output Urine Total 1350 ml Stool Total 1200 ml General Appearance: Alert, Oriented X3 (X2), Cooperative, moderate distress HEENT: PERRLA, Other (Scleral icterus) Lungs: Clear to auscultation, Normal air movement Cardiovascular: Normal S1, Normal S2 Musculoskeletal: Weak motor strength RUE, Weak motor strength LUE, Weak motor strength RLE, Weak motor strength LLE Neuro: Other (Unable to assess) Skin: Dry, Intact, Warm, Other (Jaundice) Psych/Mental Status: Other (Encephalopathic) Medications Current Medications Medications Dose Ordered Sig/Chris Route Start Time Stop Time Status Last Admin Dose Admin Ondansetron HCl 4 mg Q4HPRN PRN IV 01/19/25 05:30 01/19/25 02:51 4 MG Pantoprazole Sodium 40 mg BID IV 01/19/25 03:15 02/03/25 20:52 40 MG Sucralfate 1 gm BID@0600,2200 PO 01/19/25 06:00 02/04/25 05:57 1 GM Ergocalciferol 50,000 unit Q7D PO 01/19/25 12:00 02/02/25 11:40 50,000 UNIT Spironolactone 25 mg DAILY PO 01/25/25 10:00 02/03/25 09:20 25 MG Sodium Bicarbonate 1,300 mg TID PO 01/24/25 14:00 02/04/25 05:57 1,300 MG Furosemide 40 mg DAILY PO 01/24/25 14:15 02/03/25 09:21 40 MG Ursodiol 300 mg TID PO 01/24/25 22:00 02/04/25 05:57 300 MG Ceftriaxone Sodium 50 ml @ 100 mls/hr DAILY@09 IV 01/30/25 09:00 02/03/25 09:20 100 MLS/HR Methylprednisolone Sodium Succinate 20 mg DAILY IV 01/30/25 10:00 02/03/25 09:20 20 MG Docusate Sodium 100 mg BID PO 01/30/25 22:00 02/03/25 20:52 100 MG Morphine Sulfate 2 mg Q4HPRN PRN IV 01/30/25 14:00 Hold 01/30/25 14:21 2 MG Acyclovir Sodium 800 mg/Sodium Chloride 266 ml @ 266 mls/hr Q12HR IV 01/30/25 22:00 02/13/25 21:59 02/03/25 20:53 266 MLS/HR Dextrose/Sodium Chloride 1,000 ml @ 75 mls/hr [id number] IV 01/30/25 19:30 02/04/25 00:12 75 MLS/HR Acetaminophen/ Hydrocodone Bitart 1 tab Q6HP PRN PO 01/30/25 20:00 02/02/25 07:01 1 TAB Rifaximin 550 mg BID PO 02/02/25 22:00 02/03/25 20:53 550 MG Lactulose 30 ml Q6HR PO 02/03/25 14:00 02/04/25 05:57 30 ML Laboratory Results Laboratory Tests 02/03/25 03:08 02/04/25 03:15 Chemistry Test 02/04/25 03:15 Calcium Level 9.6 mg/dL (8.7-10.4) Urinalysis Test 01/20/25 13:25 01/29/25 18:32 01/29/25 18:33 Urine Creatinine 153.22 mg/dL (30.0-125.0) H Urine Test Negative (Negative) Urine Color Dark-yellow (Yellow) Urine Clarity Clear (Clear) Urine pH 5.5 (5.0-9.0) Urine Specific [place] 1.012 (1.001-1.035) Urine Protein 1+ (Negative) H Urine Ketones Negative (Negative) Urine Blood 2+ /uL (Negative) H Urine Nitrite Negative (Negative) Urine Bilirubin 1+ (Negative) H Urine Urobilinogen Normal mg/dL (Negative) Urine Leukocyte Esterase Negative /uL (Negative) Urine RBC 6 /hpf (0 - 4) Urine Microscopic WBC 2 /HPF (0-5) Urine Squamous Epithelial Cells Few /hpf (<5) Urine Amorphous Crystals Few /hpf (None Seen) Urine Bacteria None seen /hpf (None Seen) Urine Hyaline Casts Few /lpf (0 - 2) Urine Glucose Normal mg/dL (Normal) Urine Sodium 90 mmol/L (40-220) Microbiology Microbiology Date/Time Source Procedure Growth Status 02/02/25 16:52 Nose MRSA Screen - Final Complete 02/02/25 16:50 Urine - [place] Urine Culture - Preliminary Resulted 01/18/25 22:00 Blood Blood Culture - Final NO GROWTH AFTER 5 DAYS OF INCUBATION. Complete Labs and/or images reviewed: Labs reviewed by me, Image(s) reviewed by me Assessment/Plan Assessment/Plan Impression: -hepatic encephalopathy -hepatorenal failure -cirrhosis of the liver -severe leukocytosis -thrombocytopenia -? Sepsis -chronic anemia Plan: Events: No events overnight. Patient markedly more awake and following commands. -continue p.o. lactulose -rifaximin 550 mg p.o. b.i.d. -continue IV Solu-Medrol -GI consultation -hematology consultation: Bone marrow biopsy performed, reviewed results, unremarkable -transfer to telemetry floor Total time spent with patient discussing and formulating plan of care: 35 minutes. This medical document was created using an electronic medical record system with [employer] dictation system. Although this document has been carefully reviewed, there may still be some phonetic and typographical errors. These areas are purely typographical due to imperfections of the software programs, and do not reflect any compromise in the patient's medical care. Plan discussed with: Patient, Other (RN) My Orders Orders - VIANCA PADILLA NP Procedure Category Date Status Time Lactulose Oral PHA 02/03/25 In Process 14:00 Hepatic Diet DIET 02/03/25 Transmitted (50gmpro,2gmna) Breakfast Basic Metabolic Panel LAB 02/05/25 Verified 05:00 Ammonia LAB 02/05/25 Verified 05:00 Potassium Effervesent PHA 02/04/25 Logged Tab (Klor-Con/Ef) 06:30 Transfer Orders XFER 02/04/25 Transmitted 06:21 Birch Stain Slide LAB 02/04/25 Verified 06:25 Date of Service: Feb 04, 2025 Billing Provider: VIANCA PADILLA NP Common Visit Codes: [id number] INP/OBS CARE(HIGH) VIANCA PADILLA FRONT END ARCHITECT Feb 04, 2025 06:28
[2025-02-04] MEDS: POTASSIUM EFFERVESENT TAB 25 MEQ PO ONE (06:35)
--- NOTE | 2025-02-04 12:00 | MEDREC ---
[facility] Intervention Section I [facility] Intervention: Review courses of therapy (PLEASE CONSIDER D/C ACYCLOVIR SINCE CLINICAL BENEFIT IS LACKING FOR EBV) RENA TAVERA PHARMACIST Feb 04, 2025 12:00
--- NOTE | 2025-02-04 18:50 | DVHPN2 ---
Progress Note - Dictate Date Seen: Feb 04, 2025 Medical Necessity Reason Pt with a Central, PICC or Fol: Yes The following are medically ne: Flores Catheter Reason for flores catheter: Strict I&O Subjective Patient seen and examined at bedside. Remains on supplemental oxygen Overnight events reviewed. vital signs Vital Sign Date Time Temp Pulse Resp B/P (MAP) Pulse Ox O2 Delivery O2 Flow Rate FiO2 02/04/25 16:35 98.2 112 17 137/76 (96) 99 98.2 02/04/25 12:00 Room Air* 0 21 Total Intake and Output 02/03/25 02/03/25 02/04/25 15:00 23:00 07:00 Intake Total 600 ml 916 ml 660 ml Output Total 2550 ml 1550 ml Balance 600 ml -1634 ml -890 ml medications Current Medications Medications Dose Ordered Sig/Chris Route Start Time Stop Time Status Last Admin Dose Admin Ondansetron HCl 4 mg Q4HPRN PRN IV 01/19/25 05:30 01/19/25 02:51 4 MG Pantoprazole Sodium 40 mg BID IV 01/19/25 03:15 02/04/25 10:19 40 MG Sucralfate 1 gm BID@0600,2200 PO 01/19/25 06:00 02/04/25 05:57 1 GM Ergocalciferol 50,000 unit Q7D PO 01/19/25 12:00 02/02/25 11:40 50,000 UNIT Spironolactone 25 mg DAILY PO 01/25/25 10:00 02/04/25 10:21 25 MG Sodium Bicarbonate 1,300 mg TID PO 01/24/25 14:00 02/04/25 15:27 1,300 MG Furosemide 40 mg DAILY PO 01/24/25 14:15 02/04/25 10:20 40 MG Ursodiol 300 mg TID PO 01/24/25 22:00 02/04/25 05:57 300 MG Ceftriaxone Sodium 50 ml @ 100 mls/hr DAILY@09 IV 01/30/25 09:00 02/04/25 10:19 100 MLS/HR Methylprednisolone Sodium Succinate 20 mg DAILY IV 01/30/25 10:00 02/04/25 10:19 20 MG Docusate Sodium 100 mg BID PO 01/30/25 22:00 02/04/25 10:20 100 MG Morphine Sulfate 2 mg Q4HPRN PRN IV 01/30/25 14:00 Hold 01/30/25 14:21 2 MG Acyclovir Sodium 800 mg/Sodium Chloride 266 ml @ 266 mls/hr Q12HR IV 01/30/25 22:00 02/13/25 21:59 02/04/25 10:41 266 MLS/HR Dextrose/Sodium Chloride 1,000 ml @ 75 mls/hr [id number] IV 01/30/25 19:30 02/04/25 15:05 75 MLS/HR Acetaminophen/ Hydrocodone Bitart 1 tab Q6HP PRN PO 01/30/25 20:00 02/02/25 07:01 1 TAB Rifaximin 550 mg BID PO 02/02/25 22:00 02/04/25 10:20 550 MG Lactulose 30 ml Q6HR PO 02/03/25 14:00 02/04/25 17:17 30 ML objective Gen.: Patient lying in bed in no apparent distress. On supplemental oxygen. Head: Normocephalic, atraumatic. Eyes: EOMI/PERRLA. Ears: Normal hearing. Normal anatomy. Neck/trachea: Trachea midline, supple. Nose: Normal external anatomy. Mouth: Moist mucous membranes. Chest: Decreased air entry bilaterally. No wheezing or rhonchi. Cardiovascular: Positive S1, positive S2. Regular rate and rhythm. Abdomen: Positive bowel sounds in all 4 quadrants. Soft, non-tender, non- distended. : Deferred. Rectal: Deferred. Skin: Warm, dry. Intact. Extremities: 2+ radial pulses bilaterally. No lower extremity edema. Neuro: Awake, alert, oriented x3. No gross motor or sensory deficits. Cranial nerves II through XII intact. Gait not assessed. laboratory and microbiology Laboratory Tests 02/04/25 03:15 02/03/25 03:08 Test 02/04/25 03:15 Range/Units Serum Glucose 112 H 74-106 mg/dL Assessment/Plan Impression: Hepatic encephalopathy Cirrhosis of liver Leukocytosis Thrombocytopenia Hx of nicotine dependence ETOH use, quit 2 months ago Events: Remains on supplemental oxygen, 2 LPM NC Taper O2 as tolerated Jaundice Patient continues alert and oriented GI recommendations appreciated Patient is stable for downgrade from the pulmonary standpoint. Continue lactulose Continue steroids Continue antibiotics - rifaximin Continue antivirals Diurese as tolerated w/ Lasix Monitor renal function. Monitor electrolytes. Supplement as necessary. Potassium supplementation Labs and imaging reviewed. Rest of plan as noted below. Plan: Supplemental oxygen Titrate to keep O2 sats above 92%. Lactulose rectal and oral Steroids Diurese as tolerated w/ Lasix Monitor renal function. Monitor electrolytes. Supplement as necessary. Monitor ins and outs. Monitor WBC Monitor platelet count DVT prophylaxis. Prognosis: Poor given patient's multiple co-morbidities. Rest of plan per hospitalist and other consultants. Thank you, OSMANY Narayan, for allowing me to participate in this patient's care. Further recommendations will depend on the patient's clinical course. Please do not hesitate to contact me if you have any questions or concerns. This medical document was created using an electronic medical record system with [employer] dictation system. Although these documentations are being carefully reviewed, there may still be some phonetic and typographical changes. The errors are purely typographical, due to imperfection on the software program, and do not reflect any compromise in the patient's medical care. Dietary Evaluation Review Comments: 1. Continue current diet as tolerated 2. Encourage good oral intakes >75% of meals 3. Monitor I&Os, weight trends Expected Outcomes/Goals: Maintain adequate nutrition, stable hepatic fx vs. evaluation for liver transplant. Plan discussed with: Patient, Other (TONYA Krishna) GEORGINA ZHENG MD Feb 04, 2025 18:50
[2025-02-05] VITALS (8 sets, daily range): BP systolic 128–155; BP diastolic 70–88; PULSE 98–109; RESP 16–19; TEMP 97.4–98.2; O2SAT 97–100
[2025-02-05 05:23] LABS: Potassium 3.9 mmol/L (3.5-5.1); Sodium 144 mmol/L (136-145)
[2025-02-05 05:24] LABS: Anion Gap 12 (5-15); Calcium 9.2 mg/dL (8.7-10.4); Carbon Dioxide 22 mmol/L (20-31)
[2025-02-05 05:29] LABS: Glucose 102 mg/dL (74-106)
[2025-02-05 05:39] LABS: BUN/Creatinine Ratio 33.6 (10.0-20.0)
[2025-02-05 05:40] LABS: Blood Urea Nitrogen 50 mg/dL (9-23); Chloride 110 mmol/L (98-107)
[2025-02-05 10:25] LABS: Albumin 3.2 g/dL (3.2-4.8); Bilirubin, Total 18.7 mg/dL (0.2-1.0)
[2025-02-05] MEDS: predniSONE 20 MG TAB PO SCH (11:06)
--- NOTE | 2025-02-05 11:06 | DVHPN2 ---
Subjective update 02/05 01/27 - patient continues to do via her baseline. [facility] declined yesterday, [facility] decline due to not being in network with insurance, current plan to try for 1 more facility that is in network i.e. PCR. GI following as well with Nephrology. Leukocytosis continues to worsen. Workup does show patient has history of hep B infection, HSV 1 infection, CMV infection, EBV infection. Patient vital signs are stable. 02/05 - patient at her baseline today, she is bed-bound. She feels weak and unknown to ambulate. She was having some trouble with oral intake as well. She has rectal tube, Arment[place]. Both are jaundice color. Bowel movements are watery with some formed stools. White count is still elevated but improved down to 60s, she stays on ceftriaxone/acyclovir. Still on prednisone for acute alcoholic hepatitis. Need to touch base with workers on transfer plans for high level of care for eval by liver transplant. PET H level completed but not yet received by lab work, we will follow up with lab. Creatinine improving,. Patient neurovascular intact lower extremities we will need PT to help improve her ambulation status. We will get stool studies if negative we will start antidiarrheals. Reviewed: H&P Changes from previous H/P or p: No Changes General: Per HPI Objective Vitals Vital Signs Date Time Temp Pulse Resp B/P (MAP) Pulse Ox O2 Delivery O2 Flow Rate FiO2 02/05/25 09:00 97.4 98 17 130/71 (90) 100 97.4 02/04/25 20:05 Room Air* 0 21 Intake/Output Intake and Output 02/05/25 07:00 Intake Total 2882 ml Output Total 1950 ml Balance 932 ml Intake Oral 700 ml IV Total 2182 ml Output Urine Total 1050 ml Stool Total 900 ml Exam General Appearance: Icteric ,Alert, Oriented X3, Cooperative, mild distress HEENT: Atraumatic, PERRLA, EOMI,Yellow discoloration of the mucosa and sclera( icteric appearance) Respiratory: Clear to auscultation, Normal air movement Cardiovascular: Regular rate, Normal S1, Normal S2, No murmurs Abdominal:Mild tenderness, hepatomegaly, Normal bowel sounds, Soft, no ascites, tympanic. Extremities: Trace BLE edema+, No clubbing, No cyanosis, Normal pulses. Skin: Yellowish is skin discoloration but No rashes, No breakdown, No significant lesion Neuro: Normal gait, Normal speech, no sensory motor deficits Psych/Mental Status: Mental status NL, Mood NL General Appearance: Alert, Oriented X3 (X2), Cooperative, moderate distress HEENT: PERRLA, Other (Scleral icterus) Lungs: Clear to auscultation, Normal air movement Cardiovascular: Normal S1, Normal S2 Musculoskeletal: Weak motor strength RUE, Weak motor strength LUE, Weak motor strength RLE, Weak motor strength LLE Neuro: Other (Unable to assess) Skin: Dry, Intact, Warm, Other (Jaundice) Psych/Mental Status: Other (Encephalopathic) Medications Current Medications Medications Dose Ordered Sig/Chris Route Start Time Stop Time Status Last Admin Dose Admin Ondansetron HCl 4 mg Q4HPRN PRN IV 01/19/25 05:30 02/04/25 23:19 4 MG Pantoprazole Sodium 40 mg BID IV 01/19/25 03:15 02/04/25 21:45 40 MG Sucralfate 1 gm BID@0600,2200 PO 01/19/25 06:00 02/05/25 05:51 1 GM Ergocalciferol 50,000 unit Q7D PO 01/19/25 12:00 02/02/25 11:40 50,000 UNIT Spironolactone 25 mg DAILY PO 01/25/25 10:00 02/04/25 10:21 25 MG Sodium Bicarbonate 1,300 mg TID PO 01/24/25 14:00 02/05/25 05:51 1,300 MG Furosemide 40 mg DAILY PO 01/24/25 14:15 02/04/25 10:20 40 MG Ursodiol 300 mg TID PO 01/24/25 22:00 02/05/25 05:52 300 MG Ceftriaxone Sodium 50 ml @ 100 mls/hr DAILY@09 IV 01/30/25 09:00 02/04/25 10:19 100 MLS/HR Morphine Sulfate 2 mg Q4HPRN PRN IV 01/30/25 14:00 Hold 01/30/25 14:21 2 MG Acyclovir Sodium 800 mg/Sodium Chloride 266 ml @ 266 mls/hr Q12HR IV 01/30/25 22:00 02/13/25 21:59 02/04/25 22:05 266 MLS/HR Dextrose/Sodium Chloride 1,000 ml @ 75 mls/hr [id number] IV 01/30/25 19:30 02/05/25 05:52 75 MLS/HR Acetaminophen/ Hydrocodone Bitart 1 tab Q6HP PRN PO 01/30/25 20:00 02/02/25 07:01 1 TAB Rifaximin 550 mg BID PO 02/02/25 22:00 02/04/25 21:44 550 MG Lactulose 30 ml Q6HR PO 02/03/25 14:00 02/05/25 05:51 30 ML Prednisone 20 mg DAILY PO 02/05/25 10:00 Laboratory Results Laboratory Tests 02/03/25 03:08 02/05/25 04:35 Chemistry Test 02/05/25 04:35 Albumin 3.2 g/dL (3.2-4.8) Calcium Level 9.2 mg/dL (8.7-10.4) Total Protein Pending LFT Test 02/05/25 04:35 Alanine Aminotransferase (ALT) Pending Alkaline Phosphatase 233 U/L (46-116) H Aspartate Amino Transferase (AST) Pending Direct Bilirubin 14.0 mg/dL (<0.3) H Total Bilirubin 18.7 mg/dL (0.2-1.0) H Urinalysis Test 01/20/25 13:25 01/29/25 18:32 01/29/25 18:33 Urine Creatinine 153.22 mg/dL (30.0-125.0) H Urine Test Negative (Negative) Urine Color Dark-yellow (Yellow) Urine Clarity Clear (Clear) Urine pH 5.5 (5.0-9.0) Urine Specific Kimball 1.012 (1.001-1.035) Urine Protein 1+ (Negative) H Urine Ketones Negative (Negative) Urine Blood 2+ /uL (Negative) H Urine Nitrite Negative (Negative) Urine Bilirubin 1+ (Negative) H Urine Urobilinogen Normal mg/dL (Negative) Urine Leukocyte Esterase Negative /uL (Negative) Urine RBC 6 /hpf (0 - 4) Urine Microscopic WBC 2 /HPF (0-5) Urine Squamous Epithelial Cells Few /hpf (<5) Urine Amorphous Crystals Few /hpf (None Seen) Urine Bacteria None seen /hpf (None Seen) Urine Hyaline Casts Few /lpf (0 - 2) Urine Glucose Normal mg/dL (Normal) Urine Sodium 90 mmol/L (40-220) Microbiology Microbiology Date/Time Source Procedure Growth Status 02/02/25 16:52 Nose MRSA Screen - Final Complete 02/02/25 16:50 Urine - Arment[place] Port Urine Culture - Final Complete 01/18/25 22:00 Blood Blood Culture - Final NO GROWTH AFTER 5 DAYS OF INCUBATION. Complete Labs and/or images reviewed: Labs reviewed by me, Image(s) reviewed by me Assessment/Plan Assessment/Plan 02/05 - patient at her baseline today, she is bed-bound. She feels weak and unknown to ambulate. She was having some trouble with oral intake as well. She has rectal tube, Armenta. Both are jaundice color. Bowel movements are watery with some formed stools. White count is still elevated but improved down to 60s, she stays on ceftriaxone/acyclovir. Still on prednisone for acute alcoholic hepatitis. Need to touch base with workers on transfer plans for high level of care for eval by liver transplant. PET H level completed but not yet received by lab work, we will follow up with lab. Creatinine improving,. Patient neurovascular intact lower extremities we will need PT to help improve her ambulation status. We will get stool studies if negative we will start antidiarrheals. # Acute hepatic encephalopathy likely due to cirrhosis # SIRS/ Sepsis resolved # Acute on Chronic Decompensated Alcoholic hepatitis # Hepatic steatosis, Hepatomegaly & Transaminitis from above # Moderate malnutrition # Possible upper GI bleeding - Ultrasound shows enlarged liver measuring 24.5 cm demonstrates diffusely heterogeneous echogenicity - CT scan showed heterogeneous enlarged liver, with peripheral areas in the liver are very low in density on 12/25/24 - Maddrey score 53.5, and MELD score 37 point (with52.6% estimated 90 day mortality) - Bilirubin is very high but stable - Ammonia is 94>40 - IV Methylprednisolone 20 mg daily - IV Protonix 40 mg bid , Carafate 1 gm po bid & Lactulose 30 mL p.o. q8hr - IV ceftriaxone 1 g daily as per Infectious Disease recommendation - IV acyclovir 800 mg b.i.d. - Lasix 40 mg p.o. and spironolactone 25 mg p.o. daily - Ursodiol 300 mg po tid - Blood culture report revealed no growth in 24 hours of incubation - Pending stool occult test. - GI recommended transfer the patient to higher level of care for liver transplantation - mental health social worker working on the transfer to [facility]. # Chronic anemia, macrocytic hyperchromic due to alcoholism - Monitor lab - H&H stable # Hypertensive heart disease and possible chronic diastolic heart failure - Echo showed LVEF 60% with a LA enlargement, RVSP 40 - BP is on the lower side., Midodrine 10 mg p.o. t.i.d. # ZOILA on CKD likely due to to hepatorenal syndrome - IV Albumin - Hold midodrine - Sodium bicarb tablet 1300 mg p.o. t.i.d. - Nephrology sign off # Vitamin D deficiency - Vitamin D 71826 units Q 7D. 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 - leukemia lymphoma immuno typing and serum electrophoresis pending Renal diet Due to GI bleed, no anticoagulant is indicated Protonix BOWEL REGIMEN: Lactulose Plan discussed with: Patient My Orders Orders - NIC MORA MD Procedure Category Date Status Time Hepatic Panel LAB 02/05/25 In Process 09:57 Pt Request For Service PT 02/05/25 Logged 10:11 Stool Bacterial AUDRA 02/05/25 Uncollected Culture 10:11 Stool Wbc LAB 02/05/25 Logged 10:11 Lactulose Oral PHA 02/05/25 Logged 22:00 Pantoprazole PHA 02/06/25 Logged (Protonix) 10:00 Date of Service: Feb 05, 2025 Billing Provider: NIC MORA MD Common Visit Codes: [id number] INP/OBS CARE(HIGH) NIC MORA MD Feb 05, 2025 11:06
[2025-02-05 11:23] LABS: Total Protein 5.2 g/dL (5.7-8.2)
--- NOTE | 2025-02-05 12:04 | DVHPN2 ---
Progress Note Date Seen: Feb 05, 2025 Medical Necessity Reason Pt with a Central, PICC or Fol: Yes The following are medically ne: Flores Catheter Reason for flores catheter: Strict I&O Subjective Review of Systems: NEURO:Abnormal Other Systems: Patient seen and examined by myself today in follow-up Objective vital signs Vital Sign Date Time Temp Pulse Resp B/P (MAP) Pulse Ox O2 Delivery O2 Flow Rate FiO2 02/05/25 11:06 130/71 02/05/25 09:00 97.4 98 17 100 97.4 02/04/25 20:05 Room Air* 0 21 Total Intake and Output 02/04/25 02/04/25 02/05/25 15:00 23:00 07:00 Intake Total 841 ml 75 ml 1966 ml Output Total 600 ml 200 ml 1150 ml Balance 241 ml -125 ml 816 ml medications Current Medications Medications Dose Ordered Sig/Chris Route Start Time Stop Time Status Last Admin Dose Admin Ondansetron HCl 4 mg Q4HPRN PRN IV 01/19/25 05:30 02/04/25 23:19 4 MG Sucralfate 1 gm BID@0600,2200 PO 01/19/25 06:00 02/05/25 05:51 1 GM Ergocalciferol 50,000 unit Q7D PO 01/19/25 12:00 02/02/25 11:40 50,000 UNIT Spironolactone 25 mg DAILY PO 01/25/25 10:00 02/05/25 11:05 25 MG Sodium Bicarbonate 1,300 mg TID PO 01/24/25 14:00 02/05/25 05:51 1,300 MG Furosemide 40 mg DAILY PO 01/24/25 14:15 02/05/25 11:06 40 MG Ursodiol 300 mg TID PO 01/24/25 22:00 02/05/25 05:52 300 MG Ceftriaxone Sodium 50 ml @ 100 mls/hr DAILY@09 IV 01/30/25 09:00 02/05/25 11:05 100 MLS/HR Morphine Sulfate 2 mg Q4HPRN PRN IV 01/30/25 14:00 Hold 01/30/25 14:21 2 MG Acyclovir Sodium 800 mg/Sodium Chloride 266 ml @ 266 mls/hr Q12HR IV 01/30/25 22:00 02/13/25 21:59 02/04/25 22:05 266 MLS/HR Dextrose/Sodium Chloride 1,000 ml @ 75 mls/hr [id number] IV 01/30/25 19:30 02/05/25 05:52 75 MLS/HR Acetaminophen/ Hydrocodone Bitart 1 tab Q6HP PRN PO 01/30/25 20:00 02/02/25 07:01 1 TAB Rifaximin 550 mg BID PO 02/02/25 22:00 02/05/25 11:06 550 MG Prednisone 20 mg DAILY PO 02/05/25 10:00 02/05/25 11:06 20 MG Lactulose 30 ml BID PO 02/05/25 22:00 Pantoprazole Sodium 40 mg DAILY IV 02/06/25 10:00 Examination: LUNGS:Normal, CVS:Normal, MSK:Normal laboratory and microbiology Laboratory Tests 02/05/25 04:35 02/03/25 03:08 Test 02/05/25 04:35 Range/Units Serum Glucose 102 74-106 mg/dL Microbiology Date/Time Source Procedure Growth Status 02/02/25 16:52 Nose MRSA Screen - Final Complete 02/02/25 16:50 Urine - Flores Port Urine Culture - Final Complete 01/18/25 22:00 Blood Blood Culture - Final NO GROWTH AFTER 5 DAYS OF INCUBATION. Complete Problem List/Assessment/Plan Problem List/Assessment/Plan Acute kidney injury superimposed Chronic Kidney Disease secondary to hepatorenal syndrome Alcoholic Liver disease: Cirrhosis Jaundice Hypoalbuminemia Jaundice + hep B ag leukocytosis metabolic acidosis Hypokalemia Hyper natremia due to insensible water loss Recommendations Kidney function is improving Increased urine output Flores catheter Strict I&Os KCL replacement I agree with IV hypotonic fluid We will continue to follow Plan discussed with: Other (Nurse) Dietary Evaluation Review Comments: 1. Continue current diet as tolerated 2. Encourage good oral intakes >75% of meals 3. Monitor I&Os, weight trends Expected Outcomes/Goals: Maintain adequate nutrition, stable hepatic fx vs. evaluation for liver transplant. LILA SPAULDING MD Feb 05, 2025 12:03
[2025-02-05 18:41] LABS: INR 1.5 (0.9-1.15); Prothrombin Time 15.3 sec (9.3-11.8)
--- NOTE | 2025-02-05 19:15 | DVHDS2 ---
Discharge Summary Date of Admission Jan 19, 2025 at 01:18 Date of Discharge: Feb 05, 2025 Labs/Diagnostic Data: Laboratory Results Test 02/05/25 17:47 02/05/25 10:00 02/05/25 04:35 02/03/25 03:08 Prothrombin Time 15.3 sec (9.3-11.8) Prothrombin Time INR 1.50 (0.9-1.15) Stool for White Cells None seen Sodium Level 144 mmol/L (136-145) Potassium Level 3.9 mmol/L (3.5-5.1) Chloride Level 110 mmol/L (98-107) Carbon Dioxide Level 22 mmol/L (20-31) Anion Gap 12 (5-15) Blood Urea Nitrogen 50 mg/dL (9-23) Creatinine 1.49 mg/dL (0.550-1.02) Glomerular Filtration Rate Calc 44 mL/min (>90) BUN/Creatinine Ratio 33.6 (10.0-20.0) Serum Glucose 102 mg/dL (74-106) Calcium Level 9.2 mg/dL (8.7-10.4) Total Bilirubin 18.7 mg/dL (0.2-1.0) Direct Bilirubin 14.0 mg/dL (<0.3) Aspartate Amino Transferase (AST) 32 U/L (13-40) Alanine Aminotransferase (ALT) 38 U/L (7-40) Alkaline Phosphatase 233 U/L (46-116) Ammonia 37 umol/L (11-32) Total Protein 5.2 g/dL (5.7-8.2) Albumin 3.2 g/dL (3.2-4.8) White Blood Count 67.3 10^3/uL (4.4-10.8) Red Blood Count 2.50 10^6/uL (4.0-5.20) Hemoglobin 8.7 g/dL (12.2-16.2) Hematocrit 26.5 % (36.0-46.0) Mean Corpuscular Volume 106.0 fL (80.0-100.0) Mean Corpuscular Hemoglobin 34.6 pg (28.0-32.0) Mean Corpuscular Hemoglobin Concent 32.6 g/dL (32.0-36.0) Red Cell Distribution Width 20.0 % (11.8-14.3) Platelet Count 112 10^3/uL (140-450) Mean Platelet Volume 12.7 fL (6.9-10.8) Neutrophils (%) (Auto) % (37.0-80.0) Lymphocytes (%) (Auto) % (10.0-50.0) Monocytes (%) (Auto) % (0.0-12.0) Basophils (%) (Auto) % (0.0-2.0) Neutrophils # (Auto) 10 ^3/uL (1.6-8.6) Lymphocytes # (Auto) 10 ^3/uL (0.4-5.4) Monocytes # (Auto) 10 ^3/uL (0-1.3) Differential Total Cells Counted 100.0 (100) Neutrophils % (Manual) 86 (37.0-80.0) Band Neutrophils % (Manual) 4 Lymphocytes % (Manual) 2 (10.0-50.0) Monocytes % (Manual) 7 (0-12) Eosinophils % (Manual) 0 (0-7) Basophils % (Manual) 0 (0.0-2.0) Metamyelocytes % (manual) 1 Myelocytes % (Manual) 0 Promyelocytes % (Manual) 0 Blast Cells % (Manual) 0 Reactive Lymphocytes 0 Platelet Estimate Decreased Hypochromasia (manual) Slight Macrocytosis Slight Target Cells Moderate Stomatocytes Test 02/02/25 06:04 01/31/25 13:32 01/30/25 06:02 01/29/25 18:33 Nucleated Red Blood Cells 1.0 % Anisocytosis (manual) Slight Microcytosis Miscellaneous Referred Test (Refrg) Sent to [facility] Large Platelets Few Urine Sodium 90 mmol/L (40-220) Test 01/29/25 18:32 01/28/25 17:36 01/28/25 07:11 01/25/25 19:26 Urine Color Dark-yellow (Yellow) Urine Clarity Clear (Clear) Urine pH 5.5 (5.0-9.0) Urine Specific [place] 1.012 (1.001-1.035) Urine Protein 1+ (Negative) Urine Ketones Negative (Negative) Urine Blood 2+ /uL (Negative) Urine Nitrite Negative (Negative) Urine Bilirubin 1+ (Negative) Urine Urobilinogen Normal mg/dL (Negative) Urine Leukocyte Esterase Negative /uL (Negative) Urine RBC 6 /hpf (0 - 4) Urine Microscopic WBC 2 /HPF (0-5) Urine Squamous Epithelial Cells Few /hpf (<5) Urine Amorphous Crystals Few /hpf (None Seen) Urine Bacteria None seen /hpf (None Seen) Urine Hyaline Casts Few /lpf (0 - 2) Urine Glucose Normal mg/dL (Normal) Activated Partial Thromboplast Time 34.1 SEC (24.5-34.5) Hepatitis A IgM Antibody Negative Hepatitis B Surface Antigen Negative (Negative) Hepatitis B Core IgM Antibody Negative (Negative) Hepatitis C Antibody Negative (Negative) Miscellaneous Referred Test (Rm Tmp Sent to [facility] Test 01/25/25 14:13 01/25/25 11:58 01/25/25 05:39 01/23/25 11:23 Hepatitis B DNA Quant log IU/mL (.) Hepatitis B DNA (Units/mL) Hbv dna not detected IU/mL Blood Gas Specimen Type Arterial Blood Gas Sample Site Right radial Blood Gas Patient Temperature 37.0 Arterial Blood Date Drawn [id number] Arterial Blood pH 7.315 (7.350-7.450) Arterial Blood Partial Pressure CO2 20.6 mmHg (32.0-45.0) Arterial Blood Partial Pressure O2 101.3 mmHg (83.0-108.0) Arterial Blood HCO3 10.3 mmol/L (21.0-28.0) Arterial Blood Oxygen Saturation 97.5 % (94.0-98.0) Arterial Blood Base Excess -14.1 mmol/L (-2.0-3.0) Arterial Blood Oxyhemoglobin 96.5 % (94.0-98.0) Arterial Blood Carboxyhemoglobin 0.9 % (0.5-1.5) Arterial Blood Methemoglobin 0.1 % (0.0-1.5) Kirk Test Yes Blood Gas Total Hemoglobin 10.10 g/dL (12.0-16.0) Blood Gas Modality Room air FiO2 % 21.0 Hypersegmented Neutrophils Lymphoma/Leukemia Immunophenotyping Sent to [facility] Test 01/23/25 06:03 01/22/25 15:34 01/20/25 13:25 01/20/25 05:26 Reticulocyte Count (auto) 1.99 % (0.5-1.5) Haptoglobin 75 mg/dL (42-296) Lactate Dehydrogenase 170 U/L (120-246) Anti-Nuclear Antibody Screen Negative (Negative) Globulin (PEP) (.) Albumin/Globulin Ratio (.) Yycsv-6-Mpcofdnzr (.) Kxpjx-1-Ppxrtsqki (.) Beta Globulins (.) Gamma Globulins (.) Protein Electrophoresis M-Anthony (.) Protein Electrophoresis Note (.) Cytomegalovirus IgG Antibody >10.00 U/mL (0.00-0.59) Cytomegalovirus IgM Antibody <30.0 AU/mL (0.0-29.9) Pat-Schultz Virus Capsid Ag IgG Ab >600.0 U/mL (0.0-17.9) Pat-Schultz Virus Capsid Ag IgM Ab <36.0 U/mL (0.0-35.9) Pat-Schultz Early Antigen IgG Ab 137.0 U/mL (0.0-17.9) Pat-Schultz Virus Ab Interpret Comment (.) Herpes Simplex Virus I IgG Antibody Reactive (Non Reactive) Herpes Simplex Virus II IgG Ab Non reactive (Non Reactive) HIV (1&2) Antibody Negative (Negative) Urine Creatinine 153.22 mg/dL (30.0-125.0) Urine Test Negative (Negative) Urine Opiates Screen Neg (NEGATIVE) Urine Fentanyl Screen Neg (NEGATIVE) Urine Barbiturates Screen Neg (NEGATIVE) Urine Phencyclidine Screen Neg (NEGATIVE) Urine Amphetamines Screen Neg (NEGATIVE) Urine Benzodiazepines Screen Neg (NEGATIVE) Urine Cocaine Screen Neg (NEGATIVE) Urine Cannabinoids Screen Neg (NEGATIVE) Schistocytes Few Test 01/19/25 01:45 01/18/25 21:44 Clumped Platelets Few Iron Level 108 ug/dL (50-170) Total Iron Binding Capacity 194 ug/dL (250-425) Percent Iron Saturation 55.7 % (15-50) Ferritin 225.8 ng/mL (10-291) Vitamin B12 Level 1934 pg/mL (211-911) Vitamin D 25-Hydroxy 16.1 ng/mL (30.0-100) Plasma/Serum Blood Alcohol < 3.0 mg/dL (<10) Hepatitis A Antibody Total Positive (Negative) Hepatitis B Surface Antibody Negative (Negative) Hepatitis B Core Total Antibody Negative (Negative) Poikilocytosis (manual) Slight Lactic Acid Level 1.3 mmol/L (0.4-2.0) Troponin I High Sensitivity 10 ng/L (</=34) B-Type Natriuretic Peptide 469.52 pg/mL (0-100) Lipase 93 U/L (12-53) Other Laboratory Tests 02/05/25 04:35 02/03/25 03:08 Brief Hx & Hospital Course: HPI: 44-year-old female with past medical history hypertension and liver cirrhosis (due to alcohol) to the hospital due to body pain and generalized weakness. Also reports vomiting, fever, chest pain, constipation (black stool) and worsening of skin yellowish discoloration. She was discharged on 12/28/2024, from [facility], admitted due to liver failure. Since discharge the patient is not feeling well, which has progressively has worsened. She denies cough, shortness of breath, or any bladder habit changes. During previous admission she was seen by GI, recommended medical management. Has not undergone any paracentesis in the past. Summary: patient presented with vomit, fevers, chest pain, body aches, generalized weakness dark stools and worsening yellow discoloration of skin. Patient suffers from chronic etoh abuse and addiction. Patients last drink was november 2024. On admit labs patient was found to have hyperbilirubinemia with T bili up to 29, creatinine 3.27 ZOILA, hypoalbuminemia 3.0, AST elevated 59/19, significant leukocytosis 68.5, thrombocytosis 317, serum alcohol is near negative but non negative. UDS tox screen is negative.. On admit patient has MD F 53, and meld score 37. Patient was admitted for acute on chronic alcoholic cirrhosis and liver failure. GI consulted and patient was started on IV Solu- Medrol which was later deescalated to p.o. prednisolone daily. Stool occult blood is positive but patient was started on IV Protonix b.i.d. and Carafate 1 g b.i.d.. Patient was history of alcoholic hepatic encephalopathy and is started on lactulose 30 mL p.o. b.i.d. patient has ZOILA on CKD IV albumin with midodrine given but creatinine does not improve , leading diagnosis as likely hepatorenal syndrome. Patient has leukocytosis with neutrophilia decompensated liver failure concern for sepsis with low blood pressures and started on broad- spectrum antibiotics for possible sepsis. Patient was started on Zosyn and hematology consulted for leukocytosis which is likely leukemoid but needs to rule out leukemia. During the course of admission patient also develops ileus requiring NG tube and during this episode she also develops another episode hepatic encephalopathy which resolves when the ileus resolves. NG tube was removed. Given her history of alcohol abuse and admission for possible acute on chronic alcoholic liver failure patient meeting need for transplant but complicated by history of alcohol abuse. Transfer process has started, higher level symptoms recommending PTH level which returns negative. Given significant leukocytosis hematology works up as myeloma and bone marrow biopsy taken. Cytology comes back with CD 53 and bone marrow biopsy with myeloid precursors increased and no comments on concern for cancer. After multiple days of IV antibiotics including ceftriaxone and doxycycline there is continued increasing off leukocytosis. ID is consulted, EBV, CMV, HSV, HIV are positive. Patient was switched to acyclovir which least 2 mild improvement of leukocytosis. Patient given fluids resulting in volume overload and p.o. Lasix and spironolactone started later on which leads to improvement of volume status. Patient also started on prednisolone, ursodiol, lactulose, rifaximin, IV ceftriaxone, IV acyclovir, albumin, sodium bicarb leading to improvement in liver function and renal function. Patient develops diarrhea from q.i.d. lactulose which is scaled back and rifaximin continued. Rectal tube was inserted, Flores is inserted. Patient becoming weak and requiring physical therapy. After PTH level negative and bone marrow biopsy without concern for cancer, [facility] interested in evaluated patient. Patient was to be transferred to [facility] for liver transplant evaluation as per plan below. Diagnosis: Acute on chronic alcoholic liver failure Decompensated alcoholic cirrhosis Acute hepatic encephalopathy, resolved Leukocytosis, likely leukemoid reaction Sepsis due to GI source and/or SBP Status post ileus, resolved Moderate malnutrition Possible upper GI bleed ZOILA on CKD due to hepatorenal syndrome Chronic diastolic heart failure Hypertensive heart disease Vitamin-D deficiency History of EBV infection unable to rule out of acute infection History of CMV infection, unable to rule out acute infection history of HSV infection History of HAV infection discharge plan: -transfer [facility] for liver transplant evaluation -continue all medications on current DEC file -maintain telemetry, flores, iv access, remove rectal collection tube Condition at Discharge: Guarded Final Diagnosis/Problems List Acute on chronic alcoholic liver failure Decompensated alcoholic cirrhosis Acute hepatic encephalopathy, resolved Leukocytosis, likely leukemoid reaction Sepsis due to GI source and/or SBP Status post ileus, resolved Moderate malnutrition Possible upper GI bleed ZOILA on CKD due to hepatorenal syndrome Chronic diastolic heart failure Hypertensive heart disease Vitamin-D deficiency History of EBV infection unable to rule out of acute infection History of CMV infection, unable to rule out acute infection history of HSV infection History of HAV infection Discharge Disposition: Acute Care Facility Discharge Statement: "Patient was advised to return to the ER or call 911 if any headaches, dizziness, shortness of breath, chest pain, abdominal pain, bleeding, fevers, or worsening of medical condition. Patient was counseled about treatment plan, medications, possible side effects, patientverbalized understanding. All questions were answered to the best of my ability. This discharge took greater then 30 minutes in planning, reviewing documentation, counseling the patient, and discussing with other team members." ASSESSMENT ASSESSMENT Assessment Date of Service: Feb 05, 2025 Billing Provider: NIC MORA MD Common Visit Codes: 82157-JWG/OBS DISCH DAY >30min NIC MORA MD Feb 05, 2025 19:15
[2025-02-05] MEDS: LACTULOSE 20Gm/30ML SOLN PO SCH (21:15)
--- NOTE | 2025-02-05 21:52 | DVHPN2 ---
Progress Note - Dictate Date Seen: Feb 05, 2025 Medical Necessity Reason Pt with a Central, PICC or Fol: Yes The following are medically ne: Flores Catheter Reason for flores catheter: Strict I&O Subjective Patient seen at bedside, hemodynamically and clinically stable, not clinically worsening Scleral icterus and lower pedal edema improving Persistent elevation in liver enzymes, severe leukemoid reaction and leukocytosis; labs are trending down Patient has evidence of previous exposure to CMV Pat-Schultz and HSV although her IgM are negative Hepatitis-B surface antigen is negative and HBV DNA is negative and there was no evidence of active hepatitis-B at this time Patient hepatitis A IgM is negative vital signs Vital Sign Date Time Temp Pulse Resp B/P (MAP) Pulse Ox O2 Delivery O2 Flow Rate FiO2 02/05/25 21:00 98.2 101 16 132/70 (90) 100 98.2 02/05/25 08:05 Room Air* 0 21 Total Intake and Output 02/04/25 02/04/25 02/05/25 15:00 23:00 07:00 Intake Total 841 ml 75 ml 1966 ml Output Total 600 ml 200 ml 1150 ml Balance 241 ml -125 ml 816 ml medications Current Medications Medications Dose Ordered Sig/Chris Route Start Time Stop Time Status Last Admin Dose Admin Ondansetron HCl 4 mg Q4HPRN PRN IV 01/19/25 05:30 02/04/25 23:19 4 MG Sucralfate 1 gm BID@0600,2200 PO 01/19/25 06:00 02/05/25 21:15 1 GM Ergocalciferol 50,000 unit Q7D PO 01/19/25 12:00 02/02/25 11:40 50,000 UNIT Spironolactone 25 mg DAILY PO 01/25/25 10:00 02/05/25 11:05 25 MG Sodium Bicarbonate 1,300 mg TID PO 01/24/25 14:00 02/05/25 21:15 1,300 MG Furosemide 40 mg DAILY PO 01/24/25 14:15 02/05/25 11:06 40 MG Ursodiol 300 mg TID PO 01/24/25 22:00 02/05/25 21:15 300 MG Ceftriaxone Sodium 50 ml @ 100 mls/hr DAILY@09 IV 01/30/25 09:00 02/05/25 11:05 100 MLS/HR Morphine Sulfate 2 mg Q4HPRN PRN IV 01/30/25 14:00 Hold 01/30/25 14:21 2 MG Acyclovir Sodium 800 mg/Sodium Chloride 266 ml @ 266 mls/hr Q12HR IV 01/30/25 22:00 02/13/25 21:59 02/05/25 21:16 266 MLS/HR Dextrose/Sodium Chloride 1,000 ml @ 75 mls/hr [id number] IV 01/30/25 19:30 02/05/25 05:52 75 MLS/HR Acetaminophen/ Hydrocodone Bitart 1 tab Q6HP PRN PO 01/30/25 20:00 02/02/25 07:01 1 TAB Rifaximin 550 mg BID PO 02/02/25 22:00 02/05/25 21:15 550 MG Prednisone 20 mg DAILY PO 02/05/25 10:00 02/05/25 11:06 20 MG Lactulose 30 ml BID PO 02/05/25 22:00 02/05/25 21:15 30 ML Pantoprazole Sodium 40 mg DAILY IV 02/06/25 10:00 objective General Appearance: Icteric ,Alert, Oriented X3, Cooperative,no distress HEENT: Atraumatic, PERRLA, EOMI,Yellow discoloration of the mucosa and sclera( icteric appearance) Respiratory: Clear to auscultation, Normal air movement Cardiovascular: Regular rate, Normal S1, Normal S2, No murmurs Abdominal:Mild tenderness, hepatomegaly, Normal bowel sounds, Soft, no ascites, tympanic. Extremities: Trace BLE edema+, No clubbing, No cyanosis, Normal pulses. Skin: Yellowish is skin discoloration but No rashes, No breakdown, No significant lesion Neuro: Normal gait, Normal speech, no sensory motor deficits Psych/Mental Status: Mental status NL, Mood NL laboratory and microbiology Laboratory Tests 02/05/25 04:35 02/03/25 03:08 Test 02/05/25 04:35 Range/Units Serum Glucose 102 74-106 mg/dL Problems(with codes): (1) Jaundice (2) Leukocytosis (3) Leukemoid reaction (4) Viral illness (5) Acute renal injury (6) Lymphocytosis (7) Alcoholic cirrhosis of liver (8) Sepsis (9) Liver cirrhosis (10) Anemia Prognosis Plan Continue supportive care IV albumin if pedal edema persists Lactulose 30 mL p.o. twice a day Ursodiol 300 mg p.o. twice a day Prednisone change to 20 mg p.o. daily Monitor labs Peth level reported to be in normal range Supportive care Attempts are in progress to referred to transplant center Prognosis remains guarded Dietary Evaluation Review Comments: 1. Continue current diet as tolerated 2. Encourage good oral intakes >75% of meals 3. Monitor I&Os, weight trends Expected Outcomes/Goals: Maintain adequate nutrition, stable hepatic fx vs. evaluation for liver transplant. Plan discussed with: Patient, Other (Dr Andres) JUANA KNIGHT MD Feb 05, 2025 21:52
[2025-02-06] VITALS (8 sets, daily range): BP systolic 107–135; BP diastolic 58–80; PULSE 16–104; RESP 16–19; TEMP 97.1–98; O2SAT 97–100
[2025-02-06 06:31] LABS: Hematocrit 23.6 % (36.0-46.0); Hemoglobin 7.9 g/dL (12.2-16.2); Mean Corpuscular Hemoglobin 35.8 pg (28.0-32.0); Mean Corpuscular Hgb Conc. 33.5 g/dL (32.0-36.0); Mean Corpuscular Volume 107.1 fL (80.0-100.0); Platelet Count (auto) 101 10^3/uL (140-450); Red Cell Distribution Width 19.2 % (11.8-14.3)
[2025-02-06 06:38] LABS: INR 1.43 (0.9-1.15); Prothrombin Time 14.6 sec (9.3-11.8)
[2025-02-06 06:40] LABS: White Blood Cell 58.1 10^3/uL (4.4-10.8)
[2025-02-06 06:41] LABS: Basophils % (manual) 0 (0.0-2.0); Blast Cells 0; Eosinophils % (manual) 0 (0-7); Metamyelocytes % 0; Promyelocytes % 0; Reactive Lymphocytes 0
[2025-02-06 07:27] LABS: Band Neutrophils % (manual) 6; Lymphocytes % (manual) 3 (10.0-50.0); Macrocytosis Moderate; Monocytes % (manual) 1 (0-12); Myelocytes % 2; Platelet Estimate Decreased
[2025-02-06 07:28] LABS: Target Cell FEW
[2025-02-06 07:39] LABS: Anion Gap 13 (5-15); Glucose 82 mg/dL (74-106)
[2025-02-06 07:43] LABS: BUN/Creatinine Ratio 33.6 (10.0-20.0)
[2025-02-06 07:44] LABS: Alanine Aminotransferase 38 U/L (7-40); Albumin 3.1 g/dL (3.2-4.8); Alkaline Phosphatase 256 U/L (46-116); Aspartate Aminotransferase 34 U/L (13-40); Bilirubin, Total 18.5 mg/dL (0.2-1.0); Blood Urea Nitrogen 47 mg/dL (9-23); Carbon Dioxide 23 mmol/L (20-31); Chloride 108 mmol/L (98-107); Potassium 3.7 mmol/L (3.5-5.1); Sodium 144 mmol/L (136-145); Total Protein 5.2 g/dL (5.7-8.2)
[2025-02-06] MEDS: PANTOPRAZOLE 40 MG/10 ML VIAL INJ IV SCH (09:22)
[2025-02-06] MEDS: Ensure HIGH Protein Chocolate 8oz Bottle PO SCH (10:00)
--- NOTE | 2025-02-06 10:13 | DVHPN2 ---
Progress Note Date Seen: Feb 06, 2025 Medical Necessity Reason Pt with a Central, PICC or Fol: Yes The following are medically ne: Flores Catheter Reason for flores catheter: Strict I&O Subjective Patient reports: No new complaints Other Systems: Patient seen and examined by myself today in follow-up Objective vital signs Vital Sign Date Time Temp Pulse Resp B/P (MAP) Pulse Ox O2 Delivery O2 Flow Rate FiO2 02/06/25 09:24 128/71 02/06/25 09:00 97.7 101 18 100 97.7 02/05/25 20:00 Room Air* 0 21 Total Intake and Output 02/05/25 02/05/25 02/06/25 15:00 23:00 07:00 Intake Total 125 ml 1110 ml 1216 ml Output Total 1700 ml 1100 ml Balance 125 ml -590 ml 116 ml medications Current Medications Medications Dose Ordered Sig/Chris Route Start Time Stop Time Status Last Admin Dose Admin Ondansetron HCl 4 mg Q4HPRN PRN IV 01/19/25 05:30 02/04/25 23:19 4 MG Sucralfate 1 gm BID@0600,2200 PO 01/19/25 06:00 02/06/25 05:46 1 GM Ergocalciferol 50,000 unit Q7D PO 01/19/25 12:00 02/02/25 11:40 50,000 UNIT Spironolactone 25 mg DAILY PO 01/25/25 10:00 02/06/25 09:23 25 MG Sodium Bicarbonate 1,300 mg TID PO 01/24/25 14:00 02/06/25 05:46 1,300 MG Furosemide 40 mg DAILY PO 01/24/25 14:15 02/06/25 09:24 40 MG Ursodiol 300 mg TID PO 01/24/25 22:00 02/06/25 05:46 300 MG Ceftriaxone Sodium 50 ml @ 100 mls/hr DAILY@09 IV 01/30/25 09:00 02/06/25 09:22 100 MLS/HR Morphine Sulfate 2 mg Q4HPRN PRN IV 01/30/25 14:00 Hold 01/30/25 14:21 2 MG Acyclovir Sodium 800 mg/Sodium Chloride 266 ml @ 266 mls/hr Q12HR IV 01/30/25 22:00 02/13/25 21:59 4/7/25 21:16 266 MLS/HR Dextrose/Sodium Chloride 1,000 ml @ 75 mls/hr [id number] IV 01/30/25 19:30 02/05/25 05:52 75 MLS/HR Acetaminophen/ Hydrocodone Bitart 1 tab Q6HP PRN PO 01/30/25 20:00 02/02/25 07:01 1 TAB Rifaximin 550 mg BID PO 02/02/25 22:00 02/06/25 09:26 550 MG Prednisone 20 mg DAILY PO 02/05/25 10:00 02/06/25 09:23 20 MG Lactulose 30 ml BID PO 02/05/25 22:00 02/06/25 09:23 30 ML Pantoprazole Sodium 40 mg DAILY IV 02/06/25 10:00 02/06/25 09:22 40 MG Thiamine HCl 100 mg DAILY PO 02/06/25 10:00 UNV Folic Acid 1 mg DAILY PO 02/06/25 10:00 UNV Multivitamins 1 tab DAILY PO 02/06/25 10:00 UNV Enteral Nutritional Formula 240 ml BIDWM PO 02/06/25 10:00 UNV Examination: LUNGS:Normal, CVS:Normal, MSK:Normal laboratory and microbiology Laboratory Tests 02/06/25 05:13 Test 02/06/25 05:13 Range/Units Serum Glucose 82 74-106 mg/dL Microbiology Date/Time Source Procedure Growth Status 02/05/25 10:00 Stool Stool Culture - Preliminary Resulted 02/05/25 10:00 Stool Shiga Toxin I & II - Final Resulted 02/02/25 16:52 Nose MRSA Screen - Final Complete 02/02/25 16:50 Urine - Flores Port Urine Culture - Final Complete 01/18/25 22:00 Blood Blood Culture - Final NO GROWTH AFTER 5 DAYS OF INCUBATION. Complete Problem List/Assessment/Plan Problem List/Assessment/Plan Acute kidney injury superimposed Chronic Kidney Disease secondary to hepatorenal syndrome Alcoholic liver cirrhosis Jaundice Hypoalbuminemia leukocytosis, leukemoid reaction per Hematology Hypokalemia, replace Hypernatremia due to insensible water loss, resolved Recommendations Kidney function is improving Increased urine output Flores catheter Strict I&Os KCL replacement I agree with IV hypotonic fluid We will continue to follow Plan discussed with: Patient Dietary Evaluation Review Comments: 1. Continue current diet as tolerated 2. Encourage good oral intakes >75% of meals 3. Monitor I&Os, weight trends Expected Outcomes/Goals: Maintain adequate nutrition, stable hepatic fx vs. evaluation for liver transplant. LILA SPAULDING MD Feb 06, 2025 10:13
[2025-02-06] MEDS: THIAMINE HCL 100 MG TAB PO SCH (11:57)
[2025-02-06] MEDS: FOLIC ACID 1 MG TAB PO SCH (11:57)
[2025-02-06] MEDS: MULTIPLE VITAMIN TAB PO SCH (11:57)
--- NOTE | 2025-02-06 17:46 | DVHPN2 ---
Subjective update 02/05 01/27 - patient continues to do via her baseline. [facility] declined yesterday, [facility] decline due to not being in network with insurance, current plan to try for 1 more facility that is in network i.e. PCR. GI following as well with Nephrology. Leukocytosis continues to worsen. Workup does show patient has history of hep B infection, HSV 1 infection, CMV infection, EBV infection. Patient vital signs are stable. 02/05 - patient at her baseline today, she is bed-bound. She feels weak and unknown to ambulate. She was having some trouble with oral intake as well. She has rectal tube, [place]. Both are jaundice color. Bowel movements are watery with some formed stools. White count is still elevated but improved down to 60s, she stays on ceftriaxone/acyclovir. Still on prednisone for acute alcoholic hepatitis. Need to touch base with workers on transfer plans for high level of care for eval by liver transplant. PET H level completed but not yet received by lab work, we will follow up with lab. Creatinine improving,. Patient neurovascular intact lower extremities we will need PT to help improve her ambulation status. We will get stool studies if negative we will start antidiarrheals. - update 02/05 patient gets upset elected to [facility] for transplant eval 02/06- patient remains at her baseline. We will remove rectal tube today. PT to continue. We will add multivitamins and high-protein boost. Goal to improve patient's mobility today. Continue transfer to [facility] for transplant eval. Labs are stable. Exam unchanged patient was A&O x3 still. Reviewed: H&P Changes from previous H/P or p: No Changes General: Per HPI Objective Vitals Vital Signs Date Time Temp Pulse Resp B/P (MAP) Pulse Ox O2 Delivery O2 Flow Rate FiO2 02/06/25 17:00 97.8 104 18 113/72 (86) 99 97.8 02/06/25 07:37 Room Air* 0 21 Intake/Output Intake and Output 02/06/25 06:59 Intake Total 2451 ml Output Total 2800 ml Balance -349 ml Intake Oral 1910 ml IV Total 541 ml Output Urine Total 2800 ml # Bowel Movements 4 Exam General Appearance: Icteric ,Alert, Oriented X3, Cooperative, mild distress HEENT: Atraumatic, PERRLA, EOMI,Yellow discoloration of the mucosa and sclera( icteric appearance) Respiratory: Clear to auscultation, Normal air movement Cardiovascular: Regular rate, Normal S1, Normal S2, No murmurs Abdominal:Mild tenderness, hepatomegaly, Normal bowel sounds, Soft, no ascites, tympanic. Extremities: Trace BLE edema+, No clubbing, No cyanosis, Normal pulses. Skin: Yellowish is skin discoloration but No rashes, No breakdown, No significant lesion Neuro: Normal gait, Normal speech, no sensory motor deficits Psych/Mental Status: Mental status NL, Mood NL General Appearance: Alert, Oriented X3 (X2), Cooperative, moderate distress HEENT: PERRLA, Other (Scleral icterus) Lungs: Clear to auscultation, Normal air movement Cardiovascular: Normal S1, Normal S2 Musculoskeletal: Weak motor strength RUE, Weak motor strength LUE, Weak motor strength RLE, Weak motor strength LLE Neuro: Other (Unable to assess) Skin: Dry, Intact, Warm, Other (Jaundice) Psych/Mental Status: Other (Encephalopathic) Medications Current Medications Medications Dose Ordered Sig/Chris Route Start Time Stop Time Status Last Admin Dose Admin Ondansetron HCl 4 mg Q4HPRN PRN IV 01/19/25 05:30 02/04/25 23:19 4 MG Sucralfate 1 gm BID@0600,2200 PO 01/19/25 06:00 02/06/25 05:46 1 GM Ergocalciferol 50,000 unit Q7D PO 01/19/25 12:00 02/02/25 11:40 50,000 UNIT Spironolactone 25 mg DAILY PO 01/25/25 10:00 02/06/25 09:23 25 MG Sodium Bicarbonate 1,300 mg TID PO 01/24/25 14:00 02/06/25 16:16 1,300 MG Furosemide 40 mg DAILY PO 01/24/25 14:15 02/06/25 09:24 40 MG Ursodiol 300 mg TID PO 01/24/25 22:00 02/06/25 16:16 300 MG Ceftriaxone Sodium 50 ml @ 100 mls/hr DAILY@09 IV 01/30/25 09:00 02/06/25 09:22 100 MLS/HR Morphine Sulfate 2 mg Q4HPRN PRN IV 01/30/25 14:00 Hold 01/30/25 14:21 2 MG Acyclovir Sodium 800 mg/Sodium Chloride 266 ml @ 266 mls/hr Q12HR IV 01/30/25 22:00 02/13/25 21:59 02/06/25 11:40 266 MLS/HR Dextrose/Sodium Chloride 1,000 ml @ 75 mls/hr [id number] IV 01/30/25 19:30 02/05/25 05:52 75 MLS/HR Acetaminophen/ Hydrocodone Bitart 1 tab Q6HP PRN PO 01/30/25 20:00 02/02/25 07:01 1 TAB Rifaximin 550 mg BID PO 02/02/25 22:00 02/06/25 09:26 550 MG Prednisone 20 mg DAILY PO 02/05/25 10:00 02/06/25 09:23 20 MG Lactulose 30 ml BID PO 02/05/25 22:00 02/06/25 09:23 30 ML Pantoprazole Sodium 40 mg DAILY IV 02/06/25 10:00 02/06/25 09:22 40 MG Thiamine HCl 100 mg DAILY PO 02/06/25 10:00 02/06/25 11:57 100 MG Folic Acid 1 mg DAILY PO 02/06/25 10:00 02/06/25 11:57 1 MG Multivitamins 1 tab DAILY PO 02/06/25 10:00 02/06/25 11:57 1 TAB Enteral Nutritional Formula 240 ml BIDWM PO 02/06/25 10:00 Laboratory Results Laboratory Tests 02/06/25 05:13 Chemistry Test 02/06/25 05:13 Albumin 3.1 g/dL (3.2-4.8) L Calcium Level 9.0 mg/dL (8.7-10.4) Total Protein 5.2 g/dL (5.7-8.2) L Coagulation Test 02/05/25 17:47 02/06/25 05:13 Prothrombin Time 15.3 sec (9.3-11.8) H 14.6 sec (9.3-11.8) H Prothrombin Time INR 1.50 (0.9-1.15) H 1.43 (0.9-1.15) H LFT Test 02/06/25 05:13 Alanine Aminotransferase (ALT) 38 U/L (7-40) Alkaline Phosphatase 256 U/L (46-116) H Aspartate Amino Transferase (AST) 34 U/L (13-40) Total Bilirubin 18.5 mg/dL (0.2-1.0) H Urinalysis Test 01/20/25 13:25 01/29/25 18:32 01/29/25 18:33 Urine Creatinine 153.22 mg/dL (30.0-125.0) H Urine Test Negative (Negative) Urine Color Dark-yellow (Yellow) Urine Clarity Clear (Clear) Urine pH 5.5 (5.0-9.0) Urine Specific [place] 1.012 (1.001-1.035) Urine Protein 1+ (Negative) H Urine Ketones Negative (Negative) Urine Blood 2+ /uL (Negative) H Urine Nitrite Negative (Negative) Urine Bilirubin 1+ (Negative) H Urine Urobilinogen Normal mg/dL (Negative) Urine Leukocyte Esterase Negative /uL (Negative) Urine RBC 6 /hpf (0 - 4) Urine Microscopic WBC 2 /HPF (0-5) Urine Squamous Epithelial Cells Few /hpf (<5) Urine Amorphous Crystals Few /hpf (None Seen) Urine Bacteria None seen /hpf (None Seen) Urine Hyaline Casts Few /lpf (0 - 2) Urine Glucose Normal mg/dL (Normal) Urine Sodium 90 mmol/L (40-220) Microbiology Microbiology Date/Time Source Procedure Growth Status 02/05/25 10:00 Stool Stool Culture - Preliminary Resulted 02/05/25 10:00 Stool Shiga Toxin I & II - Final Resulted 02/02/25 16:52 Nose MRSA Screen - Final Complete 02/02/25 16:50 Urine - [place] Port Urine Culture - Final Complete 01/18/25 22:00 Blood Blood Culture - Final NO GROWTH AFTER 5 DAYS OF INCUBATION. Complete Labs and/or images reviewed: Labs reviewed by me, Image(s) reviewed by me Assessment/Plan Assessment/Plan 02/06- patient remains at her baseline. We will remove rectal tube today. PT to continue. We will add multivitamins and high-protein boost. Goal to improve patient's mobility today. Continue transfer to [facility] for transplant eval. Labs are stable. Exam unchanged patient was A&O x3 still. # Acute hepatic encephalopathy likely due to cirrhosis # Acute on Chronic Decompensated Alcoholic hepatitis # SIRS/ Sepsis resolved # Hepatic steatosis, Hepatomegaly & Transaminitis from above # Moderate malnutrition # Possible upper GI bleeding - Ultrasound shows enlarged liver measuring 24.5 cm demonstrates diffusely heterogeneous echogenicity - CT scan showed heterogeneous enlarged liver, with peripheral areas in the liver are very low in density on 12/25/24 - Maddrey score 53.5, and MELD score 37 point (with52.6% estimated 90 day mortality) - Bilirubin is very high but stable - Ammonia is 94>40 - po prednisolone 20 mg daily - IV Protonix 40 mg bid , Carafate 1 gm po bid & Lactulose 30 mL p.o. q8hr - IV ceftriaxone 1 g daily as per Infectious Disease recommendation - IV acyclovir 800 mg b.i.d. - Lasix 40 mg p.o. and spironolactone 25 mg p.o. daily - Ursodiol 300 mg po tid - Blood culture report revealed no growth in 24 hours of incubation - GI recommended transfer the patient to higher level of care for liver transplantation - patient was admitted to [facility] for transplant eval. Continue transfer plans. # Chronic anemia, macrocytic hyperchromic due to alcoholism - Monitor lab - H&H stable # Hypertensive heart disease and possible chronic diastolic heart failure - Echo showed LVEF 60% with a LA enlargement, RVSP 40 - BP is on the lower side., Midodrine 10 mg p.o. t.i.d. # ZOILA on CKD likely due to to hepatorenal syndrome - IV Albumin - Hold midodrine - Sodium bicarb tablet 1300 mg p.o. t.i.d. - Nephrology sign off # Vitamin D deficiency - Vitamin D 16391 units Q 7D. 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 - leukemia lymphoma immuno typing and serum electrophoresis pending Renal diet Due to GI bleed, no anticoagulant is indicated Protonix BOWEL REGIMEN: Lactulose Plan discussed with: Patient My Orders Orders - NIC MORA MD Procedure Category Date Status Time Discharge DISCHARGE 02/05/25 Transmitted 18:47 Thiamine Tab PHA 02/06/25 In Process 10:00 Folic Acid Tablet PHA 02/06/25 In Process 10:00 Multiple Vitamin PHA 02/06/25 In Process Tablet (Mvi Tab) 10:00 Nutritional PHA 02/06/25 In Process Supplements (Ensure 10:00 Date of Service: Feb 06, 2025 Billing Provider: NIC MORA MD Common Visit Codes: 69330-[id number] INP/OBS CARE(HIGH) NIC MORA MD Feb 06, 2025 17:46
--- NOTE | 2025-02-06 20:32 | DVHPN2 ---
Progress Note - Dictate Date Seen: Feb 06, 2025 Medical Necessity Reason Pt with a Central, PICC or Fol: Yes The following are medically ne: Flores Catheter Reason for flores catheter: Strict I&O Subjective No new complaints Pt remains at baseline Labs are stable vital signs Vital Sign Date Time Temp Pulse Resp B/P (MAP) Pulse Ox O2 Delivery O2 Flow Rate FiO2 02/06/25 17:00 97.8 104 18 113/72 (86) 99 97.8 02/06/25 07:37 Room Air* 0 21 Total Intake and Output 02/05/25 02/05/25 02/06/25 14:59 22:59 06:59 Intake Total 125 ml 1110 ml 1216 ml Output Total 1700 ml 1100 ml Balance 125 ml -590 ml 116 ml medications Current Medications Medications Dose Ordered Sig/Chris Route Start Time Stop Time Status Last Admin Dose Admin Ondansetron HCl 4 mg Q4HPRN PRN IV 01/19/25 05:30 02/04/25 23:19 4 MG Sucralfate 1 gm BID@0600,2200 PO 01/19/25 06:00 02/06/25 05:46 1 GM Ergocalciferol 50,000 unit Q7D PO 01/19/25 12:00 02/02/25 11:40 50,000 UNIT Spironolactone 25 mg DAILY PO 01/25/25 10:00 02/06/25 09:23 25 MG Sodium Bicarbonate 1,300 mg TID PO 01/24/25 14:00 02/06/25 16:16 1,300 MG Furosemide 40 mg DAILY PO 01/24/25 14:15 02/06/25 09:24 40 MG Ursodiol 300 mg TID PO 01/24/25 22:00 02/06/25 16:16 300 MG Ceftriaxone Sodium 50 ml @ 100 mls/hr DAILY@09 IV 01/30/25 09:00 02/06/25 09:22 100 MLS/HR Morphine Sulfate 2 mg Q4HPRN PRN IV 01/30/25 14:00 Hold 01/30/25 14:21 2 MG Acyclovir Sodium 800 mg/Sodium Chloride 266 ml @ 266 mls/hr Q12HR IV 01/30/25 22:00 02/13/25 21:59 02/06/25 11:40 266 MLS/HR Dextrose/Sodium Chloride 1,000 ml @ 75 mls/hr [id number] IV 01/30/25 19:30 02/05/25 05:52 75 MLS/HR Acetaminophen/ Hydrocodone Bitart 1 tab Q6HP PRN PO 01/30/25 20:00 02/02/25 07:01 1 TAB Rifaximin 550 mg BID PO 02/02/25 22:00 02/06/25 09:26 550 MG Prednisone 20 mg DAILY PO 02/05/25 10:00 02/06/25 09:23 20 MG Lactulose 30 ml BID PO 02/05/25 22:00 02/06/25 09:23 30 ML Pantoprazole Sodium 40 mg DAILY IV 02/06/25 10:00 02/06/25 09:22 40 MG Thiamine HCl 100 mg DAILY PO 02/06/25 10:00 02/06/25 11:57 100 MG Folic Acid 1 mg DAILY PO 02/06/25 10:00 02/06/25 11:57 1 MG Multivitamins 1 tab DAILY PO 02/06/25 10:00 02/06/25 11:57 1 TAB Enteral Nutritional Formula 240 ml BIDWM PO 02/06/25 10:00 02/06/25 18:00 240 ML objective General Appearance: Icteric ,Alert, Oriented X3, Cooperative,no distress HEENT: Atraumatic, PERRLA, EOMI,Yellow discoloration of the mucosa and sclera( icteric appearance) Respiratory: Clear to auscultation, Normal air movement Cardiovascular: Regular rate, Normal S1, Normal S2, No murmurs Abdominal:Mild tenderness, hepatomegaly, Normal bowel sounds, Soft, no ascites, tympanic. Extremities: Trace BLE edema+, No clubbing, No cyanosis, Normal pulses. Skin: Yellowish is skin discoloration but No rashes, No breakdown, No significant lesion Neuro: Normal gait, Normal speech, no sensory motor deficits Psych/Mental Status: Mental status NL, Mood NL laboratory and microbiology Laboratory Tests 02/06/25 05:13 Test 02/06/25 05:13 Range/Units Serum Glucose 82 74-106 mg/dL Problems(with codes): (1) Jaundice (2) Leukocytosis (3) Leukemoid reaction (4) Lymphocytosis (5) Alcoholic cirrhosis of liver (6) Sepsis (7) Liver cirrhosis Prognosis PLAN Remove rectal tube today. PT to continue. We will add multivitamins and high-protein boost. 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 Dietary Evaluation Review Comments: 1. Continue current diet as tolerated 2. Encourage good oral intakes >75% of meals 3. Monitor I&Os, weight trends Expected Outcomes/Goals: Maintain adequate nutrition, stable hepatic fx vs. evaluation for liver transplant. Plan discussed with: Patient, Other JUANA KNIGHT MD Feb 06, 2025 20:31
[2025-02-07] VITALS (8 sets, daily range): BP systolic 106–126; BP diastolic 43–76; PULSE 95–103; RESP 16–17; TEMP 97.3–98.2; O2SAT 95–100
[2025-02-07 06:50] LABS: INR 1.48 (0.9-1.15); Prothrombin Time 15.1 sec (9.3-11.8)
[2025-02-07 07:15] LABS: Hemoglobin 7.9 g/dL (12.2-16.2)
[2025-02-07 07:20] LABS: Hematocrit 23.8 % (36.0-46.0); Mean Corpuscular Hemoglobin 35.7 pg (28.0-32.0); Mean Corpuscular Hgb Conc. 33.1 g/dL (32.0-36.0); Mean Corpuscular Volume 107.8 fL (80.0-100.0); Platelet Count (auto) 96 10^3/uL (140-450); Red Blood Cells 2.21 10^6/uL (4.0-5.20); Red Cell Distribution Width 18.9 % (11.8-14.3)
[2025-02-07 07:28] LABS: White Blood Cell 49.1 10^3/uL (4.4-10.8)
[2025-02-07 07:29] LABS: Basophils % (manual) 0 (0.0-2.0); Myelocytes % 0; Promyelocytes % 0; Reactive Lymphocytes 0
[2025-02-07 08:08] LABS: Anion Gap 14 (5-15); Calcium 8.8 mg/dL (8.7-10.4); Carbon Dioxide 24 mmol/L (20-31); Glucose 83 mg/dL (74-106)
[2025-02-07 08:09] LABS: Alanine Aminotransferase 41 U/L (7-40); Alkaline Phosphatase 269 U/L (46-116); Aspartate Aminotransferase 32 U/L (13-40); BUN/Creatinine Ratio 32.2 (10.0-20.0); Bilirubin, Total 18.6 mg/dL (0.2-1.0); Blood Urea Nitrogen 47 mg/dL (9-23); Chloride 104 mmol/L (98-107); Potassium 3.6 mmol/L (3.5-5.1); Sodium 142 mmol/L (136-145)
[2025-02-07 08:10] LABS: Albumin 3.2 g/dL (3.2-4.8); Total Protein 5.3 g/dL (5.7-8.2)
--- NOTE | 2025-02-07 10:13 | DVH ---
Clinical History: RLE more swollen. r/o DVT Comparison: None Technique: Duplex Doppler evaluation of the deep venous system of the right lower extremity from the common femo ral vein to the popliteal vein including color Doppler and spectral/pulsed waveform analysis was perf ormed. Findings: The common femoral vein demonstrates appropriate compressibility and waveform variability. There is compressibility/patency of the great saphenous vein at the proximal thigh. The femoral vein demonstrates appropriate compressibility and waveform variability. The deep femoral vein demonstrates appropriate compressibility and waveform variability. The popliteal vein demonstrates appropriate compressibility and waveform variability. There is normal compressibility at the tibioperoneal trunk. Impression: No rightdeep venous thrombosis. If clinical concern/symptoms persist or worsen, short-interval follow-up study is suggested.
[2025-02-07 10:16] LABS: Band Neutrophils % (manual) 36; Blast Cells 2; Eosinophils % (manual) 2 (0-7); Lymphocytes % (manual) 6 (10.0-50.0); Metamyelocytes % 2; Monocytes % (manual) 3 (0-12); Platelet Estimate Decreased
[2025-02-07 10:17] LABS: Macrocytosis Moderate
--- NOTE | 2025-02-07 12:10 | DVHPN2 ---
Progress Note Date Seen: Feb 07, 2025 Medical Necessity Reason Pt with a Central, PICC or Fol: Yes The following are medically ne: Flores Catheter Reason for flores catheter: Strict I&O Subjective Patient reports: No new complaints Other Systems: Patient seen and examined by myself today in follow-up Objective vital signs Vital Sign Date Time Temp Pulse Resp B/P (MAP) Pulse Ox O2 Delivery O2 Flow Rate FiO2 02/07/25 11:33 126/76 02/07/25 09:13 97.3 96 16 99 97.3 02/06/25 20:00 Room Air* 0 21 Total Intake and Output 02/06/25 02/06/25 02/07/25 15:00 23:00 07:00 Intake Total 300 ml 1066 ml 1475 ml Output Total 950 ml 1700 ml Balance 300 ml 116 ml -225 ml medications Current Medications Medications Dose Ordered Sig/Chris Route Start Time Stop Time Status Last Admin Dose Admin Ondansetron HCl 4 mg Q4HPRN PRN IV 01/19/25 05:30 02/04/25 23:19 4 MG Sucralfate 1 gm BID@0600,2200 PO 01/19/25 06:00 02/07/25 05:17 1 GM Ergocalciferol 50,000 unit Q7D PO 01/19/25 12:00 02/02/25 11:40 50,000 UNIT Spironolactone 25 mg DAILY PO 01/25/25 10:00 02/07/25 11:25 25 MG Sodium Bicarbonate 1,300 mg TID PO 01/24/25 14:00 02/07/25 05:17 1,300 MG Furosemide 40 mg DAILY PO 01/24/25 14:15 02/07/25 11:33 40 MG Ursodiol 300 mg TID PO 01/24/25 22:00 02/07/25 05:17 300 MG Ceftriaxone Sodium 50 ml @ 100 mls/hr DAILY@09 IV 01/30/25 09:00 02/07/25 11:32 100 MLS/HR Morphine Sulfate 2 mg Q4HPRN PRN IV 01/30/25 14:00 Hold 01/30/25 14:21 2 MG Acyclovir Sodium 800 mg/Sodium Chloride 266 ml @ 266 mls/hr Q12HR IV 01/30/25 22:00 02/13/25 21:59 4/8/25 21:43 266 MLS/HR Dextrose/Sodium Chloride 1,000 ml @ 75 mls/hr [id number] IV 01/30/25 19:30 02/07/25 01:31 75 MLS/HR Acetaminophen/ Hydrocodone Bitart 1 tab Q6HP PRN PO 01/30/25 20:00 02/02/25 07:01 1 TAB Rifaximin 550 mg BID PO 02/02/25 22:00 02/07/25 11:25 550 MG Prednisone 20 mg DAILY PO 02/05/25 10:00 02/07/25 11:25 20 MG Lactulose 30 ml BID PO 02/05/25 22:00 02/07/25 11:26 30 ML Pantoprazole Sodium 40 mg DAILY IV 02/06/25 10:00 02/07/25 11:23 40 MG Thiamine HCl 100 mg DAILY PO 02/06/25 10:00 02/07/25 11:35 100 MG Folic Acid 1 mg DAILY PO 02/06/25 10:00 02/07/25 11:25 1 MG Multivitamins 1 tab DAILY PO 02/06/25 10:00 02/07/25 11:25 1 TAB Enteral Nutritional Formula 240 ml BIDWM PO 02/06/25 10:00 02/06/25 18:00 240 ML Examination: LUNGS:Normal, CVS:Normal, MSK:Normal laboratory and microbiology Laboratory Tests 02/07/25 05:04 Test 02/07/25 05:04 Range/Units Serum Glucose 83 74-106 mg/dL Microbiology Date/Time Source Procedure Growth Status 02/05/25 10:00 Stool Stool Culture - Preliminary Resulted 02/05/25 10:00 Stool Shiga Toxin I & II - Final Resulted 02/02/25 16:52 Nose MRSA Screen - Final Complete 02/02/25 16:50 Urine - [place] Port Urine Culture - Final Complete 01/18/25 22:00 Blood Blood Culture - Final NO GROWTH AFTER 5 DAYS OF INCUBATION. Complete Problem List/Assessment/Plan Problem List/Assessment/Plan Acute kidney injury superimposed Chronic Kidney Disease secondary to hepatorenal syndrome Alcoholic liver cirrhosis Jaundice Hypoalbuminemia leukocytosis, leukemoid reaction per Hematology Hypokalemia, replace Hypernatremia due to insensible water loss, resolved Recommendations Kidney function is improving Increased urine output Flores catheter Strict I&Os KCL replacement I agree with IV hypotonic fluid We will continue to follow Plan discussed with: Patient Dietary Evaluation Review Comments: 1. Continue current diet as tolerated 2. Encourage good oral intakes >75% of meals 3. Monitor I&Os, weight trends Expected Outcomes/Goals: Maintain adequate nutrition, stable hepatic fx vs. evaluation for liver transplant. LILA SPAULDING MD Feb 07, 2025 12:10
--- NOTE | 2025-02-07 17:49 | DVHPN2 ---
Subjective update 02/07 01/27 - patient continues to do via her baseline. [facility] declined yesterday, [facility] decline due to not being in network with insurance, current plan to try for 1 more facility that is in network i.e. PCR. GI following as well with Nephrology. Leukocytosis continues to worsen. Workup does show patient has history of hep B infection, HSV 1 infection, CMV infection, EBV infection. Patient vital signs are stable. 02/05 - patient at her baseline today, she is bed-bound. She feels weak and unknown to ambulate. She was having some trouble with oral intake as well. She has rectal tube, Flores. Both are jaundice color. Bowel movements are watery with some formed stools. White count is still elevated but improved down to 60s, she stays on ceftriaxone/acyclovir. Still on prednisone for acute alcoholic hepatitis. Need to touch base with workers on transfer plans for high level of care for eval by liver transplant. PET H level completed but not yet received by lab work, we will follow up with lab. Creatinine improving,. Patient neurovascular intact lower extremities we will need PT to help improve her ambulation status. We will get stool studies if negative we will start antidiarrheals. - update 02/05 patient gets upset elected to [facility] for transplant eval 02/06- patient remains at her baseline. We will remove rectal tube today. PT to continue. We will add multivitamins and high-protein boost. Goal to improve patient's mobility today. Continue transfer to [facility] for transplant eval. Labs are stable. Exam unchanged patient was A&O x3 still. 02/07 - patient doing well. labs looking stable. stable for transfer. in comunicataion with Dr mchugh at [facility]. patient w/o complains . will remove flores today. continue supplement protein drinks and PT. encourage ambulation. Reviewed: H&P Changes from previous H/P or p: No Changes General: Per HPI Objective Vitals Vital Signs Date Time Temp Pulse Resp B/P (MAP) Pulse Ox O2 Delivery O2 Flow Rate FiO2 02/07/25 13:01 98.1 103 16 118/68 (85) 100 98.1 02/07/25 08:00 Room Air* 0 21 Intake/Output Intake and Output 02/07/25 07:00 Intake Total 2841 ml Output Total 2650 ml Balance 191 ml Intake Oral 1300 ml IV Total 1541 ml Output Urine Total 2650 ml # Bowel Movements 3 Exam General Appearance: Icteric ,Alert, Oriented X3, Cooperative, mild distress HEENT: Atraumatic, PERRLA, EOMI,Yellow discoloration of the mucosa and sclera( icteric appearance) Respiratory: Clear to auscultation, Normal air movement Cardiovascular: Regular rate, Normal S1, Normal S2, No murmurs Abdominal:Mild tenderness, hepatomegaly, Normal bowel sounds, Soft, no ascites, tympanic. Extremities: Trace BLE edema+, No clubbing, No cyanosis, Normal pulses. Skin: Yellowish is skin discoloration but No rashes, No breakdown, No significant lesion Neuro: Normal gait, Normal speech, no sensory motor deficits Psych/Mental Status: Mental status NL, Mood NL General Appearance: Alert, Oriented X3 (X2), Cooperative, moderate distress HEENT: PERRLA, Other (Scleral icterus) Lungs: Clear to auscultation, Normal air movement Cardiovascular: Normal S1, Normal S2 Musculoskeletal: Weak motor strength RUE, Weak motor strength LUE, Weak motor strength RLE, Weak motor strength LLE Neuro: Other (Unable to assess) Skin: Dry, Intact, Warm, Other (Jaundice) Psych/Mental Status: Other (Encephalopathic) Medications Current Medications Medications Dose Ordered Sig/Chris Route Start Time Stop Time Status Last Admin Dose Admin Ondansetron HCl 4 mg Q4HPRN PRN IV 01/19/25 05:30 02/04/25 23:19 4 MG Sucralfate 1 gm BID@0600,2200 PO 01/19/25 06:00 02/07/25 05:17 1 GM Ergocalciferol 50,000 unit Q7D PO 01/19/25 12:00 02/02/25 11:40 50,000 UNIT Spironolactone 25 mg DAILY PO 01/25/25 10:00 02/07/25 11:25 25 MG Sodium Bicarbonate 1,300 mg TID PO 01/24/25 14:00 02/07/25 15:38 1,300 MG Furosemide 40 mg DAILY PO 01/24/25 14:15 02/07/25 11:33 40 MG Ursodiol 300 mg TID PO 01/24/25 22:00 02/07/25 14:00 300 MG Ceftriaxone Sodium 50 ml @ 100 mls/hr DAILY@09 IV 01/30/25 09:00 02/07/25 11:32 100 MLS/HR Morphine Sulfate 2 mg Q4HPRN PRN IV 01/30/25 14:00 Hold 01/30/25 14:21 2 MG Acyclovir Sodium 800 mg/Sodium Chloride 266 ml @ 266 mls/hr Q12HR IV 01/30/25 22:00 02/13/25 21:59 02/07/25 12:57 266 MLS/HR Dextrose/Sodium Chloride 1,000 ml @ 75 mls/hr [id number] IV 01/30/25 19:30 02/07/25 15:51 75 MLS/HR Acetaminophen/ Hydrocodone Bitart 1 tab Q6HP PRN PO 01/30/25 20:00 02/02/25 07:01 1 TAB Rifaximin 550 mg BID PO 02/02/25 22:00 02/07/25 11:25 550 MG Prednisone 20 mg DAILY PO 02/05/25 10:00 02/07/25 11:25 20 MG Lactulose 30 ml BID PO 02/05/25 22:00 02/07/25 11:26 30 ML Pantoprazole Sodium 40 mg DAILY IV 02/06/25 10:00 02/07/25 11:23 40 MG Thiamine HCl 100 mg DAILY PO 02/06/25 10:00 02/07/25 11:35 100 MG Folic Acid 1 mg DAILY PO 02/06/25 10:00 02/07/25 11:25 1 MG Multivitamins 1 tab DAILY PO 02/06/25 10:00 02/07/25 11:25 1 TAB Enteral Nutritional Formula 240 ml BIDWM PO 02/06/25 10:00 02/07/25 08:00 240 ML Laboratory Results Laboratory Tests 02/07/25 05:04 Chemistry Test 02/07/25 05:04 Albumin 3.2 g/dL (3.2-4.8) Calcium Level 8.8 mg/dL (8.7-10.4) Total Protein 5.3 g/dL (5.7-8.2) L Coagulation Test 02/07/25 05:04 Prothrombin Time 15.1 sec (9.3-11.8) H Prothrombin Time INR 1.48 (0.9-1.15) H LFT Test 02/07/25 05:04 Alanine Aminotransferase (ALT) 41 U/L (7-40) H Alkaline Phosphatase 269 U/L (46-116) H Aspartate Amino Transferase (AST) 32 U/L (13-40) Total Bilirubin 18.6 mg/dL (0.2-1.0) H Urinalysis Test 01/20/25 13:25 01/29/25 18:32 01/29/25 18:33 Urine Creatinine 153.22 mg/dL (30.0-125.0) H Urine Test Negative (Negative) Urine Color Dark-yellow (Yellow) Urine Clarity Clear (Clear) Urine pH 5.5 (5.0-9.0) Urine Specific [place] 1.012 (1.001-1.035) Urine Protein 1+ (Negative) H Urine Ketones Negative (Negative) Urine Blood 2+ /uL (Negative) H Urine Nitrite Negative (Negative) Urine Bilirubin 1+ (Negative) H Urine Urobilinogen Normal mg/dL (Negative) Urine Leukocyte Esterase Negative /uL (Negative) Urine RBC 6 /hpf (0 - 4) Urine Microscopic WBC 2 /HPF (0-5) Urine Squamous Epithelial Cells Few /hpf (<5) Urine Amorphous Crystals Few /hpf (None Seen) Urine Bacteria None seen /hpf (None Seen) Urine Hyaline Casts Few /lpf (0 - 2) Urine Glucose Normal mg/dL (Normal) Urine Sodium 90 mmol/L (40-220) Microbiology Microbiology Date/Time Source Procedure Growth Status 02/05/25 10:00 Stool Stool Culture - Preliminary Resulted 02/05/25 10:00 Stool Shiga Toxin I & II - Final Resulted 02/02/25 16:52 Nose MRSA Screen - Final Complete 02/02/25 16:50 Urine - Flores Port Urine Culture - Final Complete 01/18/25 22:00 Blood Blood Culture - Final NO GROWTH AFTER 5 DAYS OF INCUBATION. Complete Labs and/or images reviewed: Labs reviewed by me, Image(s) reviewed by me Assessment/Plan Assessment/Plan 02/07 - patient doing well. labs looking stable. stable for transfer. in comunicataion with Dr mchugh at [facility]. patient w/o complains . will remove flores today. continue supplement protein drinks and PT. encourage ambulation. # Acute hepatic encephalopathy likely due to cirrhosis # Acute on Chronic Decompensated Alcoholic hepatitis # SIRS/ Sepsis resolved # Hepatic steatosis, Hepatomegaly & Transaminitis from above # Moderate malnutrition # Possible upper GI bleeding - Ultrasound shows enlarged liver measuring 24.5 cm demonstrates diffusely heterogeneous echogenicity - CT scan showed heterogeneous enlarged liver, with peripheral areas in the liver are very low in density on 12/25/24 - Maddrey score 53.5, and MELD score 37 point (with52.6% estimated 90 day mortality) - Bilirubin is very high but stable - Ammonia is 94>40 - po prednisolone 20 mg daily - IV Protonix 40 mg bid , Carafate 1 gm po bid & Lactulose 30 mL p.o. q8hr - IV ceftriaxone 1 g daily as per Infectious Disease recommendation - IV acyclovir 800 mg b.i.d. - Lasix 40 mg p.o. and spironolactone 25 mg p.o. daily - Ursodiol 300 mg po tid - Blood culture report revealed no growth in 24 hours of incubation - GI recommended transfer the patient to higher level of care for liver transplantation - patient was admitted to [facility] for transplant eval. Continue transfer plans. # Chronic anemia, macrocytic hyperchromic due to alcoholism - Monitor lab - H&H stable # Hypertensive heart disease and possible chronic diastolic heart failure - Echo showed LVEF 60% with a LA enlargement, RVSP 40 - BP is on the lower side., Midodrine 10 mg p.o. t.i.d. # ZOILA on CKD likely due to to hepatorenal syndrome - IV Albumin - Hold midodrine - Sodium bicarb tablet 1300 mg p.o. t.i.d. - Nephrology sign off # Vitamin D deficiency - Vitamin D 76699 units Q 7D. 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 - leukemia lymphoma immuno typing and serum electrophoresis pending Renal diet Due to GI bleed, no anticoagulant is indicated Protonix BOWEL REGIMEN: Lactulose Plan discussed with: Patient My Orders Orders - NIC MORA MD Procedure Category Date Status Time Rt Lower Dvt US 02/07/25 Resulted 09:06 Date of Service: Feb 07, 2025 Billing Provider: NIC MORA MD Common Visit Codes: [id number] INP/OBS CARE(HIGH) NIC MORA MD Feb 07, 2025 17:49
--- NOTE | 2025-02-07 23:14 | DVHPN2 ---
Progress Note - Dictate Date Seen: Feb 07, 2025 Medical Necessity Reason Pt with a Central, PICC or Fol: Yes The following are medically ne: Flores Catheter Reason for flores catheter: Strict I&O Subjective No new complaints Pt remains at baseline Labs are stable vital signs Vital Sign Date Time Temp Pulse Resp B/P (MAP) Pulse Ox O2 Delivery O2 Flow Rate FiO2 02/07/25 17:00 98.0 101 17 110/64 (79) 97 98.0 02/07/25 08:00 Room Air* 0 21 Total Intake and Output 02/06/25 02/06/25 02/07/25 15:00 23:00 07:00 Intake Total 300 ml 1066 ml 1475 ml Output Total 950 ml 1700 ml Balance 300 ml 116 ml -225 ml medications Current Medications Medications Dose Ordered Sig/Chris Route Start Time Stop Time Status Last Admin Dose Admin Ondansetron HCl 4 mg Q4HPRN PRN IV 01/19/25 05:30 02/04/25 23:19 4 MG Sucralfate 1 gm BID@0600,2200 PO 01/19/25 06:00 02/07/25 22:21 1 GM Ergocalciferol 50,000 unit Q7D PO 01/19/25 12:00 02/02/25 11:40 50,000 UNIT Spironolactone 25 mg DAILY PO 01/25/25 10:00 02/07/25 11:25 25 MG Sodium Bicarbonate 1,300 mg TID PO 01/24/25 14:00 02/07/25 22:22 1,300 MG Furosemide 40 mg DAILY PO 01/24/25 14:15 02/07/25 11:33 40 MG Ursodiol 300 mg TID PO 01/24/25 22:00 02/07/25 22:21 300 MG Ceftriaxone Sodium 50 ml @ 100 mls/hr DAILY@09 IV 01/30/25 09:00 02/07/25 11:32 100 MLS/HR Morphine Sulfate 2 mg Q4HPRN PRN IV 01/30/25 14:00 Hold 01/30/25 14:21 2 MG Acyclovir Sodium 800 mg/Sodium Chloride 266 ml @ 266 mls/hr Q12HR IV 01/30/25 22:00 02/13/25 21:59 02/07/25 22:20 266 MLS/HR Dextrose/Sodium Chloride 1,000 ml @ 75 mls/hr [id number] IV 01/30/25 19:30 02/07/25 15:51 75 MLS/HR Acetaminophen/ Hydrocodone Bitart 1 tab Q6HP PRN PO 01/30/25 20:00 02/02/25 07:01 1 TAB Rifaximin 550 mg BID PO 02/02/25 22:00 02/07/25 22:21 550 MG Prednisone 20 mg DAILY PO 02/05/25 10:00 02/07/25 11:25 20 MG Lactulose 30 ml BID PO 02/05/25 22:00 02/07/25 22:22 30 ML Pantoprazole Sodium 40 mg DAILY IV 02/06/25 10:00 02/07/25 11:23 40 MG Thiamine HCl 100 mg DAILY PO 02/06/25 10:00 02/07/25 11:35 100 MG Folic Acid 1 mg DAILY PO 02/06/25 10:00 02/07/25 11:25 1 MG Multivitamins 1 tab DAILY PO 02/06/25 10:00 02/07/25 11:25 1 TAB Enteral Nutritional Formula 240 ml BIDWM PO 02/06/25 10:00 02/07/25 18:00 240 ML objective General Appearance: Icteric ,Alert, Oriented X3, Cooperative,no distress HEENT: Atraumatic, PERRLA, EOMI,Yellow discoloration of the mucosa and sclera( icteric appearance) Respiratory: Clear to auscultation, Normal air movement Cardiovascular: Regular rate, Normal S1, Normal S2, No murmurs Abdominal:Mild tenderness, hepatomegaly, Normal bowel sounds, Soft, no ascites, tympanic. Extremities: Trace BLE edema+, No clubbing, No cyanosis, Normal pulses. 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 Remove flores today. Rectal tube removed, continue supplement protein drinks and PT. encourage ambulation. Continue current medical management, patient is slowly improving, continue lactulose Dietary Evaluation Review Comments: 1. Continue current diet as tolerated 2. Encourage good oral intakes >75% of meals 3. Monitor I&Os, weight trends Expected Outcomes/Goals: Maintain adequate nutrition, stable hepatic fx vs. evaluation for liver transplant. Plan discussed with: Patient JUANA KNIGHT MD Feb 07, 2025 23:14
[2025-02-08] VITALS (9 sets, daily range): BP systolic 105–121; BP diastolic 64–75; PULSE 90–100; RESP 16–20; TEMP 97.6–98; O2SAT 96–100
[2025-02-08 07:14] LABS: Hematocrit 22.5 % (36.0-46.0); Hemoglobin 7.5 g/dL (12.2-16.2); Mean Corpuscular Hemoglobin 35.8 pg (28.0-32.0); Mean Corpuscular Hgb Conc. 33.1 g/dL (32.0-36.0); Mean Corpuscular Volume 108.3 fL (80.0-100.0); Platelet Count (auto) 85 10^3/uL (140-450); Red Blood Cells 2.08 10^6/uL (4.0-5.20); Red Cell Distribution Width 19.1 % (11.8-14.3)
[2025-02-08 07:22] LABS: Alanine Aminotransferase 36 U/L (7-40); Anion Gap 13 (5-15); Carbon Dioxide 22 mmol/L (20-31); Chloride 104 mmol/L (98-107); Glucose 75 mg/dL (74-106); Potassium 3.9 mmol/L (3.5-5.1); Sodium 139 mmol/L (136-145)
[2025-02-08 07:23] LABS: Aspartate Aminotransferase 33 U/L (13-40)
[2025-02-08 07:24] LABS: Albumin 2.8 g/dL (3.2-4.8); Alkaline Phosphatase 263 U/L (46-116); Bilirubin, Total 16.3 mg/dL (0.2-1.0); Blood Urea Nitrogen 42 mg/dL (9-23); Calcium 8.4 mg/dL (8.7-10.4)
[2025-02-08 07:33] LABS: Basophils % (manual) 0 (0.0-2.0); Myelocytes % 0; Promyelocytes % 0; Reactive Lymphocytes 0
[2025-02-08 08:12] LABS: BUN/Creatinine Ratio 31.1 (10.0-20.0); Total Protein 5.1 g/dL (5.7-8.2)
[2025-02-08 09:11] LABS: Band Neutrophils % (manual) 32; Blast Cells 2; Eosinophils % (manual) 1 (0-7); Lymphocytes % (manual) 8 (10.0-50.0); Macrocytosis Moderate; Metamyelocytes % 2; Monocytes % (manual) 5 (0-12); Platelet Estimate Decreased
[2025-02-08 11:31] LABS: INR 1.45 (0.9-1.15); Prothrombin Time 14.8 sec (9.3-11.8)
--- NOTE | 2025-02-08 14:01 | DVHPN2 ---
Progress Note Date Seen: Feb 08, 2025 Medical Necessity Reason Pt with a Central, PICC or Fol: Yes The following are medically ne: Flores Catheter Reason for flores catheter: Strict I&O Subjective Patient reports: No new complaints Other Systems: Patient seen and examined by myself today in follow-up Objective vital signs Vital Sign Date Time Temp Pulse Resp B/P (MAP) Pulse Ox O2 Delivery O2 Flow Rate FiO2 02/08/25 13:00 97.8 91 16 121/71 (88) 100 97.8 02/08/25 08:00 Room Air* 0 21 Total Intake and Output 02/07/25 02/07/25 02/08/25 14:59 22:59 06:59 Intake Total 50 ml 266 ml 1666 ml Balance 50 ml 266 ml 1666 ml medications Current Medications Medications Dose Ordered Sig/Chris Route Start Time Stop Time Status Last Admin Dose Admin Ondansetron HCl 4 mg Q4HPRN PRN IV 01/19/25 05:30 02/04/25 23:19 4 MG Sucralfate 1 gm BID@0600,2200 PO 01/19/25 06:00 02/08/25 06:38 1 GM Ergocalciferol 50,000 unit Q7D PO 01/19/25 12:00 02/02/25 11:40 50,000 UNIT Spironolactone 25 mg DAILY PO 01/25/25 10:00 02/08/25 09:32 25 MG Sodium Bicarbonate 1,300 mg TID PO 01/24/25 14:00 02/08/25 06:38 1,300 MG Furosemide 40 mg DAILY PO 01/24/25 14:15 02/08/25 09:32 40 MG Ursodiol 300 mg TID PO 01/24/25 22:00 02/08/25 06:38 300 MG Ceftriaxone Sodium 50 ml @ 100 mls/hr DAILY@09 IV 01/30/25 09:00 02/08/25 09:31 100 MLS/HR Morphine Sulfate 2 mg Q4HPRN PRN IV 01/30/25 14:00 Hold 01/30/25 14:21 2 MG Acyclovir Sodium 800 mg/Sodium Chloride 266 ml @ 266 mls/hr Q12HR IV 01/30/25 22:00 02/13/25 21:59 02/08/25 09:49 266 MLS/HR Dextrose/Sodium Chloride 1,000 ml @ 75 mls/hr [id number] IV 01/30/25 19:30 02/08/25 06:43 75 MLS/HR Acetaminophen/ Hydrocodone Bitart 1 tab Q6HP PRN PO 01/30/25 20:00 02/02/25 07:01 1 TAB Rifaximin 550 mg BID PO 02/02/25 22:00 02/08/25 09:32 550 MG Prednisone 20 mg DAILY PO 02/05/25 10:00 02/08/25 09:32 20 MG Lactulose 30 ml BID PO 02/05/25 22:00 02/08/25 09:31 30 ML Pantoprazole Sodium 40 mg DAILY IV 02/06/25 10:00 02/08/25 09:31 40 MG Thiamine HCl 100 mg DAILY PO 02/06/25 10:00 02/08/25 09:31 100 MG Folic Acid 1 mg DAILY PO 02/06/25 10:00 02/08/25 09:31 1 MG Multivitamins 1 tab DAILY PO 02/06/25 10:00 02/08/25 09:32 1 TAB Enteral Nutritional Formula 240 ml BIDWM PO 02/06/25 10:00 02/08/25 09:30 240 ML Examination: LUNGS:Normal, CVS:Normal, MSK:Normal laboratory and microbiology Laboratory Tests 02/08/25 04:54 Test 02/08/25 04:54 Range/Units Serum Glucose 75 74-106 mg/dL Microbiology Date/Time Source Procedure Growth Status 02/05/25 10:00 Stool Stool Culture - Preliminary Resulted 02/05/25 10:00 Stool Shiga Toxin I & II - Final Resulted 02/02/25 16:52 Nose MRSA Screen - Final Complete 02/02/25 16:50 Urine - Flores Port Urine Culture - Final Complete 01/18/25 22:00 Blood Blood Culture - Final NO GROWTH AFTER 5 DAYS OF INCUBATION. Complete Problem List/Assessment/Plan Problem List/Assessment/Plan Acute kidney injury superimposed Chronic Kidney Disease secondary to hepatorenal syndrome Alcoholic liver cirrhosis Jaundice Hypoalbuminemia leukocytosis, leukemoid reaction per Hematology Hypokalemia, replace Hypernatremia due to insensible water loss, resolved Recommendations Kidney function is improving Increased urine output Flores catheter Strict I&Os KCL replacement Noted plan to transfer to [facility] for liver transplant evaluation We will continue to follow Plan discussed with: Patient Dietary Evaluation Review Comments: 1. Continue current diet as tolerated 2. Encourage good oral intakes >75% of meals 3. Monitor I&Os, weight trends Expected Outcomes/Goals: Maintain adequate nutrition, stable hepatic fx vs. evaluation for liver transplant. LILA SPAULDING MD Feb 08, 2025 14:01
--- NOTE | 2025-02-08 16:40 | DVHPN2 ---
Subjective update 02/08 01/27 - patient continues to do via her baseline. [facility] declined yesterday, [facility] decline due to not being in network with insurance, current plan to try for 1 more facility that is in network i.e. PCR. GI following as well with Nephrology. Leukocytosis continues to worsen. Workup does show patient has history of hep B infection, HSV 1 infection, CMV infection, EBV infection. Patient vital signs are stable. 02/05 - patient at her baseline today, she is bed-bound. She feels weak and unknown to ambulate. She was having some trouble with oral intake as well. She has rectal tube, Flores. Both are jaundice color. Bowel movements are watery with some formed stools. White count is still elevated but improved down to 60s, she stays on ceftriaxone/acyclovir. Still on prednisone for acute alcoholic hepatitis. Need to touch base with workers on transfer plans for high level of care for eval by liver transplant. PET H level completed but not yet received by lab work, we will follow up with lab. Creatinine improving,. Patient neurovascular intact lower extremities we will need PT to help improve her ambulation status. We will get stool studies if negative we will start antidiarrheals. - update 02/05 patient gets upset elected to [facility] for transplant eval 02/06- patient remains at her baseline. We will remove rectal tube today. PT to continue. We will add multivitamins and high-protein boost. Goal to improve patient's mobility today. Continue transfer to [facility] for transplant eval. Labs are stable. Exam unchanged patient was A&O x3 still. 02/07 - patient doing well. labs looking stable. stable for transfer. in comunicataion with Dr mchugh at [facility]. patient w/o complains . will remove flores today. continue supplement protein drinks and PT. encourage ambulation. 02/08 - doing well. stable. labs stable. pending bed in [facility] for liver transplant team eval. flores and rectal tube removed, using BSC. working with PT. u/s without DVT (right). SCDs when doing bedrest, otherwise encourage OOB. family at bedside, as usual supportive. Reviewed: H&P Changes from previous H/P or p: No Changes General: Per HPI Objective Vitals Vital Signs Date Time Temp Pulse Resp B/P (MAP) Pulse Ox O2 Delivery O2 Flow Rate FiO2 02/08/25 13:00 97.8 91 16 121/71 (88) 100 97.8 02/08/25 08:00 Room Air* 0 21 Intake/Output Intake and Output 02/08/25 07:00 Intake Total 1982 ml Balance 1982 ml Intake Oral 400 ml IV Total 1582 ml # Voids 6 # Bowel Movements 7 Exam General Appearance: Icteric ,Alert, Oriented X3, Cooperative, mild distress HEENT: Atraumatic, PERRLA, EOMI,Yellow discoloration of the mucosa and sclera( icteric appearance) Respiratory: Clear to auscultation, Normal air movement Cardiovascular: Regular rate, Normal S1, Normal S2, No murmurs Abdominal:Mild tenderness, hepatomegaly, Normal bowel sounds, Soft, no ascites, tympanic. Extremities: Trace BLE edema+, No clubbing, No cyanosis, Normal pulses. Skin: Yellowish is skin discoloration but No rashes, No breakdown, No significant lesion Neuro: Normal gait, Normal speech, no sensory motor deficits Psych/Mental Status: Mental status NL, Mood NL Neuro: Other (Unable to assess) Medications Current Medications Medications Dose Ordered Sig/Chris Route Start Time Stop Time Status Last Admin Dose Admin Ondansetron HCl 4 mg Q4HPRN PRN IV 01/19/25 05:30 02/04/25 23:19 4 MG Sucralfate 1 gm BID@0600,2200 PO 01/19/25 06:00 02/08/25 06:38 1 GM Ergocalciferol 50,000 unit Q7D PO 01/19/25 12:00 02/02/25 11:40 50,000 UNIT Spironolactone 25 mg DAILY PO 01/25/25 10:00 02/08/25 09:32 25 MG Sodium Bicarbonate 1,300 mg TID PO 01/24/25 14:00 02/08/25 14:44 1,300 MG Furosemide 40 mg DAILY PO 01/24/25 14:15 02/08/25 09:32 40 MG Ursodiol 300 mg TID PO 01/24/25 22:00 02/08/25 14:44 300 MG Ceftriaxone Sodium 50 ml @ 100 mls/hr DAILY@09 IV 01/30/25 09:00 02/08/25 09:31 100 MLS/HR Morphine Sulfate 2 mg Q4HPRN PRN IV 01/30/25 14:00 Hold 01/30/25 14:21 2 MG Acyclovir Sodium 800 mg/Sodium Chloride 266 ml @ 266 mls/hr Q12HR IV 01/30/25 22:00 02/13/25 21:59 02/08/25 09:49 266 MLS/HR Dextrose/Sodium Chloride 1,000 ml @ 75 mls/hr [id number] IV 01/30/25 19:30 02/08/25 06:43 75 MLS/HR Acetaminophen/ Hydrocodone Bitart 1 tab Q6HP PRN PO 01/30/25 20:00 02/02/25 07:01 1 TAB Rifaximin 550 mg BID PO 02/02/25 22:00 02/08/25 09:32 550 MG Prednisone 20 mg DAILY PO 02/05/25 10:00 02/08/25 09:32 20 MG Lactulose 30 ml BID PO 02/05/25 22:00 02/08/25 09:31 30 ML Pantoprazole Sodium 40 mg DAILY IV 02/06/25 10:00 02/08/25 09:31 40 MG Thiamine HCl 100 mg DAILY PO 02/06/25 10:00 02/08/25 09:31 100 MG Folic Acid 1 mg DAILY PO 02/06/25 10:00 02/08/25 09:31 1 MG Multivitamins 1 tab DAILY PO 02/06/25 10:00 02/08/25 09:32 1 TAB Enteral Nutritional Formula 240 ml BIDWM PO 02/06/25 10:00 02/08/25 09:30 240 ML Laboratory Results Laboratory Tests 02/08/25 04:54 Chemistry Test 02/08/25 04:54 Albumin 2.8 g/dL (3.2-4.8) L Calcium Level 8.4 mg/dL (8.7-10.4) L Total Protein 5.1 g/dL (5.7-8.2) L Coagulation Test 02/08/25 10:41 Prothrombin Time 14.8 sec (9.3-11.8) H Prothrombin Time INR 1.45 (0.9-1.15) H LFT Test 02/08/25 04:54 Alanine Aminotransferase (ALT) 36 U/L (7-40) Alkaline Phosphatase 263 U/L (46-116) H Aspartate Amino Transferase (AST) 33 U/L (13-40) Total Bilirubin 16.3 mg/dL (0.2-1.0) H Urinalysis Test 01/20/25 13:25 01/29/25 18:32 01/29/25 18:33 Urine Creatinine 153.22 mg/dL (30.0-125.0) H Urine Test Negative (Negative) Urine Color Dark-yellow (Yellow) Urine Clarity Clear (Clear) Urine pH 5.5 (5.0-9.0) Urine Specific [place] 1.012 (1.001-1.035) Urine Protein 1+ (Negative) H Urine Ketones Negative (Negative) Urine Blood 2+ /uL (Negative) H Urine Nitrite Negative (Negative) Urine Bilirubin 1+ (Negative) H Urine Urobilinogen Normal mg/dL (Negative) Urine Leukocyte Esterase Negative /uL (Negative) Urine RBC 6 /hpf (0 - 4) Urine Microscopic WBC 2 /HPF (0-5) Urine Squamous Epithelial Cells Few /hpf (<5) Urine Amorphous Crystals Few /hpf (None Seen) Urine Bacteria None seen /hpf (None Seen) Urine Hyaline Casts Few /lpf (0 - 2) Urine Glucose Normal mg/dL (Normal) Urine Sodium 90 mmol/L (40-220) Microbiology Microbiology Date/Time Source Procedure Growth Status 02/05/25 10:00 Stool Stool Culture - Final Complete 02/05/25 10:00 Stool Shiga Toxin I & II - Final Complete 02/02/25 16:52 Nose MRSA Screen - Final Complete 02/02/25 16:50 Urine - [place] Urine Culture - Final Complete 01/18/25 22:00 Blood Blood Culture - Final NO GROWTH AFTER 5 DAYS OF INCUBATION. Complete Labs and/or images reviewed: Labs reviewed by me, Image(s) reviewed by me Assessment/Plan Assessment/Plan 02/08 - doing well. stable. labs stable. pending bed in [facility] for liver transplant team eval. flores and rectal tube removed, using BSC. working with PT. u/s without DVT (right). SCDs when doing bedrest, otherwise encourage OOB. family at bedside, as usual supportive. # Acute hepatic encephalopathy likely due to cirrhosis # Acute on Chronic Decompensated Alcoholic hepatitis # SIRS/ Sepsis resolved # Hepatic steatosis, Hepatomegaly & Transaminitis from above # Moderate malnutrition # Possible upper GI bleeding - Ultrasound shows enlarged liver measuring 24.5 cm demonstrates diffusely heterogeneous echogenicity - CT scan showed heterogeneous enlarged liver, with peripheral areas in the liver are very low in density on 12/25/24 - Maddrey score 53.5, and MELD score 37 point (with52.6% estimated 90 day mortality) - Bilirubin is very high but stable - Ammonia is 94>40 - po prednisolone 20 mg daily - IV Protonix 40 mg bid , Carafate 1 gm po bid & Lactulose 30 mL p.o. q8hr - IV ceftriaxone 1 g daily as per Infectious Disease recommendation - IV acyclovir 800 mg b.i.d. - Lasix 40 mg p.o. and spironolactone 25 mg p.o. daily - Ursodiol 300 mg po tid - Blood culture report revealed no growth in 24 hours of incubation - GI recommended transfer the patient to higher level of care for liver transplantation - patient was admitted to [facility] for transplant eval. Continue transfer plans. # Chronic anemia, macrocytic hyperchromic due to alcoholism - Monitor lab - H&H stable # Hypertensive heart disease and possible chronic diastolic heart failure - Echo showed LVEF 60% with a LA enlargement, RVSP 40 - BP is on the lower side., Midodrine 10 mg p.o. t.i.d. # ZOILA on CKD likely due to to hepatorenal syndrome - IV Albumin - Hold midodrine - Sodium bicarb tablet 1300 mg p.o. t.i.d. - Nephrology sign off # Vitamin D deficiency - Vitamin D 30979 units Q 7D. 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 - leukemia lymphoma immuno typing and serum electrophoresis pending Renal diet Due to GI bleed, no anticoagulant is indicated Protonix BOWEL REGIMEN: Lactulose Plan discussed with: Patient Date of Service: Feb 08, 2025 Billing Provider: NIC MORA MD Common Visit Codes: 82362-[id number] INP/OBS CARE(HIGH) NIC MORA MD Feb 08, 2025 16:40
--- NOTE | 2025-02-08 22:07 | DVHPN2 ---
Progress Note - Dictate Date Seen: Feb 08, 2025 Medical Necessity Reason Pt with a Central, PICC or Fol: Yes The following are medically ne: Flores Catheter Reason for flores catheter: Strict I&O Subjective No new complaints Pt remains at baseline Labs are stable trending down vital signs Vital Sign Date Time Temp Pulse Resp B/P (MAP) Pulse Ox O2 Delivery O2 Flow Rate FiO2 02/08/25 20:37 97.6 20 116/75 (89) 96 97.6 02/08/25 18:01 93 02/08/25 08:00 Room Air* 0 21 Total Intake and Output 02/07/25 02/07/25 02/08/25 15:00 23:00 07:00 Intake Total 50 ml 266 ml 1666 ml Balance 50 ml 266 ml 1666 ml medications Current Medications Medications Dose Ordered Sig/Chris Route Start Time Stop Time Status Last Admin Dose Admin Ondansetron HCl 4 mg Q4HPRN PRN IV 01/19/25 05:30 02/04/25 23:19 4 MG Sucralfate 1 gm BID@0600,2200 PO 01/19/25 06:00 02/08/25 21:43 1 GM Ergocalciferol 50,000 unit Q7D PO 01/19/25 12:00 02/02/25 11:40 50,000 UNIT Spironolactone 25 mg DAILY PO 01/25/25 10:00 02/08/25 09:32 25 MG Sodium Bicarbonate 1,300 mg TID PO 01/24/25 14:00 02/08/25 21:43 1,300 MG Furosemide 40 mg DAILY PO 01/24/25 14:15 02/08/25 09:32 40 MG Ursodiol 300 mg TID PO 01/24/25 22:00 02/08/25 14:44 300 MG Ceftriaxone Sodium 50 ml @ 100 mls/hr DAILY@09 IV 01/30/25 09:00 02/08/25 09:31 100 MLS/HR Morphine Sulfate 2 mg Q4HPRN PRN IV 01/30/25 14:00 Hold 01/30/25 14:21 2 MG Acyclovir Sodium 800 mg/Sodium Chloride 266 ml @ 266 mls/hr Q12HR IV 01/30/25 22:00 02/13/25 21:59 02/08/25 21:43 266 MLS/HR Dextrose/Sodium Chloride 1,000 ml @ 75 mls/hr [id number] IV 01/30/25 19:30 02/08/25 16:50 75 MLS/HR Acetaminophen/ Hydrocodone Bitart 1 tab Q6HP PRN PO 01/30/25 20:00 02/02/25 07:01 1 TAB Rifaximin 550 mg BID PO 02/02/25 22:00 02/08/25 21:43 550 MG Prednisone 20 mg DAILY PO 02/05/25 10:00 02/08/25 09:32 20 MG Lactulose 30 ml BID PO 02/05/25 22:00 02/08/25 09:31 30 ML Pantoprazole Sodium 40 mg DAILY IV 02/06/25 10:00 02/08/25 09:31 40 MG Thiamine HCl 100 mg DAILY PO 02/06/25 10:00 02/08/25 09:31 100 MG Folic Acid 1 mg DAILY PO 02/06/25 10:00 02/08/25 09:31 1 MG Multivitamins 1 tab DAILY PO 02/06/25 10:00 02/08/25 09:32 1 TAB Enteral Nutritional Formula 240 ml BIDWM PO 02/06/25 10:00 02/08/25 18:00 240 ML objective General Appearance: Icteric ,Alert, Oriented X3, Cooperative,no distress HEENT: Atraumatic, PERRLA, EOMI,Yellow discoloration of the mucosa and sclera( icteric appearance) Respiratory: Clear to auscultation, Normal air movement Cardiovascular: Regular rate, Normal S1, Normal S2, No murmurs Abdominal:Mild tenderness, hepatomegaly, Normal bowel sounds, Soft, no ascites, tympanic. Extremities: Trace BLE edema+, No clubbing, No cyanosis, Normal pulses. Skin: Yellowish is skin discoloration but No rashes, No breakdown, No significant lesion Neuro: Normal gait, Normal speech, no sensory motor deficits Psych/Mental Status: Mental status NL, Mood NL laboratory and microbiology Laboratory Tests 02/08/25 04:54 Test 02/08/25 04:54 Range/Units Serum Glucose 75 74-106 mg/dL Problems(with codes): (1) Jaundice (2) Leukocytosis (3) Leukemoid reaction (4) Viral illness (5) Acute renal injury (6) RUQ abdominal pain (7) Lymphocytosis (8) Alcoholic cirrhosis of liver (9) Sepsis (10) Liver cirrhosis (11) Anemia Prognosis PLAN Pending bed in [facility] for liver transplant team eval. flores and rectal tube removed, using BSC. working with PT. u/s without DVT (right). SCDs when doing bedrest, otherwise encourage OOB. Continue supportive care for now Dietary Evaluation Review Comments: 1. Continue current diet as tolerated 2. Encourage good oral intakes >75% of meals 3. Monitor I&Os, weight trends Expected Outcomes/Goals: Maintain adequate nutrition, stable hepatic fx vs. evaluation for liver transplant. Plan discussed with: Patient JUANA KNIGHT MD Feb 08, 2025 22:07
--- NOTE | 2025-02-10 18:49 | DVHPN2 ---
Consult Progress Note Date Seen: Feb 02, 2025 Subjective Patient reports: Feels better (feeling well no confusion, 3BMs daily) Objective vital signs Vital Sign Date Time Temp Pulse Resp B/P (MAP) Pulse Ox O2 Delivery O2 Flow Rate FiO2 02/08/25 20:37 97.6 20 116/75 (89) 96 97.6 02/08/25 20:00 100 Room Air* 0 21 laboratory and microbiology Laboratory Tests 02/08/25 04:54 Test 02/08/25 04:54 Range/Units Serum Glucose 75 74-106 mg/dL Problem List/Assessment/Plan Problem List/Assessment/Plan Kina Whiteside this is a 44-year-old female patient who presents to the ED with chief complaint of generalized body pain, generalized weakness, vomiting, fever, melena and confusion. Patient was recently discharged from [facility] on 12/28/2024 with diagnosis of liver failure, since discharge patient's symptoms did not improve. Patient was evaluated previously by GI, Nephrology isn't to follow up with Heme-Onc as outpatient due to leukemoid reaction. Denies any other associated symptoms. Past medical history: Hypertension, alcoholic liver cirrhosis (last alcoholic drink on November 20, 2024), positive hepatitis B surface antigen, leukemoid reaction, CKD, gastritis Surgical history: Cholecystectomy Family history: Father had prostate cancer Social history: Lives with family in [place]. Ex ethanol abuse (stopped intake of alcohol since November 20, 2024). Ex-smoker (2.5 pack year history of smoking). Denies current tobacco, alcohol and other drug abuse Allergies: Denies Home medication: Benazepril, sucralfate and Protonix Patient seen and examined at bedside. Patient currently with no abdominal pain after placement of NG and NPO, presented multiple bowel movements today. Planning on transferring to higher level of care for eventual liver transplant. Physical Exam Patient lying in bed, in no acute distress General: Lucid, afebrile, icteric mucosa, sclera and skin, mucosae are moist Cardiovascular: Normal S1 and S2. No murmurs, gallops or rubs Respiratory: Normal ventilation mechanics. Clear lung sounds on auscultation. Patient has NG tube with biliary secretion Abdomen: Soft, mild tenderness on superficial palpation, no organomegaly, normal bowel sounds, no ascites MSK/skin: Mobilizes 4 limbs. Skin is dry and warm. Presents bilateral suprapatellar pitting edema. Presents clear transudate secretion on left leg anterior tibia. Neurological: Oriented in 3 spheres. No motor no sensitive deficits. Pupils are isocoric and reactive Assessment Questionable acute viral hepatitis due to EBV Leukemoid reaction ZOILA hemodynamically mediated on CKD Ruled out acute hepatitis B infection Alcoholic liver cirrhosis (meld 31 points) Bicytopenia - probable secondary to liver cirrhosis Ileus flow cytometry - Client Specimen ID: Not Given Peripheral Blood: - Relatively increased neutrophilic cells with a slight left shift and without overt increase in blasts (see comment). - No immunophenotypic evidence of a B-cell or a T-cell lymphoproliferative disorder. DISCLAIMER: REFER TO HARDCOPY OR PDF FOR COMPLETE RESULT. If synopsis provided, clinical decisions should not be based on this interfaced synopsis alone. Plan/Recommendation Pat bar virus IgG is positive, IgM is negative, but EBV early antigen is positive. Have discontinued acyclovir since it will increase risk of worsening ZOILA, discussed with GI specialist and agreed on restarting acyclovir (800 mg IV b.i.d.), ordered send out of viral load of EBV, if negative recommend discontinuing acyclovir. Continue with methylprednisolone 20 mg IV daily. Hepatitis-B viral load was negative ([facility] results). Interpreted previous hepatitis-B surface antigen as a false-positive. Due to liver cirrhosis, leukemoid reaction and acute hepatitis, patient is high- risk of translocation of gut bacteria. Indicated empiric IV antibiotic to cover Gram-negative rods (initially Levaquin, but due to prolonged QT switch to ceftriaxone). Patient is currently on midodrine. Evaluate benefit of octreotide in the setting of acute liver failure. Bone marrow biopsy evidence CD56 expression and subset of myelomonocytic cells, pending molecular testing to evaluate malignancy. Appreciate Heme-Onc specialist input. Appreciate GI and Nephrology specialist input. Awaiting transferred to higher level of care for eventual liver transplant. Patient may have probable ileus responded to NPO and NG tube placement. Rest of plan per primary team. : Continue with IV steroids, currently on empiric IV antibiotic (ceftriaxone), awaiting transferred to higher level of care for eventual liver transplant. Restarted acyclovir after discussion with GI specialist, have ordered send out of EBV viral load, if negative recommend discontinuing acyclovir due to high- risk of ZOILA. Patient has poor prognosis Plan discussed with: Patient Dietary Evaluation Review Comments: 1. Continue current diet as tolerated 2. Encourage good oral intakes >75% of meals 3. Monitor I&Os, weight trends Expected Outcomes/Goals: Maintain adequate nutrition, stable hepatic fx vs. evaluation for liver transplant. ZAIRE CORTEZ MD Feb 10, 2025 18:49
--- NOTE | 2025-02-10 18:51 | DVHPN2 ---
Consult Progress Note Date Seen: Feb 03, 2025 Subjective Patient reports: Feels better (no complaints, no abdominal pain) Objective vital signs Vital Sign Date Time Temp Pulse Resp B/P (MAP) Pulse Ox O2 Delivery O2 Flow Rate FiO2 02/08/25 20:37 97.6 20 116/75 (89) 96 97.6 02/08/25 20:00 100 Room Air* 0 21 laboratory and microbiology Laboratory Tests 02/08/25 04:54 Test 02/08/25 04:54 Range/Units Serum Glucose 75 74-106 mg/dL Problem List/Assessment/Plan Problem List/Assessment/Plan Kina Whiteside this is a 44-year-old female patient who presents to the ED with chief complaint of generalized body pain, generalized weakness, vomiting, fever, melena and confusion. Patient was recently discharged from [facility] on 12/28/2024 with diagnosis of liver failure, since discharge patient's symptoms did not improve. Patient was evaluated previously by GI, Nephrology isn't to follow up with Heme-Onc as outpatient due to leukemoid reaction. Denies any other associated symptoms. Past medical history: Hypertension, alcoholic liver cirrhosis (last alcoholic drink on November 20, 2024), positive hepatitis B surface antigen, leukemoid reaction, CKD, gastritis Surgical history: Cholecystectomy Family history: Father had prostate cancer Social history: Lives with family in [place]. Ex ethanol abuse (stopped intake of alcohol since November 20, 2024). Ex-smoker (2.5 pack year history of smoking). Denies current tobacco, alcohol and other drug abuse Allergies: Denies Home medication: Benazepril, sucralfate and Protonix Patient seen and examined at bedside. Patient currently with no abdominal pain after placement of NG and NPO, presented multiple bowel movements today. Planning on transferring to higher level of care for eventual liver transplant. Physical Exam Patient lying in bed, in no acute distress General: Lucid, afebrile, icteric mucosa, sclera and skin, mucosae are moist Cardiovascular: Normal S1 and S2. No murmurs, gallops or rubs Respiratory: Normal ventilation mechanics. Clear lung sounds on auscultation. Patient has NG tube with biliary secretion Abdomen: Soft, mild tenderness on superficial palpation, no organomegaly, normal bowel sounds, no ascites MSK/skin: Mobilizes 4 limbs. Skin is dry and warm. Presents bilateral suprapatellar pitting edema. Presents clear transudate secretion on left leg anterior tibia. Neurological: Oriented in 3 spheres. No motor no sensitive deficits. Pupils are isocoric and reactive Assessment Questionable acute viral hepatitis due to EBV Leukemoid reaction ZOILA hemodynamically mediated on CKD Ruled out acute hepatitis B infection Alcoholic liver cirrhosis (meld 31 points) Bicytopenia - probable secondary to liver cirrhosis Ileus flow cytometry - Client Specimen ID: Not Given Peripheral Blood: - Relatively increased neutrophilic cells with a slight left shift and without overt increase in blasts (see comment). - No immunophenotypic evidence of a B-cell or a T-cell lymphoproliferative disorder. DISCLAIMER: REFER TO HARDCOPY OR PDF FOR COMPLETE RESULT. If synopsis provided, clinical decisions should not be based on this interfaced synopsis alone. HBV DNA not detected Plan/Recommendation Pat bar virus IgG is positive, IgM is negative, but EBV early antigen is positive. Have discontinued acyclovir since it will increase risk of worsening ZOILA, discussed with GI specialist and agreed on restarting acyclovir (800 mg IV b.i.d.), ordered send out of viral load of EBV, if negative recommend discontinuing acyclovir. Continue with methylprednisolone 20 mg IV daily. Hepatitis-B viral load was negative ([facility] results). Interpreted previous hepatitis-B surface antigen as a false-positive. Due to liver cirrhosis, leukemoid reaction and acute hepatitis, patient is high- risk of translocation of gut bacteria. Indicated empiric IV antibiotic to cover Gram-negative rods (initially Levaquin, but due to prolonged QT switch to ceftriaxone). Patient is currently on midodrine. Evaluate benefit of octreotide in the setting of acute liver failure. Bone marrow biopsy evidence CD56 expression and subset of myelomonocytic cells, pending molecular testing to evaluate malignancy. Appreciate Heme-Onc specialist input. Appreciate GI and Nephrology specialist input. Awaiting transferred to higher level of care for eventual liver transplant. Patient may have probable ileus responded to NPO and NG tube placement. Rest of plan per primary team. : Continue with IV steroids, currently on empiric IV antibiotic (ceftriaxone), awaiting transferred to higher level of care for eventual liver transplant. Restarted acyclovir after discussion with GI specialist, have ordered send out of EBV viral load, if negative recommend discontinuing acyclovir due to high- risk of ZOILA. Patient has poor prognosis Plan discussed with: Patient Dietary Evaluation Review Comments: 1. Continue current diet as tolerated 2. Encourage good oral intakes >75% of meals 3. Monitor I&Os, weight trends Expected Outcomes/Goals: Maintain adequate nutrition, stable hepatic fx vs. evaluation for liver transplant. ZAIRE CORTEZ MD Feb 10, 2025 18:51
--- NOTE | 2025-02-10 18:52 | DVHPN2 ---
Consult Progress Note Date Seen: Feb 04, 2025 Subjective Patient reports: Feels better (leukocytosis improving) Objective vital signs Vital Sign Date Time Temp Pulse Resp B/P (MAP) Pulse Ox O2 Delivery O2 Flow Rate FiO2 02/08/25 20:37 97.6 20 116/75 (89) 96 97.6 02/08/25 20:00 100 Room Air* 0 21 laboratory and microbiology Laboratory Tests 02/08/25 04:54 Test 02/08/25 04:54 Range/Units Serum Glucose 75 74-106 mg/dL Problem List/Assessment/Plan Problems(with codes): (1) Anemia (2) Liver cirrhosis (3) Sepsis (4) Alcoholic cirrhosis of liver (5) Lymphocytosis (6) RUQ abdominal pain (7) Acute renal injury (8) Viral illness (9) Leukemoid reaction (10) Leukocytosis (11) Jaundice Problem List/Assessment/Plan Kina Whiteside this is a 44-year-old female patient who presents to the ED with chief complaint of generalized body pain, generalized weakness, vomiting, fever, melena and confusion. Patient was recently discharged from [facility] on 12/28/2024 with diagnosis of liver failure, since discharge patient's symptoms did not improve. Patient was evaluated previously by GI, Nephrology isn't to follow up with Heme-Onc as outpatient due to leukemoid reaction. Denies any other associated symptoms. Past medical history: Hypertension, alcoholic liver cirrhosis (last alcoholic drink on November 20, 2024), positive hepatitis B surface antigen, leukemoid reaction, CKD, gastritis Surgical history: Cholecystectomy Family history: Father had prostate cancer Social history: Lives with family in [place]. Ex ethanol abuse (stopped intake of alcohol since November 20, 2024). Ex-smoker (2.5 pack year history of smoking). Denies current tobacco, alcohol and other drug abuse Allergies: Denies Home medication: Benazepril, sucralfate and Protonix Patient seen and examined at bedside. Patient currently with no abdominal pain after placement of NG and NPO, presented multiple bowel movements today. Planning on transferring to higher level of care for eventual liver transplant. Physical Exam Patient lying in bed, in no acute distress General: Lucid, afebrile, icteric mucosa, sclera and skin, mucosae are moist Cardiovascular: Normal S1 and S2. No murmurs, gallops or rubs Respiratory: Normal ventilation mechanics. Clear lung sounds on auscultation. Patient has NG tube with biliary secretion Abdomen: Soft, mild tenderness on superficial palpation, no organomegaly, normal bowel sounds, no ascites MSK/skin: Mobilizes 4 limbs. Skin is dry and warm. Presents bilateral suprapatellar pitting edema. Presents clear transudate secretion on left leg anterior tibia. Neurological: Oriented in 3 spheres. No motor no sensitive deficits. Pupils are isocoric and reactive Assessment Questionable acute viral hepatitis due to EBV Leukemoid reaction ZOILA hemodynamically mediated on CKD Ruled out acute hepatitis B infection Alcoholic liver cirrhosis (meld 31 points) Bicytopenia - probable secondary to liver cirrhosis Ileus flow cytometry - Client Specimen ID: Not Given Peripheral Blood: - Relatively increased neutrophilic cells with a slight left shift and without overt increase in blasts (see comment). - No immunophenotypic evidence of a B-cell or a T-cell lymphoproliferative disorder. DISCLAIMER: REFER TO HARDCOPY OR PDF FOR COMPLETE RESULT. If synopsis provided, clinical decisions should not be based on this interfaced synopsis alone. HBV DNA not detected Leukocytosis improving Plan/Recommendation Pat bar virus IgG is positive, IgM is negative, but EBV early antigen is positive. Have discontinued acyclovir since it will increase risk of worsening ZOILA, discussed with GI specialist and agreed on restarting acyclovir (800 mg IV b.i.d.), ordered send out of viral load of EBV, if negative recommend discontinuing acyclovir. Continue with methylprednisolone 20 mg IV daily. Hepatitis-B viral load was negative ([facility] results). Interpreted previous hepatitis-B surface antigen as a false-positive. Due to liver cirrhosis, leukemoid reaction and acute hepatitis, patient is high- risk of translocation of gut bacteria. Indicated empiric IV antibiotic to cover Gram-negative rods (initially Levaquin, but due to prolonged QT switch to ceftriaxone). Patient is currently on midodrine. Evaluate benefit of octreotide in the setting of acute liver failure. Bone marrow biopsy evidence CD56 expression and subset of myelomonocytic cells, pending molecular testing to evaluate malignancy. Appreciate Heme-Onc specialist input. Appreciate GI and Nephrology specialist input. Awaiting transferred to higher level of care for eventual liver transplant. Patient may have probable ileus responded to NPO and NG tube placement. Rest of plan per primary team. : Continue with IV steroids, currently on empiric IV antibiotic (ceftriaxone), awaiting transferred to higher level of care for eventual liver transplant. Restarted acyclovir after discussion with GI specialist, have ordered send out of EBV viral load, if negative recommend discontinuing acyclovir due to high- risk of ZOILA. Patient has poor prognosis Plan discussed with: Patient Dietary Evaluation Review Comments: 1. Continue current diet as tolerated 2. Encourage good oral intakes >75% of meals 3. Monitor I&Os, weight trends Expected Outcomes/Goals: Maintain adequate nutrition, stable hepatic fx vs. evaluation for liver transplant. ZAIRE CORTEZ MD Feb 10, 2025 18:52
--- NOTE | 2025-02-10 18:52 | DVHPN2 ---
Consult Progress Note Date Seen: Feb 05, 2025 Subjective Patient reports: Feels better (tolerating acyclvir, no ) Objective vital signs Vital Sign Date Time Temp Pulse Resp B/P (MAP) Pulse Ox O2 Delivery O2 Flow Rate FiO2 02/08/25 20:37 97.6 20 116/75 (89) 96 97.6 02/08/25 20:00 100 Room Air* 0 21 laboratory and microbiology Laboratory Tests 02/08/25 04:54 Test 02/08/25 04:54 Range/Units Serum Glucose 75 74-106 mg/dL Problem List/Assessment/Plan Problems(with codes): (1) Anemia (2) Liver cirrhosis (3) Sepsis (4) Alcoholic cirrhosis of liver (5) Lymphocytosis (6) RUQ abdominal pain (7) Acute renal injury (8) Viral illness (9) Leukemoid reaction (10) Leukocytosis (11) Jaundice Problem List/Assessment/Plan Kina Whiteside this is a 44-year-old female patient who presents to the ED with chief complaint of generalized body pain, generalized weakness, vomiting, fever, melena and confusion. Patient was recently discharged from [facility] on 12/28/2024 with diagnosis of liver failure, since discharge patient's symptoms did not improve. Patient was evaluated previously by GI, Nephrology isn't to follow up with Heme-Onc as outpatient due to leukemoid reaction. Denies any other associated symptoms. Past medical history: Hypertension, alcoholic liver cirrhosis (last alcoholic drink on November 20, 2024), positive hepatitis B surface antigen, leukemoid reaction, CKD, gastritis Surgical history: Cholecystectomy Family history: Father had prostate cancer Social history: Lives with family in [place]. Ex ethanol abuse (stopped intake of alcohol since November 20, 2024). Ex-smoker (2.5 pack year history of smoking). Denies current tobacco, alcohol and other drug abuse Allergies: Denies Home medication: Benazepril, sucralfate and Protonix Patient seen and examined at bedside. Patient currently with no abdominal pain after placement of NG and NPO, presented multiple bowel movements today. Planning on transferring to higher level of care for eventual liver transplant. Physical Exam Patient lying in bed, in no acute distress General: Lucid, afebrile, icteric mucosa, sclera and skin, mucosae are moist Cardiovascular: Normal S1 and S2. No murmurs, gallops or rubs Respiratory: Normal ventilation mechanics. Clear lung sounds on auscultation. Patient has NG tube with biliary secretion Abdomen: Soft, mild tenderness on superficial palpation, no organomegaly, normal bowel sounds, no ascites MSK/skin: Mobilizes 4 limbs. Skin is dry and warm. Presents bilateral suprapatellar pitting edema. Presents clear transudate secretion on left leg anterior tibia. Neurological: Oriented in 3 spheres. No motor no sensitive deficits. Pupils are isocoric and reactive Assessment Questionable acute viral hepatitis due to EBV Leukemoid reaction ZOILA hemodynamically mediated on CKD Ruled out acute hepatitis B infection Alcoholic liver cirrhosis (meld 31 points) Bicytopenia - probable secondary to liver cirrhosis Ileus flow cytometry - Client Specimen ID: Not Given Peripheral Blood: - Relatively increased neutrophilic cells with a slight left shift and without overt increase in blasts (see comment). - No immunophenotypic evidence of a B-cell or a T-cell lymphoproliferative disorder. DISCLAIMER: REFER TO HARDCOPY OR PDF FOR COMPLETE RESULT. If synopsis provided, clinical decisions should not be based on this interfaced synopsis alone. HBV DNA not detected Leukocytosis improving ZOILA improving, awaiting EBV viral load Plan/Recommendation Pat bar virus IgG is positive, IgM is negative, but EBV early antigen is positive. Have discontinued acyclovir since it will increase risk of worsening ZOILA, discussed with GI specialist and agreed on restarting acyclovir (800 mg IV b.i.d.), ordered send out of viral load of EBV, if negative recommend discontinuing acyclovir. Continue with methylprednisolone 20 mg IV daily. Hepatitis-B viral load was negative ([facility] results). Interpreted previous hepatitis-B surface antigen as a false-positive. Due to liver cirrhosis, leukemoid reaction and acute hepatitis, patient is high- risk of translocation of gut bacteria. Indicated empiric IV antibiotic to cover Gram-negative rods (initially Levaquin, but due to prolonged QT switch to ceftriaxone). Patient is currently on midodrine. Evaluate benefit of octreotide in the setting of acute liver failure. Bone marrow biopsy evidence CD56 expression and subset of myelomonocytic cells, pending molecular testing to evaluate malignancy. Appreciate Heme-Onc specialist input. Appreciate GI and Nephrology specialist input. Awaiting transferred to higher level of care for eventual liver transplant. Patient may have probable ileus responded to NPO and NG tube placement. Rest of plan per primary team. : Continue with IV steroids, currently on empiric IV antibiotic (ceftriaxone), awaiting transferred to higher level of care for eventual liver transplant. Restarted acyclovir after discussion with GI specialist, have ordered send out of EBV viral load, if negative recommend discontinuing acyclovir due to high- risk of ZOILA. Patient has poor prognosis Plan discussed with: Patient Dietary Evaluation Review Comments: 1. Continue current diet as tolerated 2. Encourage good oral intakes >75% of meals 3. Monitor I&Os, weight trends Expected Outcomes/Goals: Maintain adequate nutrition, stable hepatic fx vs. evaluation for liver transplant. ZAIRE CORTEZ MD Feb 10, 2025 18:52
--- NOTE | 2025-02-10 18:55 | DVHPN2 ---
Consult Progress Note Date Seen: Feb 06, 2025 Subjective Patient reports: Feels better (rectal tube removed, patient tolerating some ambulation) Objective vital signs Vital Sign Date Time Temp Pulse Resp B/P (MAP) Pulse Ox O2 Delivery O2 Flow Rate FiO2 02/08/25 20:37 97.6 20 116/75 (89) 96 97.6 02/08/25 20:00 100 Room Air* 0 21 laboratory and microbiology Laboratory Tests 02/08/25 04:54 Test 02/08/25 04:54 Range/Units Serum Glucose 75 74-106 mg/dL Problem List/Assessment/Plan Problems(with codes): (1) Anemia (2) Liver cirrhosis (3) Sepsis (4) Alcoholic cirrhosis of liver (5) Lymphocytosis (6) RUQ abdominal pain (7) Acute renal injury (8) Viral illness (9) Leukemoid reaction (10) Leukocytosis (11) Jaundice Problem List/Assessment/Plan Kina Whiteside this is a 44-year-old female patient who presents to the ED with chief complaint of generalized body pain, generalized weakness, vomiting, fever, melena and confusion. Patient was recently discharged from [facility] on 12/28/2024 with diagnosis of liver failure, since discharge patient's symptoms did not improve. Patient was evaluated previously by GI, Nephrology isn't to follow up with Heme-Onc as outpatient due to leukemoid reaction. Denies any other associated symptoms. Past medical history: Hypertension, alcoholic liver cirrhosis (last alcoholic drink on November 20, 2024), positive hepatitis B surface antigen, leukemoid reaction, CKD, gastritis Surgical history: Cholecystectomy Family history: Father had prostate cancer Social history: Lives with family in [place]. Ex ethanol abuse (stopped intake of alcohol since November 20, 2024). Ex-smoker (2.5 pack year history of smoking). Denies current tobacco, alcohol and other drug abuse Allergies: Denies Home medication: Benazepril, sucralfate and Protonix Patient seen and examined at bedside. Patient currently with no abdominal pain after placement of NG and NPO, presented multiple bowel movements today. Planning on transferring to higher level of care for eventual liver transplant. Physical Exam Patient lying in bed, in no acute distress General: Lucid, afebrile, icteric mucosa, sclera and skin, mucosae are moist Cardiovascular: Normal S1 and S2. No murmurs, gallops or rubs Respiratory: Normal ventilation mechanics. Clear lung sounds on auscultation. Patient has NG tube with biliary secretion Abdomen: Soft, mild tenderness on superficial palpation, no organomegaly, normal bowel sounds, no ascites MSK/skin: Mobilizes 4 limbs. Skin is dry and warm. Presents bilateral suprapatellar pitting edema. Presents clear transudate secretion on left leg anterior tibia. Neurological: Oriented in 3 spheres. No motor no sensitive deficits. Pupils are isocoric and reactive Assessment Questionable acute viral hepatitis due to EBV Leukemoid reaction ZOILA hemodynamically mediated on CKD Ruled out acute hepatitis B infection Alcoholic liver cirrhosis (meld 31 points) Bicytopenia - probable secondary to liver cirrhosis Ileus flow cytometry - Client Specimen ID: Not Given Peripheral Blood: - Relatively increased neutrophilic cells with a slight left shift and without overt increase in blasts (see comment). - No immunophenotypic evidence of a B-cell or a T-cell lymphoproliferative disorder. DISCLAIMER: REFER TO HARDCOPY OR PDF FOR COMPLETE RESULT. If synopsis provided, clinical decisions should not be based on this interfaced synopsis alone. HBV DNA not detected Leukocytosis improving ZOILA improving, awaiting EBV viral load Plan/Recommendation Pat bar virus IgG is positive, IgM is negative, but EBV early antigen is positive. Have discontinued acyclovir since it will increase risk of worsening ZOILA, discussed with GI specialist and agreed on restarting acyclovir (800 mg IV b.i.d.), ordered send out of viral load of EBV, if negative recommend discontinuing acyclovir. Continue with methylprednisolone 20 mg IV daily. Hepatitis-B viral load was negative ([facility] results). Interpreted previous hepatitis-B surface antigen as a false-positive. Due to liver cirrhosis, leukemoid reaction and acute hepatitis, patient is high- risk of translocation of gut bacteria. Indicated empiric IV antibiotic to cover Gram-negative rods (initially Levaquin, but due to prolonged QT switch to ceftriaxone). Patient is currently on midodrine. Evaluate benefit of octreotide in the setting of acute liver failure. Bone marrow biopsy evidence CD56 expression and subset of myelomonocytic cells, pending molecular testing to evaluate malignancy. Appreciate Heme-Onc specialist input. Appreciate GI and Nephrology specialist input. Awaiting transferred to higher level of care for eventual liver transplant. Patient may have probable ileus responded to NPO and NG tube placement. Rest of plan per primary team. : Continue with IV steroids, currently on empiric IV antibiotic (ceftriaxone), awaiting transferred to higher level of care for eventual liver transplant. Restarted acyclovir after discussion with GI specialist, have ordered send out of EBV viral load, if negative recommend discontinuing acyclovir due to high- risk of ZOILA. Patient has poor prognosis Plan discussed with: Patient Dietary Evaluation Review Comments: 1. Continue current diet as tolerated 2. Encourage good oral intakes >75% of meals 3. Monitor I&Os, weight trends Expected Outcomes/Goals: Maintain adequate nutrition, stable hepatic fx vs. evaluation for liver transplant. ZAIRE CORTEZ MD Feb 10, 2025 18:55
--- NOTE | 2025-02-10 19:00 | DVHPN2 ---
Consult Progress Note Date Seen: Feb 07, 2025 Subjective Patient reports: Feels better (working with PT, improved fatigue) Objective vital signs Vital Sign Date Time Temp Pulse Resp B/P (MAP) Pulse Ox O2 Delivery O2 Flow Rate FiO2 02/08/25 20:37 97.6 20 116/75 (89) 96 97.6 02/08/25 20:00 100 Room Air* 0 21 laboratory and microbiology Laboratory Tests 02/08/25 04:54 Test 02/08/25 04:54 Range/Units Serum Glucose 75 74-106 mg/dL Problem List/Assessment/Plan Problem List/Assessment/Plan Kina Whiteside this is a 44-year-old female patient who presents to the ED with chief complaint of generalized body pain, generalized weakness, vomiting, fever, melena and confusion. Patient was recently discharged from [facility] on 12/28/2024 with diagnosis of liver failure, since discharge patient's symptoms did not improve. Patient was evaluated previously by GI, Nephrology isn't to follow up with Heme-Onc as outpatient due to leukemoid reaction. Denies any other associated symptoms. Past medical history: Hypertension, alcoholic liver cirrhosis (last alcoholic drink on November 20, 2024), positive hepatitis B surface antigen, leukemoid reaction, CKD, gastritis Surgical history: Cholecystectomy Family history: Father had prostate cancer Social history: Lives with family in [place]. Ex ethanol abuse (stopped intake of alcohol since November 20, 2024). Ex-smoker (2.5 pack year history of smoking). Denies current tobacco, alcohol and other drug abuse Allergies: Denies Home medication: Benazepril, sucralfate and Protonix Patient seen and examined at bedside. Patient currently with no abdominal pain after placement of NG and NPO, presented multiple bowel movements today. Planning on transferring to higher level of care for eventual liver transplant. Physical Exam Patient lying in bed, in no acute distress General: Lucid, afebrile, icteric mucosa, sclera and skin, mucosae are moist Cardiovascular: Normal S1 and S2. No murmurs, gallops or rubs Respiratory: Normal ventilation mechanics. Clear lung sounds on auscultation. Patient has NG tube with biliary secretion Abdomen: Soft, mild tenderness on superficial palpation, no organomegaly, normal bowel sounds, no ascites MSK/skin: Mobilizes 4 limbs. Skin is dry and warm. Presents bilateral suprapatellar pitting edema. Presents clear transudate secretion on left leg anterior tibia. Neurological: Oriented in 3 spheres. No motor no sensitive deficits. Pupils are isocoric and reactive Assessment Questionable acute viral hepatitis due to EBV Leukemoid reaction ZOILA hemodynamically mediated on CKD Ruled out acute hepatitis B infection Alcoholic liver cirrhosis (meld 31 points) Bicytopenia - probable secondary to liver cirrhosis Ileus flow cytometry - Client Specimen ID: Not Given Peripheral Blood: - Relatively increased neutrophilic cells with a slight left shift and without overt increase in blasts (see comment). - No immunophenotypic evidence of a B-cell or a T-cell lymphoproliferative disorder. DISCLAIMER: REFER TO HARDCOPY OR PDF FOR COMPLETE RESULT. If synopsis provided, clinical decisions should not be based on this interfaced synopsis alone. HBV DNA not detected Leukocytosis improving ZOILA improving, awaiting EBV viral load Plan/Recommendation Pat bar virus IgG is positive, IgM is negative, but EBV early antigen is positive. Have discontinued acyclovir since it will increase risk of worsening ZOILA, discussed with GI specialist and agreed on restarting acyclovir (800 mg IV b.i.d.), ordered send out of viral load of EBV, if negative recommend discontinuing acyclovir. Continue with methylprednisolone 20 mg IV daily. Hepatitis-B viral load was negative ([facility] results). Interpreted previous hepatitis-B surface antigen as a false-positive. Due to liver cirrhosis, leukemoid reaction and acute hepatitis, patient is high- risk of translocation of gut bacteria. Indicated empiric IV antibiotic to cover Gram-negative rods (initially Levaquin, but due to prolonged QT switch to ceftriaxone). Patient is currently on midodrine. Evaluate benefit of octreotide in the setting of acute liver failure. Bone marrow biopsy evidence CD56 expression and subset of myelomonocytic cells, pending molecular testing to evaluate malignancy. Appreciate Heme-Onc specialist input. Appreciate GI and Nephrology specialist input. Awaiting transferred to higher level of care for eventual liver transplant. Patient may have probable ileus responded to NPO and NG tube placement. Rest of plan per primary team. : Continue with IV steroids, currently on empiric IV antibiotic (ceftriaxone), awaiting transferred to higher level of care for eventual liver transplant. Restarted acyclovir after discussion with GI specialist, have ordered send out of EBV viral load, if negative recommend discontinuing acyclovir due to high- risk of ZOILA. Patient has poor prognosis Plan discussed with: Patient Dietary Evaluation Review Comments: 1. Continue current diet as tolerated 2. Encourage good oral intakes >75% of meals 3. Monitor I&Os, weight trends Expected Outcomes/Goals: Maintain adequate nutrition, stable hepatic fx vs. evaluation for liver transplant. ZAIRE CORTEZ MD Feb 10, 2025 19:00
--- NOTE | 2025-02-10 19:01 | DVHPN2 ---
Consult Progress Note Date Seen: Feb 08, 2025 Subjective Patient reports: Feels better (transferred to [facility] [[email or web address] Objective vital signs Vital Sign Date Time Temp Pulse Resp B/P (MAP) Pulse Ox O2 Delivery O2 Flow Rate FiO2 02/08/25 20:37 97.6 20 116/75 (89) 96 97.6 02/08/25 20:00 100 Room Air* 0 21 laboratory and microbiology Laboratory Tests 02/08/25 04:54 Test 02/08/25 04:54 Range/Units Serum Glucose 75 74-106 mg/dL Problem List/Assessment/Plan Problems(with codes): (1) Anemia (2) Liver cirrhosis (3) Sepsis (4) Alcoholic cirrhosis of liver (5) Lymphocytosis (6) RUQ abdominal pain (7) Acute renal injury (8) Viral illness (9) Leukemoid reaction (10) Leukocytosis (11) Jaundice Problem List/Assessment/Plan Kina Whiteside this is a 44-year-old female patient who presents to the ED with chief complaint of generalized body pain, generalized weakness, vomiting, fever, melena and confusion. Patient was recently discharged from [facility] on 12/28/2024 with diagnosis of liver failure, since discharge patient's symptoms did not improve. Patient was evaluated previously by GI, Nephrology isn't to follow up with Heme-Onc as outpatient due to leukemoid reaction. Denies any other associated symptoms. Past medical history: Hypertension, alcoholic liver cirrhosis (last alcoholic drink on November 20, 2024), positive hepatitis B surface antigen, leukemoid reaction, CKD, gastritis Surgical history: Cholecystectomy Family history: Father had prostate cancer Social history: Lives with family in [place]. Ex ethanol abuse (stopped intake of alcohol since November 20, 2024). Ex-smoker (2.5 pack year history of smoking). Denies current tobacco, alcohol and other drug abuse Allergies: Denies Home medication: Benazepril, sucralfate and Protonix Patient seen and examined at bedside. Patient currently with no abdominal pain after placement of NG and NPO, presented multiple bowel movements today. Planning on transferring to higher level of care for eventual liver transplant. Physical Exam Patient lying in bed, in no acute distress General: Lucid, afebrile, icteric mucosa, sclera and skin, mucosae are moist Cardiovascular: Normal S1 and S2. No murmurs, gallops or rubs Respiratory: Normal ventilation mechanics. Clear lung sounds on auscultation. Patient has NG tube with biliary secretion Abdomen: Soft, mild tenderness on superficial palpation, no organomegaly, normal bowel sounds, no ascites MSK/skin: Mobilizes 4 limbs. Skin is dry and warm. Presents bilateral suprapatellar pitting edema. Presents clear transudate secretion on left leg anterior tibia. Neurological: Oriented in 3 spheres. No motor no sensitive deficits. Pupils are isocoric and reactive Assessment Questionable acute viral hepatitis due to EBV Leukemoid reaction ZOILA hemodynamically mediated on CKD Ruled out acute hepatitis B infection Alcoholic liver cirrhosis (meld 31 points) Bicytopenia - probable secondary to liver cirrhosis Ileus flow cytometry - Client Specimen ID: Not Given Peripheral Blood: - Relatively increased neutrophilic cells with a slight left shift and without overt increase in blasts (see comment). - No immunophenotypic evidence of a B-cell or a T-cell lymphoproliferative disorder. DISCLAIMER: REFER TO HARDCOPY OR PDF FOR COMPLETE RESULT. If synopsis provided, clinical decisions should not be based on this interfaced synopsis alone. HBV DNA not detected Leukocytosis improving ZOILA improving, awaiting EBV viral load Plan/Recommendation Pat bar virus IgG is positive, IgM is negative, but EBV early antigen is positive. Have discontinued acyclovir since it will increase risk of worsening ZOILA, discussed with GI specialist and agreed on restarting acyclovir (800 mg IV b.i.d.), ordered send out of viral load of EBV, if negative recommend discontinuing acyclovir. Continue with methylprednisolone 20 mg IV daily. Hepatitis-B viral load was negative ([facility] results). Interpreted previous hepatitis-B surface antigen as a false-positive. Due to liver cirrhosis, leukemoid reaction and acute hepatitis, patient is high- risk of translocation of gut bacteria. Indicated empiric IV antibiotic to cover Gram-negative rods (initially Levaquin, but due to prolonged QT switch to ceftriaxone). Patient is currently on midodrine. Evaluate benefit of octreotide in the setting of acute liver failure. Bone marrow biopsy evidence CD56 expression and subset of myelomonocytic cells, pending molecular testing to evaluate malignancy. Appreciate Heme-Onc specialist input. Appreciate GI and Nephrology specialist input. Awaiting transferred to higher level of care for eventual liver transplant. Patient may have probable ileus responded to NPO and NG tube placement. Rest of plan per primary team. : Continue with IV steroids, currently on empiric IV antibiotic (ceftriaxone), awaiting transferred to higher level of care for eventual liver transplant. Restarted acyclovir after discussion with GI specialist, have ordered send out of EBV viral load, if negative recommend discontinuing acyclovir due to high- risk of ZOILA. Patient has poor prognosis Plan discussed with: Patient Dietary Evaluation Review Comments: 1. Continue current diet as tolerated 2. Encourage good oral intakes >75% of meals 3. Monitor I&Os, weight trends Expected Outcomes/Goals: Maintain adequate nutrition, stable hepatic fx vs. evaluation for liver transplant. ZAIRE CORTEZ MD Feb 10, 2025 19:01
== END 2025-02-08 22:24 | disposition short-term general hospital (02) | DRG 720 ==
LOC: ER 21:11 → OVERFLOW 01-19 01:18 → TELE-CENTR 01-19 14:52 → EAST 01-19 17:03 → TELE-EAST 01-22 09:32 → EAST 01-27 03:35 → TELE-EAST 01-29 03:30 → EAST 01-29 03:37 → ICU WEST 02-02 16:45 → TELE-CENTR 02-04 16:04
PROVIDERS: ADMIT Student in an Organized Health Care Education/Training Program; ATTEND Student in an Organized Health Care Education/Training Program
PROC: 07DT3ZX Extraction of Bone Marrow, Percutaneous Approach, Diagnostic (ICD-10-PCS; principal; 2025-01-23)
DX: A41.9 Sepsis, unspecified organism (principal); K76.7 Hepatorenal syndrome; E44.0 Moderate protein-calorie malnutrition; K65.2 Spontaneous bacterial peritonitis; D69.6 Thrombocytopenia, unspecified; D68.4 Acquired coagulation factor deficiency; E87.20 Acidosis, unspecified; K76.82 Hepatic encephalopathy; K70.31 Alcoholic cirrhosis of liver with ascites; N17.9 Acute kidney failure, unspecified; K70.11 Alcoholic hepatitis with ascites; N18.4 Chronic kidney disease, stage 4 (severe); C90.00 Multiple myeloma not having achieved remission; K56.7 Ileus, unspecified; Z68.41 Body mass index [BMI] 40.0-44.9, adult; K76.0 Fatty (change of) liver, not elsewhere classified; D53.9 Nutritional anemia, unspecified; I50.32 Chronic diastolic (congestive) heart failure; E55.9 Vitamin D deficiency, unspecified; D72.823 Leukemoid reaction; E88.09 Other disorders of plasma-protein metabolism, not elsewhere classified; E66.01 Morbid (severe) obesity due to excess calories; D75.839 Thrombocytosis, unspecified; I13.0 Hypertensive heart and chronic kidney disease with heart failure and stage 1 through stage 4 chronic kidney disease, or unspecified chronic kidney disease; F10.20 Alcohol dependence, uncomplicated; Z87.891 Personal history of nicotine dependence; Z82.5 Family history of asthma and other chronic lower respiratory diseases; Z80.42 Family history of malignant neoplasm of prostate; Z79.899 Other long term (current) drug therapy; Z74.01 Bed confinement status; Z83.3 Family history of diabetes mellitus; Z99.81 Dependence on supplemental oxygen; Z90.49 Acquired absence of other specified parts of digestive tract
CPT/HCPCS: 10005; 36415; 36600; 71045; 72192; 74018; 74176; 76705; 77012; 80048; 80053; 80074; 80076; 80307; 80320; 81001; 81025; 82140; 82248; 82306; 82570; 82607; 82728; 82805; 83010; 83540; 83550; 83605; 83615; 83690; 83880; 84155; 84165; 84300; 84484; 85007; 85027; 85045; 85048; 85610; 85730; 86038; 86644; 86645; 86664; 86695; 86696; 86703; 86704; 86706; 86708; 86709; 86803; 86880; 87040; 87045; 87081; 87086; 87340; 87427; 87517; 93005; 93306; 93926; 93971; 96365; 97110; 97116; 97163; 99291; G0378; J0692; J2003; J2250; J2405; J2470; J2543; J3480; J3490; J7060; J7510; P9047

== ENCOUNTER 2025-02-25 11:03 | Inpatient (IN) | payer MEDICAID ==
[~2025-02-25] VITALS: Ht 152.4 cm; Wt 78.8 kg
[~2025-02-25 11:03] MED LIST changes: +IVER3TAB PO
--- NOTE | 2025-02-25 11:34 | ED.PDOC ---
History of Present Illness HPI Comments 44 year old female presents to the ED with chief complaint of painful bruising. Patient reports that during her admission 2-3 days ago at another hospital, she had a Flores placed and stickers placed on both thighs. Patient relays that after discharge, she developed painful bruising to both thighs and she also has been experiencing non-associated lower back pain for the past 2 weeks. Patient nots her last drink was in December. Patient denies any N/V/D, abdominal pain, dizziness, itchiness, discharge, or bleeding. Chief Complaint: Wound Check Time Seen by MD: 11:29 Primary Care Provider: NONE Reviewed Notes: Nurses Notes, Medications, Allergies Allergies: Coded Allergies: NO KNOWN ALLERGIES (Unverified , 10/26/24) Home Meds Active Scripts Amoxicillin & Pot Clavulanate (Amoxicillin/Potassium Cla) 875 Mg Tab, 1 TAB PO BID for 10 Days, #20 TAB Prov:LESA KRUGER RESIDENT 12/28/24 Sucralfate (CARAFATE) 1 Gm Tab, 1 GM OR TID for 21 Days, #63 TAB Prov:[facility] RESIDENT 12/28/24 Pantoprazole Sodium Sesquihydr (Pantoprazole Sodium) 40 Mg Tab, 40 MG PO DAILY for 30 Days, #30 TAB Prov:[facility] RESIDENT 12/28/24 Reported Medications Benazepril Hcl (Benazepril Hcl) 20 Mg Tab, 1 TAB PO DAILY 12/26/24 Information Source: Patient, Relative Mode of Arrival: Wheelchair Severity: Moderate Timing: Days Duration: Since onset Prehospital treatment: None Past Medical History PAST MEDICAL HISTORY: CHF, CKF, HTN, Liver Surgical History: Cholecystectomy 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 ASSISTANT History: Denies all 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 RESEARCH ASSISTANT Hx Family History Family History: Reviewed,noncontributory to illness Social History Smoker: Non-Smoker Alcohol: Denies ETOH Use Drugs: Denies Drug Use Lives In: Home Constitutional: denies: chills, diaphoresis, fatigue, fever, malaise, sweats, weakness, others EENTM: denies: blurred vision, double vision, ear bleeding, ear discharge, ear drainage, ear pain, ear ringing, eye pain, eye redness, hearing loss, mouth pain, mouth swelling, nasal discharge, nose bleeding, nose congestion, nose pain, photophobia, tearing, throat pain, throat swelling, voice changes, others Respiratory: denies: cough, hemoptysis, orthopnea, SOB at rest, shortness of breath, SOB with excertion, stridor, wheezing, others Cardiovascular: denies: chest pain, dizzy spells, diaphoresis, Dyspnea on exertion, edema, irregular heart beat, left arm pain, lightheadedness, palpitations, PND, syncope, others Gastrointestinal: denies: abdomen distended, abdominal pain, blood streaked bowels, constipated, diarrhea, dysphagia, difficulty swallowing, hematemesis, melena, nausea, poor appetite, poor fluid intake, rectal bleeding, rectal pain, vomiting, others Genitourinary: denies: abnormal vagina bleeding, burning, dyspareunia, dysuria, flank pain, frequency, hematuria, incontinence, pain, , vagina discharge, urgency, others Neurological: denies: dizziness, fainting, headache, left sided numbness, left sided weakness, numbness, paresthesia, pre-existing deficit, right sided numbness, right sided weakness, seizure, speech problems, tingling, tremors, weakness, others Musculoskeletal: reports: back pain; denies: gout, joint pain, joint swelling, muscle pain, muscle stiffness, neck pain, others Integumetry: reports: bruises; denies: change in color, change in hair/nails, dryness, laceration, lesions, lumps, rash, wounds, others Allergic/Immunocompromised: denies: Difficulty Healing, Frequent Infections, Hives, Itching, others Hematologic/Lymphatic: denies: anemia, blood clots, easy bleeding, easy bruising, swollen glands, others Endocrine: denies: excessive hunger, excessive sweating, excessive thirst, excessive urination, flushing, intolerance to cold, intolerance to heat, unexplained weight gain, unexplained weight loss, others Psychiatric: denies: anxiety, bipolar disorder, depression, hopeless, panic disorder, schizophrenia, sleepless, suicidal, others All Other Systems: Reviewed and Negative Physical Exam General Appearance: No Apparent Distress, Normal HEENT: Normal ENT Inspection, Pharynx Normal, TMs Normal Neck: Full Range of Motion, Non-Tender, Normal, Normal Inspection Respiratory: Chest Non-Tender, Lungs Clear, No Accessory Muscle Use, No Respiratory Distress, Normal Breath Sounds Cardiovascular: No Edema, No JVD, No Murmur, No Gallop, Normal Peripheral Pulses, Regular Rate/Rhythm Breast Exam: Deferred Gastrointestinal: No Organomegaly, Non Tender, No Pulsatile Mass, Normal Bowel Sounds, Soft Genitalia: Deferred Pelvic: Deferred Rectal: Deferred Extremities: No calf tenderness, Normal capillary refill, Normal inspection, Normal range of motion, Non-tender, No pedal edema Musculoskeletal : Location: Bilateral Apperance: Normal, Tenderness (Lower back tenderness) Neurologic: Alert, 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 Was a procedure done?: No Differential Dx Considerations may include: Liver failure, hematoma, cellulitis, abscess, leukemia, leukemoid reaction, chronic leukocytosis X-Ray, Labs, Meds, VS Vital Signs Date Time Temp Pulse Resp B/P (MAP) Pulse Ox O2 Delivery O2 Flow Rate FiO2 02/25/25 11:56 97.5 105 30 129/72 (91) 100 97.5 02/25/25 11:54 108 12 100 Room Air* 0 21 02/25/25 11:18 116 02/25/25 11:15 97.8 113 16 103/58 (73) 100 97.8 Lab Test 02/25/25 11:48 Range/Units White Blood Count 50.2 *H 4.4-10.8 10^3/uL Red Blood Count 3.09 L 4.0-5.20 10^6/uL Hemoglobin 10.3 L 12.2-16.2 g/dL Hematocrit 32.0 L 36.0-46.0 % Mean Corpuscular Volume 103.6 H 80.0-100.0 fL Mean Corpuscular Hemoglobin 33.3 H 28.0-32.0 pg Mean Corpuscular Hemoglobin Concent 32.1 32.0-36.0 g/dL Red Cell Distribution Width 19.0 H 11.8-14.3 % Platelet Count 233 140-450 10^3/uL Mean Platelet Volume 11.5 H 6.9-10.8 fL Neutrophils (%) (Auto) 37.0-80.0 % Lymphocytes (%) (Auto) 10.0-50.0 % Monocytes (%) (Auto) 0.0-12.0 % Basophils (%) (Auto) 0.0-2.0 % Neutrophils # (Auto) 1.6-8.6 10 ^3/uL Lymphocytes # (Auto) 0.4-5.4 10 ^3/uL Monocytes # (Auto) 0-1.3 10 ^3/uL Differential Total Cells Counted 100.0 100 Neutrophils % (Manual) 71 37.0-80.0 Band Neutrophils % (Manual) 10 Lymphocytes % (Manual) 14 10.0-50.0 Monocytes % (Manual) 5 0-12 Eosinophils % (Manual) 0 0-7 Basophils % (Manual) 0 0.0-2.0 Metamyelocytes % (manual) 0 Myelocytes % (Manual) 0 Promyelocytes % (Manual) 0 Blast Cells % (Manual) 0 Reactive Lymphocytes 0 Platelet Estimate Adequate Prothrombin Time 16.2 H 9.3-11.8 sec Prothrombin Time INR 1.60 H 0.9-1.15 Activated Partial Thromboplast Time 39.7 H 24.5-34.5 SEC Sodium Level 136 136-145 mmol/L Potassium Level 4.1 3.5-5.1 mmol/L Chloride Level 106 98-107 mmol/L Carbon Dioxide Level 16 L 20-31 mmol/L Anion Gap 14 5-15 Blood Urea Nitrogen 48 H 9-23 mg/dL Creatinine 1.71 H 0.550-1.02 mg/dL Glomerular Filtration Rate Calc 38 >90 mL/min BUN/Creatinine Ratio 28.1 H 10.0-20.0 Serum Glucose 130 H 74-106 mg/dL Calcium Level 9.0 8.7-10.4 mg/dL Total Bilirubin 14.3 H 0.2-1.0 mg/dL Aspartate Amino Transferase (AST) 26 13-40 U/L Alanine Aminotransferase (ALT) 18 7-40 U/L Alkaline Phosphatase 372 H 46-116 U/L Total Protein 6.9 5.7-8.2 g/dL Albumin 3.0 L 3.2-4.8 g/dL Current Medications Medications (Trade) Dose Ordered Sig/Chris Route Start Time Stop Time Status Last Admin Acetaminophen/ Hydrocodone Bitart ([place] 5/325MG Tab) 1 tab ONCE ONCE PO 02/25/25 12:30 02/25/25 12:31 DC 02/25/25 12:20 Time of 1ST Reevaluation: 12:29 Reevaluation 1ST: Unchanged Patient Education/Counseling: Diagnosis, Treatment, Prognosis, Need For Follow Up Family Education/Counseling: Diagnosis, Treatment, Prognosis, Need For Follow Up Additional Information Previous visits: 01/19/25 for liver failure decompensation The following tests were ordered, and results were reviewed by me: Additional Information was gathered from interviewing the following independent historians: Daughter I reviewed and agreed with the following test results read by other providers: I discussed treatment and results with medical personnel and: Patient and daughter Comprehensive systems review obtained and negative except for what is stated in the HPI. pt has chronic leukocytosis. she has hematoma of the left thigh and cellulitis. she also has chronic liver failure. pt will be admitted for pain control and treatment of the cellulitis and chronic leukocytosis. i do not feel she is septic, but she has tachycardia, likely from the pain, and leukocytosis, and a source of infection, so i will start sepsis orders Sepsis Sepsis Reasesment Focused Exam Sepsis focused exam: focus exam completed (stable BP, cap refill<2 secs, alert, oriented), time: (1400) Departure 1 Departure Time of Disposition: 13:20 Impression: Primary Impression: Cellulitis Qualified Codes: L03.116 - Cellulitis of left lower limb Additional Impressions: Leukocytosis Qualified Codes: D72.829 - Elevated white blood cell count, unspecified Coagulopathy Renal failure Qualified Codes: N18.9 - Chronic kidney disease, unspecified Liver failure Qualified Codes: K72.10 - Chronic hepatic failure without coma Uncontrolled pain Disposition: ADMITTED INPATIENT Admit to: Med Surg Condition: Serious Discharged With: Self, Relative Critical Care Note Critical Care Time?: Yes (55 min-critical care time only) Critical care comment: Due to concerns for patients condition deteriorating, the care required my highest level of attention and readiness to intervene. I assessed the patient, reviewed the medical records, ordered the appropriate tests and treatments, then reassessed for results and responsiveness. I communicated with medical personnel and consultants and formulated a plan of care. Total critical care time excludes any procedures Stability Stability form required: No Heart Score Heart Score: Heart Score Response (Comments) Value History N/A 0 EKG N/A 0 Age N/A 0 Risk Factors N/A 0 Troponin N/A 0 Total 0 I personally scribed for JV CORTES MD ([email or web address]) on 02/25/25 at 11:34. Electronically submitted by Sekou Abraham ([facility]). JV CORTES MD Feb 25, 2025 11:34
[2025-02-25 11:54] VITALS: PULSE 108; RESP 12; O2SAT 100
[2025-02-25] MEDS: HYDROcodone-ACET 5/325MG TAB PO ONE (12:20)
[2025-02-25 12:21] LABS: Hemoglobin 10.3 g/dL (12.2-16.2); Mean Corpuscular Hemoglobin 33.3 pg (28.0-32.0)
[2025-02-25 12:27] LABS: Mean Corpuscular Hgb Conc. 32.1 g/dL (32.0-36.0); Mean Corpuscular Volume 103.6 fL (80.0-100.0); Platelet Count (auto) 233 10^3/uL (140-450); Red Blood Cells 3.09 10^6/uL (4.0-5.20)
[2025-02-25 12:31] LABS: White Blood Cell 50.2 10^3/uL (4.4-10.8)
[2025-02-25 12:33] LABS: Basophils % (manual) 0 (0.0-2.0); Blast Cells 0; Eosinophils % (manual) 0 (0-7); Metamyelocytes % 0; Myelocytes % 0; Promyelocytes % 0; Reactive Lymphocytes 0
[2025-02-25 12:39] LABS: INR 1.6 (0.9-1.15); Partial Thromboplastin Time 39.7 SEC (24.5-34.5); Prothrombin Time 16.2 sec (9.3-11.8)
[2025-02-25 12:43] LABS: Alanine Aminotransferase 18 U/L (7-40); Anion Gap 14 (5-15); Aspartate Aminotransferase 26 U/L (13-40); Chloride 106 mmol/L (98-107); Potassium 4.1 mmol/L (3.5-5.1); Sodium 136 mmol/L (136-145)
--- NOTE | 2025-02-25 12:46 | ECG ---
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
[2025-02-25 12:51] LABS: Alkaline Phosphatase 372 U/L (46-116); Bilirubin, Total 14.3 mg/dL (0.2-1.0); Blood Urea Nitrogen 48 mg/dL (9-23); Carbon Dioxide 16 mmol/L (20-31); Glucose 130 mg/dL (74-106)
[2025-02-25 12:59] LABS: Band Neutrophils % (manual) 10; Lymphocytes % (manual) 14 (10.0-50.0); Monocytes % (manual) 5 (0-12); Platelet Estimate Adequate
[2025-02-25 13:04] LABS: BUN/Creatinine Ratio 28.1 (10.0-20.0)
[2025-02-25 13:05] LABS: Total Protein 6.9 g/dL (5.7-8.2)
[2025-02-25] MEDS: SODIUM CHLORIDE 0.9% 1,350 ML IV ONE (13:20)
[2025-02-25] MEDS ORDERED: VANCOMYCIN PER PHARMACY 0 MG IV SCH (14:00)
[2025-02-25] MEDS: PIPERACILLIN-TAZOB 3.375GM 100 ML IV SCH (14:00)
[2025-02-25] MEDS ORDERED: VANCOMYCIN 1.5GM/250ML 250 ML IV ONE (14:30)
[2025-02-25] MEDS: VANCOMYCIN 1.5GM/300ML 300 ML IV ONE (15:17)
[2025-02-25] MEDS ORDERED: ACETAMINOPHEN 325 MG TAB PO PRN (16:00)
[2025-02-25] MEDS ORDERED: ONDANSETRON HCL 4 MG/2 ML VIAL IV PRN (16:00)
--- NOTE | 2025-02-25 16:14 | DVHHP2 ---
Admitting Diagnosis: Lower extremity pain History of Present Illness 44 year old female presents to the ED with chief complaint of painful bruising. Patient reports that during her admission 2-3 days ago at [facility] [place], she had a Ar[place] placed and stickers placed on both thighs. Patient relays that after discharge, she developed painful bruising to both thighs and she also has been experiencing non-associated lower back pain for the past 2 weeks. Patient nots her last drink was in December. Patient denies any N/V/D, abdominal pain, dizziness, itchiness, discharge, or bleeding. 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 History: Denies all STUDY HALL SUPERVISOR Hx Family History Family History: Reviewed,noncontributory to illness Social History Smoker: Non-Smoker Alcohol: Denies ETOH Use Drugs: Denies Drug Use Lives In: Home Patient Family History: FH: asthma G8 FATHER FH: diabetes mellitus G8 MOTHER FH: prostate cancer G8 FATHER Allergies: Coded Allergies: NO KNOWN ALLERGIES (Unverified , 10/26/24) Home Meds Active Scripts Amoxicillin & Pot Clavulanate (Amoxicillin/Potassium Cla) 875 Mg Tab, 1 TAB PO BID for 10 Days, #20 TAB Prov:JOSÉ MIGUEL KRUGER RESIDENT 12/28/24 Sucralfate (CARAFATE) 1 Gm Tab, 1 GM OR TID for 21 Days, #63 TAB [facility] 12/[facility]/24 Pantoprazole Sodium Sesquihydr (Pantoprazole Sodium) 40 Mg Tab, 40 MG PO DAILY for 30 Days, #30 TAB [facility] 12/28/24 Reported Medications Benazepril Hcl (Benazepril Hcl) 20 Mg Tab, 1 TAB PO DAILY 12/26/24 Current Medications Current Medications Medications (Trade) Dose Ordered Sig/Chris Route PRN Reason Start Time Stop Time Status Last Admin Vancomycin HCl 200 ml @ 200 mls/hr Q12HR IV 02/25/25 22:00 UNV Piperacillin Sod/ Tazobactam Sod 100 ml @ 25 mls/hr Q8HR IV 02/25/25 14:00 02/25/25 14:00 Vancomycin HCl 0 ml @ 0 mls/hr UD IV 02/25/25 14:00 Vital Signs Vital Signs Date Time Temp Pulse Resp B/P (MAP) Pulse Ox O2 Delivery O2 Flow Rate FiO2 02/25/25 13:27 98.1 99 22 02/25/25 11:56 129/72 (91) 100 02/25/25 11:54 Room Air* 0 21 Physical Exam Generally-44 years old woman, well nourished well developed. Mild distress HEENT-atraumatic normocephalic, sclera icterus Heart-regular rate and rhythm Lungs decreased breath sounds bilaterally Abdomen soft, nontender nondistended Musculoskeletal-pedal edema, no cyanosis . Upper bilaterally thigh palpable mass possible hematoma versus abscess tender to palpate, diffuse ecchymosis a [id number] Skin-Diffuse jaundice Neuro-AO x3, no focal deficits Results Labs Test 02/25/25 15:50 02/25/25 13:30 02/25/25 11:48 Range/Units Lactic Acid Level 1.2 0.4-2.0 mmol/L White Blood Count 50.2 *H 4.4-10.8 10^3/uL Red Blood Count 3.09 L 4.0-5.20 10^6/uL Hemoglobin 10.3 L 12.2-16.2 g/dL Hematocrit 32.0 L 36.0-46.0 % Mean Corpuscular Volume 103.6 H 80.0-100.0 fL Mean Corpuscular Hemoglobin 33.3 H 28.0-32.0 pg Mean Corpuscular Hemoglobin Concent 32.1 32.0-36.0 g/dL Red Cell Distribution Width 19.0 H 11.8-14.3 % Platelet Count 233 140-450 10^3/uL Mean Platelet Volume 11.5 H 6.9-10.8 fL Neutrophils (%) (Auto) 37.0-80.0 % Lymphocytes (%) (Auto) 10.0-50.0 % Monocytes (%) (Auto) 0.0-12.0 % Basophils (%) (Auto) 0.0-2.0 % Neutrophils # (Auto) 1.6-8.6 10 ^3/uL Lymphocytes # (Auto) 0.4-5.4 10 ^3/uL Monocytes # (Auto) 0-1.3 10 ^3/uL Differential Total Cells Counted 100.0 100 Neutrophils % (Manual) 71 37.0-80.0 Band Neutrophils % (Manual) 10 Lymphocytes % (Manual) 14 10.0-50.0 Monocytes % (Manual) 5 0-12 Eosinophils % (Manual) 0 0-7 Basophils % (Manual) 0 0.0-2.0 Metamyelocytes % (manual) 0 Myelocytes % (Manual) 0 Promyelocytes % (Manual) 0 Blast Cells % (Manual) 0 Reactive Lymphocytes 0 Platelet Estimate Adequate Prothrombin Time 16.2 H 9.3-11.8 sec Prothrombin Time INR 1.60 H 0.9-1.15 Activated Partial Thromboplast Time 39.7 H 24.5-34.5 SEC Sodium Level 136 136-145 mmol/L Potassium Level 4.1 3.5-5.1 mmol/L Chloride Level 106 98-107 mmol/L Carbon Dioxide Level 16 L 20-31 mmol/L Anion Gap 14 5-15 Blood Urea Nitrogen 48 H 9-23 mg/dL Creatinine 1.71 H 0.550-1.02 mg/dL Glomerular Filtration Rate Calc 38 >90 mL/min BUN/Creatinine Ratio 28.1 H 10.0-20.0 Serum Glucose 130 H 74-106 mg/dL Calcium Level 9.0 8.7-10.4 mg/dL Total Bilirubin 14.3 H 0.2-1.0 mg/dL Aspartate Amino Transferase (AST) 26 13-40 U/L Alanine Aminotransferase (ALT) 18 7-40 U/L Alkaline Phosphatase 372 H 46-116 U/L Total Protein 6.9 5.7-8.2 g/dL Albumin 3.0 L 3.2-4.8 g/dL Primary Diagnosis Bilateral upper extremity thigh cellulitis rule out abscess and hematoma CKD Elevated bilirubin likely liver cirrhosis rule out liver mass Plan Patient was recently discharged from [facility] after muscular improved. MELD for 30 admission. 72.7% estimated 90 survival Vanc and Zosyn for bilateral upper extremity cellulitis. CT of upper extremity bilaterally to assess for possible abscess versus hematoma Follow up with the blood culture Ultrasound abdomen to assess for CKD and liver mass in view of cirrhosis. Check AFB for possible malignancy Resume home meds Patient has a appointment with the PCP in in two weeks No altered mental status check ammonia Full code SCD for DVT prophylaxis PPI Regular diet Plan discussed with: Patient Problems List: (1) Liver cirrhosis Status: Acute (2) Leukocytosis (3) Alcoholic cirrhosis of liver Status: Acute (4) Cellulitis Status: Acute (5) Renal failure Status: Acute (6) Coagulopathy Status: Acute (7) Jaundice Date of Service: Feb 25, 2025 Billing Provider: CHANDRIKA CUMMINS MD Common Visit Codes: [id number]-[id number] INP/OBS CARE (HIGH) CHANDRIKA CUMMINS MD Feb 25, 2025 16:13
[2025-02-25 16:16] LABS: Urine Bacteria FEW /hpf (None Seen); Urine Blood Negative /uL (Negative); Urine Clarity Clear (Clear); Urine Color Dark-Yellow (Yellow); Urine Hyaline Cast MOD /lpf (0 - 2); Urine Mucus FEW (None Seen); Urine Protein, UAD Negative (Negative); Urine Specific Gravity 1.012 (1.001-1.035); Urine Squamous Epithelial Cell FEW /hpf (<5); Urine Urobilinogen Normal (Negative); Urine WBC 1 /HPF (0-5); Urine pH 5.5 (5.0-9.0)
--- NOTE | 2025-02-25 16:46 | DVH ---
INDICATION: Assess for liver cirrhosis possible liver mass, ZOILA on CKD TECHNIQUE: Multiple real-time sonographic images of the abdomen were obtained. COMPARISON: None FINDINGS: Hepatic parenchyma shows increased echogenicity consistent with steatosis. The liver measur es 20.9 cm. No intrahepatic biliary ductal dilatation is noted. Gallbladder has been surgically removed.. The common duct measures 10 mm cm and is unremarkable. No pericholecystic fluid is noted. The right kidney measures 10.98 cm. No hydronephrosis. The left kidney measures 10.71 cm. No hydron ephrosis. The spleen measures 11.92 cm, within normal limits. The echogenicity is within normal limits. The pancreas is not well visualized due to obscuration from bowel gas. The visualized portions of the IVC and aorta are grossly unremarkable. Aorta measures 1.5 cm IMPRESSION: 1. Normal exam of the abdomen. 2. Hepatomegaly with changes of steatosis. Liver measures 20.9 cm in length 3. Gallbladder is been surgically removed 4. Right and left kidneys within normal limits. 5. Spleen at the upper limits of normal at 11.9 cm HS:Y
[2025-02-25 17:25] VITALS: BP 97/59; PULSE 87; RESP 17; RESP 18; TEMP 97.6; O2SAT 100
--- NOTE | 2025-02-25 17:37 | DVH ---
Exam: CT PELVIS WO CONTRAST History: Hematoma left upper thigh Comparison Study: None available at time of dictation. Technique: Multidetector CT of the pelvis was performed from iliac crests to pubic symphysis after th e administration of intravenous contrast was administered during this examination. Portal venous imag ing was obtained. Axial, coronal and sagittal multiplanar reformats were performed by the technSocialinus t on a separate workstation. Radiation Dose : CT Dose: CTDI volume is 15.81 mGy. Dose-length product is 641.67 mGy*cm Findings: Visualized bowel: No bowel wall thickening or dilatation. Ascites: Absent Lymphadenopathy: No pelvic or mesenteric lymphadenopathy. Vasculature: The visualized abdominal aorta is normal in size and caliber. Abdominal and pelvic vesse ls demonstrate normal enhancement. Pelvic Organs: Unremarkable Musculoskeletal: No acute osseous abnormality. Bladder: Unremarkable Soft tissues: Unremarkable. IMPRESSION: 1. No acute pelvic finding. 2. No bony fractures of the right or left femurs or superior or inferior pubic ramus on the right or left. If symptoms persist consider MRI. All CT scans at this medical facility are performed using dose modulation techniques as appropriate t o a performed exam including the following: Automated exposure control was utilized; adjustment of th e MA and/or KV according to patient size; and use of iterative reconstruction technique. HS:Y
[2025-02-25 18:03] VITALS: BP 97/59; PULSE 87; RESP 18; TEMP 97.5; O2SAT 100
--- NOTE | 2025-02-25 18:41 | DVH ---
EXAM: CT LS SPINE WO CONTRAST HISTORY: PAIN COMPARISON: None CTDIvol 27.29 mGy, DLP 965.09 mGy*cm. TECHNIQUE: Multiple axial CT images of the spine were obtained using bone algorithm. Axial and coron al reformatting was done. Bone and soft tissue windows were reviewed. FINDINGS: Transitional lumbosacral anatomy with partial sacralization of L5. No CT evidence of definite acute f racture, spinal dislocation, or significant appearing acute subluxation is seen. The visualized sheila conor soft tissues are grossly unremarkable. Minimal multilevel degenerative changes of the spine. No significant central spinal stenosis or neur al foraminal narrowing. IMPRESSION: 1. No definite CT evidence of acute fracture or dislocation of the bony lumbar spine. 2. Transitional lumbosacral anatomy with partial sacralization of L5.
[2025-02-25] MEDS: OXYCODONE W/ ACETAMINOPHEN 5/325MG TABLET PO PRN (20:06)
[2025-02-25 21:00] VITALS: BP 92/53; PULSE 86; RESP 16; TEMP 96.9; O2SAT 99
[2025-02-25] MEDS ORDERED: VANCOMYCIN 1GM/200ML PM 200 ML IV SCH (22:00)
[2025-02-25] MEDS: SUCRALFATE 1 GM TAB PO SCH (22:03)
[2025-02-25] MEDS: SODIUM CHLOR 0.9% PF (SALINE LOCK) 10ML VIAL/SYR IV SCH (22:09)
[2025-02-26] MEDS: HYDROmorphone HCL 2 MG/ML VL/or syr IV PRN (00:23)
[2025-02-26 01:00] VITALS: BP 100/56; PULSE 98; RESP 16; TEMP 96.7; O2SAT 100
[2025-02-26 05:00] VITALS: BP 109/57; PULSE 100; RESP 17; TEMP 96.7; O2SAT 100
[2025-02-26 07:03] LABS: Mean Corpuscular Hgb Conc. 32.2 g/dL (32.0-36.0)
[2025-02-26 07:07] LABS: Hematocrit 30.1 % (36.0-46.0); Hemoglobin 9.7 g/dL (12.2-16.2); Mean Corpuscular Hemoglobin 33.2 pg (28.0-32.0); Mean Corpuscular Volume 103.1 fL (80.0-100.0); Platelet Count (auto) 193 10^3/uL (140-450); Red Blood Cells 2.92 10^6/uL (4.0-5.20); Red Cell Distribution Width 18.4 % (11.8-14.3)
[2025-02-26 07:10] LABS: Alanine Aminotransferase 14 U/L (7-40); Anion Gap 14 (5-15); Aspartate Aminotransferase 25 U/L (13-40); Calcium 8.7 mg/dL (8.7-10.4); Glucose 96 mg/dL (74-106); Potassium 4.1 mmol/L (3.5-5.1); Sodium 139 mmol/L (136-145)
[2025-02-26 07:11] LABS: Basophils % (manual) 0 (0.0-2.0); Blast Cells 0; Metamyelocytes % 0; Myelocytes % 0; Promyelocytes % 0; Reactive Lymphocytes 0
[2025-02-26 07:14] LABS: Albumin 2.6 g/dL (3.2-4.8); Alkaline Phosphatase 346 U/L (46-116); Bilirubin, Total 12.6 mg/dL (0.2-1.0); Blood Urea Nitrogen 51 mg/dL (9-23); Carbon Dioxide 16 mmol/L (20-31); Chloride 109 mmol/L (98-107)
[2025-02-26 09:00] VITALS: BP 104/60; PULSE 109; RESP 18; TEMP 99.4; O2SAT 10; O2SAT 100
[2025-02-26 09:14] LABS: Band Neutrophils % (manual) 1; Eosinophils % (manual) 3 (0-7); Lymphocytes % (manual) 14 (10.0-50.0); Monocytes % (manual) 7 (0-12); Platelet Estimate Adequate
[2025-02-26] MEDS ORDERED: RIFA550T PO (09:59)
[2025-02-26] MEDS ORDERED: CHOL1TAB30 PO (09:59)
[2025-02-26] MEDS ORDERED: LACT10PA2 PO (09:59)
[2025-02-26] MEDS ORDERED: FURO40TA4 PO (09:59)
[2025-02-26] MEDS ORDERED: SPIR50TA5 PO (09:59)
[2025-02-26] MEDS: PANTOPRAZOLE 40 MG TAB PO SCH (10:49)
[2025-02-26] MEDS ORDERED: SUCRALFATE 1 GM/10 ML ORAL SUSP PO SCH (11:30)
[2025-02-26] MEDS: URSODIOL 300 MG CAP PO SCH (11:49)
[2025-02-26] MEDS: SPIRONOLACTONE 25 MG TAB PO SCH (11:49)
[2025-02-26] MEDS: FUROSEMIDE 40 MG TAB PO SCH (11:50)
[2025-02-26] MEDS: LACTULOSE 20Gm/30ML SOLN PO SCH (11:51)
--- NOTE | 2025-02-26 12:21 | DVH ---
EXAM: CT LEFT LOWER EXTREMITY W/O CON INDICATION: PAIN EXAM DATE: 02/26/2025 09:58 AM COMPARISON: US LEFT LOWER EXTREMITY ULTRASOUN on DOS: 01/29/25 TECHNIQUE: Multiple axial CT images of the left lower extremity were obtained using bone algorithm. A xial and coronal reformatting was done. Bone and soft tissue windows were reviewed. Radiation Dose Information: CT Dose: CTDI volume is 10.82 mGy. Dose-length product is 1983.45 mGy*cm Findings: There is no evidence of an acute fracture, dislocation, blastic, or lytic lesions. There is no hematoma identified in the thigh or calf regions. Note made of hamstring muscle atrophy i n the left thigh No radiopaque foreign bodies. No joint effusion or superficial soft tissue abnormalities. Impression: 1. No evidence of acute bony or soft tissue pathology.
--- NOTE | 2025-02-26 12:21 | DVH ---
CLINICAL INDICATION: 44 years old, Female; bilateral lower extre hematoma. TECHNIQUE: Noncontrast CT of the right lower extremity was performed. Sagittal and coronal reformatte d images are provided. COMPARISON: None CT Dose: CTDI volume is 10.5 mGy. Dose-length product is 1002.4 mGy*cm FINDINGS: No fracture or dislocation. Joint spaces are maintained. No hematoma. Soft tissues are unr emarkable. IMPRESSION: 1. No evidence of hematoma in the right lower extremity. No acute osseous abnormality. All CT scans at this medical facility are performed using dose modulation techniques as appropriate t o a performed exam including the following: Automated exposure control was utilized; adjustment of th e MA and/or KV according to patient size; and use of iterative reconstruction technique.
[2025-02-26 13:00] VITALS: BP 101/55; PULSE 112; RESP 17; TEMP 98.4; O2SAT 100
[2025-02-26] MEDS: CHOLECALCIFEROL (VITD3) 1,000UNIT=25mCg TAB PO ONE (13:34)
[2025-02-26] MEDS: SODIUM BICARBONATE 650 MG TAB PO SCH (13:56)
--- NOTE | 2025-02-26 16:30 | DVHPNRES ---
Progress Note Date Seen: Feb 26, 2025 Resident Creating Document: TAZ GARCIA RESIDENT Medical Necessity Reason Pt with a Central, PICC or Fol: No Subjective Review of Systems Patient is a female was recently hospitalized for generalized weakness, melena, fever, chills, confusion, was diagnosed with decompensated liver failure and was transferred through [facility] for liver transplant evaluation. Patient has an extensive past medical history including hypertension, alcoholic liver cirrhosis, likely hepatorenal syndrome, CKD, leukemoid reaction, gastritis, positive hepatitis-B surface antigen, EBV virus infection, HSV infection. Patient seen and examined at bedside. Complaining of bilateral lower extremity pain and bruises over bilateral lower extremity Complaining of generalized weakness and body aches No other complaint Past medical history: Hypertension, alcoholic liver cirrhosis (last alcoholic drink on November 20, 2024), positive hepatitis B surface antigen, leukemoid reaction, CKD, gastritis, questionable acute viral hepatitis risk EBV, bicytopenia, ileus Surgical history: Cholecystectomy Family history: Father had prostate cancer Social history: Lives with family in [place]. Ex ethanol abuse (stopped intake of alcohol since November 20, 2024). Ex-smoker (2.5 pack year history of smoking). Denies current tobacco, alcohol and other drug abuse Allergies: Denies Home medication: Benazepril, sucralfate and Protonix, ivermectin, Lasix, spironolactone During last hospitalization, for elevated white count, patient normally immunophenotype big evaluation, no evidence of B-cell or T-cell lymphoproliferative disorder. HBV DNA was not detected, mucositis with improving. Liver function trended down compared to last hospitalization. Continue elevated bilirubin. Objective vital signs Vital Sign Date Time Temp Pulse Resp B/P (MAP) Pulse Ox O2 Delivery O2 Flow Rate FiO2 02/26/25 13:00 98.4 112 17 101/55 (70) 100 98.4 02/26/25 08:00 Room Air* 0 21 Total Intake and Output 02/25/25 02/25/25 02/26/25 15:00 23:00 07:00 Intake Total 25 ml 1600 ml 565 ml Balance 25 ml 1600 ml 565 ml medications Current Medications Medications Dose Ordered Sig/Chris Route Start Time Stop Time Status Last Admin Dose Admin Vancomycin HCl 200 ml @ 200 mls/hr Q12HR IV 02/25/25 22:00 UNV Piperacillin Sod/ Tazobactam Sod 100 ml @ 25 mls/hr Q8HR IV 02/25/25 14:00 02/26/25 13:56 25 MLS/HR Vancomycin HCl 0 ml @ 0 mls/hr UD IV 02/25/25 14:00 Oxycodone/ Acetaminophen 1 tab Q6H PRN PO 02/25/25 16:00 02/26/25 10:56 1 TAB Pantoprazole Sodium 40 mg DAILY PO 02/26/25 10:00 02/26/25 10:49 40 MG Sucralfate 1 gm TID PO 02/25/25 22:00 02/26/25 11:50 1 GM Sodium Chloride 10 ml Q8HR IV 02/25/25 22:00 02/26/25 14:20 10 ML Acetaminophen 650 mg Q6HP PRN PO 02/25/25 16:00 Hydromorphone HCl 0.5 mg Q4HP PRN IV 02/25/25 16:00 02/26/25 00:23 0.5 MG Ondansetron HCl 4 mg Q4HP PRN IV 02/25/25 16:00 Lactulose 30 ml DAILY PO 02/26/25 10:00 02/26/25 11:51 30 ML Sodium Bicarbonate 650 mg TID PO 02/26/25 14:00 02/26/25 13:56 650 MG Ursodiol 300 mg BID PO 02/26/25 10:00 02/26/25 11:49 300 MG Furosemide 40 mg DAILY PO 02/26/25 10:00 02/26/25 11:50 40 MG Spironolactone 50 mg DAILY PO 02/26/25 10:00 02/26/25 11:49 50 MG Cholecalciferol 1,000 unit DAILY PO 02/27/25 10:00 Examination General Appearance: Cooperative. Well developed. Well nourished. NAD Head Exam: Normal inspection Neck Exam: Normal inspection. Non-tender. Normal alignment Pulmonary/Respiratory: Chest non-tender. Clear bilateral breath sounds Cardiovascular/Chest: Regular rate and rhythm. No murmurs. No JVD. Peripheral Pulses: 2+ Radial (R). 2+ Radial (L). 2+ Pedal (R). 2+ Pedal (L) Abdominal Exam: Normal bowel sounds. Soft. Nontender. Distended with ascites Ankle Exam: Negative ankle edema Lower extremities: Multiple ecchymoses, tenderness on palpation, consistent bilateral pedal pulse, capillary refill less than 2 seconds Neuro/Mental Status: A&O x4. Coherent Thoughts/Psych: Normal thought pattern. Appropriate mood and affect. Good judgement and insight Appearance: In no acute distress Skin Exam: Normal inspection. Normal color. Warm. Dry laboratory and microbiology Laboratory Tests 02/26/25 06:30 Test 02/26/25 06:30 Range/Units Serum Glucose 96 74-106 mg/dL Microbiology Date/Time Source Procedure Growth Status 02/25/25 18:00 Nose MRSA Screen - Final Complete 02/25/25 13:30 Blood Blood Culture - Preliminary NO GROWTH AFTER 24 HOURS OF INCUBATION. Resulted Labs and/or images reviewed: Labs reviewed by me, Image(s) reviewed by me Problem List/Assessment/Plan Problem List/Assessment/Plan Alcoholic liver cirrhosis MELD score 27 -bilirubin elevated at 12.6, INR 1.6 -continue Lasix 40 mg p.o. daily -continue spironolactone 50 mg p.o. daily -lactulose 30 mg p.o. daily -cardiac diet: Salt intake less than 2 g ZOILA likely hemodynamically mediated due to hepatorenal syndrome -continue Lasix 40 mg p.o. daily -continue monitor kidney function: Creatinine 1.76, GFR 36, BUN creatinine ratio and currently nine -continue monitor urine output -continue monitor electrolyte -strict I&O Metabolic acidosis, Non anion gap likely related to hepatorenal syndrom -Sodium bicarbonate -Check BMP in AM Severe protein malnutrition -albumin 2.6 -nutritional recommendation -advised on intake of lean protein, limit salt intake to reduce fluid retention and swelling. Acute on chronic anemia macrocytic likely due to alcoholism -continue monitoring H&H Acute on chronic encephalopathy with Hyperammonemia -lactulose 30 mg p.o. daily Leukemoid reaction -continue monitor vitals, patient needs an antibiotic for some reduction -Patient's underwent bone marrow biopsy on a subset of CD56 expression on myelomonocytic cell,no immunophenotypic evidence of a B-cell or T-cell lymphoproliferative disorder. During previous admission Right and left lower extremity cellulitis -continue IV antibiotic with Zosyn and vancomycin -currently monitor kidney function given vancomycin toxicity Secondary coagulopathy -INR 1.60, continue monitor Generalized weakness -PT evaluation Ruled out acute hepatitis-B infection in previous admission Liver function normalized was given acyclovir for possible EBV hepatitis Obesity BMI 33.2 -patient counseled on lifestyle modifications such as regular exercise, diet recommendation as above. -dietary consultation Renal diet PUD prophylaxis with Protonix DVT prophylaxis SCD, avoid anticoagulation given high risk for bleeding Goals of care decision for 20 minutes; full code status Plan discussed with Dr Azevedo Plan discussed with: Patient, Other (RN) My Orders My Orders Orders - TAZ GARCIA RESIDENT Procedure Category Date Status Time Stool Occult Blood LAB 02/26/25 Logged 08:51 Stool Occult Blood LAB 02/26/25 Logged 09:04 Cardiac DIET 02/26/25 Transmitted Diet-2gna,Lofat,Lochol Lunch Lactulose Oral PHA 02/26/25 In Process 10:00 Sodium Bicarb Tab PHA 02/26/25 In Process 14:00 Ursodiol (Actigall) PHA 02/26/25 In Process 10:00 Furosemide Tablet PHA 02/26/25 In Process (Lasix Tablet) 10:00 Spironolactone PHA 02/26/25 In Process (Aldactone) 10:[address] 02/26/25 Resulted Joint Righ 09:27 Cholecalciferol PHA 02/27/25 In Process Tablet (Vitamin D3 10:00 Cholecalciferol PHA 02/26/25 In Process Tablet (Vitamin D3 11:15 * Evaluation Assistant CONS 02/26/25 Transmitted Consult Pt Request For Service PT 02/26/25 Logged 15:35 Addendum Addendum Addendum I was physically present for the wild portions of the service provided to patient by THE RESIDENT. I have reviewed the documentation, discussed the case with resident and agree with the resident's documentation except as noted. Also the patient's clinical case was discussed with the patient's nurse. This medical document was created using an electronic medical record system with computerized dictation system. Although this document has been carefully reviewed, there might still be some phonetic and typographical errors. These areas are purely typographical due to imperfections of the software programs, and do not reflect any compromise in the patient's medical care. Late signature. Date of Service: Feb 26, 2025 Billing Provider: GLENNY AZEVEDO MD Common Visit Codes: [id number] INP/OBS CARE(HIGH) Secondary Visit Codes: [id number] CARE PLAN 30 MINUTES (20 minutes) TAZ GARCIA Feb 26, 2025 16:29 GLENNY AZEVEDO MD Feb 28, 2025 08:14
[2025-02-26 17:00] VITALS: BP 111/57; PULSE 106; RESP 22; TEMP 98.5; O2SAT 99
[2025-02-26 21:00] VITALS: BP 107/62; PULSE 111; RESP 20; TEMP 99.2; O2SAT 99
[2025-02-27 01:00] VITALS: BP 106/63; PULSE 115; RESP 19; TEMP 99.6; O2SAT 99
[2025-02-27 05:00] VITALS: BP 100/62; PULSE 109; RESP 20; TEMP 97.9; O2SAT 100
[2025-02-27 06:30] LABS: Hemoglobin 9.2 g/dL (12.2-16.2); Platelet Count (auto) 213 10^3/uL (140-450)
[2025-02-27 06:37] LABS: Hematocrit 28.3 % (36.0-46.0); Mean Corpuscular Hemoglobin 33.1 pg (28.0-32.0); Mean Corpuscular Hgb Conc. 32.6 g/dL (32.0-36.0); Mean Corpuscular Volume 101.7 fL (80.0-100.0); Red Blood Cells 2.78 10^6/uL (4.0-5.20); Red Cell Distribution Width 18.3 % (11.8-14.3)
[2025-02-27 06:49] LABS: White Blood Cell 47.9 10^3/uL (4.4-10.8)
[2025-02-27 06:50] LABS: Basophils % (manual) 0 (0.0-2.0); Blast Cells 0; Metamyelocytes % 0; Myelocytes % 0; Promyelocytes % 0; Reactive Lymphocytes 0
[2025-02-27 07:00] LABS: Alanine Aminotransferase 17 U/L (7-40); Anion Gap 14 (5-15); Aspartate Aminotransferase 27 U/L (13-40); Calcium 8.8 mg/dL (8.7-10.4); Glucose 96 mg/dL (74-106); Potassium 3.9 mmol/L (3.5-5.1); Sodium 137 mmol/L (136-145)
[2025-02-27 07:07] LABS: Albumin 2.6 g/dL (3.2-4.8); Alkaline Phosphatase 342 U/L (46-116); Bilirubin, Total 12.7 mg/dL (0.2-1.0); Blood Urea Nitrogen 53 mg/dL (9-23); Carbon Dioxide 15 mmol/L (20-31); Chloride 108 mmol/L (98-107)
[2025-02-27 08:09] LABS: BUN/Creatinine Ratio 26.5 (10.0-20.0)
[2025-02-27 08:10] LABS: Total Protein 5.6 g/dL (5.7-8.2)
[2025-02-27 08:53] LABS: Band Neutrophils % (manual) 6; Eosinophils % (manual) 3 (0-7); Lymphocytes % (manual) 13 (10.0-50.0); Monocytes % (manual) 5 (0-12); Platelet Estimate Adequate
[2025-02-27 08:54] VITALS: BP 102/63; PULSE 104; RESP 18; TEMP 97.6; O2SAT 100
[2025-02-27] MEDS: CHOLECALCIFEROL (VITD3) 1,000UNIT=25mCg TAB PO SCH (08:56)
[2025-02-27] MEDS: ALBUMIN 25% 50 ML IV ONE (09:03)
[2025-02-27 12:24] LABS: Magnesium 1.9 mg/dL (1.6-2.6)
[2025-02-27 12:28] LABS: Phosphorus 5.3 mg/dL (2.4-5.1)
--- NOTE | 2025-02-27 12:52 | DVH ---
INDICATION: ckd TECHNIQUE: Multiple real-time sonographic images of the kidneys and bladder were obtained. COMPARISON: None FINDINGS: The right kidney measures 10 cm in length, which is normal in size. There is normal echogen icity of the right kidney. No hydronephrosis. The left kidney measures 11 cm in length, which is normal in size. There is normal echogenicity of th e left kidney. No hydronephrosis. No large intraluminal masses are seen in the bladder. Prior to voiding the bladder volume measures vo lume 48 cc. IMPRESSION: 1. Normal sonographic appearance of the kidneys. No hydronephrosis. 2. Enlarged liver measuring 22 cm with small volume pelvic ascites.
[2025-02-27 13:00] VITALS: BP 101/62; PULSE 110; RESP 19; TEMP 98; O2SAT 100
--- NOTE | 2025-02-27 14:49 | DVHPNRES ---
Progress Note Date Seen: Feb 27, 2025 Resident Creating Document: TAZ GARCIA RESIDENT Medical Necessity Reason Pt with a Central, PICC or Fol: No Subjective Review of Systems Patient is a female was recently hospitalized for generalized weakness, melena, fever, chills, confusion, was diagnosed with decompensated liver failure and was transferred through [facility] for liver transplant evaluation. Patient has an extensive past medical history including hypertension, alcoholic liver cirrhosis, likely hepatorenal syndrome, CKD, leukemoid reaction, gastritis, positive hepatitis-B surface antigen, EBV virus infection, HSV infection. Patient seen and examined at bedside. Continue complaining of bilateral lower extremity pain and bruises over bilateral lower extremity nephrology consulted No other complaint Past medical history: Hypertension, alcoholic liver cirrhosis (last alcoholic drink on November 20, 2024), positive hepatitis B surface antigen, leukemoid reaction, CKD, gastritis, questionable acute viral hepatitis risk EBV, bicytopenia, ileus Surgical history: Cholecystectomy Family history: Father had prostate cancer Social history: Lives with family in [place]. Ex ethanol abuse (stopped intake of alcohol since November 20, 2024). Ex-smoker (2.5 pack year history of smoking). Denies current tobacco, alcohol and other drug abuse Allergies: Denies Home medication: Benazepril, sucralfate and Protonix, ivermectin, Lasix, spironolactone During last hospitalization, for elevated white count, patient normally immunophenotype big evaluation, no evidence of B-cell or T-cell lymphoproliferative disorder. HBV DNA was not detected, mucositis with improving. Liver function trended down compared to last hospitalization. Continue elevated bilirubin. Objective vital signs Vital Sign Date Time Temp Pulse Resp B/P (MAP) Pulse Ox O2 Delivery O2 Flow Rate FiO2 02/27/25 13:00 98.0 110 19 101/62 (75) 100 98.0 02/27/25 08:03 Room Air* 0 21 Total Intake and Output 02/26/25 02/26/25 02/27/25 15:00 23:00 07:00 Intake Total 100 ml 715 ml 500 ml Balance 100 ml 715 ml 500 ml medications Current Medications Medications Dose Ordered Sig/Chris Route Start Time Stop Time Status Last Admin Dose Admin Vancomycin HCl 200 ml @ 200 mls/hr Q12HR IV 02/25/25 22:00 UNV Piperacillin Sod/ Tazobactam Sod 100 ml @ 25 mls/hr Q8HR IV 02/25/25 14:00 02/27/25 06:15 25 MLS/HR Oxycodone/ Acetaminophen 1 tab Q6H PRN PO 02/25/25 16:00 02/27/25 09:33 1 TAB Pantoprazole Sodium 40 mg DAILY PO 02/26/25 10:00 02/27/25 08:56 40 MG Sucralfate 1 gm TID PO 02/25/25 22:00 02/27/25 06:15 1 GM Sodium Chloride 10 ml Q8HR IV 02/25/25 22:00 02/27/25 06:16 10 ML Acetaminophen 650 mg Q6HP PRN PO 02/25/25 16:00 Hydromorphone HCl 0.5 mg Q4HP PRN IV 02/25/25 16:00 02/26/25 19:59 0.5 MG Ondansetron HCl 4 mg Q4HP PRN IV 02/25/25 16:00 Lactulose 30 ml DAILY PO 02/26/25 10:00 02/27/25 08:55 30 ML Sodium Bicarbonate 650 mg TID PO 02/26/25 14:00 02/27/25 06:15 650 MG Ursodiol 300 mg BID PO 02/26/25 10:00 02/27/25 08:56 300 MG Furosemide 40 mg DAILY PO 02/26/25 10:00 02/27/25 08:56 40 MG Spironolactone 50 mg DAILY PO 02/26/25 10:00 02/27/25 08:57 50 MG Cholecalciferol 1,000 unit DAILY PO 02/27/25 10:00 02/27/25 08:56 1,000 UNIT Examination General Appearance: Cooperative. Well developed. Well nourished. Jaundiced Head Exam: Normal inspection Neck Exam: Normal inspection. Non-tender. Normal alignment Pulmonary/Respiratory: Chest non-tender. Clear bilateral breath sounds Cardiovascular/Chest: Regular rate and rhythm. No murmurs. No JVD. Peripheral Pulses: 2+ Radial (R). 2+ Radial (L). 2+ Pedal (R). 2+ Pedal (L) Abdominal Exam: Normal bowel sounds. Soft. Nontender. Distended with ascites Ankle Exam: Negative ankle edema Lower extremities: Multiple ecchymoses, tenderness on palpation, consistent bilateral pedal pulse, capillary refill less than 2 seconds Neuro/Mental Status: A&O x4. Coherent Thoughts/Psych: Normal thought pattern. Appropriate mood and affect. Good judgement and insight Appearance: In no acute distress Skin Exam: Normal inspection. Normal color. Warm. Dry laboratory and microbiology Laboratory Tests 02/27/25 05:55 Test 02/27/25 05:55 Range/Units Serum Glucose 96 74-106 mg/dL Microbiology Date/Time Source Procedure Growth Status 02/25/25 18:00 Nose MRSA Screen - Final Complete 02/25/25 13:30 Blood Blood Culture - Preliminary NO GROWTH AFTER 48 HOURS OF INCUBATION. Resulted Labs and/or images reviewed: Labs reviewed by me, Image(s) reviewed by me Problem List/Assessment/Plan Problem List/Assessment/Plan Alcoholic liver cirrhosis MELD score 28 -bilirubin elevated at 12.7, INR 1.6 -continue Lasix 40 mg p.o. daily -continue spironolactone 50 mg p.o. daily -lactulose 30 mg p.o. daily -cardiac diet: Salt intake less than 2 g ZOILA likely hemodynamically mediated due to hepatorenal syndrome -continue Lasix 40 mg p.o. daily -continue monitor kidney function: Creatinine 1.76, GFR 36, BUN creatinine ratio and currently nine -continue monitor urine output -continue monitor electrolyte -strict I&O -Nephrology consulted -IV albumin 12.5 Gram Q8Hr Metabolic acidosis, Non anion gap likely related to hepatorenal syndrom -Sodium bicarbonate -Check BMP in AM Severe protein malnutrition -albumin 2.6 -nutritional recommendation -advised on intake of lean protein, limit salt intake to reduce fluid retention and swelling. Acute on chronic anemia macrocytic likely due to alcoholism -continue monitoring H&H Acute on chronic encephalopathy with Hyperammonemia -lactulose 30 mg p.o. daily Leukemoid reaction -continue monitor vitals, patient needs an antibiotic for some reduction -Patient's underwent bone marrow biopsy on a subset of CD56 expression on myelomonocytic cell,no immunophenotypic evidence of a B-cell or T-cell lymphoproliferative disorder. During previous admission Right and left lower extremity cellulitis -continue IV antibiotic with Zosyn and vancomycin -currently monitor kidney function given vancomycin toxicity Secondary coagulopathy -INR 1.60, continue monitor Generalized weakness -PT evaluation Ruled out acute hepatitis-B infection in previous admission Liver function normalized was given acyclovir for possible EBV hepatitis Obesity BMI 33.2 -patient counseled on lifestyle modifications such as regular exercise, diet recommendation as above. -dietary consultation Renal diet PUD prophylaxis with Protonix DVT prophylaxis SCD, avoid anticoagulation given high risk for bleeding Plan discussed with Dr. Azevedo Plan discussed with: Patient, Other (RN) My Orders My Orders Orders - TAZ GARCIA RESIDENT Procedure Category Date Status Time * Utilization Management Um Nurse CONS 02/26/25 Transmitted Consult Pt Request For Service PT 02/26/25 Logged 15:35 *Dr. [facility] CONS 02/27/25 Transmitted -[place] 08:16 Consult For Nutrition NOURISH 02/27/25 Transmitted 08:20 Addendum Addendum Addendum I was physically present for the wild portions of the service provided to patient by THE RESIDENT. I have reviewed the documentation, discussed the case with resident and agree with the resident's documentation except as noted. Also the patient's clinical case was discussed with the patient's nurse. This medical document was created using an electronic medical record system with computerized dictation system. Although this document has been carefully reviewed, there might still be some phonetic and typographical errors. These areas are purely typographical due to imperfections of the software programs, and do not reflect any compromise in the patient's medical care. Late signature. Date of Service: Feb 27, 2025 Billing Provider: GLENNY AZEVEDO MD Common Visit Codes: [id number] INP/OBS CARE(HIGH) TAZ GARCIA RESIDENT Feb 27, 2025 14:49 GLENNY AZEVEDO MD Feb 28, 2025 08:16
--- NOTE | 2025-02-27 16:33 | DVHCONRES ---
Date Seen: Feb 27, 2025 Resident Creating Document: KENNEY RIVERA RESIDENT Referring Physician Reason for Consultation ZOILA History of Present Illness 44-year-old female patient with past medical history of CHF, chronic kidney disease, hypertension, liver cirrhosis secondary to chronic alcohol use, cholecystectomy, obesity who presented to emergency department with a chief complaint of bruising over both thighs and lower extremities she also endorses lower back pain for the past few weeks. She reports rare alcohol consumption with the last drink in December no other major symptoms reported aside from lower extremity pain. Laboratory findings revealed persistent leukocytosis but no evidence of lymphoproliferative disorder based on immunophenotyping. Her liver function tests has trended down compared to prior hospitalization but total bilirubin remains significantly elevated. Her MELD score is currently 27. She is currently being treated for suspected cellulitis of both lower extremity with vancomycin IV and Zosyn IV. Family History: FH: asthma G8 FATHER FH: diabetes mellitus G8 MOTHER FH: prostate cancer G8 FATHER Allergies: Coded Allergies: NO KNOWN ALLERGIES (Unverified , 10/26/24) Home Meds Active Scripts Amoxicillin & Pot Clavulanate (Amoxicillin/Potassium Cla) 875 Mg Tab, 1 TAB PO BID for 10 Days, #20 TAB Prov:LESA KRUGER RESIDENT 12/28/24 Sucralfate (CARAFATE) 1 Gm Tab, 1 GM OR TID for 21 Days, #63 TAB Prov:LESA KRUGER RESIDENT 12/28/24 Pantoprazole Sodium Sesquihydr (Pantoprazole Sodium) 40 Mg Tab, 40 MG PO DAILY for 30 Days, #30 TAB Prov:LESA KRUGER RESIDENT 12/28/24 Reported Medications Ivermectin (Ivermectin) 3 Mg Tab, 3 MG PO, TAB 02/26/25 Lactulose (Lactulose) 10 Gm Fabio, 30 GM PO, PACK 02/26/25 Rifaximin (Xifaxan) 550 Mg Tab, 1 TAB PO BID, #28 TAB 02/26/25 Cholecalciferol (Gnp Vitamin D) 1,000 Unit Tab, 1000 UNIT PO 5XD, TAB 02/26/25 Spironolactone (Spironolactone) 50 Mg Tab, 1 TAB PO DAILY, #30 TAB 5 Refills 02/26/25 Furosemide (Furosemide) 40 Mg Tab, 1 TAB PO DAILY, #30 TAB 5 Refills 02/26/25 Benazepril Hcl (Benazepril Hcl) 20 Mg Tab, 1 TAB PO DAILY 12/26/24 Current Medications Current Medications Medications (Trade) Dose Ordered Sig/Chris Route PRN Reason Start Time Stop Time Status Last Admin Cholecalciferol (Vitamin D3 Tablet) 1,000 unit DAILY PO 02/27/25 10:00 02/27/25 08:56 Albumin Human 50 ml @ 100 mls/hr Q8H IV 02/27/25 17:00 02/28/25 09:29 Review of Systems Constitutional: No: Fever, Chills, Sweats, Weakness, Malaise, Other Eyes: No: Pain, Vision change, Conjunctivae inflammation, Eyelid inflammation, Other, Redness ENT: No: Ear pain, Ear discharge, Nose pain, Nose discharge, Nose congestion, Mouth pain, Mouth swelling, Throat pain, Throat swelling, Other Respiratory: No Wheezing, Hemoptysis, Pleuritic Pain, Sputum, Wheezing, Other Skin: Positive for painful bruising over both sides Cardiovascular: No: Chest Pain, Palpitations, Orthopnea, Paroxysmal Noc. Dyspnea, Edema, Lt Headedness, Other Gastrointestinal: No: Nausea, Vomiting, Abdominal Pain, Diarrhea, Constipation, Melena, Hematochezia, Other Musculoskeletal: positive for lower extremity pain likely cellulitis Vital Signs Vital Signs Date Time Temp Pulse Resp B/P (MAP) Pulse Ox O2 Delivery O2 Flow Rate FiO2 02/27/25 13:00 98.0 110 19 101/62 (75) 100 98.0 02/27/25 08:03 Room Air* 0 21 Physical Exam Examination General Appearance: Alert, Oriented X3, Cooperative, moderate acute distress due to pain Respiratory: Clear to auscultation, Normal air movement Cardiovascular: Regular rate, Normal S1, Normal S2 Abdominal: Normal bowel sounds Extremities: No cyanosis, No edema, Normal pulses, No tenderness/swelling Skin: Significant bruising and tenderness over bilateral thighs no júnior abscess as noted Neuro: Normal speech, Strength at 3/5 X4 ext, Normal tone, Sensation intact, Cranial nerves 3-12 NL, Reflexes 2+ Psych/Mental Status: Mental status NL, Mood NL Labs/Diagnostic Data Labs Test 02/27/25 05:55 02/27/25 00:08 02/26/25 06:30 02/25/25 16:33 Range/Units White Blood Count 47.9 *H 4.4-10.8 10^3/uL Red Blood Count 2.78 L 4.0-5.20 10^6/uL Hemoglobin 9.2 L 12.2-16.2 g/dL Hematocrit 28.3 L 36.0-46.0 % Mean Corpuscular Volume 101.7 H 80.0-100.0 fL Mean Corpuscular Hemoglobin 33.1 H 28.0-32.0 pg Mean Corpuscular Hemoglobin Concent 32.6 32.0-36.0 g/dL Red Cell Distribution Width 18.3 H 11.8-14.3 % Platelet Count 213 140-450 10^3/uL Mean Platelet Volume 11.0 H 6.9-10.8 fL Neutrophils (%) (Auto) 37.0-80.0 % Lymphocytes (%) (Auto) 10.0-50.0 % Monocytes (%) (Auto) 0.0-12.0 % Basophils (%) (Auto) 0.0-2.0 % Neutrophils # (Auto) 1.6-8.6 10 ^3/uL Lymphocytes # (Auto) 0.4-5.4 10 ^3/uL Monocytes # (Auto) 0-1.3 10 ^3/uL Differential Total Cells Counted 100.0 100 Neutrophils % (Manual) 73 37.0-80.0 Band Neutrophils % (Manual) 6 Lymphocytes % (Manual) 13 10.0-50.0 Monocytes % (Manual) 5 0-12 Eosinophils % (Manual) 3 0-7 Basophils % (Manual) 0 0.0-2.0 Metamyelocytes % (manual) 0 Myelocytes % (Manual) 0 Promyelocytes % (Manual) 0 Blast Cells % (Manual) 0 Reactive Lymphocytes 0 Platelet Estimate Adequate Sodium Level 137 136-145 mmol/L Potassium Level 3.9 3.5-5.1 mmol/L Chloride Level 108 H 98-107 mmol/L Carbon Dioxide Level 15 L 20-31 mmol/L Anion Gap 14 5-15 Blood Urea Nitrogen 53 H 9-23 mg/dL Creatinine 2.00 H 0.550-1.02 mg/dL Glomerular Filtration Rate Calc 31 >90 mL/min BUN/Creatinine Ratio 26.5 H 10.0-20.0 Serum Glucose 96 74-106 mg/dL Calcium Level 8.8 8.7-10.4 mg/dL Phosphorus Level 5.3 H 2.4-5.1 mg/dL Magnesium Level 1.9 1.6-2.6 mg/dL Total Bilirubin 12.7 H 0.2-1.0 mg/dL Aspartate Amino Transferase (AST) 27 13-40 U/L Alanine Aminotransferase (ALT) 17 7-40 U/L Alkaline Phosphatase 342 H 46-116 U/L Total Protein 5.6 L 5.7-8.2 g/dL Albumin 2.6 L 3.2-4.8 g/dL Vitamin D 25-Hydroxy 43.3 30.0-100 ng/mL Parathyroid Hormone (Intact) 50.8 18.4-80.1 pg/mL Random Vancomycin Level 13.3 H 5-10 ug/mL Stool Occult Blood Negative Negative Stool Occult Blood Sample #3 Negative Nucleated Red Blood Cells 1.0 % Creatine Kinase < 15 L 34-145 U/L Ammonia 50 H 11-32 umol/L Tumor Marker Alpha Fetoprotein <1.8 0.0-6.4 ng/mL Test 02/25/25 15:50 02/25/25 13:30 02/25/25 11:48 Range/Units Urine Color Dark-yellow Yellow Urine Clarity Clear Clear Urine pH 5.5 5.0-9.0 Urine Specific [place] 1.012 1.001-1.035 Urine Protein Negative Negative Urine Ketones Negative Negative Urine Blood Negative Negative /uL Urine Nitrite Negative Negative Urine Bilirubin 2+ H Negative Urine Urobilinogen Normal Negative mg/dL Urine Leukocyte Esterase Negative Negative /uL Urine RBC 1 0 - 4 /hpf Urine Microscopic WBC 1 0-5 /HPF Urine Squamous Epithelial Cells Few <5 /hpf Urine Bacteria Few H None Seen /hpf Urine Hyaline Casts Mod 0 - 2 /lpf Urine Mucus Few None Seen Urine Glucose Normal Normal mg/dL Lactic Acid Level 1.2 0.4-2.0 mmol/L Prothrombin Time 16.2 H 9.3-11.8 sec Prothrombin Time INR 1.60 H 0.9-1.15 Activated Partial Thromboplast Time 39.7 H 24.5-34.5 SEC Microbiology Date/Time Source Procedure Growth Status 02/25/25 18:00 Nose MRSA Screen - Final Complete 02/25/25 13:30 Blood Blood Culture - Preliminary NO GROWTH AFTER 48 HOURS OF INCUBATION. Resulted Assessment Assessment Acute kidney injury on chronic kidney disease likely in the setting of hepatorenal syndrome Non-anion gap metabolic acidosis likely secondary to hepatorenal syndrome Chronic anemia likely secondary to chronic alcohol use and nutritional deficiency Decompensated liver cirrhosis secondary to alcohol use Marked leukocytosis likely secondary due to leukemoid reaction and active infection, no evidence of lymphoproliferative disorder Likely Right and left lower extremity cellulitis Secondary hypercoagulopathy from liver disease Plan: Discontinue fluids Sodium restricted diet Close monitoring of mental status, liver function tests and coagulation profile Monitor daily BMP and urine output Continue diuretics Monitor bicarbonate declining gap closely Discussed with Dr. Chang Code status: Full code Addendum Patient seen and examined, plan discussed with resident. Agree with above, we will follow closely Plan discussed with: Patient KENNEY RIVERA RESIDENT Feb 27, 2025 16:33 JOSH CHANG MD Feb 27, 2025 20:00
[2025-02-27 17:00] VITALS: BP 94/54; PULSE 103; RESP 20; TEMP 98.1; O2SAT 99
[2025-02-27] MEDS: ALBUMIN 25% 50 ML IV SCH (18:22)
[2025-02-27 21:00] VITALS: BP 98/60; PULSE 113; RESP 20; TEMP 98.4; O2SAT 100
[2025-02-28 01:00] VITALS: BP 94/61; PULSE 111; RESP 20; TEMP 98.7; O2SAT 99
[2025-02-28] MEDS: ALBUMIN 25% 50 ML IV SCH (03:28)
[2025-02-28 05:00] VITALS: BP 103/58; PULSE 105; RESP 20; TEMP 98.4; O2SAT 97
[2025-02-28 06:27] LABS: Hematocrit 27.4 % (36.0-46.0); Hemoglobin 8.9 g/dL (12.2-16.2); Mean Corpuscular Hgb Conc. 32.5 g/dL (32.0-36.0); Mean Corpuscular Volume 101.7 fL (80.0-100.0); Platelet Count (auto) 199 10^3/uL (140-450); Red Cell Distribution Width 17.6 % (11.8-14.3)
[2025-02-28 06:38] LABS: Alanine Aminotransferase 18 U/L (7-40); Glucose 100 mg/dL (74-106); Potassium 4.1 mmol/L (3.5-5.1)
[2025-02-28 06:39] LABS: Anion Gap 15 (5-15); Aspartate Aminotransferase 23 U/L (13-40); Sodium 138 mmol/L (136-145)
[2025-02-28 06:40] LABS: Albumin 2.7 g/dL (3.2-4.8); Alkaline Phosphatase 335 U/L (46-116); BUN/Creatinine Ratio 27.9 (10.0-20.0); Blood Urea Nitrogen 57 mg/dL (9-23); Calcium 8.6 mg/dL (8.7-10.4); Carbon Dioxide 15 mmol/L (20-31); Chloride 108 mmol/L (98-107); Total Protein 5.9 g/dL (5.7-8.2)
[2025-02-28 06:52] LABS: White Blood Cell 44.2 10^3/uL (4.4-10.8)
[2025-02-28 06:54] LABS: Basophils % (manual) 0 (0.0-2.0); Metamyelocytes % 0; Myelocytes % 0; Promyelocytes % 0; Reactive Lymphocytes 0
[2025-02-28 09:00] VITALS: BP 101/61; PULSE 98; RESP 18; TEMP 97.5; O2SAT 99
[2025-02-28 10:23] LABS: Blast Cells 2; Eosinophils % (manual) 2 (0-7)
[2025-02-28 10:26] LABS: Band Neutrophils % (manual) 29; Lymphocytes % (manual) 10 (10.0-50.0); Monocytes % (manual) 11 (0-12)
[2025-02-28 10:27] LABS: Macrocytosis Slight; Platelet Estimate Adequate
[2025-02-28 13:00] VITALS: BP 98/59; PULSE 103; RESP 17; TEMP 97.7; O2SAT 100
--- NOTE | 2025-02-28 13:31 | DVHPNRES ---
Progress Note Date Seen: Feb 28, 2025 Resident Creating Document: TAZ GARCIA RESIDENT Medical Necessity Reason Pt with a Central, PICC or Fol: No Subjective Review of Systems Patient is a female was recently hospitalized for generalized weakness, melena, fever, chills, confusion, was diagnosed with decompensated liver failure and was transferred through [facility] for liver transplant evaluation. Patient has an extensive past medical history including hypertension, alcoholic liver cirrhosis, likely hepatorenal syndrome, CKD, leukemoid reaction, gastritis, positive hepatitis-B surface antigen, EBV virus infection, HSV infection. Past medical history: Hypertension, alcoholic liver cirrhosis (last alcoholic drink on November 20, 2024), positive hepatitis B surface antigen, leukemoid reaction, CKD, gastritis, questionable acute viral hepatitis risk EBV, bicytopenia, ileus Surgical history: Cholecystectomy Family history: Father had prostate cancer Social history: Lives with family in [place]. Ex ethanol abuse (stopped intake of alcohol since November 20, 2024). Ex-smoker (2.5 pack year history of smoking). Denies current tobacco, alcohol and other drug abuse Allergies: Denies Home medication: Benazepril, sucralfate and Protonix, ivermectin, Lasix, spironolactone During last hospitalization, for elevated white count, patient normally immunophenotype big evaluation, no evidence of B-cell or T-cell lymphoproliferative disorder. HBV DNA was not detected, mucositis with improving. Liver function trended down compared to last hospitalization. Continue elevated bilirubin. Patient seen and examined at bedside. Continue complaining of bilateral lower extremity pain and bruises over bilateral lower extremity, presence of blister over left and right thigh region. PT evaluation: No other complaint Objective vital signs Vital Sign Date Time Temp Pulse Resp B/P (MAP) Pulse Ox O2 Delivery O2 Flow Rate FiO2 02/28/25 09:11 101/61 02/28/25 09:00 97.5 98 18 99 97.5 02/28/25 08:07 Room Air* 0 21 Total Intake and Output 02/27/25 02/27/25 02/28/25 15:00 23:00 07:00 Intake Total 100 ml 800 ml 800 ml Output Total 350 ml Balance 100 ml 800 ml 450 ml medications Current Medications Medications Dose Ordered Sig/Chris Route Start Time Stop Time Status Last Admin Dose Admin Vancomycin HCl 200 ml @ 200 mls/hr Q12HR IV 02/25/25 22:00 UNV Piperacillin Sod/ Tazobactam Sod 100 ml @ 25 mls/hr Q8HR IV 02/25/25 14:00 02/28/25 06:13 25 MLS/HR Oxycodone/ Acetaminophen 1 tab Q6H PRN PO 02/25/25 16:00 02/28/25 03:16 1 TAB Pantoprazole Sodium 40 mg DAILY PO 02/26/25 10:00 02/28/25 09:11 40 MG Sucralfate 1 gm TID PO 02/25/25 22:00 02/28/25 06:13 1 GM Sodium Chloride 10 ml Q8HR IV 02/25/25 22:00 02/28/25 06:13 10 ML Acetaminophen 650 mg Q6HP PRN PO 02/25/25 16:00 Hydromorphone HCl 0.5 mg Q4HP PRN IV 02/25/25 16:00 02/28/25 07:55 0.5 MG Ondansetron HCl 4 mg Q4HP PRN IV 02/25/25 16:00 Lactulose 30 ml DAILY PO 02/26/25 10:00 02/28/25 09:10 30 ML Sodium Bicarbonate 650 mg TID PO 02/26/25 14:00 02/28/25 06:13 650 MG Ursodiol 300 mg BID PO 02/26/25 10:00 02/28/25 09:12 300 MG Furosemide 40 mg DAILY PO 02/26/25 10:00 02/28/25 09:11 40 MG Spironolactone 50 mg DAILY PO 02/26/25 10:00 02/28/25 09:11 50 MG Cholecalciferol 1,000 unit DAILY PO 02/27/25 10:00 02/28/25 09:10 1,000 UNIT Examination General Appearance: Cooperative. Well developed. Well nourished. Jaundiced Head Exam: Normal inspection Neck Exam: Normal inspection. Non-tender. Normal alignment Pulmonary/Respiratory: Chest non-tender. Clear bilateral breath sounds Cardiovascular/Chest: Regular rate and rhythm. No murmurs. No JVD. Peripheral Pulses: 2+ Radial (R). 2+ Radial (L). 2+ Pedal (R). 2+ Pedal (L) Abdominal Exam: Normal bowel sounds. Soft. Nontender. Distended with ascites Ankle Exam: Negative ankle edema Lower extremities: Multiple ecchymoses, tenderness on palpation, consistent bilateral pedal pulse, capillary refill less than 2 seconds Neuro/Mental Status: A&O x4. Coherent Thoughts/Psych: Normal thought pattern. Appropriate mood and affect. Good judgement and insight Appearance: In no acute distress Skin Exam: Normal inspection. Normal color. Warm. Dry laboratory and microbiology Laboratory Tests 02/28/25 05:35 Test 02/28/25 05:35 Range/Units Serum Glucose 100 74-106 mg/dL Microbiology Date/Time Source Procedure Growth Status 02/25/25 18:00 Nose MRSA Screen - Final Complete 02/25/25 13:30 Blood Blood Culture - Preliminary NO GROWTH AFTER 48 HOURS OF INCUBATION. Resulted Labs and/or images reviewed: Labs reviewed by me, Image(s) reviewed by me Problem List/Assessment/Plan Problem List/Assessment/Plan Alcoholic liver cirrhosis MELD score 28 -bilirubin elevated at 12.7, INR 1.6 -continue Lasix 40 mg p.o. daily -continue spironolactone 50 mg p.o. daily -lactulose 30 mg p.o. daily -cardiac diet: Salt intake less than 2 g ZOILA likely hemodynamically mediated due to hepatorenal syndrome -continue Lasix 40 mg p.o. daily -continue monitor kidney function: Creatinine 1.76, GFR 36, BUN creatinine ratio and currently nine -continue monitor urine output -continue monitor electrolyte -strict I&O -Nephrology consulted -IV albumin 12.5 Gram Q8Hr Metabolic acidosis, Non anion gap likely related to hepatorenal syndrom -Sodium bicarbonate -Check BMP in AM Severe protein malnutrition -albumin 2.6 -nutritional recommendation -advised on intake of lean protein, limit salt intake to reduce fluid retention and swelling. Acute on chronic anemia macrocytic likely due to alcoholism -continue monitoring H&H Acute on chronic encephalopathy with Hyperammonemia -lactulose 30 mg p.o. daily Leukemoid reaction -continue monitor vitals, patient needs an antibiotic for some reduction -Patient's underwent bone marrow biopsy on a subset of CD56 expression on myelomonocytic cell,no immunophenotypic evidence of a B-cell or T-cell lymphoproliferative disorder. During previous admission Right and left lower extremity cellulitis -continue IV antibiotic with Zosyn and vancomycin -currently monitor kidney function given vancomycin toxicity Secondary coagulopathy -INR 1.60, continue monitor Generalized weakness -PT evaluation Ruled out acute hepatitis-B infection in previous admission Liver function normalized was given acyclovir for possible EBV hepatitis Obesity BMI 33.2 -patient counseled on lifestyle modifications such as regular exercise, diet recommendation as above. -dietary consultation PT evaluation done Renal diet PUD prophylaxis with Protonix DVT prophylaxis SCD, avoid anticoagulation given high risk for bleeding Plan discussed with Dr. Azevedo Plan discussed with: Patient, Other (RN) Addendum Addendum Addendum I was physically present for the wild portions of the service provided to patient by THE RESIDENT. I have reviewed the documentation, discussed the case with resident and agree with the resident's documentation except as noted. Also the patient's clinical case was discussed with the patient's nurse. This medical document was created using an electronic medical record system with computerized dictation system. Although this document has been carefully reviewed, there might still be some phonetic and typographical errors. These areas are purely typographical due to imperfections of the software programs, and do not reflect any compromise in the patient's medical care. Late signature. Date of Service: Feb 28, 2025 Billing Provider: GLENNY AZEVEDO MD Common Visit Codes: [id number] INP/OBS CARE(HIGH) TAZ GARCIA RESIDENT Feb 28, 2025 13:31 GLENNY AZEVEDO MD March 01, 2025 07:02
--- NOTE | 2025-02-28 15:11 | DVHPN2 ---
Progress Note Date Seen: Feb 28, 2025 Resident Creating Document: KENNEY RIVERA RESIDENT Medical Necessity Reason Pt with a Central, PICC or Fol: No The following are medically ne: Flores Catheter Reason for flores catheter: Strict I&O Subjective Review of Systems Patient is seen and examined at bedside, still complaining of bilateral lower extremity pain. Kidney function stable slightly improving, we will continue same management and follow-up on [facility] tomorrow morning. Patient reports: No new complaints Changes from previous H/P or p: No Changes Objective vital signs Vital Sign Date Time Temp Pulse Resp B/P (MAP) Pulse Ox O2 Delivery O2 Flow Rate FiO2 02/28/25 09:11 101/61 02/28/25 09:00 97.5 98 18 99 97.5 02/28/25 08:07 Room Air* 0 21 Total Intake and Output 02/27/25 02/27/25 02/28/25 15:00 23:00 07:00 Intake Total 100 ml 800 ml 800 ml Output Total 350 ml Balance 100 ml 800 ml 450 ml medications Current Medications Medications Dose Ordered Sig/Chris Route Start Time Stop Time Status Last Admin Dose Admin Vancomycin HCl 200 ml @ 200 mls/hr Q12HR IV 02/25/25 22:00 UNV Piperacillin Sod/ Tazobactam Sod 100 ml @ 25 mls/hr Q8HR IV 02/25/25 14:00 02/28/25 13:38 25 MLS/HR Oxycodone/ Acetaminophen 1 tab Q6H PRN PO 02/25/25 16:00 02/28/25 03:16 1 TAB Pantoprazole Sodium 40 mg DAILY PO 02/26/25 10:00 02/28/25 09:11 40 MG Sucralfate 1 gm TID PO 02/25/25 22:00 02/28/25 13:38 1 GM Sodium Chloride 10 ml Q8HR IV 02/25/25 22:00 02/28/25 13:38 10 ML Acetaminophen 650 mg Q6HP PRN PO 02/25/25 16:00 Hydromorphone HCl 0.5 mg Q4HP PRN IV 02/25/25 16:00 02/28/25 07:55 0.5 MG Ondansetron HCl 4 mg Q4HP PRN IV 02/25/25 16:00 Lactulose 30 ml DAILY PO 02/26/25 10:00 02/28/25 09:10 30 ML Sodium Bicarbonate 650 mg TID PO 02/26/25 14:00 02/28/25 13:38 650 MG Ursodiol 300 mg BID PO 02/26/25 10:00 02/28/25 09:12 300 MG Furosemide 40 mg DAILY PO 02/26/25 10:00 02/28/25 09:11 40 MG Spironolactone 50 mg DAILY PO 02/26/25 10:00 02/28/25 09:11 50 MG Cholecalciferol 1,000 unit DAILY PO 02/27/25 10:00 02/28/25 09:10 1,000 UNIT Examination General Appearance: Alert and oriented x3, obese, moderate to severe distress because of the lower extremity pain Pulmonary/Respiratory: Chest non-tender. Clear bilateral breath sounds Cardiovascular/Chest: Regular rate and rhythm. No murmurs. No JVD. Abdominal Exam: Normal bowel sounds. Soft. Nontender. Distended with ascites Ankle Exam: Negative ankle edema Lower extremities: Multiple ecchymoses, tenderness on palpation, consistent bilateral pedal pulse, capillary refill less than 2 seconds Thoughts/Psych: Normal thought pattern. Appropriate mood and affect. Good judgement and insight Skin Exam: Normal inspection. Markedly icteric. Warm. Dry laboratory and microbiology Laboratory Tests 02/28/25 05:35 Test 02/28/25 05:35 Range/Units Serum Glucose 100 74-106 mg/dL Microbiology Date/Time Source Procedure Growth Status 02/25/25 18:00 Nose MRSA Screen - Final Complete 02/25/25 13:30 Blood Blood Culture - Preliminary NO GROWTH AFTER 72 HOURS OF INCUBATION. Resulted Problem List/Assessment/Plan Problem List/Assessment/Plan Assessment Acute kidney injury on chronic kidney disease likely in the setting of hepatorenal syndrome Non-anion gap metabolic acidosis likely secondary to hepatorenal syndrome Chronic anemia likely secondary to chronic alcohol use and nutritional deficiency Decompensated liver cirrhosis secondary to alcohol use Small abdominal ascites noted on renal ultrasound Marked leukocytosis likely secondary due to leukemoid reaction and active infection, no evidence of lymphoproliferative disorder Likely Right and left lower extremity cellulitis Secondary hypercoagulopathy from liver disease Plan: Dc fluids Sodium restricted diet Close monitoring of mental status, liver function tests and coagulation profile Monitor daily BMP and urine output Continue same diuretics regimen Monitor bicarbonate declining gap closely Consider repeat ammonia levels Continue antibiotics per hospitalist Monitor electrolytes changes, BMP tomorrow morning Discussed with Dr. Liu Code status: Full code Addendum Patient seen and examined, plan discussed with resident. Agree with above, we will follow closely Plan discussed with: Patient, Daughter KENNEY RIVERA RESIDENT Feb 28, 2025 15:11 JOSH LIU MD Feb 28, 2025 17:14
[2025-02-28 17:00] VITALS: BP 101/58; PULSE 104; RESP 18; TEMP 98.7; O2SAT 100
[2025-02-28 21:00] VITALS: BP 104/50; PULSE 112; RESP 20; TEMP 97.7; O2SAT 99
[2025-03-01 01:00] VITALS: BP 96/52; PULSE 96; RESP 20; TEMP 97.8; O2SAT 98
[2025-03-01 05:00] VITALS: BP 98/64; PULSE 103; RESP 20; TEMP 98.5; O2SAT 100
[2025-03-01 06:28] LABS: Red Blood Cells 2.73 10^6/uL (4.0-5.20)
[2025-03-01 06:32] LABS: Hematocrit 27.6 % (36.0-46.0); Hemoglobin 9.1 g/dL (12.2-16.2); Mean Corpuscular Hemoglobin 33.4 pg (28.0-32.0); Mean Corpuscular Hgb Conc. 32.9 g/dL (32.0-36.0); Mean Corpuscular Volume 101.3 fL (80.0-100.0); Platelet Count (auto) 220 10^3/uL (140-450)
[2025-03-01 06:42] LABS: Basophils % (manual) 0 (0.0-2.0); Blast Cells 0; Metamyelocytes % 0; Myelocytes % 0; Promyelocytes % 0; Reactive Lymphocytes 0; White Blood Cell 43.5 10^3/uL (4.4-10.8)
[2025-03-01 06:45] LABS: Alanine Aminotransferase 17 U/L (7-40); Anion Gap 12 (5-15); Aspartate Aminotransferase 22 U/L (13-40); Calcium 8.9 mg/dL (8.7-10.4); Glucose 93 mg/dL (74-106); Potassium 3.9 mmol/L (3.5-5.1); Sodium 137 mmol/L (136-145)
[2025-03-01 06:46] LABS: Albumin 2.7 g/dL (3.2-4.8); Alkaline Phosphatase 335 U/L (46-116); Bilirubin, Total 14.3 mg/dL (0.2-1.0); Blood Urea Nitrogen 59 mg/dL (9-23); Carbon Dioxide 17 mmol/L (20-31); Chloride 108 mmol/L (98-107)
[2025-03-01 06:47] LABS: BUN/Creatinine Ratio 27.7 (10.0-20.0)
[2025-03-01 06:48] LABS: Total Protein 5.9 g/dL (5.7-8.2)
[2025-03-01 07:12] LABS: Band Neutrophils % (manual) 1; Eosinophils % (manual) 5 (0-7); Lymphocytes % (manual) 11 (10.0-50.0); Monocytes % (manual) 5 (0-12)
[2025-03-01 07:13] LABS: Macrocytosis Slight; Platelet Estimate Adequate
[2025-03-01 08:31] LABS: Phosphorus 5.3 mg/dL (2.4-5.1)
[2025-03-01 09:00] VITALS: BP 91/56; PULSE 94; RESP 19; TEMP 97.6; O2SAT 100
[2025-03-01 13:00] VITALS: BP 86/51; PULSE 102; RESP 19; TEMP 97.6; O2SAT 100
--- NOTE | 2025-03-01 16:05 | DVHPN2 ---
Progress Note Date Seen: March 01, 2025 Resident Creating Document: KENNEY RIVERA RESIDENT Medical Necessity Reason Pt with a Central, PICC or Fol: No The following are medically ne: Flores Catheter Reason for flores catheter: Strict I&O Subjective Review of Systems Patient is seen examined at bedside, we will continue diuretics, spironolactone dose will be decreased until 25 mg daily, we will continue monitoring blood pressure and electrolytes. Urine sodium and urine creatinine are pending. Patient reports: No new complaints Changes from previous H/P or p: No Changes Objective vital signs Vital Sign Date Time Temp Pulse Resp B/P (MAP) Pulse Ox O2 Delivery O2 Flow Rate FiO2 03/01/25 14:03 81/46 03/01/25 13:00 97.6 102 19 100 97.6 03/01/25 08:00 Room Air* 0 21 Total Intake and Output 02/28/25 02/28/25 03/01/25 14:59 22:59 06:59 Intake Total 218 ml 600 ml Output Total 320 ml 800 ml Balance -102 ml -200 ml medications Current Medications Medications Dose Ordered Sig/Chris Route Start Time Stop Time Status Last Admin Dose Admin Vancomycin HCl 200 ml @ 200 mls/hr Q12HR IV 02/25/25 22:00 UNV Piperacillin Sod/ Tazobactam Sod 100 ml @ 25 mls/hr Q8HR IV 02/25/25 14:00 03/01/25 14:03 25 MLS/HR Oxycodone/ Acetaminophen 1 tab Q6H PRN PO 02/25/25 16:00 03/01/25 14:04 1 TAB Pantoprazole Sodium 40 mg DAILY PO 02/26/25 10:00 03/01/25 10:40 40 MG Sucralfate 1 gm TID PO 02/25/25 22:00 03/01/25 14:03 1 GM Sodium Chloride 10 ml Q8HR IV 02/25/25 22:00 03/01/25 14:04 10 ML Acetaminophen 650 mg Q6HP PRN PO 02/25/25 16:00 Hydromorphone HCl 0.5 mg Q4HP PRN IV 02/25/25 16:00 02/28/25 07:55 0.5 MG Ondansetron HCl 4 mg Q4HP PRN IV 02/25/25 16:00 Lactulose 30 ml DAILY PO 02/26/25 10:00 03/01/25 10:40 30 ML Sodium Bicarbonate 650 mg TID PO 02/26/25 14:00 03/01/25 14:03 650 MG Ursodiol 300 mg BID PO 02/26/25 10:00 03/01/25 10:39 300 MG Furosemide 40 mg DAILY PO 02/26/25 10:00 03/01/25 14:03 40 MG Cholecalciferol 1,000 unit DAILY PO 02/27/25 10:00 03/01/25 10:40 1,000 UNIT Spironolactone 25 mg DAILY PO 03/02/25 10:00 Examination: GENERAL:Abnormal, HEENT:Normal, NECK:Normal, LUNGS:Normal, CVS:Normal, ABDOMEN:Abnormal, MSK:Normal, SKIN:Abnormal, NEURO:Normal laboratory and microbiology Laboratory Tests 03/01/25 05:45 Test 03/01/25 05:45 Range/Units Serum Glucose 93 74-106 mg/dL Microbiology Date/Time Source Procedure Growth Status 02/25/25 18:00 Nose MRSA Screen - Final Complete 02/25/25 13:30 Blood Blood Culture - Preliminary NO GROWTH AFTER 72 HOURS OF INCUBATION. Resulted Problem List/Assessment/Plan Problem List/Assessment/Plan Assessment Acute kidney injury on chronic kidney disease likely in the setting of hepatorenal syndrome Non-anion gap metabolic acidosis likely secondary to hepatorenal syndrome Chronic anemia likely secondary to chronic alcohol use and nutritional deficiency Decompensated liver cirrhosis secondary to alcohol use Small abdominal ascites noted on renal ultrasound Marked leukocytosis likely secondary due to leukemoid reaction and active infection, no evidence of lymphoproliferative disorder Likely Right and left lower extremity cellulitis Secondary hypercoagulopathy from liver disease Plan: Dc fluids Sodium restricted diet Urine sodium Urine creatinine Spironolactone 25 mg p.o. Continue Lasix at same dose Discussed with Dr. Liu Code status: Full code Addendum Patient seen and examined, plan discussed with resident. Agree with above, we will follow closely Plan discussed with: Patient My Orders My Orders Orders - KENNEY RIVERA Procedure Category Date Status Time Urine Sodium LAB 03/01/25 Logged 12:57 Urine Creatinine LAB 03/01/25 Logged 12:57 KENNEY RIVERA March 01, 2025 16:05 JOSH LIU MD March 01, 2025 19:31
[2025-03-01 17:00] VITALS: BP 106/61; PULSE 105; RESP 19; TEMP 97.9; O2SAT 98
--- NOTE | 2025-03-01 17:50 | DVHPNRES ---
Progress Note Date Seen: March 01, 2025 Resident Creating Document: TAZ GARCIA RESIDENT Medical Necessity Reason Pt with a Central, PICC or Fol: No The following are medically ne: Flores Catheter Reason for flores catheter: Strict I&O Subjective Review of Systems Patient is a female was recently hospitalized for generalized weakness, melena, fever, chills, confusion, was diagnosed with decompensated liver failure and was transferred through [facility] for liver transplant evaluation. Patient has an extensive past medical history including hypertension, alcoholic liver cirrhosis, likely hepatorenal syndrome, CKD, leukemoid reaction, gastritis, positive hepatitis-B surface antigen, EBV virus infection, HSV infection. Past medical history: Hypertension, alcoholic liver cirrhosis (last alcoholic drink on November 20, 2024), positive hepatitis B surface antigen, leukemoid reaction, CKD, gastritis, questionable acute viral hepatitis risk EBV, bicytopenia, ileus Surgical history: Cholecystectomy Family history: Father had prostate cancer Social history: Lives with family in [place]. Ex ethanol abuse (stopped intake of alcohol since November 20, 2024). Ex-smoker (2.5 pack year history of smoking). Denies current tobacco, alcohol and other drug abuse Allergies: Denies Home medication: Benazepril, sucralfate and Protonix, ivermectin, Lasix, spironolactone During last hospitalization, for elevated white count, patient normally immunophenotype big evaluation, no evidence of B-cell or T-cell lymphoproliferative disorder. HBV DNA was not detected, mucositis with improving. Liver function trended down compared to last hospitalization. Continue elevated bilirubin. Patient seen and examined at bedside. Generalized weakness. Plan for PT evaluation today. Continue to complaining of bilateral lower extremity pain and bruises over bilateral lower extremity, presence of blister over left and right thigh region. No other complaints Objective vital signs Vital Sign Date Time Temp Pulse Resp B/P (MAP) Pulse Ox O2 Delivery O2 Flow Rate FiO2 03/01/25 14:03 81/46 03/01/25 13:00 97.6 102 19 100 97.6 03/01/25 08:00 Room Air* 0 21 Total Intake and Output 02/28/25 02/28/25 03/01/25 15:00 23:00 07:00 Intake Total 218 ml 600 ml Output Total 320 ml 800 ml Balance -102 ml -200 ml medications Current Medications Medications Dose Ordered Sig/Chris Route Start Time Stop Time Status Last Admin Dose Admin Vancomycin HCl 200 ml @ 200 mls/hr Q12HR IV 02/25/25 22:00 UNV Piperacillin Sod/ Tazobactam Sod 100 ml @ 25 mls/hr Q8HR IV 02/25/25 14:00 03/01/25 14:03 25 MLS/HR Oxycodone/ Acetaminophen 1 tab Q6H PRN PO 02/25/25 16:00 03/01/25 14:04 1 TAB Pantoprazole Sodium 40 mg DAILY PO 02/26/25 10:00 03/01/25 10:40 40 MG Sucralfate 1 gm TID PO 02/25/25 22:00 03/01/25 14:03 1 GM Sodium Chloride 10 ml Q8HR IV 02/25/25 22:00 03/01/25 14:04 10 ML Acetaminophen 650 mg Q6HP PRN PO 02/25/25 16:00 Hydromorphone HCl 0.5 mg Q4HP PRN IV 02/25/25 16:00 02/28/25 07:55 0.5 MG Ondansetron HCl 4 mg Q4HP PRN IV 02/25/25 16:00 Lactulose 30 ml DAILY PO 02/26/25 10:00 03/01/25 10:40 30 ML Sodium Bicarbonate 650 mg TID PO 02/26/25 14:00 03/01/25 14:03 650 MG Ursodiol 300 mg BID PO 02/26/25 10:00 03/01/25 10:39 300 MG Furosemide 40 mg DAILY PO 02/26/25 10:00 03/01/25 14:03 40 MG Cholecalciferol 1,000 unit DAILY PO 02/27/25 10:00 03/01/25 10:40 1,000 UNIT Spironolactone 25 mg DAILY PO 03/02/25 10:00 Examination General Appearance: Cooperative. Well developed. Well nourished. Jaundiced Head Exam: Normal inspection Neck Exam: Normal inspection. Non-tender. Normal alignment Pulmonary/Respiratory: Chest non-tender. Clear bilateral breath sounds Cardiovascular/Chest: Regular rate and rhythm. No murmurs. No JVD. Peripheral Pulses: 2+ Radial (R). 2+ Radial (L). 2+ Pedal (R). 2+ Pedal (L) Abdominal Exam: Normal bowel sounds. Soft. Nontender. Distended with ascites Ankle Exam: Negative ankle edema Lower extremities: Multiple ecchymoses, tenderness on palpation, consistent bilateral pedal pulse, capillary refill less than 2 seconds Neuro/Mental Status: A&O x4. Coherent Thoughts/Psych: Normal thought pattern. Appropriate mood and affect. Good judgement and insight Appearance: In no acute distress Skin Exam: Normal inspection. Normal color. Warm. Dry laboratory and microbiology Laboratory Tests 03/01/25 05:45 Test 03/01/25 05:45 Range/Units Serum Glucose 93 74-106 mg/dL Microbiology Date/Time Source Procedure Growth Status 02/25/25 18:00 Nose MRSA Screen - Final Complete 02/25/25 13:30 Blood Blood Culture - Preliminary NO GROWTH AFTER 72 HOURS OF INCUBATION. Resulted Labs and/or images reviewed: Labs reviewed by me, Image(s) reviewed by me Problem List/Assessment/Plan Problem List/Assessment/Plan Alcoholic liver cirrhosis MELD score 28 -bilirubin elevated at 14.3, INR 1.6 -continue Lasix 40 mg p.o. daily -continue spironolactone 25 mg p.o. daily -lactulose 30 mg p.o. daily -cardiac diet: Salt intake less than 2 g ZOILA likely hemodynamically mediated due to hepatorenal syndrome -continue Lasix 40 mg p.o. daily -continue monitor kidney function: -continue monitor urine output -continue monitor electrolyte -strict I&O -Nephrology consulted -IV albumin 25 Gram Q8Hr Metabolic acidosis, Non anion gap likely related to hepatorenal syndrom -Sodium bicarbonate -Check BMP in AM Severe protein malnutrition -albumin 2.6 -nutritional recommendation -advised on intake of lean protein, limit salt intake to reduce fluid retention and swelling. Acute on chronic anemia macrocytic likely due to alcoholism -continue monitoring H&H Acute on chronic encephalopathy with Hyperammonemia -lactulose 30 mg p.o. daily Leukemoid reaction -continue monitor vitals, patient needs an antibiotic for some reduction -Patient's underwent bone marrow biopsy on a subset of CD56 expression on myelomonocytic cell,no immunophenotypic evidence of a B-cell or T-cell lymphoproliferative disorder. During previous admission Right and left lower extremity cellulitis -continue IV antibiotic with Zosyn -currently monitor kidney function given vancomycin toxicity Secondary coagulopathy -INR 1.60, continue monitor Generalized weakness -PT evaluation Ruled out acute hepatitis-B infection in previous admission Liver function normalized was given acyclovir for possible EBV hepatitis Obesity BMI 33.2 -patient counseled on lifestyle modifications such as regular exercise, diet recommendation as above. -dietary consultation PT evaluation done Renal diet PUD prophylaxis with Protonix DVT prophylaxis SCD, avoid anticoagulation given high risk for bleeding Plan for continue physical therapy today. Plan discussed with Dr. Azevedo Plan discussed with: Patient, Other (RN) TAZ GARCIA RESIDENT March 01, 2025 17:50 GLENNY AZEVEDO MD March 02, 2025 09:28
[2025-03-01 21:00] VITALS: BP 99/53; PULSE 102; RESP 19; TEMP 98.9; O2SAT 93
[2025-03-02 01:00] VITALS: BP 94/49; PULSE 101; RESP 17; TEMP 98.3; O2SAT 95
[2025-03-02 05:00] VITALS: BP 91/53; PULSE 103; RESP 17; TEMP 97.9; O2SAT 95
[2025-03-02 07:13] LABS: Hematocrit 27.8 % (36.0-46.0); Hemoglobin 9.1 g/dL (12.2-16.2); Mean Corpuscular Hemoglobin 33.2 pg (28.0-32.0); Mean Corpuscular Hgb Conc. 32.8 g/dL (32.0-36.0); Mean Corpuscular Volume 101.2 fL (80.0-100.0); Platelet Count (auto) 226 10^3/uL (140-450); Red Blood Cells 2.75 10^6/uL (4.0-5.20); Red Cell Distribution Width 17.7 % (11.8-14.3)
[2025-03-02 07:18] LABS: White Blood Cell 49.8 10^3/uL (4.4-10.8)
[2025-03-02 07:20] LABS: Basophils % (manual) 0 (0.0-2.0); Blast Cells 0; Eosinophils % (manual) 0 (0-7); Metamyelocytes % 0; Promyelocytes % 0; Reactive Lymphocytes 0
[2025-03-02 07:36] LABS: Alanine Aminotransferase 21 U/L (7-40); Anion Gap 14 (5-15); Aspartate Aminotransferase 23 U/L (13-40); Chloride 105 mmol/L (98-107); Sodium 138 mmol/L (136-145)
[2025-03-02 07:48] LABS: Albumin 2.6 g/dL (3.2-4.8); Alkaline Phosphatase 355 U/L (46-116); Bilirubin, Total 14.7 mg/dL (0.2-1.0); Blood Urea Nitrogen 64 mg/dL (9-23); Calcium 8.6 mg/dL (8.7-10.4); Carbon Dioxide 19 mmol/L (20-31)
[2025-03-02 07:51] LABS: BUN/Creatinine Ratio 27.1 (10.0-20.0)
[2025-03-02 07:54] LABS: Total Protein 5.8 g/dL (5.7-8.2)
[2025-03-02 08:09] LABS: Glucose 104 mg/dL (74-106)
[2025-03-02 08:25] LABS: Band Neutrophils % (manual) 6; Lymphocytes % (manual) 11 (10.0-50.0); Monocytes % (manual) 1 (0-12); Myelocytes % 4
[2025-03-02 08:26] LABS: Platelet Estimate Adequate
[2025-03-02 08:27] VITALS: BP 96/51; PULSE 102; RESP 20; TEMP 97.9; O2SAT 100
[2025-03-02 08:27] LABS: Giant Platelets Few; Large Platelets FEW; Macrocytosis Slight
[2025-03-02] MEDS: SPIRONOLACTONE 25 MG TAB PO SCH (10:48)
[2025-03-02 12:21] VITALS: BP 104/54; PULSE 104; RESP 20; TEMP 97.8; O2SAT 96
--- NOTE | 2025-03-02 15:27 | DVHDSRES ---
Discharge Summary Date of Admission Resident Creating Document: TAZ GARCIA RESIDENT Feb 25, 2025 at 15:56 Date of Discharge: March 03, 2025 (Planned discharge was for March 02, 2025; will aim for discharge on March 03, 2025) Admitting Diagnosis Generalized weakness Wounds: Multiple bruises; present on admission Labs/Diagnostic Data: Laboratory Results Test 03/02/25 06:08 03/01/25 09:32 03/01/25 08:22 03/01/25 05:45 White Blood Count 49.8 10^3/uL (4.4-10.8) Red Blood Count 2.75 10^6/uL (4.0-5.20) Hemoglobin 9.1 g/dL (12.2-16.2) Hematocrit 27.8 % (36.0-46.0) Mean Corpuscular Volume 101.2 fL (80.0-100.0) Mean Corpuscular Hemoglobin 33.2 pg (28.0-32.0) Mean Corpuscular Hemoglobin Concent 32.8 g/dL (32.0-36.0) Red Cell Distribution Width 17.7 % (11.8-14.3) Platelet Count 226 10^3/uL (140-450) Mean Platelet Volume 10.1 fL (6.9-10.8) Neutrophils (%) (Auto) % (37.0-80.0) Lymphocytes (%) (Auto) % (10.0-50.0) Monocytes (%) (Auto) % (0.0-12.0) Basophils (%) (Auto) % (0.0-2.0) Neutrophils # (Auto) 10 ^3/uL (1.6-8.6) Lymphocytes # (Auto) 10 ^3/uL (0.4-5.4) Monocytes # (Auto) 10 ^3/uL (0-1.3) Differential Total Cells Counted 100.0 (100) Neutrophils % (Manual) 78 (37.0-80.0) Band Neutrophils % (Manual) 6 Lymphocytes % (Manual) 11 (10.0-50.0) Monocytes % (Manual) 1 (0-12) Eosinophils % (Manual) 0 (0-7) Basophils % (Manual) 0 (0.0-2.0) Metamyelocytes % (manual) 0 Myelocytes % (Manual) 4 Promyelocytes % (Manual) 0 Blast Cells % (Manual) 0 Reactive Lymphocytes 0 Platelet Estimate Adequate Large Platelets Few Giant Platelets Few Macrocytosis Slight Sodium Level 138 mmol/L (136-145) Potassium Level 4.0 mmol/L (3.5-5.1) Chloride Level 105 mmol/L (98-107) Carbon Dioxide Level 19 mmol/L (20-31) Anion Gap 14 (5-15) Blood Urea Nitrogen 64 mg/dL (9-23) Creatinine 2.36 mg/dL (0.550-1.02) Glomerular Filtration Rate Calc 26 mL/min (>90) BUN/Creatinine Ratio 27.1 (10.0-20.0) Serum Glucose 104 mg/dL (74-106) Calcium Level 8.6 mg/dL (8.7-10.4) Total Bilirubin 14.7 mg/dL (0.2-1.0) Aspartate Amino Transferase (AST) 23 U/L (13-40) Alanine Aminotransferase (ALT) 21 U/L (7-40) Alkaline Phosphatase 355 U/L (46-116) Total Protein 5.8 g/dL (5.7-8.2) Albumin 2.6 g/dL (3.2-4.8) POC Glucose 77 mg/dl (70-106) Ammonia 28 umol/L (11-32) Clumped Platelets Few Phosphorus Level 5.3 mg/dL (2.4-5.1) Magnesium Level 2.0 mg/dL (1.6-2.6) Test 02/27/25 05:55 02/27/25 00:08 02/26/25 06:30 02/25/25 16:33 Vitamin D 25-Hydroxy 43.3 ng/mL (30.0-100) Parathyroid Hormone (Intact) 50.8 pg/mL (18.4-80.1) Random Vancomycin Level 13.3 ug/mL (5-10) Stool Occult Blood Negative (Negative) Stool Occult Blood Sample #3 (Negative) Nucleated Red Blood Cells 1.0 % Creatine Kinase < 15 U/L (34-145) Tumor Marker Alpha Fetoprotein <1.8 ng/mL (0.0-6.4) Test 02/25/25 15:50 02/25/25 13:30 02/25/25 11:48 Urine Color Dark-yellow (Yellow) Urine Clarity Clear (Clear) Urine pH 5.5 (5.0-9.0) Urine Specific [place] 1.012 (1.001-1.035) Urine Protein Negative (Negative) Urine Ketones Negative (Negative) Urine Blood Negative /uL (Negative) Urine Nitrite Negative (Negative) Urine Bilirubin 2+ (Negative) Urine Urobilinogen Normal mg/dL (Negative) Urine Leukocyte Esterase Negative /uL (Negative) Urine RBC 1 /hpf (0 - 4) Urine Microscopic WBC 1 /HPF (0-5) Urine Squamous Epithelial Cells Few /hpf (<5) Urine Bacteria Few /hpf (None Seen) Urine Hyaline Casts Mod /lpf (0 - 2) Urine Mucus Few (None Seen) Urine Glucose Normal mg/dL (Normal) Lactic Acid Level 1.2 mmol/L (0.4-2.0) Prothrombin Time 16.2 sec (9.3-11.8) Prothrombin Time INR 1.60 (0.9-1.15) Activated Partial Thromboplast Time 39.7 SEC (24.5-34.5) Other Laboratory Tests 03/02/25 06:08 Brief Hx & Hospital Course: Hospital course Patient is a female was recently hospitalized for generalized weakness, melena, fever, chills, confusion, was diagnosed with decompensated liver failure and was transferred through [facility] for liver transplant evaluation. Patient has an extensive past medical history including hypertension, alcoholic liver cirrhosis, likely hepatorenal syndrome, CKD, leukemoid reaction, gastritis, positive hepatitis-B surface antigen, EBV virus infection, HSV infection. Patient was also complaining all bilateral lower extremity pain, jaundice, ecchymosis and blisters or bilateral lower extremity. Given generalized weakness, jaundice patient was prompted to visit to the hospital for further evaluation Past medical history: Hypertension, alcoholic liver cirrhosis (last alcoholic drink on November 20, 2024), positive hepatitis B surface antigen, leukemoid reaction, CKD, gastritis, questionable acute viral hepatitis risk EBV, bicytopenia, ileus Surgical history: Cholecystectomy Family history: Father had prostate cancer Social history: Lives with family in [place]. Ex ethanol abuse (stopped intake of alcohol since November 20, 2024). Ex-smoker (2.5 pack year history of smoking). Denies current tobacco, alcohol and other drug abuse Allergies: Denies Home medication: Benazepril, sucralfate and Protonix, ivermectin, Lasix, spironolactone Hospital course: Patient came to the hospital with chief complaint of generalized weakness and bilateral lower extremity ecchymoses/pain and blisters. Patient underwent CT scan of the bilateral lower extremity we did not show any abscess, patient also has end-stage decompensated liver cirrhosis, waiting for transplant at [facility], found to have likely hepatorenal syndrome with abnormal liver and kidney function, continue treatment with IV antibiotics Zosyn, Lasix 40 mg p.o. daily, spironolactone 25 mg p.o. daily, lactulose 30 mg p.o. daily. Given worsening kidney function, patient was given albumin challenge, nephrologic consultation was done, kidney function improved hour continued to have GFR around 26, continued strict I&O and kidney function. Given abnormal kidney function, patient found to have metabolic acidosis which is non-anion gap, continue with sodium tablets 650 mg PO TID. Also for severe malnutrition, patient arteries underlying protein, restriction off salt intact up to 2 g, to reduce fluid retention and falling. Patient continued to have in setting of liver cirrhosis, cellulitis, ZOILA and severe protein malnutrition. Given patient hemodynamically stable, patient underwent physical therapy, recommended SNF for rehabilitation. Patient has been told given poor prognosis given end-stage liver disease, CKD stage 3, worsening complication with hyperbilirubinemia. Patient agree with discharge plan, we will be discharged SNF when arrangement has been done. Physical examination on March 02, 2025: General Appearance: Cooperative. Well developed. Well nourished. Jaundiced Head Exam: Normal inspection Neck Exam: Normal inspection. Non-tender. Normal alignment Pulmonary/Respiratory: Chest non-tender. Clear bilateral breath sounds Cardiovascular/Chest: Regular rate and rhythm. No murmurs. No JVD. Peripheral Pulses: 2+ Radial (R). 2+ Radial (L). 2+ Pedal (R). 2+ Pedal (L) Abdominal Exam: Normal bowel sounds. Soft. Nontender. Distended with ascites Ankle Exam: Negative ankle edema Lower extremities: Multiple ecchymoses, tenderness on palpation, consistent bilateral pedal pulse, capillary refill less than 2 seconds Neuro/Mental Status: A&O x4. Coherent Thoughts/Psych: Normal thought pattern. Appropriate mood and affect. Good judgement and insight Appearance: In no acute distress Skin Exam: Normal inspection. Normal color. Warm. Dry Discharge was delayed due bed unavailability at SNF; to be discharged March 03, [address] Azevedo Consults/Reason for consult Nephrology for ZOILA Condition at Discharge: Poor Final Diagnosis/Problems List Septic shock due to Right and left lower extremity cellulitis Alcoholic liver cirrhosis MELD score 28 ZOILA likely hemodynamically mediated due to hepatorenal syndrome Metabolic acidosis, Non anion gap likely related to hepatorenal syndrom Acute on chronic anemia macrocytic likely due to alcoholism Acute on chronic encephalopathy with Hyperammonemia Leukemoid reaction Secondary coagulopathy Generalized weakness Ruled out acute hepatitis-B infection in previous admission Liver function normalized was given acyclovir for possible EBV hepatitis Obesity BMI 33.2 [facility]position[facility] Discharge Instruct/Medications Diet: Cardiac 2g Na,low cholest Activity: No Restrictions, As Tolerated Follow Up/Referral: -Follow up with PCP in 1 week after discharge from SNF Medications: See SNIF papers Discharge Statement: "Patient was advised to return to the ER or call 911 if any headaches, dizziness, shortness of breath, chest pain, abdominal pain, bleeding, fevers, or worsening of medical condition. Patient was counseled about treatment plan, medications, possible side effects, patientverbalized understanding. All questions were answered to the best of my ability. This discharge took greater then 30 minutes in planning, reviewing documentation, counseling the patient, and discussing with other team members." ASSESSMENT ASSESSMENT Assessment Alcoholic liver cirrhosis MELD score 28 ZOILA likely hemodynamically mediated due to hepatorenal syndrome Addendum Addendum Addendum I was physically present for the wild portions of the service provided to patient by THE RESIDENT. I have reviewed the documentation, discussed the case with resident and agree with the resident's documentation except as noted. Also the patient's clinical case was discussed with the patient's nurse. This medical document was created using an electronic medical record system with computerized dictation system. Although this document has been carefully reviewed, there might still be some phonetic and typographical errors. These areas are purely typographical due to imperfections of the software programs, and do not reflect any compromise in the patient's medical care. Late signature. Date of Service: March 02, 2025 Billing Provider: GLENNY AZEVEDO MD Common Visit Codes: 43698-[id number] INP/OBS CARE(HIGH) TAZ GARCIA RESIDENT March 02, 2025 15:27 GLENNY AZEVEDO MD March 03, 2025 05:20
--- NOTE | 2025-03-02 15:52 | DVHPN2 ---
Progress Note Date Seen: March 02, 2025 Resident Creating Document: KENNEY RIVERA RESIDENT Medical Necessity Reason Pt with a Central, PICC or Fol: No The following are medically ne: Flores Catheter Reason for flores catheter: Strict I&O Subjective Review of Systems Patient is seen and examined at bedside, although he has underlying liver cirrhosis his kidney function has remained stable throughout hospitalization. Given the clinical context no further nephrologic workup is indicated at this time. Patient reports: No new complaints Objective vital signs Vital Sign Date Time Temp Pulse Resp B/P (MAP) Pulse Ox O2 Delivery O2 Flow Rate FiO2 03/02/25 12:21 97.8 104 20 104/54 (71) 96 97.8 03/02/25 08:00 Room Air* 0 21 Total Intake and Output 03/01/25 03/01/25 03/02/25 15:00 23:00 07:00 Intake Total 100 ml 458 ml 400 ml Output Total 250 ml 350 ml Balance 100 ml 208 ml 50 ml medications Current Medications Medications Dose Ordered Sig/Chris Route Start Time Stop Time Status Last Admin Dose Admin Vancomycin HCl 200 ml @ 200 mls/hr Q12HR IV 02/25/25 22:00 UNV Piperacillin Sod/ Tazobactam Sod 100 ml @ 25 mls/hr Q8HR IV 02/25/25 14:00 03/02/25 13:48 25 MLS/HR Oxycodone/ Acetaminophen 1 tab Q6H PRN PO 02/25/25 16:00 03/02/25 10:48 1 TAB Pantoprazole Sodium 40 mg DAILY PO 02/26/25 10:00 03/02/25 10:48 40 MG Sucralfate 1 gm TID PO 02/25/25 22:00 03/02/25 13:48 1 GM Sodium Chloride 10 ml Q8HR IV 02/25/25 22:00 03/02/25 13:49 10 ML Acetaminophen 650 mg Q6HP PRN PO 02/25/25 16:00 Hydromorphone HCl 0.5 mg Q4HP PRN IV 02/25/25 16:00 02/28/25 07:55 0.5 MG Ondansetron HCl 4 mg Q4HP PRN IV 02/25/25 16:00 Lactulose 30 ml DAILY PO 02/26/25 10:00 03/02/25 10:47 30 ML Sodium Bicarbonate 650 mg TID PO 02/26/25 14:00 03/02/25 13:48 650 MG Ursodiol 300 mg BID PO 02/26/25 10:00 03/02/25 10:47 300 MG Furosemide 40 mg DAILY PO 02/26/25 10:00 03/02/25 10:49 40 MG Cholecalciferol 1,000 unit DAILY PO 02/27/25 10:00 03/02/25 10:47 1,000 UNIT Spironolactone 25 mg DAILY PO 03/02/25 10:00 03/02/25 10:48 25 MG Midodrine 10 mg TID@0600,1200,1800 PO 03/02/25 18:00 UNV Examination: GENERAL:Normal, HEENT:Normal, NECK:Normal, CVS:Normal, ABDOMEN:Abnormal, MSK:Abnormal, SKIN:Abnormal, NEURO:Normal, :Abnormal laboratory and microbiology Laboratory Tests 03/02/25 06:08 Test 03/02/25 06:08 Range/Units Serum Glucose 104 74-106 mg/dL Microbiology Date/Time Source Procedure Growth Status 02/25/25 18:00 Nose MRSA Screen - Final Complete 02/25/25 13:30 Blood Blood Culture - Final NO GROWTH AFTER 5 DAYS OF INCUBATION. Complete Problem List/Assessment/Plan Problem List/Assessment/Plan Assessment Acute kidney injury on chronic kidney disease likely in the setting of hepatorenal syndrome Non-anion gap metabolic acidosis likely secondary to hepatorenal syndrome Chronic anemia likely secondary to chronic alcohol use and nutritional deficiency Decompensated liver cirrhosis secondary to alcohol use Small abdominal ascites noted on renal ultrasound Marked leukocytosis likely secondary due to leukemoid reaction and active infection, no evidence of lymphoproliferative disorder Likely Right and left lower extremity cellulitis Secondary hypercoagulopathy from liver disease Plan: Dc fluids Sodium restricted diet Spironolactone 25 mg p.o. Continue Lasix at same dose Discussed with Dr. Liu Code status: Full code Addendum Patient seen and examined, plan discussed with resident. Agree with above, we will follow closely pending urine electrolytes though ordered Plan discussed with: Patient, Daughter KENNEY RIVERA RESIDENT March 02, 2025 15:52 JOSH LIU MD March 02, 2025 16:16
[2025-03-02 17:00] VITALS: BP 105/54; PULSE 106; RESP 20; TEMP 97.6; O2SAT 95
[2025-03-02] MEDS: MIDODRINE HCL 10 MG TAB PO SCH (18:00)
[2025-03-02 21:00] VITALS: BP 95/50; PULSE 105; RESP 19; TEMP 98.1; O2SAT 99
[2025-03-03 01:00] VITALS: BP_SYST 121; BP_SYST 98; BP_DIAS 52; BP_DIAS 64; PULSE 105; PULSE 81; RESP 17; RESP 19; TEMP 98.3; O2SAT 94; O2SAT 98
[2025-03-03 05:00] VITALS: BP 105/64; PULSE 99; RESP 17; TEMP 97.7; O2SAT 98
[2025-03-03 09:00] VITALS: BP 102/68; PULSE 88; RESP 18; TEMP 97.5; O2SAT 98
[2025-03-03 13:00] VITALS: BP_SYST 102; BP_SYST 93; BP_DIAS 52; BP_DIAS 68; PULSE 71; PULSE 88; RESP 18; TEMP 97.5; O2SAT 98
--- NOTE | 2025-03-03 15:27 | DVHPN2 ---
Subjective The patient is seen and examined at bedside. Complain of being tired. No nausea or vomiting. Reviewed: Care Plan, H&P, Labs, Medications, Previous Orders, Radiology Changes from previous H/P or p: No Changes Objective Vitals Vital Signs Date Time Temp Pulse Resp B/P (MAP) Pulse Ox O2 Delivery O2 Flow Rate FiO2 03/03/25 13:00 97.5 71 18 93/52 (66) 98 97.5 03/02/25 20:00 Room Air* 0 21 Intake/Output Intake and Output 03/03/25 07:00 Intake Total 1100 ml Output Total 750 ml Balance 350 ml Intake Oral 800 ml IV Total 300 ml Output Urine Total 750 ml General Appearance: Alert, Oriented X3, Cooperative, No acute distress HEENT: Atraumatic, PERRLA, EOMI, Mucous membr. moist/pink Neck: Supple Lungs: Clear to auscultation, Normal air movement Cardiovascular: Regular rate, Normal S1, Normal S2, No murmurs, Gallops, Rubs Abdomen: Normal bowel sounds, Soft, No tenderness Neuro: Cranial nerves 3-12 NL Psych/Mental Status: Mental status NL Medications Current Medications Medications Dose Ordered Sig/Chris Route Start Time Stop Time Status Last Admin Dose Admin Vancomycin HCl 200 ml @ 200 mls/hr Q12HR IV 02/25/25 22:00 UNV Piperacillin Sod/ Tazobactam Sod 100 ml @ 25 mls/hr Q8HR IV 02/25/25 14:00 03/03/25 05:31 25 MLS/HR Oxycodone/ Acetaminophen 1 tab Q6H PRN PO 02/25/25 16:00 03/03/25 12:52 1 TAB Pantoprazole Sodium 40 mg DAILY PO 02/26/25 10:00 03/03/25 10:39 40 MG Sucralfate 1 gm TID PO 02/25/25 22:00 03/03/25 05:32 1 GM Sodium Chloride 10 ml Q8HR IV 02/25/25 22:00 03/03/25 05:31 10 ML Acetaminophen 650 mg Q6HP PRN PO 02/25/25 16:00 Hydromorphone HCl 0.5 mg Q4HP PRN IV 02/25/25 16:00 02/28/25 07:55 0.5 MG Ondansetron HCl 4 mg Q4HP PRN IV 02/25/25 16:00 Lactulose 30 ml DAILY PO 02/26/25 10:00 03/03/25 10:38 30 ML Sodium Bicarbonate 650 mg TID PO 02/26/25 14:00 03/03/25 05:31 650 MG Ursodiol 300 mg BID PO 02/26/25 10:00 03/02/25 21:49 300 MG Furosemide 40 mg DAILY PO 02/26/25 10:00 03/03/25 10:39 40 MG Cholecalciferol 1,000 unit DAILY PO 02/27/25 10:00 03/03/25 10:39 1,000 UNIT Spironolactone 25 mg DAILY PO 03/02/25 10:00 03/03/25 10:39 25 MG Midodrine 10 mg TID@0600,1200,1800 PO 03/02/25 18:00 03/03/25 12:11 10 MG Laboratory Results Laboratory Tests 03/02/25 06:08 Urinalysis Test 02/25/25 15:50 Urine Color Dark-yellow (Yellow) Urine Clarity Clear (Clear) Urine pH 5.5 (5.0-9.0) Urine Specific [place] 1.012 (1.001-1.035) Urine Protein Negative (Negative) Urine Ketones Negative (Negative) Urine Blood Negative /uL (Negative) Urine Nitrite Negative (Negative) Urine Bilirubin 2+ (Negative) H Urine Urobilinogen Normal mg/dL (Negative) Urine Leukocyte Esterase Negative /uL (Negative) Urine RBC 1 /hpf (0 - 4) Urine Microscopic WBC 1 /HPF (0-5) Urine Squamous Epithelial Cells Few /hpf (<5) Urine Bacteria Few /hpf (None Seen) H Urine Hyaline Casts Mod /lpf (0 - 2) Urine Mucus Few (None Seen) Urine Glucose Normal mg/dL (Normal) Microbiology Microbiology Date/Time Source Procedure Growth Status 02/25/25 18:00 Nose MRSA Screen - Final Complete 02/25/25 13:30 Blood Blood Culture - Final NO GROWTH AFTER 5 DAYS OF INCUBATION. Complete Labs and/or images reviewed: Labs reviewed by me Assessment/Plan Assessment/Plan Alcoholic liver cirrhosis MELD score 28 -bilirubin elevated at 14.3, INR 1.6 -continue Lasix 40 mg p.o. daily -continue spironolactone 25 mg p.o. daily -lactulose 30 mg p.o. daily -cardiac diet: Salt intake less than 2 g ZOILA likely hemodynamically mediated due to hepatorenal syndrome -continue Lasix 40 mg p.o. daily -continue monitor kidney function: -continue monitor urine output -continue monitor electrolyte -strict I&O -Nephrology consulted -IV albumin 25 Gram Q8Hr Metabolic acidosis, Non anion gap likely related to hepatorenal syndrom -Sodium bicarbonate -Check BMP in AM Severe protein malnutrition -albumin 2.6 -nutritional recommendation -advised on intake of lean protein, limit salt intake to reduce fluid retention and swelling. Acute on chronic anemia macrocytic likely due to alcoholism -continue monitoring H&H Acute on chronic encephalopathy with Hyperammonemia -lactulose 30 mg p.o. daily Leukemoid reaction -continue monitor vitals, patient needs an antibiotic for some reduction -Patient's underwent bone marrow biopsy on a subset of CD56 expression on myelomonocytic cell,no immunophenotypic evidence of a B-cell or T-cell lymphoproliferative disorder. During previous admission Right and left lower extremity cellulitis -continue IV antibiotic with Zosyn -currently monitor kidney function given vancomycin toxicity Secondary coagulopathy -INR 1.60, continue monitor Generalized weakness -PT evaluation Ruled out acute hepatitis-B infection in previous admission Liver function normalized was given acyclovir for possible EBV hepatitis Obesity BMI 33.2 -patient counseled on lifestyle modifications such as regular exercise, diet recommendation as above. -dietary consultation PT evaluation done. Encouraged the patient to work with physical therapy Renal diet PUD prophylaxis with Protonix DVT prophylaxis SCD, avoid anticoagulation given high risk for bleeding Continuing current management This medical document was created using an electronic medical record system with [employer] direct computerized dictation system. Although this document has been carefully reviewed, there may still be some phonetic and typographical errors. These areas are purely typographical due to imperfections of the software programs, and do not reflect any compromise in the patient's medical care. Plan discussed with: Patient Date of Service: March 03, 2025 Billing Provider: RASHEED WALTERS MD Common Visit Codes: [id number] INP/OBS CARE(HIGH) RASHEED WALTERS MD March 03, 2025 15:27
--- NOTE | 2025-03-03 15:40 | DVHPN2 ---
Progress Note Date Seen: March 03, 2025 Medical Necessity Reason Pt with a Central, PICC or Fol: No The following are medically ne: Flores Catheter Reason for flores catheter: Strict I&O Subjective Patient reports: Other (Patient appears weak) Review of Systems: Deferred Objective vital signs Vital Sign Date Time Temp Pulse Resp B/P (MAP) Pulse Ox O2 Delivery O2 Flow Rate FiO2 03/03/25 13:00 97.5 71 18 93/52 (66) 98 97.5 03/02/25 20:00 Room Air* 0 21 Total Intake and Output 03/02/25 03/02/25 03/03/25 15:00 23:00 07:00 Intake Total 100 ml 400 ml 600 ml Output Total 350 ml 400 ml Balance 100 ml 50 ml 200 ml medications Current Medications Medications Dose Ordered Sig/Chris Route Start Time Stop Time Status Last Admin Dose Admin Vancomycin HCl 200 ml @ 200 mls/hr Q12HR IV 02/25/25 22:00 UNV Piperacillin Sod/ Tazobactam Sod 100 ml @ 25 mls/hr Q8HR IV 02/25/25 14:00 03/03/25 05:31 25 MLS/HR Oxycodone/ Acetaminophen 1 tab Q6H PRN PO 02/25/25 16:00 03/03/25 12:52 1 TAB Pantoprazole Sodium 40 mg DAILY PO 02/26/25 10:00 03/03/25 10:39 40 MG Sucralfate 1 gm TID PO 02/25/25 22:00 03/03/25 05:32 1 GM Sodium Chloride 10 ml Q8HR IV 02/25/25 22:00 03/03/25 05:31 10 ML Acetaminophen 650 mg Q6HP PRN PO 02/25/25 16:00 Hydromorphone HCl 0.5 mg Q4HP PRN IV 02/25/25 16:00 02/28/25 07:55 0.5 MG Ondansetron HCl 4 mg Q4HP PRN IV 02/25/25 16:00 Lactulose 30 ml DAILY PO 02/26/25 10:00 03/03/25 10:38 30 ML Sodium Bicarbonate 650 mg TID PO 02/26/25 14:00 03/03/25 05:31 650 MG Ursodiol 300 mg BID PO 02/26/25 10:00 03/02/25 21:49 300 MG Furosemide 40 mg DAILY PO 02/26/25 10:00 03/03/25 10:39 40 MG Cholecalciferol 1,000 unit DAILY PO 02/27/25 10:00 03/03/25 10:39 1,000 UNIT Spironolactone 25 mg DAILY PO 03/02/25 10:00 03/03/25 10:39 25 MG Midodrine 10 mg TID@0600,1200,1800 PO 03/02/25 18:00 03/03/25 12:11 10 MG laboratory and microbiology Laboratory Tests 03/02/25 06:08 Test 03/02/25 06:08 Range/Units Serum Glucose 104 74-106 mg/dL Microbiology Date/Time Source Procedure Growth Status 02/25/25 18:00 Nose MRSA Screen - Final Complete 02/25/25 13:30 Blood Blood Culture - Final NO GROWTH AFTER 5 DAYS OF INCUBATION. Complete Problem List/Assessment/Plan Problem List/Assessment/Plan Assessment Acute kidney injury on chronic kidney disease likely in the setting of hepatorenal syndrome Non-anion gap metabolic acidosis likely secondary to hepatorenal syndrome Chronic anemia likely secondary to chronic alcohol use and nutritional deficiency Decompensated liver cirrhosis secondary to alcohol use sirs Secondary hypercoagulopathy from liver disease Plan: Sodium restricted diet Spironolactone 25 mg p.o. Continue Lasix at same dose Plan discussed with: Patient, Daughter Dietary Evaluation Review Comments: 1. Continue Cardiac diet as tolerated 2. Given sub-par oral intakes, will add Ensure Enlive BID to optimize nutritional status (provides 350 kcal, 20 gm pro per carton) 3. Monitor wt trends and document edema if present Expected Outcomes/Goals: Improved nutritional status. JOSH LIU MD March 03, 2025 15:40
[2025-03-03 17:00] VITALS: BP 96/59; PULSE 83; RESP 18; TEMP 97.6; O2SAT 99
[2025-03-03 21:00] VITALS: BP 95/59; PULSE 88; RESP 18; TEMP 97.5; O2SAT 99
[2025-03-04] VITALS (7 sets, daily range): BP systolic 90–120; BP diastolic 48–69; PULSE 85–89; RESP 17–18; TEMP 97.2–98.9; O2SAT 96–100
[2025-03-04] MEDS: PIPERACILLIN-TAZOB 3.375GM 100 ML IV SCH (00:17)
--- NOTE | 2025-03-04 22:14 | DVHPN2 ---
Subjective The patient is seen and examined at bedside. Still complain of being tired and abdominal pain. Reviewed: Care Plan, H&P, Labs, Medications, Previous Orders, Radiology Changes from previous H/P or p: No Changes Objective Vitals Vital Signs Date Time Temp Pulse Resp B/P (MAP) Pulse Ox O2 Delivery O2 Flow Rate FiO2 03/04/25 21:00 97.6 88 18 96/64 (75) 98 97.6 03/04/25 08:00 Room Air* 0 21 Intake/Output Intake and Output 03/04/25 07:00 Intake Total 1535 ml Output Total 700 ml Balance 835 ml Intake Oral 1235 ml IV Total 300 ml Output Urine Total 700 ml # Bowel Movements 1 General Appearance: Alert, Oriented X3, Cooperative, No acute distress HEENT: Atraumatic, PERRLA, EOMI, Mucous membr. moist/pink Neck: Supple Lungs: Clear to auscultation, Normal air movement Cardiovascular: Regular rate, Normal S1, Normal S2, No murmurs, Gallops, Rubs Abdomen: Normal bowel sounds, Soft, No tenderness Neuro: Cranial nerves 3-12 NL Psych/Mental Status: Mental status NL Medications Current Medications Medications Dose Ordered Sig/Chris Route Start Time Stop Time Status Last Admin Dose Admin Vancomycin HCl 200 ml @ 200 mls/hr Q12HR IV 02/25/25 22:00 UNV Oxycodone/ Acetaminophen 1 tab Q6H PRN PO 02/25/25 16:00 03/04/25 17:58 1 TAB Pantoprazole Sodium 40 mg DAILY PO 02/26/25 10:00 03/04/25 11:14 40 MG Sucralfate 1 gm TID PO 02/25/25 22:00 03/04/25 14:35 1 GM Sodium Chloride 10 ml Q8HR IV 02/25/25 22:00 03/04/25 14:36 10 ML Acetaminophen 650 mg Q6HP PRN PO 02/25/25 16:00 Hydromorphone HCl 0.5 mg Q4HP PRN IV 02/25/25 16:00 02/28/25 07:55 0.5 MG Ondansetron HCl 4 mg Q4HP PRN IV 02/25/25 16:00 Lactulose 30 ml DAILY PO 02/26/25 10:00 03/04/25 11:15 30 ML Sodium Bicarbonate 650 mg TID PO 02/26/25 14:00 03/04/25 14:35 650 MG Ursodiol 300 mg BID PO 02/26/25 10:00 03/04/25 11:28 300 MG Furosemide 40 mg DAILY PO 02/26/25 10:00 03/04/25 11:37 40 MG Cholecalciferol 1,000 unit DAILY PO 02/27/25 10:00 03/04/25 11:14 1,000 UNIT Spironolactone 25 mg DAILY PO 03/02/25 10:00 03/04/25 11:13 25 MG Midodrine 10 mg TID@0600,1200,1800 PO 03/02/25 18:00 03/04/25 17:57 10 MG Piperacillin Sod/ Tazobactam Sod 100 ml @ 25 mls/hr Q8HR IV 03/04/25 01:00 03/04/25 11:29 25 MLS/HR Laboratory Results Laboratory Tests 03/02/25 06:08 Urinalysis Test 02/25/25 15:50 Urine Color Dark-yellow (Yellow) Urine Clarity Clear (Clear) Urine pH 5.5 (5.0-9.0) Urine Specific [place] 1.012 (1.001-1.035) Urine Protein Negative (Negative) Urine Ketones Negative (Negative) Urine Blood Negative /uL (Negative) Urine Nitrite Negative (Negative) Urine Bilirubin 2+ (Negative) H Urine Urobilinogen Normal mg/dL (Negative) Urine Leukocyte Esterase Negative /uL (Negative) Urine RBC 1 /hpf (0 - 4) Urine Microscopic WBC 1 /HPF (0-5) Urine Squamous Epithelial Cells Few /hpf (<5) Urine Bacteria Few /hpf (None Seen) H Urine Hyaline Casts Mod /lpf (0 - 2) Urine Mucus Few (None Seen) Urine Glucose Normal mg/dL (Normal) Microbiology Microbiology Date/Time Source Procedure Growth Status 02/25/25 18:00 Nose MRSA Screen - Final Complete 02/25/25 13:30 Blood Blood Culture - Final NO GROWTH AFTER 5 DAYS OF INCUBATION. Complete Labs and/or images reviewed: Labs reviewed by me Assessment/Plan Assessment/Plan Alcoholic liver cirrhosis MELD score 28 -bilirubin elevated at 14.3, INR 1.6 -continue Lasix 40 mg p.o. daily -continue spironolactone 25 mg p.o. daily -lactulose 30 mg p.o. daily -cardiac diet: Salt intake less than 2 g ZOILA likely hemodynamically mediated due to hepatorenal syndrome -continue Lasix 40 mg p.o. daily -continue monitor kidney function: -continue monitor urine output -continue monitor electrolyte -strict I&O -Nephrology consulted -IV albumin 25 Gram Q8Hr Metabolic acidosis, Non anion gap likely related to hepatorenal syndrom -Sodium bicarbonate -Check BMP in AM Severe protein malnutrition -albumin 2.6 -nutritional recommendation -advised on intake of lean protein, limit salt intake to reduce fluid retention and swelling. Acute on chronic anemia macrocytic likely due to alcoholism -continue monitoring H&H Acute on chronic encephalopathy with Hyperammonemia -lactulose 30 mg p.o. daily Leukemoid reaction -continue monitor vitals, patient needs an antibiotic for some reduction -Patient's underwent bone marrow biopsy on a subset of CD56 expression on myelomonocytic cell,no immunophenotypic evidence of a B-cell or T-cell lymphoproliferative disorder. During previous admission Right and left lower extremity cellulitis -continue IV antibiotic with Zosyn -currently monitor kidney function given vancomycin toxicity Secondary coagulopathy -INR 1.60, continue monitor Generalized weakness -PT evaluation Ruled out acute hepatitis-B infection in previous admission Liver function normalized was given acyclovir for possible EBV hepatitis Obesity BMI 33.2 -patient counseled on lifestyle modifications such as regular exercise, diet recommendation as above. -dietary consultation PT evaluation done Renal diet PUD prophylaxis with Protonix DVT prophylaxis SCD, avoid anticoagulation given high risk for bleeding Continuing current management This medical document was created using an electronic medical record system with [employer] direct computerized dictation system. Although this document has been carefully reviewed, there may still be some phonetic and typographical errors. These areas are purely typographical due to imperfections of the software programs, and do not reflect any compromise in the patient's medical care. Plan discussed with: Patient Date of Service: March 04, 2025 Billing Provider: RASHEED WALTERS MD Common Visit Codes: [id number] INP/OBS CARE(HIGH) RASHEED WALTERS MD March 04, 2025 22:14
[2025-03-05] VITALS (7 sets, daily range): BP systolic 92–111; BP diastolic 55–66; PULSE 89–99; RESP 17–20; TEMP 97.2–97.5; O2SAT 95–100
[2025-03-05 10:20] LABS: Potassium 4.5 mmol/L (3.5-5.1); Sodium 141 mmol/L (136-145)
[2025-03-05 10:21] LABS: Anion Gap 14 (5-15)
[2025-03-05 10:24] LABS: Calcium 7.6 mg/dL (8.7-10.4); Carbon Dioxide 19 mmol/L (20-31); Chloride 108 mmol/L (98-107)
[2025-03-05 10:26] LABS: Glucose 86 mg/dL (74-106)
[2025-03-05 10:28] LABS: BUN/Creatinine Ratio 30.6 (10.0-20.0); Blood Urea Nitrogen 78 mg/dL (9-23)
--- NOTE | 2025-03-05 15:38 | DVHDSRES ---
Discharge Summary Date of Admission Resident Creating Document: KENNEY RIVERA RESIDENT Feb 25, 2025 at 15:56 Date of Discharge: March 03, 2025 (Planned discharge was for March 02, 2025; will aim for discharge on March 03, 2025) Admitting Diagnosis Generalized weakness Wounds: Multiple bruises; present on admission Labs/Diagnostic Data: Laboratory Results Test 03/05/25 09:50 03/02/25 06:08 03/01/25 09:32 03/01/25 08:22 Sodium Level 141 mmol/L (136-145) Potassium Level 4.5 mmol/L (3.5-5.1) Chloride Level 108 mmol/L (98-107) Carbon Dioxide Level 19 mmol/L (20-31) Anion Gap 14 (5-15) Blood Urea Nitrogen 78 mg/dL (9-23) Creatinine 2.55 mg/dL (0.550-1.02) Glomerular Filtration Rate Calc 23 mL/min (>90) BUN/Creatinine Ratio 30.6 (10.0-20.0) Serum Glucose 86 mg/dL (74-106) Calcium Level 7.6 mg/dL (8.7-10.4) White Blood Count 49.8 10^3/uL (4.4-10.8) Red Blood Count 2.75 10^6/uL (4.0-5.20) Hemoglobin 9.1 g/dL (12.2-16.2) Hematocrit 27.8 % (36.0-46.0) Mean Corpuscular Volume 101.2 fL (80.0-100.0) Mean Corpuscular Hemoglobin 33.2 pg (28.0-32.0) Mean Corpuscular Hemoglobin Concent 32.8 g/dL (32.0-36.0) Red Cell Distribution Width 17.7 % (11.8-14.3) Platelet Count 226 10^3/uL (140-450) Mean Platelet Volume 10.1 fL (6.9-10.8) Neutrophils (%) (Auto) % (37.0-80.0) Lymphocytes (%) (Auto) % (10.0-50.0) Monocytes (%) (Auto) % (0.0-12.0) Basophils (%) (Auto) % (0.0-2.0) Neutrophils # (Auto) 10 ^3/uL (1.6-8.6) Lymphocytes # (Auto) 10 ^3/uL (0.4-5.4) Monocytes # (Auto) 10 ^3/uL (0-1.3) Differential Total Cells Counted 100.0 (100) Neutrophils % (Manual) 78 (37.0-80.0) Band Neutrophils % (Manual) 6 Lymphocytes % (Manual) 11 (10.0-50.0) Monocytes % (Manual) 1 (0-12) Eosinophils % (Manual) 0 (0-7) Basophils % (Manual) 0 (0.0-2.0) Metamyelocytes % (manual) 0 Myelocytes % (Manual) 4 Promyelocytes % (Manual) 0 Blast Cells % (Manual) 0 Reactive Lymphocytes 0 Platelet Estimate Adequate Large Platelets Few Giant Platelets Few Macrocytosis Slight Total Bilirubin 14.7 mg/dL (0.2-1.0) Aspartate Amino Transferase (AST) 23 U/L (13-40) Alanine Aminotransferase (ALT) 21 U/L (7-40) Alkaline Phosphatase 355 U/L (46-116) Total Protein 5.8 g/dL (5.7-8.2) Albumin 2.6 g/dL (3.2-4.8) POC Glucose 77 mg/dl (70-106) Ammonia 28 umol/L (11-32) Test 03/01/25 05:45 02/27/25 05:55 02/27/25 00:08 02/26/25 06:30 Clumped Platelets Few Phosphorus Level 5.3 mg/dL (2.4-5.1) Magnesium Level 2.0 mg/dL (1.6-2.6) Vitamin D 25-Hydroxy 43.3 ng/mL (30.0-100) Parathyroid Hormone (Intact) 50.8 pg/mL (18.4-80.1) Random Vancomycin Level 13.3 ug/mL (5-10) Stool Occult Blood Negative (Negative) Stool Occult Blood Sample #3 (Negative) Nucleated Red Blood Cells 1.0 % Creatine Kinase < 15 U/L (34-145) Test 02/25/25 16:33 02/25/25 15:50 02/25/25 13:30 02/25/25 11:48 Tumor Marker Alpha Fetoprotein <1.8 ng/mL (0.0-6.4) Urine Color Dark-yellow (Yellow) Urine Clarity Clear (Clear) Urine pH 5.5 (5.0-9.0) Urine Specific [place] 1.012 (1.001-1.035) Urine Protein Negative (Negative) Urine Ketones Negative (Negative) Urine Blood Negative /uL (Negative) Urine Nitrite Negative (Negative) Urine Bilirubin 2+ (Negative) Urine Urobilinogen Normal mg/dL (Negative) Urine Leukocyte Esterase Negative /uL (Negative) Urine RBC 1 /hpf (0 - 4) Urine Microscopic WBC 1 /HPF (0-5) Urine Squamous Epithelial Cells Few /hpf (<5) Urine Bacteria Few /hpf (None Seen) Urine Hyaline Casts Mod /lpf (0 - 2) Urine Mucus Few (None Seen) Urine Glucose Normal mg/dL (Normal) Lactic Acid Level 1.2 mmol/L (0.4-2.0) Prothrombin Time 16.2 sec (9.3-11.8) Prothrombin Time INR 1.60 (0.9-1.15) Activated Partial Thromboplast Time 39.7 SEC (24.5-34.5) Other Laboratory Tests 03/05/25 09:50 03/02/25 06:08 Brief Hx & Hospital Course: Hospital course Patient is a female was recently hospitalized for generalized weakness, melena, fever, chills, confusion, was diagnosed with decompensated liver failure and was transferred through [facility] for liver transplant evaluation. Patient has an extensive past medical history including hypertension, alcoholic liver cirrhosis, likely hepatorenal syndrome, CKD, leukemoid reaction, gastritis, positive hepatitis-B surface antigen, EBV virus infection, HSV infection. Patient was also complaining all bilateral lower extremity pain, jaundice, ecchymosis and blisters or bilateral lower extremity. Given generalized weakness, jaundice patient was prompted to visit to the hospital for further evaluation Past medical history: Hypertension, alcoholic liver cirrhosis (last alcoholic drink on November 20, 2024), positive hepatitis B surface antigen, leukemoid reaction, CKD, gastritis, questionable acute viral hepatitis risk EBV, bicytopenia, ileus Surgical history: Cholecystectomy Family history: Father had prostate cancer Social history: Lives with family in [place]. Ex ethanol abuse (stopped intake of alcohol since November 20, 2024). Ex-smoker (2.5 pack year history of smoking). Denies current tobacco, alcohol and other drug abuse Allergies: Denies Home medication: Benazepril, sucralfate and Protonix, ivermectin, Lasix, spironolactone Hospital course: Patient came to the hospital with chief complaint of generalized weakness and bilateral lower extremity ecchymoses/pain and blisters. Patient underwent CT scan of the bilateral lower extremity we did not show any abscess, patient also has end-stage decompensated liver cirrhosis, waiting for transplant at [facility], found to have likely hepatorenal syndrome with abnormal liver and kidney function, continue treatment with IV antibiotics Zosyn, Lasix 40 mg p.o. daily, spironolactone 25 mg p.o. daily, lactulose 30 mg p.o. daily. Given worsening kidney function, patient was given albumin challenge, nephrologic consultation was done, kidney function improved hour continued to have GFR around 26, continued strict I&O and kidney function. Given abnormal kidney function, patient found to have metabolic acidosis which is non-anion gap, continue with sodium tablets 650 mg PO TID. Also for severe malnutrition, patient arteries underlying protein, restriction off salt intact up to 2 g, to reduce fluid retention and falling. Patient continued to have in setting of liver cirrhosis, cellulitis, ZOILA and severe protein malnutrition. Given patient hemodynamically stable, patient underwent physical therapy, recommended SNF for rehabilitation. Patient has been told given poor prognosis given end-stage liver disease, CKD stage 3, worsening complication with hyperbilirubinemia. Patient agree with discharge plan, we will be discharged SNF when arrangement has been done. Physical examination on March 02, 2025: General Appearance: Cooperative. Well developed. Well nourished. Jaundiced Head Exam: Normal inspection Neck Exam: Normal inspection. Non-tender. Normal alignment Pulmonary/Respiratory: Chest non-tender. Clear bilateral breath sounds Cardiovascular/Chest: Regular rate and rhythm. No murmurs. No JVD. Peripheral Pulses: 2+ Radial (R). 2+ Radial (L). 2+ Pedal (R). 2+ Pedal (L) Abdominal Exam: Normal bowel sounds. Soft. Nontender. Distended with ascites Ankle Exam: Negative ankle edema Lower extremities: Multiple ecchymoses, tenderness on palpation, consistent bilateral pedal pulse, capillary refill less than 2 seconds Neuro/Mental Status: A&O x4. Coherent Thoughts/Psych: Normal thought pattern. Appropriate mood and affect. Good judgement and insight Appearance: In no acute distress Skin Exam: Normal inspection. Normal color. Warm. Dry Discharge was delayed due bed unavailability at SNF; to be discharged March 05, 2025 Consults/Reason for consult Nephrology for ZOILA Condition at Discharge: Poor Final Diagnosis/Problems List Septic shock due to Right and left lower extremity cellulitis Alcoholic liver cirrhosis MELD score 28 ZOILA likely hemodynamically mediated due to hepatorenal syndrome Metabolic acidosis, Non anion gap likely related to hepatorenal syndrom Acute on chronic anemia macrocytic likely due to alcoholism Acute on chronic encephalopathy with Hyperammonemia Leukemoid reaction Secondary coagulopathy Generalized weakness Ruled out acute hepatitis-B infection in previous admission Liver function normalized was given acyclovir for possible EBV hepatitis Obesity BMI 33.2 Discharge Disposition: Halfway Facility Discharge Instruct/Medications Diet: Cardiac 2g Na,low cholest Activity: No Restrictions, As Tolerated Follow Up/Referral: -Follow up with PCP in 1 week after discharge from SNF Medications: See SNIF papers Discharge Statement: "Patient was advised to return to the ER or call 911 if any headaches, dizziness, shortness of breath, chest pain, abdominal pain, bleeding, fevers, or worsening of medical condition. Patient was counseled about treatment plan, medications, possible side effects, patientverbalized understanding. All questions were answered to the best of my ability. This discharge took greater then 30 minutes in planning, reviewing documentation, counseling the patient, and discussing with other team members." ASSESSMENT ASSESSMENT Assessment Septic shock due to Right and left lower extremity cellulitisAlcoholic liver cirrhosis MELD score 28AKI likely hemodynamically mediated due to hepatorenal syndromeMetabolic acidosis, Non anion gap likely related to hepatorenal syndromAcute on chronic anemia macrocytic likely due to alcoholismAcute on chronic encephalopathy with HyperammonemiaLeukemoid reactionSecondary coagulopathyGeneralized weaknessRuled out acute hepatitis-B infection in previous admissionLiver function normalized was given acyclovir for possible EBV hepatitisObesity BMI 33.2 Date of Service: March 05, 2025 Billing Provider: HUMBLE ANGULO DO Common Visit Codes: 18860-RUM/OBS DISCH DAY >30min TAZ GARCIA RESIDENT March 05, 2025 15:38 HUMBLE ANGULO DO March 05, 2025 20:40
--- NOTE | 2025-03-05 18:40 | DVHPN2 ---
Progress Note Date Seen: March 05, 2025 Medical Necessity Reason Pt with a Central, PICC or Fol: No The following are medically ne: Flores Catheter Reason for flores catheter: Strict I&O Subjective Patient reports: No new complaints Review of Systems: Deferred Objective vital signs Vital Sign Date Time Temp Pulse Resp B/P (MAP) Pulse Ox O2 Delivery O2 Flow Rate FiO2 03/05/25 17:00 97.4 89 19 104/66 (79) 98 97.4 03/05/25 08:00 Room Air* 0 21 Total Intake and Output 03/04/25 03/04/25 03/05/25 15:00 23:00 07:00 Intake Total 330 ml 218 ml 1000 ml Output Total 150 ml 250 ml Balance 330 ml 68 ml 750 ml medications Current Medications Medications Dose Ordered Sig/Chris Route Start Time Stop Time Status Last Admin Dose Admin Vancomycin HCl 200 ml @ 200 mls/hr Q12HR IV 02/25/25 22:00 UNV Oxycodone/ Acetaminophen 1 tab Q6H PRN PO 02/25/25 16:00 03/05/25 10:04 1 TAB Pantoprazole Sodium 40 mg DAILY PO 02/26/25 10:00 03/05/25 09:24 40 MG Sucralfate 1 gm TID PO 02/25/25 22:00 03/05/25 13:42 1 GM Sodium Chloride 10 ml Q8HR IV 02/25/25 22:00 03/05/25 13:13 10 ML Acetaminophen 650 mg Q6HP PRN PO 02/25/25 16:00 Hydromorphone HCl 0.5 mg Q4HP PRN IV 02/25/25 16:00 03/05/25 13:42 0.5 MG Ondansetron HCl 4 mg Q4HP PRN IV 02/25/25 16:00 Lactulose 30 ml DAILY PO 02/26/25 10:00 03/05/25 09:24 30 ML Sodium Bicarbonate 650 mg TID PO 02/26/25 14:00 03/05/25 13:42 650 MG Ursodiol 300 mg BID PO 02/26/25 10:00 03/05/25 10:04 300 MG Cholecalciferol 1,000 unit DAILY PO 02/27/25 10:00 03/05/25 09:24 1,000 UNIT Midodrine 10 mg TID@0600,1200,1800 PO 03/02/25 18:00 03/05/25 17:26 10 MG Piperacillin Sod/ Tazobactam Sod 100 ml @ 25 mls/hr Q8HR IV 03/04/25 01:00 03/05/25 13:42 25 MLS/HR laboratory and microbiology Laboratory Tests 03/05/25 09:50 03/02/25 06:08 Test 03/05/25 09:50 Range/Units Serum Glucose 86 74-106 mg/dL Microbiology Date/Time Source Procedure Growth Status 02/25/25 18:00 Nose MRSA Screen - Final Complete 02/25/25 13:30 Blood Blood Culture - Final NO GROWTH AFTER 5 DAYS OF INCUBATION. Complete Problem List/Assessment/Plan Problem List/Assessment/Plan Assessment Acute kidney injury on chronic kidney disease likely in the setting of hepatorenal syndrome Non-anion gap metabolic acidosis Chronic anemia likely secondary to chronic alcohol use and nutritional deficiency Decompensated liver cirrhosis secondary to alcohol use sirs Secondary hypercoagulopathy from liver disease Plan: dc lasix and spironolactone worsening renal function Plan discussed with: Patient, Other Dietary Evaluation Review Comments: 1. Continue Cardiac diet as tolerated 2. Given sub-par oral intakes, will add Ensure Enlive BID to optimize nutritional status (provides 350 kcal, 20 gm pro per carton) 3. Monitor wt trends and document edema if present Expected Outcomes/Goals: Improved nutritional status. JOSH LIU MD March 05, 2025 18:40
[2025-03-05] MEDS: SODIUM CHLORIDE 0.9% 1,000 ML IV ONE (20:11)
[2025-03-06] VITALS (8 sets, daily range): BP systolic 92–137; BP diastolic 48–97; PULSE 88–96; RESP 18–22; TEMP 96.2–97.9; O2SAT 96–100
[2025-03-06] MEDS: LACTULOSE 20Gm/30ML SOLN PO ONE (09:41)
[2025-03-06 12:06] LABS: INR 1.96 (0.9-1.15); Prothrombin Time 19.4 sec (9.3-11.8)
[2025-03-06 12:13] LABS: Partial Thromboplastin Time 91.7 SEC (24.5-34.5)
[2025-03-06] MEDS: OCTREOTIDE ACETATE 100 MCG/ML VL SUBCUT SCH (14:32)
--- NOTE | 2025-03-06 14:51 | DVHPNRES ---
Progress Note Date Seen: March 06, 2025 Resident Creating Document: TAZ GARCIA RESIDENT Medical Necessity Reason Pt with a Central, PICC or Fol: No The following are medically ne: Flores Catheter Reason for flores catheter: Strict I&O Subjective Review of Systems Patient is a female was recently hospitalized for generalized weakness, melena, fever, chills, confusion, was diagnosed with decompensated liver failure and was transferred through [facility] for liver transplant evaluation. Patient has an extensive past medical history including hypertension, alcoholic liver cirrhosis, likely hepatorenal syndrome, CKD, leukemoid reaction, gastritis, positive hepatitis-B surface antigen, EBV virus infection, HSV infection. Past medical history: Hypertension, alcoholic liver cirrhosis (last alcoholic drink on November 20, 2024), positive hepatitis B surface antigen, leukemoid reaction, CKD, gastritis, questionable acute viral hepatitis risk EBV, bicytopenia, ileus Surgical history: Cholecystectomy Family history: Father had prostate cancer Social history: Lives with family in [place]. Ex ethanol abuse (stopped intake of alcohol since November 20, 2024). Ex-smoker (2.5 pack year history of smoking). Denies current tobacco, alcohol and other drug abuse Allergies: Denies Home medication: Benazepril, sucralfate and Protonix, ivermectin, Lasix, spironolactone During last hospitalization, for elevated white count, patient normally immunophenotype big evaluation, no evidence of B-cell or T-cell lymphoproliferative disorder. HBV DNA was not detected, mucositis with improving. Liver function trended down compared to last hospitalization. Continue elevated bilirubin. Patient seen and examined at bedside. Plan for Dc however, patient kidney function worsen. Initiated on octreotide, continued on midodrine , stopped Lasix and spirolactone. Objective vital signs Vital Sign Date Time Temp Pulse Resp B/P (MAP) Pulse Ox O2 Delivery O2 Flow Rate FiO2 03/06/25 13:00 96.2 88 20 92/53 (66) 100 96.2 03/06/25 08:00 Room Air* 0 21 Total Intake and Output 03/05/25 03/05/25 03/06/25 15:00 23:00 07:00 Intake Total 100 ml 400 ml 300 ml Output Total 200 ml 125 ml Balance 100 ml 200 ml 175 ml medications Current Medications Medications Dose Ordered Sig/Chris Route Start Time Stop Time Status Last Admin Dose Admin Vancomycin HCl 200 ml @ 200 mls/hr Q12HR IV 02/25/25 22:00 UNV Oxycodone/ Acetaminophen 1 tab Q6H PRN PO 02/25/25 16:00 03/06/25 06:09 1 TAB Pantoprazole Sodium 40 mg DAILY PO 02/26/25 10:00 03/06/25 09:41 40 MG Sucralfate 1 gm TID PO 02/25/25 22:00 03/06/25 14:01 1 GM Sodium Chloride 10 ml Q8HR IV 02/25/25 22:00 03/06/25 13:25 10 ML Acetaminophen 650 mg Q6HP PRN PO 02/25/25 16:00 Ondansetron HCl 4 mg Q4HP PRN IV 02/25/25 16:00 Lactulose 30 ml DAILY PO 02/26/25 10:00 03/06/25 09:41 30 ML Sodium Bicarbonate 650 mg TID PO 02/26/25 14:00 03/06/25 14:01 650 MG Ursodiol 300 mg BID PO 02/26/25 10:00 03/06/25 09:41 300 MG Cholecalciferol 1,000 unit DAILY PO 02/27/25 10:00 03/06/25 09:42 1,000 UNIT Midodrine 10 mg TID@0600,1200,1800 PO 03/02/25 18:00 03/06/25 12:22 10 MG Piperacillin Sod/ Tazobactam Sod 100 ml @ 25 mls/hr Q8HR IV 03/04/25 01:00 03/06/25 14:02 25 MLS/HR Octreotide Acetate 100 mcg TID SUBCUT 03/06/25 14:00 03/06/25 14:32 100 MCG laboratory and microbiology Laboratory Tests 03/02/25 06:08 Test 03/06/25 11:20 Range/Units Serum Glucose Pending Microbiology Date/Time Source Procedure Growth Status 02/25/25 18:00 Nose MRSA Screen - Final Complete 02/25/25 13:30 Blood Blood Culture - Final NO GROWTH AFTER 5 DAYS OF INCUBATION. Complete Problem List/Assessment/Plan Problem List/Assessment/Plan Alcoholic liver cirrhosis MELD score 28 -CMP -Hold diuretics given worsening ZOILA -cardiac diet: Salt intake less than 2 g ZOILA likely hemodynamically mediated due to hepatorenal syndrome -continue monitor kidney function: -continue monitor urine output -continue monitor electrolyte -strict I&O -Nephrology consulted:Octreotide , Iv fluid Metabolic acidosis, Non anion gap likely related to hepatorenal syndrom -Sodium bicarbonate -Check CMP Severe protein malnutrition -albumin 2.6 -nutritional recommendation -advised on intake of lean protein, limit salt intake to reduce fluid retention and swelling. Acute on chronic anemia macrocytic likely due to alcoholism -continue monitoring H&H Acute on chronic encephalopathy with Hyperammonemia -lactulose 30 mg p.o. daily Leukemoid reaction -continue monitor vitals, patient needs an antibiotic for some reduction -Patient's underwent bone marrow biopsy on a subset of CD56 expression on myelomonocytic cell,no immunophenotypic evidence of a B-cell or T-cell lymphoproliferative disorder. During previous admission Right and left lower extremity cellulitis -continue IV antibiotic with Zosyn -currently monitor kidney function given vancomycin toxicity Secondary coagulopathy -INR 1.60, continue monitor Generalized weakness -PT evaluation Ruled out acute hepatitis-B infection in previous admission Liver function normalized was given acyclovir for possible EBV hepatitis Obesity BMI 33.2 -patient counseled on lifestyle modifications such as regular exercise, diet recommendation as above. -dietary consultation Renal diet PUD prophylaxis with Protonix DVT prophylaxis SCD, avoid anticoagulation given high risk for bleeding Plan was DC to SNIF bu DC hold given worsening kidney function Plan discussed with Dr. Hankins Plan discussed with: Patient, Other (RN) My Orders My Orders Orders - TAZ GARCIA Procedure Category Date Status Time Urine Creatinine LAB 03/06/25 Logged 09:55 Urine LAB 03/06/25 Logged Protein/Creatinine Comprehensive LAB 03/06/25 In Process Metabolic Panel 12:50 Dietary Evaluation Review Comments: 1. Continue Cardiac diet as tolerated 2. Given sub-par oral intakes, will add Ensure Enlive BID to optimize nutritional status (provides 350 kcal, 20 gm pro per carton) 3. Monitor wt trends and document edema if present Expected Outcomes/Goals: Improved nutritional status. Date of Service: March 06, 2025 Billing Provider: KEISHA HANKINS MD Common Visit Codes: 81891-[id number] INP/OBS CARE(HIGH) TAZ GARCIA RESIDENT March 06, 2025 14:51 KEISHA HANKINS MD March 07, 2025 08:35
[2025-03-06 14:56] LABS: Alanine Aminotransferase 33 U/L (7-40); Anion Gap 17 (5-15); Sodium 142 mmol/L (136-145)
[2025-03-06 14:59] LABS: BUN/Creatinine Ratio 27.9 (10.0-20.0); Carbon Dioxide 15 mmol/L (20-31); Chloride 110 mmol/L (98-107); Glucose 120 mg/dL (74-106); Potassium 5.2 mmol/L (3.5-5.1)
[2025-03-06 15:00] LABS: Albumin 2.2 g/dL (3.2-4.8); Alkaline Phosphatase 354 U/L (46-116); Aspartate Aminotransferase 62 U/L (13-40); Bilirubin, Total 15.4 mg/dL (0.2-1.0); Blood Urea Nitrogen 91 mg/dL (9-23); Calcium 6.5 mg/dL (8.7-10.4); Total Protein 5.4 g/dL (5.7-8.2)
[2025-03-06] MEDS: SODIUM BICARB 8.4% 50Meq/50ml SYR INJ IV ONE (15:15)
[2025-03-06 15:49] LABS: Base Excess -8.9 mmol/L (-2.0-3.0)
[2025-03-06] MEDS: DEXTROSE (50%) 50ML SYRG IV ONE (16:39)
[2025-03-06] MEDS: ALBUMIN 25% 100 ML IV ONE (16:42)
[2025-03-06] MEDS: SODIUM ZIRCONIUM CYCL 10 GM PAK PO ONE (16:59)
[2025-03-06] MEDS: InsuLIN REG 1unit/0.01ml Soln (100units/ml) IV ONE (17:00)
--- NOTE | 2025-03-06 21:11 | DVHPN2 ---
Progress Note Date Seen: March 06, 2025 Medical Necessity Reason Pt with a Central, PICC or Fol: No The following are medically ne: Flores Catheter Reason for flores catheter: Strict I&O Subjective Patient reports: Feels worse, Other Review of Systems: Deferred Objective vital signs Vital Sign Date Time Temp Pulse Resp B/P (MAP) Pulse Ox O2 Delivery O2 Flow Rate FiO2 03/06/25 16:37 97.5 88 20 94/48 (63) 97 97.5 03/06/25 08:00 Room Air* 0 21 Total Intake and Output 03/05/25 03/05/25 03/06/25 15:00 23:00 07:00 Intake Total 100 ml 400 ml 300 ml Output Total 200 ml 125 ml Balance 100 ml 200 ml 175 ml medications Current Medications Medications Dose Ordered Sig/Chris Route Start Time Stop Time Status Last Admin Dose Admin Vancomycin HCl 200 ml @ 200 mls/hr Q12HR IV 02/25/25 22:00 UNV Pantoprazole Sodium 40 mg DAILY PO 02/26/25 10:00 03/06/25 09:41 40 MG Sucralfate 1 gm TID PO 02/25/25 22:00 03/06/25 14:01 1 GM Sodium Chloride 10 ml Q8HR IV 02/25/25 22:00 03/06/25 13:25 10 ML Acetaminophen 650 mg Q6HP PRN PO 02/25/25 16:00 Ondansetron HCl 4 mg Q4HP PRN IV 02/25/25 16:00 Lactulose 30 ml DAILY PO 02/26/25 10:00 03/06/25 09:41 30 ML Sodium Bicarbonate 650 mg TID PO 02/26/25 14:00 03/06/25 14:01 650 MG Ursodiol 300 mg BID PO 02/26/25 10:00 03/06/25 09:41 300 MG Cholecalciferol 1,000 unit DAILY PO 02/27/25 10:00 03/06/25 09:42 1,000 UNIT Midodrine 10 mg TID@0600,1200,1800 PO 03/02/25 18:00 03/06/25 12:22 10 MG Piperacillin Sod/ Tazobactam Sod 100 ml @ 25 mls/hr Q8HR IV 03/04/25 01:00 03/06/25 14:02 25 MLS/HR Octreotide Acetate 100 mcg TID SUBCUT 03/06/25 14:00 03/06/25 14:32 100 MCG Examination: GENERAL:Abnormal, LUNGS:Abnormal, MSK:Abnormal, SKIN:Abnormal (jaundice), NEURO:Abnormal laboratory and microbiology Laboratory Tests 03/06/25 11:20 03/02/25 06:08 Test 03/06/25 11:20 Range/Units Serum Glucose 120 H 74-106 mg/dL Microbiology Date/Time Source Procedure Growth Status 02/25/25 18:00 Nose MRSA Screen - Final Complete 02/25/25 13:30 Blood Blood Culture - Final NO GROWTH AFTER 5 DAYS OF INCUBATION. Complete Problem List/Assessment/Plan Problem List/Assessment/Plan Assessment Acute kidney injury on chronic kidney disease likely in the setting of hepatorenal syndrome metabolic acidosis Chronic anemia Decompensated liver cirrhosis secondary to alcohol use sirs Secondary hypercoagulopathy from liver disease hyperkalemia Plan: dc lasix and spironolactone worsening renal function ivf as ordered bicarb drip 1L Plan discussed with: Other My Orders My Orders Orders - JOSH LIU MD Procedure Category Date Status Time Octreotide Acetate PHA 03/06/25 In Process (Sandostatin) 14:00 Urine Sodium LAB 03/06/25 Logged 08:24 Dietary Evaluation Review Comments: 1. Continue Cardiac diet as tolerated 2. Given sub-par oral intakes, will add Ensure Enlive BID to optimize nutritional status (provides 350 kcal, 20 gm pro per carton) 3. Monitor wt trends and document edema if present Expected Outcomes/Goals: Improved nutritional status. JOSH LIU MD March 06, 2025 21:11
[2025-03-06] MEDS: OXYCODONE W/ ACETAMINOPHEN 5/325MG TABLET PO PRN (22:10)
[2025-03-07] VITALS (14 sets, daily range): BP systolic 76–121; BP diastolic 46–69; PULSE 68–90; RESP 18–22; TEMP 96.9–97.9; O2SAT 98–100
--- NOTE | 2025-03-07 00:02 | DVH ---
CHEST RADIOGRAPH Indication: r/o edema Technique: Single frontal view of the chest was obtained COMPARISON: XY CHEST XRAY 1 VIEW on DOS: 01/31/25 FINDINGS / IMPRESSION: Lines and Tubes: None Lungs: Lung volumes are low with crowding of the bronchovascular markings. No definite evidence of pu lmonary edema. No pulmonary infiltrates noted. Pleura: No effusion. No pneumothorax. Cardiomediastinal contours: Borderline mild cardiomegaly. No significant change compared to the prior chest x-ray from 01/31/25
[2025-03-07] MEDS: SODIUM BICARB 50mEq/50ml Vial 150 ML in D5W 5% 1,000 ML IV ONE (02:10)
[2025-03-07 05:38] LABS: Hemoglobin 8.8 g/dL (12.2-16.2); Red Cell Distribution Width 17.8 % (11.8-14.3)
[2025-03-07 05:44] LABS: Hematocrit 26.5 % (36.0-46.0); Mean Corpuscular Hemoglobin 33.1 pg (28.0-32.0); Mean Corpuscular Hgb Conc. 33.3 g/dL (32.0-36.0); Mean Corpuscular Volume 99.5 fL (80.0-100.0); Platelet Count (auto) 209 10^3/uL (140-450); Red Blood Cells 2.67 10^6/uL (4.0-5.20)
[2025-03-07 05:46] LABS: White Blood Cell 74.5 10^3/uL (4.4-10.8)
[2025-03-07 05:48] LABS: Basophils % (manual) 0 (0.0-2.0); Blast Cells 0; Eosinophils % (manual) 0 (0-7); Metamyelocytes % 0; Promyelocytes % 0; Reactive Lymphocytes 0
[2025-03-07 06:22] LABS: Alanine Aminotransferase 29 U/L (7-40); Anion Gap 16 (5-15); Sodium 142 mmol/L (136-145)
[2025-03-07 06:35] LABS: Total Protein 5.6 g/dL (5.7-8.2)
[2025-03-07 06:37] LABS: Band Neutrophils % (manual) 2; Lymphocytes % (manual) 15 (10.0-50.0); Monocytes % (manual) 7 (0-12); Myelocytes % 1
[2025-03-07 06:38] LABS: Large Platelets FEW; Macrocytosis Slight; Platelet Estimate Adequate
[2025-03-07 06:40] LABS: Albumin 2.5 g/dL (3.2-4.8); Alkaline Phosphatase 333 U/L (46-116); Aspartate Aminotransferase 63 U/L (13-40); BUN/Creatinine Ratio 24.3 (10.0-20.0); Calcium 6.6 mg/dL (8.7-10.4); Carbon Dioxide 17 mmol/L (20-31); Chloride 109 mmol/L (98-107); Glucose 152 mg/dL (74-106)
[2025-03-07 06:41] LABS: INR 1.83 (0.9-1.15); Prothrombin Time 18.3 sec (9.3-11.8)
[2025-03-07 06:43] LABS: Blood Urea Nitrogen 89 mg/dL (9-23)
[2025-03-07] MEDS: SODIUM ZIRCONIUM CYCL 10 GM PAK PO ONE (09:35)
[2025-03-07] MEDS: CEFEPIME 1GM/ 50ML 50 ML IV SCH (09:36)
[2025-03-07 10:25] LABS: Urine Bacteria FEW /hpf (None Seen); Urine Blood 2+ /uL (Negative); Urine Budding Yeast MODERATE /hpf (None Seen); Urine Clarity Turbid (Clear); Urine Color Dark-Yellow (Yellow); Urine Protein, UAD 1+ (Negative); Urine Squamous Epithelial Cell None Seen /hpf (<5); Urine Urobilinogen Normal (Negative); Urine WBC 6 /HPF (0-5); Urine pH 5.5 (5.0-9.0)
[2025-03-07 10:33] LABS: Creatinine, Urine 84.34 mg/dL (30.0-125.0); Urine Protein/Creatinine Ratio 1.57
[2025-03-07] MEDS ORDERED: HYDROmorphone HCL 2 MG/ML VL/or syr IV PRN (10:45)
[2025-03-07] MEDS: POLYETHYLENE GLYCOL 17 GM PWDR PO ONE (11:56)
[2025-03-07] MEDS: LACTULOSE 20Gm/30ML SOLN PO ONE (11:56)
[2025-03-07] MEDS: ALBUMIN 25% 100 ML IV SCH (13:59)
[2025-03-07] MEDS: PANTOPRAZOLE 40 MG/10 ML VIAL INJ IV ONE (15:45)
--- NOTE | 2025-03-07 17:02 | DVHPN2 ---
Progress Note Date Seen: March 07, 2025 Resident Creating Document: ELLE MARROQUIN RESIDENT Has the PT tested + for MRSA If YES, has PT been informed?: No Medical Necessity Reason Pt with a Central, PICC or Fol: No The following are medically ne: Flores Catheter Reason for flores catheter: Strict I&O Subjective Review of Systems Patient seen and examined at bedside. Patient is obtunded, not following commands at all. Patient has generalized jaundice and seems confused and not able to communicate properly. Upon my examination, abdomen is firm to palpation especially in the right upper quadrant consistent with hepatomegaly. Daughter was at bedside providing most of the history and answering questions. Today, after stopping diuretics patient urine output dropped and was only 175 mL in the past 24 hours. Today total bilirubin was 15, INR 1.83 and AST and ALT are 63 and 29 respectively. Creatinine is also slightly increasing to 3.67 and BUN 89. We will order albumin to try to increase oncotic pressure and increase intravascular volume to improve renal perfusion. We will hold fluids at this time. We will continue octreotide 100 mcg t.i.d., midodrine 10 mg t.i.d. patient's current MELD Na score is 36 points consistent with 65-66% estimated 90 day mortality. Patient has poor prognosis and needs liver and poss kidney transplant as well. Child Sandoval score 11 points. No need for hemodialysis at this exact time but we will keep monitoring kidney function. ROS unable to obtain due to patient being obtunded, confused and not following commands. Objective vital signs Vital Sign Date Time Temp Pulse Resp B/P (MAP) Pulse Ox O2 Delivery O2 Flow Rate FiO2 03/07/25 13:00 97.3 82 22 76/46 (56) 99 97.3 03/07/25 08:00 Room Air* 0 21 Total Intake and Output 03/06/25 03/06/25 03/07/25 15:00 23:00 07:00 Intake Total 200 ml 150 ml Output Total 100 ml 75 ml Balance 100 ml 75 ml medications Current Medications Medications Dose Ordered Sig/Chris Route Start Time Stop Time Status Last Admin Dose Admin Vancomycin HCl 200 ml @ 200 mls/hr Q12HR IV 02/25/25 22:00 UNV Sucralfate 1 gm TID PO 02/25/25 22:00 03/07/25 06:01 1 GM Sodium Chloride 10 ml Q8HR IV 02/25/25 22:00 03/07/25 13:59 10 ML Ondansetron HCl 4 mg Q4HP PRN IV 02/25/25 16:00 Lactulose 30 ml DAILY PO 02/26/25 10:00 03/07/25 09:35 30 ML Sodium Bicarbonate 650 mg TID PO 02/26/25 14:00 03/07/25 06:01 650 MG Ursodiol 300 mg BID PO 02/26/25 10:00 03/06/25 22:09 300 MG Cholecalciferol 1,000 unit DAILY PO 02/27/25 10:00 03/06/25 09:42 1,000 UNIT Midodrine 10 mg TID@0600,1200,1800 PO 03/02/25 18:00 03/07/25 06:02 10 MG Octreotide Acetate 100 mcg TID SUBCUT 03/06/25 14:00 03/07/25 14:52 100 MCG Cefepime HCl 50 ml @ 12.5 mls/hr DAILY IV 03/07/25 10:00 03/07/25 09:36 12.5 MLS/HR Hydromorphone HCl 0.25 mg Q4HPRN PRN IV 03/07/25 10:45 Albumin Human 100 ml @ 100 mls/hr Q8H IV 03/07/25 13:00 03/08/25 05:59 03/07/25 13:59 100 MLS/HR Pantoprazole Sodium 40 mg DAILY IV 03/08/25 10:00 Examination Physical Examination General: Patient is obtunded, confused and not following commands. Patient has generalized jaundice with scleral icterus HEENT: Normocephalic, atraumatic, dry mucous membranes Respiratory/pulmonary: Clear lungs bilaterally, no associated crackles or wheezes. Cardiovascular: Normal heart sounds S1 and S2 with no associated murmurs Abdomen: Abdomen looks mild distended, there is firm sensation to palpation in the right upper quadrant consistent with a hepatomegaly. No additional masses palpated at the abdomen. Extremities: There is no peripheral edema present at the lower extremities. Skin: There is generalized jaundice, scleral icterus. Neurological: Patient is obtunded and confused, cranial nerves unable to be examined at this point. laboratory and microbiology Laboratory Tests 03/07/25 04:56 Test 03/07/25 04:56 Range/Units Serum Glucose 152 H 74-106 mg/dL Microbiology Date/Time Source Procedure Growth Status 02/25/25 18:00 Nose MRSA Screen - Final Complete 02/25/25 13:30 Blood Blood Culture - Final NO GROWTH AFTER 5 DAYS OF INCUBATION. Complete Problem List/Assessment/Plan Problem List/Assessment/Plan Assessment/plan Acute kidney injury on chronic kidney disease likely in the setting of hepatorenal syndrome Acute severe decompensated liver cirrhosis causing hepatorenal syndrome Alcoholic liver cirrhosis Acute metabolic acidosis Chronic microcytic anemia, possibly due to alcohol Secondary hypercoagulable state from liver disease SIRS Hyperkalemia Possible leukemoid reaction Plan - MELD Na score is 36 points consistent with 65-66% estimated 90 day mortality. Child-Sandoval score 11 points. (poor prognosis) -hold IV fluids at this time -hold diuretics at this point -we will order albumin 25% X3 doses -urine output decreased, today only 175 mL of output -creatinine still worsening, today was 3.67 and BUN 89. -No HD at this time -Patient need liver transplant and poss kidney transplant as well. Goals of care discussed with the daughter at bedside for>25min Plan discussed with Dr. Liu Plan discussed with: Daughter Dietary Evaluation Review Comments: 1. Continue Cardiac diet as tolerated 2. Given sub-par oral intakes, will add Ensure Enlive BID to optimize nutritional status (provides 350 kcal, 20 gm pro per carton) 3. Monitor wt trends and document edema if present Expected Outcomes/Goals: Improved nutritional status. ELLE MARROQUIN RESIDENT March 07, 2025 17:02 JOSH LIU MD March 09, 2025 13:35
--- NOTE | 2025-03-07 18:35 | DVHPNRES ---
Progress Note Date Seen: March 07, 2025 Resident Creating Document: TAZ GARCIA RESIDENT Has the PT tested + for MRSA If YES, has PT been informed?: No Medical Necessity Reason Pt with a Central, PICC or Fol: No The following are medically ne: Flores Catheter Reason for flores catheter: Strict I&O Subjective Review of Systems Patient is a female was recently hospitalized for generalized weakness, melena, fever, chills, confusion, was diagnosed with decompensated liver failure and was transferred through [facility] for liver transplant evaluation. Patient has an extensive past medical history including hypertension, alcoholic liver cirrhosis, likely hepatorenal syndrome, CKD, leukemoid reaction, gastritis, positive hepatitis-B surface antigen, EBV virus infection, HSV infection. Past medical history: Hypertension, alcoholic liver cirrhosis (last alcoholic drink on November 20, 2024), positive hepatitis B surface antigen, leukemoid reaction, CKD, gastritis, questionable acute viral hepatitis risk EBV, bicytopenia, ileus Surgical history: Cholecystectomy Family history: Father had prostate cancer Social history: Lives with family in [place]. Ex ethanol abuse (stopped intake of alcohol since November 20, 2024). Ex-smoker (2.5 pack year history of smoking). Denies current tobacco, alcohol and other drug abuse Allergies: Denies Home medication: Benazepril, sucralfate and Protonix, ivermectin, Lasix, spironolactone During last hospitalization, for elevated white count, patient normally immunophenotype big evaluation, no evidence of B-cell or T-cell lymphoproliferative disorder. HBV DNA was not detected, mucositis with improving. Liver function trended down compared to last hospitalization. Continue elevated bilirubin. Patient seen and examined at bedside. Continue to worsening kidney function, continue to have generalized weakness, altered but more drowsy, protecting airway. Objective vital signs Vital Sign Date Time Temp Pulse Resp B/P (MAP) Pulse Ox O2 Delivery O2 Flow Rate FiO2 03/07/25 17:00 97.6 81 22 85/48 (60) 99 97.6 03/07/25 08:00 Room Air* 0 21 Total Intake and Output 03/06/25 03/06/25 03/07/25 15:00 23:00 07:00 Intake Total 200 ml 150 ml Output Total 100 ml 75 ml Balance 100 ml 75 ml medications Current Medications Medications Dose Ordered Sig/Chris Route Start Time Stop Time Status Last Admin Dose Admin Vancomycin HCl 200 ml @ 200 mls/hr Q12HR IV 02/25/25 22:00 UNV Sucralfate 1 gm TID PO 02/25/25 22:00 03/07/25 06:01 1 GM Sodium Chloride 10 ml Q8HR IV 02/25/25 22:00 03/07/25 13:59 10 ML Ondansetron HCl 4 mg Q4HP PRN IV 02/25/25 16:00 Lactulose 30 ml DAILY PO 02/26/25 10:00 03/07/25 09:35 30 ML Sodium Bicarbonate 650 mg TID PO 02/26/25 14:00 03/07/25 06:01 650 MG Ursodiol 300 mg BID PO 02/26/25 10:00 03/06/25 22:09 300 MG Cholecalciferol 1,000 unit DAILY PO 02/27/25 10:00 03/06/25 09:42 1,000 UNIT Midodrine 10 mg TID@0600,1200,1800 PO 03/02/25 18:00 03/07/25 06:02 10 MG Octreotide Acetate 100 mcg TID SUBCUT 03/06/25 14:00 03/07/25 14:52 100 MCG Cefepime HCl 50 ml @ 12.5 mls/hr DAILY IV 03/07/25 10:00 03/07/25 09:36 12.5 MLS/HR Hydromorphone HCl 0.25 mg Q4HPRN PRN IV 03/07/25 10:45 Albumin Human 100 ml @ 100 mls/hr Q8H IV 03/07/25 13:00 03/08/25 05:59 03/07/25 13:59 100 MLS/HR Pantoprazole Sodium 40 mg DAILY IV 03/08/25 10:00 laboratory and microbiology Laboratory Tests 03/07/25 04:56 Test 03/07/25 04:56 Range/Units Serum Glucose 152 H 74-106 mg/dL Microbiology Date/Time Source Procedure Growth Status 02/25/25 18:00 Nose MRSA Screen - Final Complete 02/25/25 13:30 Blood Blood Culture - Final NO GROWTH AFTER 5 DAYS OF INCUBATION. Complete Problem List/Assessment/Plan Problem List/Assessment/Plan Alcoholic liver cirrhosis MELD score 28 -CMP -Hold diuretics given worsening ZOILA -cardiac diet: Salt intake less than 2 g ZOILA likely hemodynamically mediated due to hepatorenal syndrome -IV albumin, octreotide, midodrine -continue monitor kidney function: -continue monitor urine output -continue monitor electrolyte -strict I&O -Nephrology consulted:Octreotide , Iv fluid Metabolic acidosis, Non anion gap likely related to hepatorenal syndrom -Sodium bicarbonate -Check CMP Severe protein malnutrition -albumin 2.6 -nutritional recommendation -advised on intake of lean protein, limit salt intake to reduce fluid retention and swelling. Acute on chronic anemia macrocytic likely due to alcoholism -continue monitoring H&H Acute on chronic encephalopathy with Hyperammonemia -lactulose 30 mg p.o. daily Leukemoid reaction -continue monitor vitals, patient needs an antibiotic for some reduction -Patient's underwent bone marrow biopsy on a subset of CD56 expression on myelomonocytic cell,no immunophenotypic evidence of a B-cell or T-cell lymphoproliferative disorder. During previous admission Right and left lower extremity cellulitis -continue IV antibiotic with cefepime -currently monitor kidney function given vancomycin toxicity Secondary coagulopathy -INR 1.60, continue monitor Generalized weakness -PT evaluation Ruled out acute hepatitis-B infection in previous admission Liver function normalized was given acyclovir for possible EBV hepatitis Obesity BMI 33.2 -patient counseled on lifestyle modifications such as regular exercise, diet recommendation as above. -dietary consultation Renal diet PUD prophylaxis with Protonix DVT prophylaxis SCD, avoid anticoagulation given high risk for bleeding Social service consulted , for higher level of care for evaluation of liver and kidney transplant Plan discussed with Dr. Hankins Plan discussed with: Patient, Daughter, Other My Orders My Orders Orders - TAZ GARCIA RESIDENT Procedure Category Date Status Time Cefepime 1gm/ 50ml PHA 03/07/25 In Process (Maxipime 1gm/50ml) 10:00 Hydromorphone PHA 03/07/25 In Process Injection (Dilaudid 10:45 * Drink Waiter CONS 03/07/25 Transmitted Consult Pantoprazole PHA 03/08/25 In Process (Protonix) 10:00 Insert Midline ORDERS 03/07/25 Transmitted 17:35 Insert Midline ORDERS 03/07/25 Transmitted 17:52 Dietary Evaluation Review Comments: 1. Continue Cardiac diet as tolerated 2. Given sub-par oral intakes, will add Ensure Enlive BID to optimize nutritional status (provides 350 kcal, 20 gm pro per carton) 3. Monitor wt trends and document edema if present Expected Outcomes/Goals: Improved nutritional status. Date of Service: March 07, 2025 Billing Provider: KEISHA HANKINS MD Common Visit Codes: 21175-[id number] INP/OBS CARE(HIGH) TAZ GARCIA RESIDENT March 07, 2025 18:34 KEISHA HANKINS MD March 10, 2025 15:29
[2025-03-08] VITALS (15 sets, daily range): BP systolic 56–123; BP diastolic 34–73; PULSE 85–116; RESP 17–27; TEMP 97.5–98.7; O2SAT 95–99
[2025-03-08] MEDS: MORPHINE SULFATE INJ 2 MG/ml SYRG IV ONE (00:40)
[2025-03-08] MEDS ORDERED: LABETALOL HCL 20 MG/4 ML VL IV ONE (01:00)
[2025-03-08 05:29] LABS: Hemoglobin 7.5 g/dL (12.2-16.2); Mean Corpuscular Hemoglobin 32.3 pg (28.0-32.0); Platelet Count (auto) 186 10^3/uL (140-450); Red Blood Cells 2.33 10^6/uL (4.0-5.20); Red Cell Distribution Width 17.5 % (11.8-14.3)
[2025-03-08 05:35] LABS: Hematocrit 23.3 % (36.0-46.0); Mean Corpuscular Hgb Conc. 32.4 g/dL (32.0-36.0); Mean Corpuscular Volume 99.7 fL (80.0-100.0)
[2025-03-08 05:45] LABS: Alanine Aminotransferase 31 U/L (7-40); Anion Gap 21 (5-15); Potassium 4.5 mmol/L (3.5-5.1); Sodium 145 mmol/L (136-145); White Blood Cell 83.2 10^3/uL (4.4-10.8)
[2025-03-08 05:47] LABS: Albumin 3.1 g/dL (3.2-4.8); Alkaline Phosphatase 306 U/L (46-116); Aspartate Aminotransferase 62 U/L (13-40); Basophils % (manual) 0 (0.0-2.0); Bilirubin, Total 17.3 mg/dL (0.2-1.0); Blast Cells 0; Calcium 7.4 mg/dL (8.7-10.4); Carbon Dioxide 16 mmol/L (20-31); Chloride 108 mmol/L (98-107); Eosinophils % (manual) 0 (0-7); Glucose 130 mg/dL (74-106); Promyelocytes % 0; Reactive Lymphocytes 0
[2025-03-08 05:48] LABS: Blood Urea Nitrogen 100 mg/dL (9-23)
[2025-03-08 05:49] LABS: BUN/Creatinine Ratio 23.2 (10.0-20.0)
[2025-03-08] MEDS ORDERED: MORPHINE SULFATE INJ 2 MG/ml SYRG IV ONE (06:00)
[2025-03-08 06:14] LABS: Band Neutrophils % (manual) 3; Large Platelets FEW; Lymphocytes % (manual) 10 (10.0-50.0); Metamyelocytes % 1; Monocytes % (manual) 3 (0-12); Myelocytes % 1; Platelet Estimate Adequate
[2025-03-08] MEDS: PANTOPRAZOLE 40 MG/10 ML VIAL INJ IV SCH (10:38)
[2025-03-08 16:11] LABS: Base Excess -6.9 mmol/L (-2.0-3.0)
--- NOTE | 2025-03-08 17:12 | DVHPNRES ---
Progress Note Date Seen: March 08, 2025 Resident Creating Document: ELLE MARROQUIN RESIDENT Has the PT tested + for MRSA If YES, has PT been informed?: No Medical Necessity Reason Pt with a Central, PICC or Fol: No The following are medically ne: Flores Catheter Reason for flores catheter: Strict I&O Subjective Review of Systems Patient seen and examined at bedside. Patient has generalized jaundice with scleral icterus, patient is obtunded/confused, not following commands. Mental status deteriorating compared to previous days. Today creatinine went up from 3.67 to 4.31 and BUN was 100. At this time, we will recommend to place a tunneled dialysis catheter and we will schedule the patient for hemodialysis tomorrow a.m. if tunneled dialysis catheter is not able to be placed then we can proceed and place a temporary Torey catheter to be able to dialyze in the a.m.. Discussed the case with primary team and daughter at bedside which agreed with hemodialysis session. ROS unable to obtain due to patient's current mental status. Objective vital signs Vital Sign Date Time Temp Pulse Resp B/P (MAP) Pulse Ox O2 Delivery O2 Flow Rate FiO2 03/08/25 13:00 98.7 100 17 111/56 (74) 98 98.7 03/08/25 08:20 Room Air* 0 21 Total Intake and Output 03/07/25 03/07/25 03/08/25 15:00 23:00 07:00 Intake Total 50 ml 200 ml 100 ml Output Total 10 ml 150 ml Balance 50 ml 190 ml -50 ml medications Current Medications Medications Dose Ordered Sig/Chris Route Start Time Stop Time Status Last Admin Dose Admin Vancomycin HCl 200 ml @ 200 mls/hr Q12HR IV 02/25/25 22:00 UNV Sucralfate 1 gm TID PO 02/25/25 22:00 03/07/25 06:01 1 GM Sodium Chloride 10 ml Q8HR IV 02/25/25 22:00 03/08/25 14:05 10 ML Ondansetron HCl 4 mg Q4HP PRN IV 02/25/25 16:00 Lactulose 30 ml DAILY PO 02/26/25 10:00 03/07/25 09:35 30 ML Sodium Bicarbonate 650 mg TID PO 02/26/25 14:00 03/07/25 06:01 650 MG Ursodiol 300 mg BID PO 02/26/25 10:00 03/06/25 22:09 300 MG Cholecalciferol 1,000 unit DAILY PO 02/27/25 10:00 03/06/25 09:42 1,000 UNIT Midodrine 10 mg TID@0600,1200,1800 PO 03/02/25 18:00 03/07/25 06:02 10 MG Octreotide Acetate 100 mcg TID SUBCUT 03/06/25 14:00 03/08/25 16:52 100 MCG Cefepime HCl 50 ml @ 12.5 mls/hr DAILY IV 03/07/25 10:00 03/08/25 10:37 12.5 MLS/HR Pantoprazole Sodium 40 mg DAILY IV 03/08/25 10:03/08/25 10:38 40 MG Examination Physical Examination General: Patient is obtunded, confused and not following commands. Patient has generalized jaundice with scleral icterus. Mental status deteriorating compare to previous days. HEENT: Normocephalic, atraumatic, dry mucous membranes Respiratory/pulmonary: Clear lungs bilaterally, no associated crackles or wheezes. Cardiovascular: Normal heart sounds S1 and S2 with no associated murmurs Abdomen: Abdomen looks mild distended, there is firm sensation to palpation in the right upper quadrant consistent with a hepatomegaly. No additional masses palpated at the abdomen. Extremities: There is no peripheral edema present at the lower extremities. Skin: There is generalized jaundice, scleral icterus. There is also purplish decoloration on bilat lower extremities. Neurological: Patient is obtunded and confused, cranial nerves unable to be examined at this point. laboratory and microbiology Laboratory Tests 03/08/25 04:57 Test 03/08/25 04:57 Range/Units Serum Glucose 130 H 74-106 mg/dL Microbiology Date/Time Source Procedure Growth Status 02/25/25 18:00 Nose MRSA Screen - Final Complete 02/25/25 13:30 Blood Blood Culture - Final NO GROWTH AFTER 5 DAYS OF INCUBATION. Complete Problem List/Assessment/Plan Problem List/Assessment/Plan Assessment/plan Acute kidney injury on chronic kidney disease likely in the setting of hepatorenal syndrome Acute severe decompensated liver cirrhosis causing hepatorenal syndrome Alcoholic liver cirrhosis Acute metabolic acidosis Chronic microcytic anemia, possibly due to alcohol Secondary hypercoagulable state from liver disease SIRS Hyperkalemia Possible leukemoid reaction Plan - MELD Na score is 36 points consistent with 65-66% estimated 90 day mortality. Child-Sandoval score 11 points. (poor prognosis) -hold IV fluids at this time -hold diuretics at this point -Place tunneled HD catheter or torey catheter for HD tomorrow AM -urine output decreased, today only 160 mL of output -creatinine still worsening, today went up from 3.67 to 4.31 BUN 100. -Scheduled for HD tomorrow [facility]LOC transfer pending Goals of care discussed with the daughter at bedside for>25min Plan discussed with Dr. Liu Addendum Patient seen and examined, plan discussed with resident. Agree with above, we will follow closely no response to ivf ,albumin-recommend HD tunneled cath by IR ordered,HD tomorrow Plan discussed with: Daughter Dietary Evaluation Review Comments: 1. Continue Cardiac diet as tolerated 2. Given sub-par oral intakes, will add Ensure Enlive BID to optimize nutritional status (provides 350 kcal, 20 gm pro per carton) 3. Monitor wt trends and document edema if present Expected Outcomes/Goals: Improved nutritional status. ELLE MARROQUIN RESIDENT March 08, 2025 17:12 JOSH LIU MD March 08, 2025 19:53
--- NOTE | 2025-03-08 18:03 | DVHPNRES ---
Progress Note Date Seen: March 08, 2025 Resident Creating Document: TAZ GARCIA RESIDENT Has the PT tested + for MRSA If YES, has PT been informed?: No Medical Necessity Reason Pt with a Central, PICC or Fol: No The following are medically ne: Flores Catheter Reason for flores catheter: Strict I&O Subjective Review of Systems Patient is a female was recently hospitalized for generalized weakness, melena, fever, chills, confusion, was diagnosed with decompensated liver failure and was transferred through [facility] for liver transplant evaluation. Patient has an extensive past medical history including hypertension, alcoholic liver cirrhosis, likely hepatorenal syndrome, CKD, leukemoid reaction, gastritis, positive hepatitis-B surface antigen, EBV virus infection, HSV infection. Past medical history: Hypertension, alcoholic liver cirrhosis (last alcoholic drink on November 20, 2024), positive hepatitis B surface antigen, leukemoid reaction, CKD, gastritis, questionable acute viral hepatitis risk EBV, bicytopenia, ileus Surgical history: Cholecystectomy Family history: Father had prostate cancer Social history: Lives with family in [place]. Ex ethanol abuse (stopped intake of alcohol since November 20, 2024). Ex-smoker (2.5 pack year history of smoking). Denies current tobacco, alcohol and other drug abuse Allergies: Denies Home medication: Benazepril, sucralfate and Protonix, ivermectin, Lasix, spironolactone During last hospitalization, for elevated white count, patient normally immunophenotype big evaluation, no evidence of B-cell or T-cell lymphoproliferative disorder. HBV DNA was not detected, mucositis with improving. Liver function trended down compared to last hospitalization. Continue elevated bilirubin. Patient seen and examined at bedside. Continue to worsening kidney function, urine out put around 170 ml , confused , not oriented to time place and person, not following command. ROS cannot be obtain Objective vital signs Vital Sign Date Time Temp Pulse Resp B/P (MAP) Pulse Ox O2 Delivery O2 Flow Rate FiO2 03/08/25 17:00 98.7 105 19 113/64 (80) 98 98.7 03/08/25 08:20 Room Air* 0 21 Total Intake and Output 03/07/25 03/07/25 03/08/25 15:00 23:00 07:00 Intake Total 50 ml 200 ml 100 ml Output Total 10 ml 150 ml Balance 50 ml 190 ml -50 ml medications Current Medications Medications Dose Ordered Sig/Chris Route Start Time Stop Time Status Last Admin Dose Admin Vancomycin HCl 200 ml @ 200 mls/hr Q12HR IV 02/25/25 22:00 UNV Sucralfate 1 gm TID PO 02/25/25 22:00 03/07/25 06:01 1 GM Sodium Chloride 10 ml Q8HR IV 02/25/25 22:00 03/08/25 14:05 10 ML Ondansetron HCl 4 mg Q4HP PRN IV 02/25/25 16:00 Lactulose 30 ml DAILY PO 02/26/25 10:00 03/07/25 09:35 30 ML Sodium Bicarbonate 650 mg TID PO 02/26/25 14:00 03/07/25 06:01 650 MG Ursodiol 300 mg BID PO 02/26/25 10:00 03/06/25 22:09 300 MG Cholecalciferol 1,000 unit DAILY PO 02/27/25 10:00 03/06/25 09:42 1,000 UNIT Midodrine 10 mg TID@0600,1200,1800 PO 03/02/25 18:00 03/07/25 06:02 10 MG Octreotide Acetate 100 mcg TID SUBCUT 03/06/25 14:00 03/08/25 16:52 100 MCG Cefepime HCl 50 ml @ 12.5 mls/hr DAILY IV 03/07/25 10:00 03/08/25 10:37 12.5 MLS/HR Pantoprazole Sodium 40 mg DAILY IV 03/08/25 10:00 03/08/25 10:38 40 MG Examination General Appearance: Not cooperative Jaundiced Head Exam: Normal inspection Neck Exam: Normal inspection. Non-tender. Normal alignment Pulmonary/Respiratory: Chest non-tender. Clear bilateral breath sounds Cardiovascular/Chest: Regular rate and rhythm. No murmurs. No JVD. Peripheral Pulses: 2+ Radial (R). 2+ Radial (L). 2+ Pedal (R). 2+ Pedal (L) Abdominal Exam: Normal bowel sounds. Soft. Nontender. Ankle Exam: Negative ankle edema Lower extremities: Multiple ecchymoses, tenderness on palpation, consistent bilateral pedal pulse, capillary refill less than 2 seconds Neuro/Mental Status: A&O x0, confused, GCS 10. laboratory and microbiology Laboratory Tests 03/08/25 04:57 Test 03/08/25 04:57 Range/Units Serum Glucose 130 H 74-106 mg/dL Microbiology Date/Time Source Procedure Growth Status 02/25/25 18:00 Nose MRSA Screen - Final Complete 02/25/25 13:30 Blood Blood Culture - Final NO GROWTH AFTER 5 DAYS OF INCUBATION. Complete Problem List/Assessment/Plan Problem List/Assessment/Plan Alcoholic liver cirrhosis MELD score 28 -CMP -Hold diuretics given worsening ZOILA -cardiac diet: Salt intake less than 2 g ZOILA likely hemodynamically mediated due to hepatorenal syndrome -IV albumin, octreotide, midodrine -continue monitor kidney function: -continue monitor urine output -continue monitor electrolyte -strict I&O -Nephrology consulted:Octreotide , Iv fluid Metabolic acidosis, Non anion gap likely related to hepatorenal syndrom -Sodium bicarbonate -Check CMP Severe protein malnutrition -albumin 2.6 -nutritional recommendation -advised on intake of lean protein, limit salt intake to reduce fluid retention and swelling. Acute on chronic anemia macrocytic likely due to alcoholism -continue monitoring H&H Acute on chronic encephalopathy with Hyperammonemia -lactulose 30 mg p.o. daily Leukemoid reaction -continue monitor vitals, patient needs an antibiotic for some reduction -Patient's underwent bone marrow biopsy on a subset of CD56 expression on myelomonocytic cell,no immunophenotypic evidence of a B-cell or T-cell lymphoproliferative disorder. During previous admission Right and left lower extremity cellulitis -continue IV antibiotic with cefepime -currently monitor kidney function given vancomycin toxicity Secondary coagulopathy -INR 1.60, continue monitor - 1 Unit FFP Generalized weakness -PT evaluation Ruled out acute hepatitis-B infection in previous admission Liver function normalized was given acyclovir for possible EBV hepatitis Obesity BMI 33.2 -patient counseled on lifestyle modifications such as regular exercise, diet recommendation as above. -dietary consultation Renal diet PUD prophylaxis with Protonix DVT prophylaxis SCD, avoid anticoagulation given high risk for bleeding Social service consulted , for higher level of care for evaluation of liver and kidney transplant, Talked to milk route deliverer at [facility], will review medical record that has been sent on 03/07/25. Plan for HD tomorrow, Plan for NG tube given patient is not following command, Give all meds via NG tube. Discussed code status with daughter > 24 minutes, full code Plan discussed with Dr. Hankins Plan discussed with: Patient, Daughter, Other My Orders My Orders Orders - TAZ GARCIA Procedure Category Date Status Time Abg W/ Co-Ox RT 03/08/25 Logged 15:46 Dietary Evaluation Review Comments: 1. Continue Cardiac diet as tolerated 2. Given sub-par oral intakes, will add Ensure Enlive BID to optimize nutritional status (provides 350 kcal, 20 gm pro per carton) 3. Monitor wt trends and document edema if present Expected Outcomes/Goals: Improved nutritional status. Date of Service: March 08, 2025 Billing Provider: KEISHA HANKINS MD Common Visit Codes: [id number] INP/OBS CARE(HIGH) TAZ GARCIA March 08, 2025 18:03 KEISHA HANKINS MD March 10, 2025 15:36
[2025-03-08] MEDS ORDERED: LACTULOSE 20Gm/30ML SOLN PO ONE (18:45)
[2025-03-08] MEDS: BISACODYL 10 MG RECT SUPP PR ONE (18:45)
[2025-03-08] MEDS: POLYETHYLENE GLYCOL 17 GM PWDR PO ONE (18:45)
[2025-03-08] MEDS: ETOMIDATE (2MG/ML) 20ML VIAL IV ONE (22:11)
[2025-03-08] MEDS: ROCURONIUM 10MG/ML 10ML VIAL IV ONE (22:13)
[2025-03-08 22:14] LABS: Platelet Count (auto) 179 10^3/uL (140-450)
[2025-03-08 22:19] LABS: Hematocrit 22.2 % (36.0-46.0); Mean Corpuscular Hemoglobin 31.8 pg (28.0-32.0); Mean Corpuscular Volume 102.6 fL (80.0-100.0); Red Blood Cells 2.16 10^6/uL (4.0-5.20); Red Cell Distribution Width 18.2 % (11.8-14.3)
[2025-03-08 22:27] LABS: INR 1.91 (0.9-1.15)
[2025-03-08] MEDS: NOREPINEPHRINE 8 MG/250ML KIT 250 ML IV ONE (22:30)
[2025-03-08] MEDS: MIDAZOLAM DRIP 50 mg/50mL 50 ML IV ONE (22:30)
[2025-03-08] MEDS: ALBUMIN 25% 100 ML IV ONE (22:30)
[2025-03-08] MEDS: fentaNYL Drip 2500mCg/250mlNS 250 ML IV ONE (22:30)
--- NOTE | 2025-03-08 22:36 | DVHNC2 ---
Intubation Indication: Altered Mental Status Prep: Preoxygenation Medicated with: Other (rocuronium 40 etomidate 20 ) Intubation Approach: Orotracheal Intubation size: cm (8) Informed consent obtained: No Risks/benefits/alt described: No Date of Service: March 08, 2025 Billing Provider: SERGIO MENDEZ MD Common Visit Codes: PROCEDURE ONLY Procedure Codes: [id number] MANPREET GARSIA RESIDENT March 08, 2025 22:36
[2025-03-08 22:45] LABS: Alanine Aminotransferase 30 U/L (7-40); Anion Gap 22 (5-15); Sodium 145 mmol/L (136-145)
[2025-03-08 22:47] LABS: Hemoglobin 6.9 g/dL (12.2-16.2); White Blood Cell 92.3 10^3/uL (4.4-10.8)
[2025-03-08 22:48] LABS: Basophils % (manual) 0 (0.0-2.0); Blast Cells 0; Eosinophils % (manual) 0 (0-7); Promyelocytes % 0; Reactive Lymphocytes 0
[2025-03-08 22:49] LABS: Albumin 3.1 g/dL (3.2-4.8); Alkaline Phosphatase 310 U/L (46-116); Aspartate Aminotransferase 64 U/L (13-40); Bilirubin, Total 18.3 mg/dL (0.2-1.0); Carbon Dioxide 13 mmol/L (20-31); Chloride 110 mmol/L (98-107); Glucose 134 mg/dL (74-106)
[2025-03-08 22:50] LABS: Blood Urea Nitrogen 94 mg/dL (9-23)
[2025-03-08 22:51] LABS: Total Protein 6.3 g/dL (5.7-8.2)
[2025-03-08 23:00] LABS: Band Neutrophils % (manual) 6; Lymphocytes % (manual) 16 (10.0-50.0); Macrocytosis Slight; Metamyelocytes % 1; Monocytes % (manual) 2 (0-12); Myelocytes % 2
[2025-03-08 23:01] LABS: Large Platelets FEW; Platelet Estimate Adequa
--- NOTE | 2025-03-08 23:09 | DVH ---
CHEST RADIOGRAPH Indication: intubation Technique: Single frontal view of the chest was obtained Comparison: XY CHEST XRAY 1 VIEW on DOS: 03/06/25, XY CHEST XRAY 1 VIEW on DOS: 01/31/25, XY CHEST PORTAB LE on DOS: 01/18/25 FINDINGS: Lines and Tubes: Endotracheal tube is in the anterior of the right mainstem bronchus recommend withdr awal 2-3 cm. Lungs: No focal consolidation. Pleura: No effusion. No pneumothorax. Cardiomediastinal contours: Marginal cardiomegaly. Bones: No acute osseous abnormality. IMPRESSION: 1. Endotracheal tube in the right mainstem bronchus recommend withdrawal 2-3 cm. 2. Marginal cardiomegaly HS:Y
--- NOTE | 2025-03-08 23:40 | DVH ---
CHEST RADIOGRAPH Indication: intubation Technique: Single frontal view of the chest was obtained COMPARISON: XY CHEST PORTABLE on DOS: 03/08/25, XY CHEST XRAY 1 VIEW on DOS: 03/06/25, XY CHEST XRAY 1 EW on DOS: 01/31/25, XY CHEST PORTABLE on DOS: 01/18/25, XY CHEST XRAY 1 VIEW on DOS: 12/25/24 FINDINGS/IMPRESSION: ETT has been pulled back with its tip now in satisfactory position approximately 3.5 cm above the car brynn. Otherwise stable with no new abnormality noted.
[2025-03-09] VITALS (103 sets, daily range): BP systolic 35–147; BP diastolic 24–102; PULSE 16–157; RESP 0–44; TEMP 97.9–99.6; O2SAT 59–100
[2025-03-09] LABS: Base Excess -13.9 mmol/L (-2.0-3.0)
[2025-03-09] MEDS: VASOPRESSIN 40 UNITS in D5W 5% 198 ML IV SCH (00:15)
[2025-03-09] MEDS: SODIUM BICARB 8.4% 50Meq/50ml SYR INJ ONE ×2 (00:33→00:48)
[2025-03-09] MEDS: SODIUM BICARB 8.4% 50Meq/50ml SYR Vial IV ONE ×3 (00:33→20:45)
[2025-03-09] MEDS: TRANEXAMIC ACID 10 ML ONE (00:36)
[2025-03-09] MEDS: OCTREOTIDE ACETATE 100 MCG/ML VL ONE (00:37)
[2025-03-09] MEDS ORDERED: MEROPENEM 2GM/ 250ML 250 ML IV ONE (01:00)
[2025-03-09] MEDS: TRANEXAMIC ACID 1,000 MG in SODIUM CHL 0.9% 100 ML IV ONE (01:02)
[2025-03-09] MEDS: OCTREOTIDE ACETATE 500 MCG in SODIUM CHL 0.9% 99 ML IV SCH (01:04)
[2025-03-09] MEDS: PANTOPRAZOLE 40mg/50ML NS AE 50 ML IV SCH (01:04)
--- NOTE | 2025-03-09 01:22 | DVH ---
CHEST RADIOGRAPH Indication: placement of central line Technique: Single frontal view of the chest was obtained COMPARISON: XY CHEST PORTABLE on DOS: 03/08/25, XY CHEST PORTABLE on DOS: 03/08/25, XY CHEST XRAY 1 VIEW on DOS: 03/06/25, XY CHEST XRAY 1 VIEW on DOS: 01/31/25, XY CHEST PORTABLE on DOS: 01/18/25 FINDINGS / IMPRESSION: Central line is not evident. ETT has further pulled back with its tip now approximately 4.5 cm above the jude. Otherwise stable with no new abnormality noted.
[2025-03-09] MEDS ORDERED: MEROPENEM 1GM IVPB 50 ML IV ONE ×2 (02:00→04:00)
[2025-03-09 02:12] LABS: Base Excess -10.1 mmol/L (-2.0-3.0)
[2025-03-09] MEDS: MIDAZOLAM DRIP 50 mg/50mL 50 ML IV SCH (02:12)
--- NOTE | 2025-03-09 03:22 | DVHNC2 ---
Central Line Recorder of insertion practice: Community Service Officer Coordinator Occupation of mail inserter: Attending Physician Indication: Hypotension Room prepared for procedure: Yes Community Service Officer Coordinator performed hand hygien: Yes Maximal sterile barrier precau: Mask/Eye shield, Sterile gown, Cap, Sterlie gloves, Large sterlie drape Skin Preparation: Chlorhexidine gluconate Skin preparation completely dr: Yes Insertion site: Left, Femoral Central line catheter type: [id number] dialysis Number of lumens: 3 Central line exchanged over a: No Antiseptic ointment applied to: No Post Assessment: Proper placement Informed consent obtained: Yes Risks/benefits/alt described: Yes Date of Service: March 09, 2025 Billing Provider: SERGIO MENDEZ MD Common Visit Codes: PROCEDURE ONLY Procedure Codes: [id number] NON-TUNNEL CV CATH MANPREET GARSIA RESIDENT March 09, 2025 03:22
--- NOTE | 2025-03-09 03:40 | RESUS ---
CODE ASSIST ASSESSSMENT Initial Information Code Assist Date: March 08, 2025 Code Assist Time: 22:04 Location of Arrest: [facility] Room # [address] LENNON Time Notified: 22:04 Time PMD returned call: 22:04 Situation Staff concerned/worried, speci: SaO2 <90 Situation comment: RNentered room to see patients nose bleeding from Left Nare. Gauze held to left nare. Pulse ox reading 93%. Patient began coughing, suction used. Coughing continued and then stopped. O2 sat dropping into the 60s. Background Background: 44 year old female presents to the ED on 02/25with chief complaint of painful bruising. Patient reports that during her admission 2-3 days ago at another hospital, she had a Armenta placed and stickers placed on both thighs. Patient relays that after discharge, she developed painful bruising to both thighs and she also has been experiencing non-associated lower back pain for the past 2 weeks. Patient nots her last drink was in December. Patient denies any N/V/D, abdominal pain, dizziness, itchiness, discharge, or bleeding. Pt has a past medical history of CHF, CKF, HTN, Liver. pt has increas altered mental status unable to take medications. Assessment Temperature (Fahrenheit): 99.4 Blood Pressure Systolic: 100 Blood Pressure Diastolic: 62 Respiratory Rate: 25 O2 Sat by Pulse Oximetry: 98 Bedside Blood Glucose: 125 Assessment comment: pt abtunded, with nasal bleeding, unable to protect airway. Recommendations/Interventions Medications and Responses : Route of Administration: IV Medication Comment: 2220 etomidate 20 mg iv 2221 rocuronium 40 mg iv Heart Rate: 116 EKG Rhythm: Sinus Tachycardia Blood Pressure Systolic: 171 Blood Pressure Diastolic: 113 Respiratory Rate: 14 O2 Sat by Pulse Oximetry: 95 Procedures: Accu check, CXR Portable, CMP, CBC, PT/PTT, Intubated Outcome Outcome: Transfer to ICU Follow up Report Follow up Report pt moved to overflow ICU in mobile lab technician critical care time 45 mins Team Members Team Members DR LENNON, DR OCONNRO,DR KRUGER, NACHO MEDINA RN HS, CLEO CRICKET COACH, PATTI RN, ELIANE RN, CHELSI RN Date of Service: March 09, 2025 Billing Provider: JULIO CESAR SHAVER MD Common Visit Codes: [id number] CARE 30-74 MIN NACHO JAUREGUI March 09, 2025 03:40 JULIO CESAR SHAVER MD March 09, 2025 17:02
[2025-03-09] MEDS: MEROPENEM 1GM IVPB 50 ML IV ONE (03:53)
[2025-03-09] MEDS: NOREPINEPHRINE 8 MG/250ML KIT 250 ML IV SCH (05:28)
[2025-03-09] MEDS: LACTULOSE 10g/15ml SOLN 473ML PR SCH (06:00)
[2025-03-09 06:17] LABS: Hematocrit 22.2 % (36.0-46.0)
[2025-03-09 06:22] LABS: Mean Corpuscular Hemoglobin 31.4 pg (28.0-32.0); Mean Corpuscular Hgb Conc. 31.7 g/dL (32.0-36.0); Mean Corpuscular Volume 99.2 fL (80.0-100.0); Platelet Count (auto) 166 10^3/uL (140-450); Red Blood Cells 2.24 10^6/uL (4.0-5.20); Red Cell Distribution Width 17.4 % (11.8-14.3)
[2025-03-09 06:29] LABS: Alanine Aminotransferase 36 U/L (7-40); Anion Gap 22 (5-15); Potassium 5.1 mmol/L (3.5-5.1)
[2025-03-09 06:31] LABS: BUN/Creatinine Ratio 20.6 (10.0-20.0)
[2025-03-09 06:37] LABS: Albumin 2.7 g/dL (3.2-4.8); Alkaline Phosphatase 346 U/L (46-116); Aspartate Aminotransferase 99 U/L (13-40); Bilirubin, Total 16.4 mg/dL (0.2-1.0); Calcium 7.6 mg/dL (8.7-10.4); Carbon Dioxide 16 mmol/L (20-31); Chloride 109 mmol/L (98-107); Glucose 108 mg/dL (74-106); Sodium 147 mmol/L (136-145); Total Protein 5.6 g/dL (5.7-8.2)
[2025-03-09 06:39] LABS: Blood Urea Nitrogen 109 mg/dL (9-23)
[2025-03-09 06:43] LABS: White Blood Cell 114.4 10^3/uL (4.4-10.8)
[2025-03-09 06:44] LABS: Basophils % (manual) 0 (0.0-2.0); Eosinophils % (manual) 0 (0-7); Promyelocytes % 0; Reactive Lymphocytes 0
[2025-03-09 06:47] LABS: INR 2.16 (0.9-1.15); Prothrombin Time 21.2 sec (9.3-11.8)
[2025-03-09 06:50] LABS: Partial Thromboplastin Time 82.2 SEC (24.5-34.5)
[2025-03-09 08:02] LABS: Base Excess -11.8 mmol/L (-2.0-3.0)
[2025-03-09 09:22] LABS: Band Neutrophils % (manual) 8; Blast Cells 2; Lymphocytes % (manual) 10 (10.0-50.0); Monocytes % (manual) 3 (0-12)
[2025-03-09 09:23] LABS: Anisocytosis Slight; Metamyelocytes % 2; Myelocytes % 6; Platelet Estimate Adequate; Target Cell FEW
[2025-03-09] MEDS ORDERED: LACTULOSE 20Gm/30ML SOLN PO SCH (10:00)
[2025-03-09] MEDS: POLYETHYLENE GLYCOL 17 GM PWDR PO SCH (10:00)
[2025-03-09] MEDS: NOREPINEPHRINE BITARTRATE 32 MG in SODIUM CHL 0.9% 218 ML IV SCH (10:17)
[2025-03-09] MEDS: fentaNYL Drip 2500mCg/250mlNS 250 ML IV SCH (11:07)
--- NOTE | 2025-03-09 11:13 | DVH ---
CHEST RADIOGRAPH Indication: sunil cathter right neck Technique: Single frontal view of the chest was obtained Comparison: XY CHEST XRAY 1 VIEW on DOS: 03/09/25, XY CHEST PORTABLE on DOS: 03/08/25, XY CHEST PORTABLE on DOS: 03/08/25, XY CHEST XRAY 1 VIEW on DOS: 03/06/25, XY CHEST XRAY 1 VIEW on DOS: 01/31/25 FINDINGS: Lines and Tubes: Right Sunil catheter with tip in the SVC. Endotracheal tube tip unchanged. Lungs: No focal consolidation. Pleura: No effusion. No pneumothorax. Cardiomediastinal contours: Unremarkable Bones: No acute osseous abnormality. IMPRESSION: Cardiomegaly with mild pulmonary edema
[2025-03-09] MEDS: PHENYLEPHRINE INJ 80 MG in SODIUM CHL 0.9% 242 ML IV SCH (11:38)
[2025-03-09] MEDS: HYDROCORTISONE SOD SUCC 100 MG/2ML INJ VIAL IV SCH (12:00)
--- NOTE | 2025-03-09 12:09 | DVHINCON2 ---
GI Consult Consult Note GI consult note Date of Consultation:03/09/2025 Chief Complaint:GIB Referring Physician:Dr Mason H&P: 44-year-old female presented to ER with complains of painful bruising on her legs. Patient is status post resuscitation at 3:40 a.m. Patient is intubated and sedated, history from chart and daughter and RN at bedside Patient has history of chronic alcohol use, per chart reports rare alcohol consumption with last drink in December Patient is on lactulose, with rectal tube with brown stool. No melena or red blood in stool Patient was seen by GI services during last admission, and had complete workup for hepatitis-B which was negative Past Medical History: CHF, CKF, HTN, Liver Past Surgical History: Cholecystectomy Social History: NO smoking, history heavy drinking ETOH Family History: Noncontributory per chart Review of Systems: As above Physical exam: General: Patient is intubated and sedated Chest: lung salcedo clear to auscultation Heart: RRR, no murmur Abdomen: Moderate-distended, +BS Extremities: Multiple sites of ecchymosis upper legs Labs: Test 03/08/25 04:57 Range/Units Serum Glucose 130 H 74-106 mg/dL Microbiology Date/Time Source Procedure Growth Status 02/25/25 18:00 Nose MRSA Screen - Final Complete 02/25/25 13:30 Blood Blood Culture - Final NO GROWTH AFTER 5 DAYS OF INCUBATION. Complete Imaging: Abdominal ultrasound 02/25/2025 IMPRESSION: 1. Normal exam of the abdomen. 2. Hepatomegaly with changes of steatosis. Liver measures 20.9 cm in length 3. Gallbladder is been surgically removed 4. Right and left kidneys within normal limits. 5. Spleen at the upper limits of normal at 11.9 cm Assessment: Alcohol liver cirrhosis Anemia Encephalopathy Coagulopathy Plan: Discussed with Dr. Schultz 2 units PRBC 1 unit FFP Vitamin K Continue Protonix Lactulose Octreotide Monitor labs We will continue to follow patient Thank you for this consult Date of Service: March 09, 2025 Billing Provider: SANJAY REDD Common Visit Codes: CONSULT ONLY Consultation Codes: [id number] CONSULT <60MIN SANJAY REDD March 09, 2025 12:09
[2025-03-09] MEDS ORDERED: EPINEPHrine HCL 250 ML IV SCH (12:40)
[2025-03-09] MEDS ORDERED: EPINEPHrine HCL 250 ML IV ONE (12:40)
[2025-03-09 12:46] LABS: Urine Bacteria None Seen /hpf (None Seen)
--- NOTE | 2025-03-09 12:53 | DVHPN2 ---
Progress Note Date Seen: March 09, 2025 Resident Creating Document: ELLE MARROQUIN RESIDENT Has the PT tested + for MRSA If YES, has PT been informed?: No Medical Necessity Reason Pt with a Central, PICC or Fol: No The following are medically ne: Flores Catheter Reason for flores catheter: Strict I&O Subjective Review of Systems Patient seen and examined at bedside. Yesterday, patient was sedated and intubated and transferred to the ICU. Today, the patient is currently in the following mechanical ventilatory settings: VT 400, if 20, FiO2 30%, PEEP 5.0 sat 98%. Upon my examination, the patient has generalized down this with scleral icterus, patient has very poor prognosis with bruising on lower extremities. Today, creatinine went up from 4.31 to 5.29, BUN 109. Sunil catheter was placed by primary team. Patient is scheduled for hemodialysis this afternoon which we are going to aim on removing at least 3 L of fluid. Patient's blood pressure is in the lower side requiring three vasopressors at this time and might require the addition of a 4th one. Total in's and out, in's of 1117 and out's of 150 cc for a positive balance of 967 cc. We will perform hemodialysis today but patient has very poor prognosis at this point, final treatment will be liver transplantation. ROS unable to be obtained due to patient's current status sedated and intubated. Objective vital signs Vital Sign Date Time Temp Pulse Resp B/P (MAP) Pulse Ox O2 Delivery O2 Flow Rate FiO2 03/09/25 11:30 151/90 03/09/25 11:22 109 31 99 30 03/09/25 10:54 99.4 99.4 03/09/25 05:53 Mechanical Ventilator+ 0 Total Intake and Output 03/08/25 03/08/25 03/09/25 15:00 23:00 07:00 Intake Total 1135.25 ml Output Total 100 ml 50 ml Balance -100 ml 1085.25 ml medications Current Medications Medications Dose Ordered Sig/Chris Route Start Time Stop Time Status Last Admin Dose Admin Vancomycin HCl 200 ml @ 200 mls/hr Q12HR IV 02/25/25 22:00 UNV Sodium Chloride 10 ml Q8HR IV 02/25/25 22:00 03/09/25 05:28 10 ML Sodium Bicarbonate 650 mg TID PO 02/26/25 14:00 03/07/25 06:01 650 MG Ursodiol 300 mg BID PO 02/26/25 10:00 03/06/25 22:09 300 MG Midodrine 10 mg TID@0600,1200,1800 PO 03/02/25 18:00 03/07/25 06:02 10 MG Cefepime HCl 50 ml @ 12.5 mls/hr DAILY IV 03/07/25 10:00 03/09/25 11:07 12.5 MLS/HR Polyethylene Glycol 17 gm DAILY PO 03/09/25 10:00 Pantoprazole Sodium 50 ml @ 10 mls/hr Q5H IV 03/09/25 00:15 03/09/25 10:25 10 MLS/HR Octreotide Acetate 500 mcg/ Sodium Chloride 100 ml @ 10 mls/hr Q10H IV 03/09/25 00:15 03/09/25 09:35 10 MLS/HR Lactulose 300 ml Q6HR GA 03/09/25 06:00 03/09/25 09:36 300 ML Vasopressin 40 units/Dextrose 200 ml @ 60 mls/hr Q3H20M IV 03/09/25 00:15 03/09/25 11:30 60 MLS/HR Norepinephrine Bitartrate 250 ml @ 3.75 mls/hr Q24H IV 03/09/25 00:00 03/09/25 05:28 45 MLS/HR Midazolam HCl 50 ml @ 1 mls/hr Q24H IV 03/09/25 00:00 03/09/25 08:08 6 MLS/HR Fentanyl Citrate 250 ml @ 2.5 mls/hr Q24H IV 03/09/25 00:00 03/09/25 11:07 3.5 MLS/HR Phenylephrine HCl 80 mg/Sodium Chloride 250 ml @ 7.5 mls/hr Q24H IV 03/09/25 09:45 03/09/25 11:38 7.5 MLS/HR Norepinephrine Bitartrate 32 mg/ Sodium Chloride 250 ml @ 0.938 mls/ hr Q24H IV 03/09/25 09:45 03/09/25 10:17 14.063 MLS/HR Hydrocortisone Sodium Succinate 50 mg Q6HR IV 03/09/25 12:00 Examination Physical Examination General: Patient is sedated and intubated on the following parameters: VT 400, if 20, FiO2 30%, PEEP 5.0 sat 98%, patient has generalized jaundice with scleral icterus. HEENT: Generalized jaundice and scleral icterus. Respiratory/pulmonary: Clear lungs bilaterally, no associated crackles or wheezes. Cardiovascular: Normal heart sounds S1 and S2 with no associated murmurs Abdomen: Abdomen looks mild distended, there is firm sensation to palpation in the right upper quadrant consistent with a hepatomegaly. No additional masses palpated at the abdomen. Extremities: There is no peripheral edema present at the lower extremities. Skin: There is generalized jaundice, scleral icterus. There is also purplish decoloration on bilat lower extremities. Neurological: RAAS-3. laboratory and microbiology Laboratory Tests 03/09/25 05:48 Test 03/09/25 05:48 Range/Units Serum Glucose 108 H 74-106 mg/dL Microbiology Date/Time Source Procedure Growth Status 02/25/25 18:00 Nose MRSA Screen - Final Complete 02/25/25 13:30 Blood Blood Culture - Final NO GROWTH AFTER 5 DAYS OF INCUBATION. Complete Problem List/Assessment/Plan Problem List/Assessment/Plan Assessment/plan Acute kidney injury on chronic kidney disease likely in the setting of hepatorenal syndrome Acute severe decompensated liver cirrhosis causing hepatorenal syndrome Alcoholic liver cirrhosis Acute metabolic acidosis Chronic microcytic anemia, possibly due to alcohol Secondary hypercoagulable state from liver disease SIRS Hyperkalemia Possible leukemoid reaction Plan - MELD Na score is 36 points consistent with 65-66% estimated 90 day mortality. Child-Sandoval score 11 points. (poor prognosis) -hold IV fluids at this time -hold diuretics at this point -Placed sunil cath by primary team -Patient scheduled for HD aiming at least removal of 3L of fluids. patient might not tolerate HD currently on 4 pressors. -urine output decreased, today only 150 mL of output, positive balance of 967 cc in the last 24 hours -creatinine still worsening -Patient need liver transplant and poss kidney transplant as well. Very poor prognosis Goals of care discussed with the daughter at bedside for>25min Plan discussed with Dr. Pelletier Plan discussed with: Daughter, Other Dietary Evaluation Review Comments: 1. Continue Cardiac diet as tolerated 2. Given sub-par oral intakes, will add Ensure Enlive BID to optimize nutritional status (provides 350 kcal, 20 gm pro per carton) 3. Monitor wt trends and document edema if present Expected Outcomes/Goals: Improved nutritional status. ELLE MARROQUIN RESIDENT March 09, 2025 12:53
[2025-03-09 12:55] LABS: Urine Blood 3+ /uL (Negative); Urine Budding Yeast LOADED /hpf (None Seen); Urine Clarity Ex.Turbid (Clear); Urine Color Dark-Yellow (Yellow); Urine Mucus FEW (None Seen); Urine Protein, UAD 2+ (Negative); Urine Specific Gravity 1.028 (1.001-1.035); Urine Squamous Epithelial Cell FEW /hpf (<5); Urine Urobilinogen Normal (Negative); Urine WBC 206 /HPF (0-5); Urine WBC Clumps PRESENT /hpf (None Seen)
[2025-03-09] MEDS ORDERED: DOPamine 1600MCG/ML D5W 250 ML IV ONE (12:59)
[2025-03-09] MEDS: DOPamine 3200MCG/ML 250 ML IV SCH (13:00)
[2025-03-09] MEDS ORDERED: PHYTONADIONE (VIT K)10 MG/ML 1ML VIAL SUBCUT ONE (13:15)
[2025-03-09 13:51] LABS: Base Excess -13.1 mmol/L (-2.0-3.0)
[2025-03-09 15:13] LABS: Hematocrit 25.1 % (36.0-46.0); Hemoglobin 8.3 g/dL (12.2-16.2); Mean Corpuscular Hemoglobin 32.9 pg (28.0-32.0); Mean Corpuscular Volume 99.7 fL (80.0-100.0); Platelet Count (auto) 171 10^3/uL (140-450); Red Blood Cells 2.52 10^6/uL (4.0-5.20); Red Cell Distribution Width 17.2 % (11.8-14.3)
[2025-03-09 15:15] LABS: White Blood Cell 149.9 10^3/uL (4.4-10.8)
[2025-03-09] MEDS: PHYTONADIONE (VIT K)10 MG/ML 1ML VIAL SUBCUT ONE (15:15)
[2025-03-09 15:16] LABS: Basophils % (manual) 0 (0.0-2.0); Eosinophils % (manual) 0 (0-7); Promyelocytes % 0; Reactive Lymphocytes 0
[2025-03-09 15:33] LABS: Anion Gap 27.00001 (5-15); Chloride 105 mmol/L (98-107); Glucose 78 mg/dL (74-106); Potassium 4.9 mmol/L (3.5-5.1); Sodium 142 mmol/L (136-145)
[2025-03-09 15:35] LABS: Alanine Aminotransferase 42 U/L (7-40); Albumin 2.5 g/dL (3.2-4.8); Alkaline Phosphatase 621 U/L (46-116); Aspartate Aminotransferase 172 U/L (13-40); BUN/Creatinine Ratio 18.4 (10.0-20.0); Bilirubin, Total 14.8 mg/dL (0.2-1.0); Blood Urea Nitrogen 70 mg/dL (9-23); Total Protein 5.3 g/dL (5.7-8.2)
[2025-03-09 15:36] LABS: Carbon Dioxide < 10 mmol/L (20-31)
[2025-03-09 16:23] LABS: Band Neutrophils % (manual) 11; Blast Cells 2; Lymphocytes % (manual) 21 (10.0-50.0); Metamyelocytes % 2; Monocytes % (manual) 2 (0-12); Myelocytes % 2
[2025-03-09 16:24] LABS: Anisocytosis Slight; Platelet Estimate Adequate; Target Cell FEW
[2025-03-09] MEDS: ALBUMIN 25% 100 ML IV ONE (16:48)
--- NOTE | 2025-03-09 17:03 | DVHPNRES ---
Progress Note Date Seen: March 09, 2025 Resident Creating Document: TAZ GARCIA RESIDENT Has the PT tested + for MRSA If YES, has PT been informed?: No Medical Necessity Reason Pt with a Central, PICC or Fol: No The following are medically ne: Flores Catheter Reason for flores catheter: Strict I&O Subjective Review of Systems Patient is a female was recently hospitalized for generalized weakness, melena, fever, chills, confusion, was diagnosed with decompensated liver failure and was transferred through [facility] for liver transplant evaluation. Patient has an extensive past medical history including hypertension, alcoholic liver cirrhosis, likely hepatorenal syndrome, CKD, leukemoid reaction, gastritis, positive hepatitis-B surface antigen, EBV virus infection, HSV infection. Past medical history: Hypertension, alcoholic liver cirrhosis (last alcoholic drink on November 20, 2024), positive hepatitis B surface antigen, leukemoid reaction, CKD, gastritis, questionable acute viral hepatitis risk EBV, bicytopenia, ileus Surgical history: Cholecystectomy Family history: Father had prostate cancer Social history: Lives with family in [place]. Ex ethanol abuse (stopped intake of alcohol since November 20, 2024). Ex-smoker (2.5 pack year history of smoking). Denies current tobacco, alcohol and other drug abuse Allergies: Denies Home medication: Benazepril, sucralfate and Protonix, ivermectin, Lasix, spironolactone During last hospitalization, for elevated white count, patient normally immunophenotype big evaluation, no evidence of B-cell or T-cell lymphoproliferative disorder. HBV DNA was not detected, mucositis with improving. Liver function trended down compared to last hospitalization. Continue elevated bilirubin. Patient seen and examined at bedside Overnight patient has been intubated Had nosebleed, cough, desaturation leads to intubation Minimal urine output, less than 20 mL Review of systems can not be or drinking patient is intubated Objective vital signs Vital Sign Date Time Temp Pulse Resp B/P (MAP) Pulse Ox O2 Delivery O2 Flow Rate FiO2 03/09/25 16:27 98.2 112 36 140/71 98.2 03/09/25 16:22 95 30 03/09/25 08:00 Mechanical Ventilator+ 0 Total Intake and Output 03/08/25 03/08/25 03/09/25 15:00 23:00 07:00 Intake Total 1135.25 ml Output Total 100 ml 50 ml Balance -100 ml 1085.25 ml medications Current Medications Medications Dose Ordered Sig/Chris Route Start Time Stop Time Status Last Admin Dose Admin Vancomycin HCl 200 ml @ 200 mls/hr Q12HR IV 02/25/25 22:00 UNV Sodium Chloride 10 ml Q8HR IV 02/25/25 22:00 03/09/25 14:00 10 ML Sodium Bicarbonate 650 mg TID PO 02/26/25 14:00 03/07/25 06:01 650 MG Ursodiol 300 mg BID PO 02/26/25 10:00 03/06/25 22:09 300 MG Midodrine 10 mg TID@0600,1200,1800 PO 03/02/25 18:00 03/07/25 06:02 10 MG Cefepime HCl 50 ml @ 12.5 mls/hr DAILY IV 03/07/25 10:00 03/09/25 11:07 12.5 MLS/HR Polyethylene Glycol 17 gm DAILY PO 03/09/25 10:00 Pantoprazole Sodium 50 ml @ 10 mls/hr Q5H IV 03/09/25 00:15 03/09/25 15:19 10 MLS/HR Octreotide Acetate 500 mcg/ Sodium Chloride 100 ml @ 10 mls/hr Q10H IV 03/09/25 00:15 03/09/25 09:35 10 MLS/HR Lactulose 300 ml Q6HR AK 03/09/25 06:00 03/09/25 09:36 300 ML Vasopressin 40 units/Dextrose 200 ml @ 60 mls/hr Q3H20M IV 03/09/25 00:15 03/09/25 11:30 60 MLS/HR Midazolam HCl 50 ml @ 1 mls/hr Q24H IV 03/09/25 00:00 03/09/25 08:08 6 MLS/HR Fentanyl Citrate 250 ml @ 2.5 mls/hr Q24H IV 03/09/25 00:00 03/09/25 11:07 3.5 MLS/HR Phenylephrine HCl 80 mg/Sodium Chloride 250 ml @ 7.5 mls/hr Q24H IV 03/09/25 09:45 03/09/25 11:38 7.5 MLS/HR Norepinephrine Bitartrate 32 mg/ Sodium Chloride 250 ml @ 0.938 mls/ hr Q24H IV 03/09/25 09:45 03/09/25 10:17 14.063 MLS/HR Hydrocortisone Sodium Succinate 50 mg Q6HR IV 03/09/25 12:00 03/09/25 12:00 50 MG Dopamine HCl/ Dextrose 250 ml @ 7.388 mls/ hr Q24H IV 03/09/25 13:00 Examination General Appearance: Jaundiced, intubated and sedated Head Exam: Normal inspection Neck Exam: Normal inspection. Non-tender. Normal alignment Pulmonary/Respiratory: Chest non-tender. Clear bilateral breath sounds Cardiovascular/Chest: Regular rate and rhythm. No murmurs. No JVD. Peripheral Pulses: 2+ Radial (R). 2+ Radial (L). 2+ Pedal (R). 2+ Pedal (L) Abdominal Exam: Normal bowel sounds. Soft. Nontender. no ascitic fluid based on bed side pocus Ankle Exam: Negative ankle edema Lower extremities: Multiple ecchymoses, tenderness on palpation, consistent bilateral pedal pulse, capillary refill less than 2 seconds Neuro/Mental Status: sedated on vent. laboratory and microbiology Laboratory Tests 03/09/25 14:58 Test 03/09/25 14:58 Range/Units Serum Glucose 78 74-106 mg/dL Microbiology Date/Time Source Procedure Growth Status 02/25/25 18:00 Nose MRSA Screen - Final Complete 02/25/25 13:30 Blood Blood Culture - Final NO GROWTH AFTER 5 DAYS OF INCUBATION. Complete Problem List/Assessment/Plan Problem List/Assessment/Plan Acute metabolic encephalopathy Acute hepatic encephalopathy Acute uremic encephalopathy -Dialysis today -lactulose per rectum -On vent: sedation with versed and fentnyl Acute hypoxic respiratory failure, on mechanical ventilation -Hyperventilation -ABg: Ph 7.239, pao2 79, on vent O2 30-80 % -Abx change to meropenam and vancomycin Acute septic shock -IV antibiotic -IV vasopressors Levophed, vasopressin, phenylephrine, epi, dopamine -hydrocortisone 50 mg IV q.6 hr -pending blood culture Alcoholic liver cirrhosis MELD score 28 -CMP -Hold diuretics given worsening ZOILA -cardiac diet: Salt intake less than 2 g - Balancer at [place] and [facility], did not two patient given questionable compliance outpatient, sobriety and clinical condition Upper GI bleed due to above -octreotide, Protonix -GI consultation: FFP and vitamin K given secondary coagulopathy ZOILA likely hemodynamically mediated due to hepatorenal syndrome requiring hemodialysis -IV albumin, octreotide, midodrine -continue monitor kidney function: -continue monitor urine output -continue monitor electrolyte -strict I&O -Nephrology consulted:Octreotide , Iv fluid Metabolic acidosis, Non anion gap likely related to hepatorenal syndrome -underwent hemodialysis -IV bicarb as needed Severe protein malnutrition -albumin 2.6 -nutritional recommendation -advised on intake of lean protein, limit salt intake to reduce fluid retention and swelling. Acute on chronic anemia macrocytic likely due to alcoholism -continue monitoring H&H Acute on chronic encephalopathy with Hyperammonemia -lactulose 30 mg p.o. daily Leukemoid reaction -continue monitor vitals, patient needs an antibiotic for some reduction -Patient's underwent bone marrow biopsy on a subset of CD56 expression on myelomonocytic cell,no immunophenotypic evidence of a B-cell or T-cell lymphoproliferative disorder. During previous admission Right and left lower extremity cellulitis -continue IV antibiotic with cefepime -currently monitor kidney function given vancomycin toxicity Secondary coagulopathy -INR 1.60, continue monitor - 1 Unit FFP Generalized weakness -PT evaluation Ruled out acute hepatitis-B infection in previous admission Liver function normalized was given acyclovir for possible EBV hepatitis Obesity BMI 33.2 -patient counseled on lifestyle modifications such as regular exercise, diet recommendation as above. -dietary consultation PUD prophylaxis with Protonix DVT prophylaxis SCD, avoid anticoagulation given high risk for bleeding Patient has been intermittent, poor prognosis, on four pressors, underwent hemodialysis, only able to filter, positive balance at 43 mL, insertion of arterial line for blood pressure monitoring, insertion of Torey cath for dialysis access, Flexeril insertion, lactulose per rectal for hyperammonemia. Extensive length of discussion did with family including mother and daughter. Goals of care changed from full code to DNR. Discussed return 40 minutes. Poor prognosis, family has been aware. Critical care time spent greater than 78 minute[address] Plan discussed with Dr. Hankins Plan discussed with: Daughter, Other (RN) My Orders My Orders Orders - TAZ GARCIA RESIDENT Procedure Category Date Status Time Place Ng ORDERS 03/08/25 Transmitted 18:45 Polyethylene Glycol PHA 03/09/25 In Process 17g Powder (Miralax 10:00 Chest Xray 1 View XY 03/10/25 Logged 05:00 Chest Xray 1 View XY 03/11/25 Logged 05:00 Chest Xray 1 View XY 03/12/25 Logged 05:00 Chest Xray 1 View XY 03/13/25 Logged 05:00 Sodium Chl 0.9% PHA 03/09/25 In Process (Ns... 09:45 Sodium Chl 0.9% PHA 03/09/25 In Process (Ns... 09:45 Chest Xray 1 View XY 03/09/25 Resulted 10:29 Hydrocortisone PHA 03/09/25 In Process Succinate Inj 12:00 Dopamine 3200mcg/Ml PHA 03/09/25 In Process 13:00 Abg W/ Co-Ox RT 03/09/25 Logged 13:31 Abg W/ Co-Ox RT 03/09/25 Logged 16:00 Dietary Evaluation Review Comments: 1. Continue Cardiac diet as tolerated 2. Given sub-par oral intakes, will add Ensure Enlive BID to optimize nutritional status (provides 350 kcal, 20 gm pro per carton) 3. Monitor wt trends and document edema if present Expected Outcomes/Goals: Improved nutritional status. Date of Service: March 09, 2025 Billing Provider: KEISHA HANKINS MD Common Visit Codes: 66698-[id number] CARE 30-74 MIN TAZ GARCIA March 09, 2025 17:03 KEISHA HANKINS MD March 10, 2025 15:43
--- NOTE | 2025-03-09 17:25 | DVHNC2 ---
Arterial Puncture Indication: Assess acid-base status Procedure: Sterile Preparation Location: Right Radial Informed consent obtained: Yes Risks/benefits/alt described: Yes Central Line Recorder of insertion practice: Preventive Medicine Officer Occupation of paper inserter: Name of paper inserter (Dr Garcia) Indication: Other Room prepared for procedure: Yes Preventive Medicine Officer performed hand hygien: Yes Maximal sterile barrier precau: Mask/Eye shield, Sterile gown Skin Preparation: Chlorhexidine gluconate, Providine iodine Insertion site: Right, Internal jugular Central line catheter type: Dialysis non-tunneled Number of lumens: 2 Central line exchanged over a: No Antiseptic ointment applied to: No Post Assessment: Proper placement, No Pneumothorax Informed consent obtained: Yes Risks/benefits/alt described: Yes Notes DESCRIPTION OF PROCEDURE IN DETAIL: The patient was lying in the Trendelenburg position with head turned 30 degrees away from the insertion site. The skin was thoroughly sponged with chlorhexidine and allowed to dry. All persons involved were shielded with hair nets, face masks and sterile gowns. With sterile-gloved hands the right neck area was draped with the large disposable sterile field provided in the pre-manufactured kit. The skin and subcutaneous tissues superficial to the RIGHT internal jugular vein were anesthetized with 2 mL of 1% lidocaine. The RIGHT internal jugular vein was identified on ultrasound from the angle of the mandible down into the supraclavicular fossa using the linear ultrasound probe in the transverse orientation. The carotid artery was identified and avoided utilizing color-flow. The internal jugular vein was then placed in the center of the ultrasound field and compressed for patency. A movement artifact was identified as the needle was advanced through the skin and advanced toward the vessel. A real time hyperechoic signal revealed visualization of vascular needle entry into the lumen as blood was noted to flashback in the syringe. The needle was then held in place while the guide wire was advanced. The needle was then removed. Direct visualization of guide wire location within the vein was noted on ultrasound indicating proper placement and was document in the electronic medical record chart. A skin dilator was advanced over the guidewire and removed, and the Torey dialysis catheter was then advanced over the guide wire into proper position. The guide wire was removed and discarded. The ports were aspirated which showed good blood return and then carefully flushed with normal saline. The catheter was stabilized and sutured to the skin with 2-0 silk at 2 anchor points. A sterile bio-patch and dressing was placed over the catheter, including the insertion site. The patient tolerated the procedure well. A chest x-ray was ordered for position confirmation. Post-procedure chest x-ray reviewed, no pneumothorax. Date of Service: March 09, 2025 Billing Provider: KEISHA CLAUDIO MD Common Visit Codes: PROCEDURE ONLY Procedure Codes: 55252-HMVRCR NON-TUNNEL CV CATH, [id number] LINE TAZ GARCIA RESIDENT March 09, 2025 17:24 KEISHA CLAUDIO MD March 10, 2025 15:44
[2025-03-09 19:29] LABS: Base Excess -23.2 mmol/L (-2.0-3.0)
[2025-03-09] MEDS ORDERED: SODIUM BICARB 8.4% 50Meq/50ml SYR INJ ONE (19:43)
[2025-03-09] MEDS ORDERED: SODIUM BICARB 50mEq/50ml Vial 50 ML in SOD CHL 0.45% 1,000 ML IV SCH (19:45)
[2025-03-09] MEDS ORDERED: SODIUM BICARB 8.4% 50Meq/50ml SYR Vial IV ONE (19:45)
[2025-03-09] MEDS: EPINEPHrine HCL INJECTION 16 MG in D5W 5% 234 ML IV SCH (19:50)
[2025-03-09 20:20] LABS: Hematocrit 23.2 % (36.0-46.0); Mean Corpuscular Hemoglobin 30.7 pg (28.0-32.0); Mean Corpuscular Hgb Conc. 29.9 g/dL (32.0-36.0); Mean Corpuscular Volume 102.7 fL (80.0-100.0); Platelet Count (auto) 79 10^3/uL (140-450); Red Blood Cells 2.26 10^6/uL (4.0-5.20); Red Cell Distribution Width 18.7 % (11.8-14.3)
[2025-03-09 20:22] LABS: Anion Gap 28.00001 (5-15); Chloride 104 mmol/L (98-107); Hemoglobin 6.9 g/dL (12.2-16.2); Sodium 142 mmol/L (136-145); White Blood Cell 131.4 10^3/uL (4.4-10.8)
[2025-03-09 20:23] LABS: Basophils % (manual) 0 (0.0-2.0); Promyelocytes % 0; Reactive Lymphocytes 0
[2025-03-09 20:25] LABS: BUN/Creatinine Ratio 18.4 (10.0-20.0)
[2025-03-09 20:34] LABS: Alkaline Phosphatase 483 U/L (46-116); Aspartate Aminotransferase 678 U/L (13-40); Blood Urea Nitrogen 76 mg/dL (9-23)
[2025-03-09 20:35] LABS: Alanine Aminotransferase 82 U/L (7-40); Albumin 2.7 g/dL (3.2-4.8); Bilirubin, Total 13.1 mg/dL (0.2-1.0); Calcium 7.8 mg/dL (8.7-10.4); Potassium 7.6 mmol/L (3.5-5.1)
[2025-03-09 20:36] LABS: Carbon Dioxide < 10 mmol/L (20-31); Glucose 28 mg/dL (74-106)
[2025-03-09] MEDS ORDERED: ALBUTEROL SULF 2.5 MG/0.5ML(0.5%) NEB SOLN NEB ONE (20:45)
[2025-03-09] MEDS ORDERED: InsuLIN REG 1unit/0.01ml Soln (100units/ml) IV ONE (20:45)
[2025-03-09] MEDS ORDERED: DEXTROSE (50%) 50ML SYRG IV ONE ×2 (20:45)
[2025-03-09] MEDS ORDERED: SODIUM BICARB 50mEq/50ml Vial 150 ML in SOD CHL 0.45% 1,000 ML IV SCH (20:45)
[2025-03-09] MEDS ORDERED: CALCIUM GLUC 1,000mg/50ml-NS 50 ML IV ONE (20:45)
[2025-03-09] MEDS ORDERED: SODIUM BICARB 8.4% 50Meq/50ml SYR INJ IV ONE (20:45)
[2025-03-09] MEDS ORDERED: DEXTROSE 50% SYRINGE 50 ML IV ONE (20:50)
[2025-03-09] MEDS ORDERED: EPOETIN ALFA-EPBX 10,000 UNIT/1ML VIAL SC ONE (21:00)
[2025-03-09 21:56] LABS: Band Neutrophils % (manual) 7; Blast Cells 2; Eosinophils % (manual) 1 (0-7); Lymphocytes % (manual) 13 (10.0-50.0); Metamyelocytes % 3; Monocytes % (manual) 2 (0-12); Myelocytes % 3
[2025-03-09 21:57] LABS: Anisocytosis Slight; Macrocytosis Slight; Platelet Estimate Decreased
[2025-03-09] MEDS ORDERED: ATROPINE SULF 1 MG/10ml SYR IV ONE (22:02)
--- NOTE | 2025-03-09 23:37 | RESUS ---
YUSUF FOSTER ASSESSSMENT History of Events History of Events: Pt admitted on 02/25/25 for bilateral upper thigh cellulitis, CKD, and elevated bilirubin to M/S. Pt upgraded to ICU on 03/09/25 s/p intubation. Pt heart rate began to drop with widened QRS. Yusuf foster called. Initial Information Date: March 09, 2025 Time: 20:45 Location of Arrest: ICU ([place]) Arrest Witnessed: Yes Pre-Hospital Care: Pre-Code Care (inpatient) Type of arrest: Cardiac, Respiratory, Adult Spontaneous Respirations: No Pulse Present: No Monitoring: ECG, Pulse Oximetry, Telemetry Crash Cart Opened and Supplies: Yes Comment: Pt chemical code per ICU propellant charge zone assembler Sona Mederos and primary RN Allyson Carlos Airway Ventilation Breathing at Onset: Assisted Oxygen Delivery Method: Ambu-Bag Artificial Ventilation: Bag/Endo tube Intubation Size: 8.0 cuffed Intubated orally: Yes Intubated Nasaly: No Tube secured at: 20 (cm @ lip) Comments: Pt was previously intubated prior to code Circulation Circulation #1: Time: 20:45 Pulse Rate (adult): 0 Blood Pressure Systolic: 0 Blood Pressure Diastolic: 0 Circulation Comment: Asystole Circulation #2: Time: 20:47 Pulse Rate (adult): 0 Blood Pressure Systolic: 0 Blood Pressure Diastolic: 0 Circulation Comment: Asystole Circulation #3: Time: 20:49 Pulse Rate (adult): 0 Blood Pressure Systolic: 0 Blood Pressure Diastolic: 0 Circulation Comment: Asystole Circulation #4: Time: 20:51 Pulse Rate (adult): 0 Blood Pressure Systolic: 0 Blood Pressure Diastolic: 0 Circulation Comment: Asystole Circulation #5: Time: 20:53 Pulse Rate (adult): 0 Blood Pressure Systolic: 0 Blood Pressure Diastolic: 0 Circulation Comment: Asystole Circulation #6: Time: 20:55 Pulse Rate (adult): 0 Blood Pressure Systolic: 0 Blood Pressure Diastolic: 0 Circulation Comment: Asystole Circulation #7: Time: 20:57 Pulse Rate (adult): 0 Blood Pressure Systolic: 0 Blood Pressure Diastolic: 0 Circulation Comment: Asystole; TOD Procedure - IV Procedure - IV : IV Side: Left IV Location: Upper Arm Anterior IV Catheter Type: Mid-line Comment Midline placed prior to code Medications & Response Medications and Responses #1: Medication Time: 20:46 ADULT Medications Given ADULT: Epinephrine 1 mg, Atropine 1 mg Route of Administration: IV Heart Rate: 0 EKG Rhythm: Asystole Blood Pressure Systolic: 0 Blood Pressure Diastolic: 0 Respiratory Rate: 0 EKG Rhythm: Asystole Medications and Responses #2: Medication Time: 20:49 ADULT Medications Given ADULT: Epinephrine 1 mg Route of Administration: IV Heart Rate: 0 EKG Rhythm: Asystole Blood Pressure Systolic: 0 Blood Pressure Diastolic: 0 Respiratory Rate: 0 EKG Rhythm: Asystole Medications and Responses #3: Medication Time: 20:51 ADULT Medications Given ADULT: D50 (amp) Route of Administration: IV Medication Comment: FSBS 10 Heart Rate: 0 EKG Rhythm: Asystole Blood Pressure Systolic: 0 Blood Pressure Diastolic: 0 Respiratory Rate: 0 EKG Rhythm: Asystole Medications and Responses #4: Medication Time: 20:52 ADULT Medications Given ADULT: Epinephrine 1 mg Route of Administration: IV Heart Rate: 0 EKG Rhythm: Asystole Blood Pressure Systolic: 0 Blood Pressure Diastolic: 0 Respiratory Rate: 0 EKG Rhythm: Asystole Medications and Responses #5: Medication Time: 20:55 ADULT Medications Given ADULT: Epinephrine 1 mg Route of Administration: IV Heart Rate: 0 EKG Rhythm: Asystole Blood Pressure Systolic: 0 Blood Pressure Diastolic: 0 Respiratory Rate: 0 EKG Rhythm: Asystole Procedure - Central Venous Cat Central venous catheter site: Lt Femoral Comment: Placed prior to code Procedure - Armenta Catheter Urinary Catheter Type/Location: Uretheral (Armenta) Urine Appearance: Clear Urine Color: Dark Pavithra Armenta Catheter Secured: Yes Comment: Placed prior to code Nurses Notes [place] Coma Scale Eye Opening: None (1) [place] Coma Scale Verbal: None (1) [place] Coma Scale Motor: None (1) [place] Total: 3 Pupil Reaction: Non Reactive Bedside Blood Glucose: 10 Nurses Notes - Comment: Family remained at bedside throughout duration of code Time Code Ended Time Code Ended: 20:57 Post Arrest Status: Outcome of code: Unsuccessful Patient pronounced by: Dr Barton, Resident Time patient pronounced: 20:57 Family notified: Yes Code Team Present: Dr Barton - Resident; Sona Mederos RN - ICU Charge; Lima Pearce RN - Farrowing Manager; Allyson Carlos RN - Primary RN; Saúl López RT; Catalina Ballesteros RN; Becky Sumner RN Comment: critical care time 38 mins Date of Service: March 09, 2025 Billing Provider: JULIO CESAR SHAVER MD Common Visit Codes: [id number] CARE 30-74 MIN Lima Hunter March 09, 2025 23:37 JULIO CESAR SHAVER MD March 10, 2025 22:09
== END 2025-03-09 20:57 | DRG 720 ==
LOC: ER 11:03 → OVERFLOW 15:56 → EAST 17:42 → CATH ICU 03-08 23:33 → ICU WEST 03-09 06:11
PROVIDERS: ADMIT Student in an Organized Health Care Education/Training Program; ATTEND Student in an Organized Health Care Education/Training Program
PROC: 05HC33Z Insertion of Infusion Device into Left Basilic Vein, Percutaneous Approach (ICD-10-PCS; 2025-03-07)
PROC: B54NZZA Ultrasonography of Left Upper Extremity Veins, Guidance (ICD-10-PCS; 2025-03-07)
PROC: 0BH17EZ Insertion of Endotracheal Airway into Trachea, Via Natural or Artificial Opening (ICD-10-PCS; principal; 2025-03-08)
PROC: 5A1935Z Respiratory Ventilation, Less than 24 Consecutive Hours (ICD-10-PCS; 2025-03-08)
PROC: 06HY33Z Insertion of Infusion Device into Lower Vein, Percutaneous Approach (ICD-10-PCS; 2025-03-09)
PROC: 03HY32Z Insertion of Monitoring Device into Upper Artery, Percutaneous Approach (ICD-10-PCS; 2025-03-09)
PROC: 02HV33Z Insertion of Infusion Device into Superior Vena Cava, Percutaneous Approach (ICD-10-PCS; 2025-03-09)
PROC: B548ZZA Ultrasonography of Superior Vena Cava, Guidance (ICD-10-PCS; 2025-03-09)
PROC: 30233K1 Transfusion of Nonautologous Frozen Plasma into Peripheral Vein, Percutaneous Approach (ICD-10-PCS; 2025-03-09)
PROC: 30233N1 Transfusion of Nonautologous Red Blood Cells into Peripheral Vein, Percutaneous Approach (ICD-10-PCS; 2025-03-09)
DX: A41.9 Sepsis, unspecified organism (principal); K76.7 Hepatorenal syndrome; N17.0 Acute kidney failure with tubular necrosis; R65.21 Severe sepsis with septic shock; G93.41 Metabolic encephalopathy; E43 Unspecified severe protein-calorie malnutrition; K72.10 Chronic hepatic failure without coma; D68.69 Other thrombophilia; E87.21 Acute metabolic acidosis; I13.0 Hypertensive heart and chronic kidney disease with heart failure and stage 1 through stage 4 chronic kidney disease, or unspecified chronic kidney disease; L03.115 Cellulitis of right lower limb; Z66 Do not resuscitate; L03.116 Cellulitis of left lower limb; L03.114 Cellulitis of left upper limb; D72.823 Leukemoid reaction; E66.9 Obesity, unspecified; F10.20 Alcohol dependence, uncomplicated; I50.9 Heart failure, unspecified; K76.82 Hepatic encephalopathy; K70.31 Alcoholic cirrhosis of liver with ascites; E87.5 Hyperkalemia; D50.9 Iron deficiency anemia, unspecified; T36.8X5A Adverse effect of other systemic antibiotics, initial encounter; D53.9 Nutritional anemia, unspecified; N18.30 Chronic kidney disease, stage 3 unspecified; K92.2 Gastrointestinal hemorrhage, unspecified; Z68.33 Body mass index [BMI] 33.0-33.9, adult; Z79.2 Long term (current) use of antibiotics; Z79.899 Other long term (current) drug therapy; Z90.49 Acquired absence of other specified parts of digestive tract; Z83.3 Family history of diabetes mellitus; Z82.5 Family history of asthma and other chronic lower respiratory diseases; Y92.89 Other specified places as the place of occurrence of the external cause
CPT/HCPCS: 36415; 36600; 71045; 72131; 72192; 73700; 76700; 76775; 80048; 80053; 80202; 81001; 82105; 82140; 82270; 82306; 82550; 82570; 82805; 82962; 83605; 83735; 83970; 84100; 84156; 84300; 85007; 85027; 85610; 85730; 86850; 86900; 86901; 86920; 87040; 87070; 87081; 87205; 90935; 93005; 94002; 94003; 96361; 96365; 97110; 97116; 97163; 97530; 99291; G0378; J0171; J1265; J1815; J2185; J2470; J2543; J3430; J7060; P9047